=== PATIENT | female | born 1990 | race Caucasian/White ===

== ENCOUNTER → 2017-11-12 09:11 | Outpatient (POV) | payer MEDICAID, SELFPAY | PROVIDERS: Visit Provider Otolaryngology | DX: Z00.00 Encounter for general adult medical examination without abnormal findings (principal) ==

== ENCOUNTER → 2018-04-29 10:28 | Outpatient (CLI) | payer MEDICAID, SELFPAY ==
--- NOTE | 2018-04-29 10:31 | US_ITS ---
US transvaginal HISTORY: Dysfunctional uterine bleeding, irregular periods ITS.REASON: DUB ORDERING PHYSICIAN: Mayuri Diego PATIENT AGE: 27 years Comparison: None FINDINGS: The uterus is 10 x 5 x 6 cm. The endometrium is thickened at 1.5 cm. There are small nabothian cysts noted measuring up to 9 mm. Small cystic areas present within the endometrium nonspecific measuring 3 mm. Right ovary is 3.6 x 2.2 cm. Blood flow is present within the right ovary. There are some small follicles present. The left ovary is not identified. No obvious adnexal mass. Minimal amount of cul-de-sac fluid. IMPRESSION: 1. Thickened endometrium with a tiny cystic area within the endometrium etiology indeterminate. Suggest correlation with test to assure this is not represent a very early gestational sac. 2. Minimal cul-de-sac fluid. The left ovary is not demonstrated.
== END ==
PROVIDERS: Family Provider Family Medicine; PCP Family Medicine; Visit Provider Nurse Practitioner Family
DX: N92.6 Irregular menstruation, unspecified (principal)
CPT/HCPCS: 76830

== ENCOUNTER → 2018-06-10 12:00 | Outpatient (CLI) | payer MEDICAID, SELFPAY ==
--- NOTE | 2018-06-10 12:05 | CT_ITS ---
CT abdomen pelvis wo con CLINICAL INDICATION: ITS.REASON: RIGHT FLANK PAIN, DYSURIA, GROSS HEMATURIA ORDERING PHYSICIAN: Mayuri Diego PATIENT AGE: 27 years COMPARISON: 05/25/2017 TECHNIQUE: Axial images obtained with sagittal and coronal reformats. All CT scans at the facility use one or more dose reduction, viz: automated exposure control, ma/kV adjustment per patient size (including targeted exams where dose is matched to indication, i.e. head), or iterative reconstruction technique. PROCEDURE: Oral Contrast: None IV Contrast: None . FINDINGS: No acute finding in the lung bases. Prior cholecystectomy without ductal dilatation. The liver, spleen, adrenal glands, and pancreas have an unremarkable unenhanced CT appearance. No renal or ureteral calculi. No obvious renal mass. No hydronephrosis. The urinary bladder is nondistended without evidence of stones. No intestinal obstruction or free air. Unremarkable appendix. There is minimal infiltration of the mesenteric fat anterior to the descending colon on image #76 and may be due to an area of prior fat necrosis/inflammation of questionable clinical significance. No evidence of diverticulitis. The uterus is anteverted with mild prominence of the endometrial hypodensity. This may be better evaluated with ultrasound. No acute bony anomalies. IMPRESSION: 1. No evidence of renal or ureteral calculi or hydronephrosis. 2. Anteverted uterus with prominent hypodensity of the endometrium. This may be better evaluated with pelvic ultrasound. Previous ultrasound of 04/29/2018. Demonstrated thickened endometrium.
[2018-06-10 12:33] LABS: Urine Pregnancy, HCG Qual. Negative (Negative)
== END ==
PROVIDERS: PCP Nurse Practitioner Family; Visit Provider Nurse Practitioner Family
DX: R10.9 Unspecified abdominal pain (principal); R30.0 Dysuria; R31.0 Gross hematuria; Z32.00 Encounter for pregnancy test, result unknown
CPT/HCPCS: 74176; 81025

== ENCOUNTER → 2018-10-13 15:10 | Outpatient (CLI) | payer MEDICAID, SELFPAY ==
[2018-10-13 16:14] LABS: Basophils % 0.2 % (0.1-2.0); Eosinophils # 0.1 K/mm3 (0.0-0.4); Eosinophils % 1.4 % (0.1-12.0); Hematocrit 37.9 % (37.0-47.0); Hemoglobin 12.4 g/dL (12.2-16.2); Lymphocytes # 1.2 K/mm3 (0.7-4.5); Lymphocytes % 17.7 % (10-50); Mean Corpuscular HGB Conc 32.6 g/dL (31.8-35.4); Mean Corpuscular Hemoglobin 29.2 pg (27.0-31.2); Mean Corpuscular Volume 89.7 fl (81-99); Mean Platelet Volume 8.1 fl (7.4-10.4); Monocytes # 0.3 K/mm3 (0.1-1.0); Monocytes % 5.1 % (1.7-9.3); Neutrophils % 75.6 % (37.0-80.0); Platelet Count 218 K/mm3 (142-424); Red Blood Count 4.22 M/mm3 (4.20-5.40); Red Cell Distribution Width 13.1 % (11.5-17.5); White Blood Count 6.6 K/mm3 (4.8-10.8)
[2018-10-15 08:27] LABS: HIV Screen 4th Generation wRfx Non Reactive (Non Reactive)
[2018-10-15 08:43] LABS: Hepatitis B Surface Antigen Negative (Negative); Rubella Antibodies, IgG 4.57 index (Immune >0.99)
[2018-10-16 06:12] LABS: Rapid Plasma Reagin Ab Titer Non Reactive (NonRea<1:1)
== END ==
PROVIDERS: Visit Provider Obstetrics & Gynecology
DX: Z34.90 Encounter for supervision of normal pregnancy, unspecified, unspecified trimester (principal)
CPT/HCPCS: 36415; 84443; 85025; 86305; 86592; 86703; 86762; 86850; 87340; G0432

== ENCOUNTER → 2018-12-18 14:45 | Outpatient (CLI) | payer MEDICAID, SELFPAY ==
[2018-12-21 01:06] LABS: AFP Value 20.2 ng/mL (.); DIA MoM 1.28 (.); DIA Value 188.24 pg/mL (.); DSR (Second Trimester) 1 IN 1196 (.); Maternal Age At EDD 29.8 yr (.); OSBR Risk 1 IN 10000 (.); Results Report (.); hCG MoM 1.31 (.); hCG Value 43252 mIU/mL (.); uE3 MoM 1.11 (.); uE3 Value 0.82 ng/mL (.)
[2018-12-22 08:56] LABS: Gestat. Age Based On EDD (.)
== END ==
PROVIDERS: Visit Provider Obstetrics & Gynecology
DX: Z34.90 Encounter for supervision of normal pregnancy, unspecified, unspecified trimester (principal)
CPT/HCPCS: 36415; 82106

== ENCOUNTER → 2019-02-12 14:04 | Outpatient (CLI) | payer MEDICAID, SELFPAY ==
--- NOTE | 2019-02-12 14:24 | XR_ITS ---
XR chest 2V HISTORY: ITS.REASON: BRONCHITIS ORDERING PHYSICIAN: Ernesto Mitchell MD PATIENT AGE: 28 years COMPARISON: 02/26/2018 FINDINGS: Normal heart size. The mediastinum and right hilum are once again noted to be prominent and may be better evaluated with chest CT. Minimal atelectatic changes are present in the right mid lung. The remaining lungs are clear. No acute bony findings. IMPRESSION: 1. Prominent mediastinum and right hilum. Consider chest CT with contrast for further evaluation 2. Minimal right midlung atelectatic change
[2019-02-12 15:59] LABS: Glucose 1 Hour 122 mg/dL (74-106)
== END ==
PROVIDERS: PCP Family Medicine; Visit Provider Obstetrics & Gynecology
DX: Z34.90 Encounter for supervision of normal pregnancy, unspecified, unspecified trimester (principal); J40 Bronchitis, not specified as acute or chronic
CPT/HCPCS: 36415; 71046; 82951

== ENCOUNTER → 2019-02-20 11:39 | Outpatient (CLI) | payer MEDICAID, SELFPAY ==
[2019-02-20 12:11] LABS: Basophils % 0.2 % (0.1-2.0); Eosinophils # 0.1 K/mm3 (0.0-0.4); Eosinophils % 0.5 % (0.1-12.0); Hematocrit 30.1 % (37.0-47.0); Hemoglobin 9.7 g/dL (12.2-16.2); Lymphocytes # 1.8 K/mm3 (0.7-4.5); Lymphocytes % 15.7 % (10-50); Mean Corpuscular HGB Conc 32.2 g/dL (31.8-35.4); Mean Corpuscular Hemoglobin 28.7 pg (27.0-31.2); Mean Platelet Volume 8.5 fl (7.4-10.4); Monocytes # 0.5 K/mm3 (0.1-1.0); Neutrophils # 9.1 K/mm3 (1.8-7.8); Neutrophils % 79.6 % (37.0-80.0); Platelet Count 270 K/mm3 (142-424); Red Blood Count 3.38 M/mm3 (4.20-5.40); Red Cell Distribution Width 13.2 % (11.5-17.5); White Blood Count 11.4 K/mm3 (4.8-10.8)
[2019-02-20 12:51] LABS: Hemoglobin A1C 4.5 % (0.0-7.0)
[2019-02-20 15:01] LABS: Alanine Aminotransferase 22 U/L (12-78); Albumin Level 2.7 gm/dL (3.4-5.0); Albumin/Globulin Ratio 0.7 (1.1-1.8); Alkaline Phosphatase 93 U/L (46-116); Anion Gap 14.5 mEq/L (5-15); Aspartate Amino Transferase 15 U/L (15-37); Bilirubin,Total 0.3 mg/dL (0.2-1.0); Blood Urea Nitrogen 11 mg/dL (7-18); Calcium 8.6 mg/dL (8.5-10.1); Carbon Dioxide 22 mmol/L (21.0-32.0); Chloride 105 mmol/L (98-107); Chol/HDL Ratio 4.1 (1-3.5); Cholesterol 208 mg/dL (140-200); Creatinine,Serum 0.68 mg/dL (0.55-1.02); Estimated Glomerular Filt Rate 102 ml/min (>60); GFR (African American) 124 ML/MIN (>60); Globulin 3.7 gm/dl (1.3-3.2); Glucose 85 mg/dL (74-106); HDL Cholesterol 51 mg/dL (29-89); LDL Cholesterol 123 mg/dL (0-130); Potassium 4.5 mmoL/L (3.5-5.1); Sodium 137 mmol/L (136-145); Thyroid Stimulating Hormone 1.16 uIU/ml (0.358-3.740); Total Protein,Serum 6.4 gm/dL (6.4-8.2); Triglycerides 171 mg/dL (30-200); VLDL Cholesterol 34 mg/dL (0-40)
== END ==
PROVIDERS: Visit Provider Psychiatry & Neurology Psychiatry
DX: F32.9 Major depressive disorder, single episode, unspecified (principal)
CPT/HCPCS: 36415; 80053; 80061; 83036; 84443; 85025

== ENCOUNTER → 2019-03-17 11:16 | Outpatient (CLI) | payer MEDICAID, SELFPAY ==
--- NOTE | 2019-03-17 11:22 | XR_ITS ---
XR chest 2V HISTORY: ITS.REASON: COUGH ORDERING PHYSICIAN: Simi Fall APRN PATIENT AGE: 28 years COMPARISON: 02/12/2019 FINDINGS: The cardiomediastinal silhouette and pulmonary vascularity are within normal limits. There remains increased soft tissue density in the right paratracheal region at the azygos area consistent with a large lymph node similar to the previous exam. The lungs are clear without infiltrates, suspicious nodules, or pleural effusions. No acute bony abnormalities. IMPRESSION: Right paratracheal/azygous adenopathy not significant changed
== END ==
PROVIDERS: PCP Family Medicine; Visit Provider Nurse Practitioner
DX: R05 Cough (principal)
CPT/HCPCS: 71046

== ENCOUNTER → 2019-03-30 14:24 | Outpatient (CLI) | payer MEDICAID, SELFPAY ==
[2019-03-30 14:56] LABS: Basophils % 0.1 % (0.1-2.0); Eosinophils # 0.1 K/mm3 (0.0-0.4); Eosinophils % 0.7 % (0.1-12.0); Hemoglobin 9.6 g/dL (12.2-16.2); Lymphocytes # 1.2 K/mm3 (0.7-4.5); Lymphocytes % 16.6 % (10-50); Mean Corpuscular Hemoglobin 28.6 pg (27.0-31.2); Mean Corpuscular Volume 89.3 fl (81-99); Mean Platelet Volume 8.4 fl (7.4-10.4); Monocytes # 0.4 K/mm3 (0.1-1.0); Monocytes % 5.3 % (1.7-9.3); Neutrophils # 5.6 K/mm3 (1.8-7.8); Neutrophils % 77.3 % (37.0-80.0); Platelet Count 219 K/mm3 (142-424); Red Blood Count 3.36 M/mm3 (4.20-5.40); Red Cell Distribution Width 15.3 % (11.5-17.5); White Blood Count 7.2 K/mm3 (4.8-10.8)
== END ==
PROVIDERS: PCP Family Medicine; Visit Provider Obstetrics & Gynecology
DX: Z34.90 Encounter for supervision of normal pregnancy, unspecified, unspecified trimester (principal)
CPT/HCPCS: 36415; 85025; 93005

== ENCOUNTER → 2019-05-05 14:51 | Outpatient (CLI) | payer MEDICAID, SELFPAY | PROVIDERS: Visit Provider Obstetrics & Gynecology | DX: Z34.90 Encounter for supervision of normal pregnancy, unspecified, unspecified trimester (principal) | CPT/HCPCS: 86403 ==

== ENCOUNTER → 2019-05-05 15:22 | Outpatient (CLI) | payer MEDICAID, SELFPAY ==
[2019-05-05 16:49] LABS: Basophils % 0.2 % (0.1-2.0); Eosinophils % 0.5 % (0.1-12.0); Hematocrit 33.8 % (37.0-47.0); Hemoglobin 10.9 g/dL (12.2-16.2); Lymphocytes # 1.5 K/mm3 (0.7-4.5); Lymphocytes % 18.1 % (10-50); Mean Corpuscular HGB Conc 32.4 g/dL (31.8-35.4); Mean Corpuscular Hemoglobin 30.4 pg (27.0-31.2); Mean Corpuscular Volume 93.8 fl (81-99); Mean Platelet Volume 8.9 fl (7.4-10.4); Monocytes # 0.5 K/mm3 (0.1-1.0); Monocytes % 6.5 % (1.7-9.3); Neutrophils # 6.2 K/mm3 (1.8-7.8); Neutrophils % 74.7 % (37.0-80.0); Platelet Count 232 K/mm3 (142-424); Red Cell Distribution Width 15.3 % (11.5-17.5); White Blood Count 8.3 K/mm3 (4.8-10.8)
[2019-05-05 17:17] LABS: Anion Gap 12.7 mEq/L (5-15); Blood Urea Nitrogen 7 mg/dL (7-18); Calcium 9.4 mg/dL (8.5-10.1); Carbon Dioxide 25 mmol/L (21.0-32.0); Chloride 104 mmol/L (98-107); Creatinine,Serum 0.71 mg/dL (0.55-1.02); Estimated Glomerular Filt Rate 97 ml/min (>60); Free T4 (Free Thyroxine) 0.83 ng/dl (0.76-1.46); GFR (African American) 118 ML/MIN (>60); Glucose 72 mg/dL (74-106); Magnesium 1.7 mg/dL (1.4-2.2); Potassium 4.7 mmoL/L (3.5-5.1); Sodium 137 mmol/L (136-145); Thyroid Stimulating Hormone 1.91 uIU/ml (0.358-3.740)
== END ==
PROVIDERS: PCP Family Medicine; Visit Provider Physician Assistant
DX: R00.0 Tachycardia, unspecified (principal); R00.2 Palpitations; R06.02 Shortness of breath
CPT/HCPCS: 36415; 80048; 83735; 84439; 84443; 85025; 86403; 93306

== ENCOUNTER 2019-05-26 02:59 | Inpatient (IN) ==
[2019-05-26 05:39] LABS: Microscopic, Urine URINE MICROSCOPIC (MICROSCOPIC)
[2019-05-26 05:43] LABS: Basophils % 0.2 % (0.1-2.0); Eosinophils # 0.1 K/mm3 (0.0-0.4); Eosinophils % 0.9 % (0.1-12.0); Hemoglobin 11.3 g/dL (12.2-16.2); Lymphocytes # 2.2 K/mm3 (0.7-4.5); Lymphocytes % 23.1 % (10-50); Mean Corpuscular HGB Conc 33.2 g/dL (31.8-35.4); Mean Corpuscular Volume 93.4 fl (81-99); Mean Platelet Volume 8.4 fl (7.4-10.4); Monocytes # 0.5 K/mm3 (0.1-1.0); Monocytes % 5.3 % (1.7-9.3); Neutrophils # 6.7 K/mm3 (1.8-7.8); Neutrophils % 70.5 % (37.0-80.0); Platelet Count 209 K/mm3 (142-424); Red Blood Count 3.64 M/mm3 (4.20-5.40); Red Cell Distribution Width 15.3 % (11.5-17.5); White Blood Count 9.5 K/mm3 (4.8-10.8)
[2019-05-26 05:47] LABS: Appearance,Urine CLEAR (Clear); Bilirubin,Urine Negative (Negative); Blood, Urine Negative (Negative); Color,Urine YELLOW (Yellow); Glucose,Urine (UA) Negative (Negative); Ketones,Urine Negative (Negative); Leukocyte Esterase,Urine 1+ (Negative); Protein,Urine Negative (Negative); Specific Gravity, Urine 1.025 (1.005-1.030); Urobilinogen,Urine 0.2 EU/dl (0.2)
[2019-05-26 05:55] LABS: Amphetamine/Metha Screen,Urine Negative ng/mL (<1000); Barbiturates Screen,Urine Negative ng/mL (<200); Benzodiazepines Screen,Urine Negative ng/mL (<200); Cannabinoid Screen,Urine Negative ng/mL (<50); Cocaine Screen,Urine Negative ng/mL (<300); Methadone Screen,Urine Negative ng/mL (<300); Opiate Screen,Urine Negative ng/mL (<300); Phencyclidine Screen,Urine Negative ng/mL (<25)
[2019-05-26 05:58] LABS: Bacteria,Urine 2+ /lpf; Mucus,Urine 1+ /lpf
--- NOTE | 2019-05-26 06:37 | Progress Note ---
Internal Medicine - PN: Subj *Date: 05/26/19 *Time: 06:35 (This 28-year-old 8, para 3, AB 4 white female is admitted at 38-5/7 weeks with contractions. Her cervix is 90%, 5 cm, with the presenting vertex at -2 station. Amniotomy revealed clear fluid, and an internal monitor has been placed. She is on a beta-sharlene for a mild arrhythmia (metoprolol), but did not take it this morning. She is requesting an epidural, and will be augmented with intravenous Pitocin. The plan is for vaginal delivery. The kunal ent has signed for and requested a tubal ligation.) Exam Vital signs and Labs for Last 24 Hours: Temp Pulse Resp BP Pulse Ox 98.8 F 82 18 119/76 98 05/26/19 05:38 05/26/19 05:38 05/26/19 05:38 05/26/19 05:38 05/26/19 05:38 Laboratory Results - last 24 hr 05/26/19 05:05: Urine Color Yellow, Urine Appearance Clear, Urine pH 6.0, Ur Specific [place] 1.025, Urine Protein Negative, Urine Glucose (UA) Negative, Urine Ketones Negative, Urine Blood Negative, Urine Nitrate Negative, Urine Bilirubin Negative, Urine Urobilinogen 0.2, Ur Leukocyte Esterase 1+ A, Urine WBC 5-10, Ur Squamous Epith Cells 3-5, Urine Bacteria 2+, Urine Mucus 1+ 05/26/19 05:05: Urine Opiates Screen Negative, Urine Methadone Screen Negative, Ur Barbituates Screen Negative, Ur Phencyclidine Scrn Negative, Ur Amphetamines Screen Negative, U Benzodiazepines Scrn Negative, Urine Cocaine Screen Negative, U Marijuana (THC) Screen Negative 05/26/19 05:30: WBC 9.5, RBC 3.64 L, Hgb 11.3 L, Hct 34.0 L, MCV 93.4, MCH 31.0, MCHC 33.2, RDW 15.3, Plt Count 209, MPV 8.4, Neut % (Auto) 70.5, Lymph % (Auto) 23.1, [place] % (Auto) 5.3, Eos % (Auto) 0.9, Baso % (Auto) 0.2, Neut # (Auto) 6.7, Lymph # (Auto) 2.2, [place] # (Auto) 0.5, Eos # (Auto) 0.1, Baso # (Auto) 0.0 I & O for Last 24 hours: Intake & Output 05/23/19 05/24/19 05/25/19 05/26/19 11:59 11:59 11:59 11:59 Weight 208 lb
--- NOTE | 2019-05-26 07:07 | Progress Note ---
[facility] Anesthesia Checklist - Patient Identification Patient Identification: Arm Band, Verbal (Name & ) - Structural Data Admitted From: Home Planned Operative Procedure/s: Labor Epidural Consent for Planned Operative Procedure(s) Verified: Yes Verified Documents: Surgical Consent, History and Physical - Chart Verification Results Verified: CBC, BMP, UA - Additional verifications Patient : Yes Anesthesia Reactions: No - Airway Assessment C-Spine Mobility Assessed: Yes TMJ Mobility Assessed: Yes Dentition: Good Dentition - Neurological Assessment Level of Consciousness: Awake, Alert, Appropriate, Follows Commands Hx Seizures: No Numbness or tingling in extremities: No - Anesthesia Plan Anesthesia Risk discussed: Yes Anesthesia Plan: Verified ASA Class: II Anesthesia Type: Epidural [facility] History I have reviewed the patient's past medical history: Yes Medical History: Reports:: Anxiety, Depression, Gastroesophageal Reflux Disease( GERD), Migraine, Palpitations, Transient Ischemic Attacks (TIA) (due to migraines) Denies:: Diabetes Mellitus Type 1, Diabetes Mellitus Type 2, Gastrointestinal Bleed, Hypertension *Have you ever received a pneumonia vaccine?: No *Have you received a flu vaccine this season?: No Other Medical History: Reports: Anemia Anesthesia experience/problems:: No complications Laterality Cases: Bilateral: Myringotomy (Ear Tubes), Tonsillectomy Other Surgeries: Yes: Cholecystectomy, Other. No: Amputation: No Fractures: No - *Social History Smoking Status: Former smoker Alcohol Intake: never Alcohol Intake Frequency:: other Substance Use Type: former substance user *Occupational Status:: unemployed *Travel in 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: None Family Hx:: No significant family history Para: 3
--- NOTE | 2019-05-26 07:47 | Progress Note ---
Internal Medicine - PN: Subj *Date: 05/26/19 *Time: 07:46 ( cervix now 6 cm, 90%, with a presenting vertex at -1 station. Epidural is in situ and working well.) Exam Vital signs and Labs for Last 24 Hours: Temp Pulse Resp BP Pulse Ox 98.8 F 82 18 119/76 98 05/26/19 05:38 05/26/19 05:38 05/26/19 05:38 05/26/19 05:38 05/26/19 05:38 Laboratory Results - last 24 hr 05/26/19 05:05: Urine Color Yellow, Urine Appearance Clear, Urine pH 6.0, Ur Specific [place] 1.025, Urine Protein Negative, Urine Glucose (UA) Negative, Urine Ketones Negative, Urine Blood Negative, Urine Nitrate Negative, Urine Bilirubin Negative, Urine Urobilinogen 0.2, Ur Leukocyte Esterase 1+ A, Urine WBC 5-10, Ur Squamous Epith Cells 3-5, Urine Bacteria 2+, Urine Mucus 1+ 05/26/19 05:05: Urine Opiates Screen Negative, Urine Methadone Screen Negative, Ur Barbituates Screen Negative, Ur Phencyclidine Scrn Negative, Ur Amphetamines Screen Negative, U Benzodiazepines Scrn Negative, Urine Cocaine Screen Negative, U Marijuana (THC) Screen Negative 05/26/19 05:30: WBC 9.5, RBC 3.64 L, Hgb 11.3 L, Hct 34.0 L, MCV 93.4, MCH 31.0, MCHC 33.2, RDW 15.3, Plt Count 209, MPV 8.4, Neut % (Auto) 70.5, Lymph % (Auto) 23.1, Kay % (Auto) 5.3, Eos % (Auto) 0.9, Baso % (Auto) 0.2, Neut # (Auto) 6.7, Lymph # (Auto) 2.2, Kay # (Auto) 0.5, Eos # (Auto) 0.1, Baso # (Auto) 0.0 05/26/19 05:30: Blood Type O Negative, Antibody Screen Negative I & O for Last 24 hours: Intake & Output 05/23/19 05/24/19 05/25/19 05/26/19 11:59 11:59 11:59 11:59 Weight 208 lb
--- NOTE | 2019-05-26 08:41 | Progress Note ---
Internal Medicine - PN: Subj *Date: 05/26/19 *Time: 08:41 (Cervix now completely effaced, 7 to 8 cm, presenting vertex at 0 station.) Exam Vital signs and Labs for Last 24 Hours: Temp Pulse Resp BP Pulse Ox 98.8 F 82 18 119/76 98 05/26/19 05:38 05/26/19 05:38 05/26/19 05:38 05/26/19 05:38 05/26/19 05:38 Laboratory Results - last 24 hr 05/26/19 05:05: Urine Color Yellow, Urine Appearance Clear, Urine pH 6.0, Ur Specific [place] 1.025, Urine Protein Negative, Urine Glucose (UA) Negative, Urine Ketones Negative, Urine Blood Negative, Urine Nitrate Negative, Urine Bilirubin Negative, Urine Urobilinogen 0.2, Ur Leukocyte Esterase 1+ A, Urine WBC 5-10, Ur Squamous Epith Cells 3-5, Urine Bacteria 2+, Urine Mucus 1+ 05/26/19 05:05: Urine Opiates Screen Negative, Urine Methadone Screen Negative, Ur Barbituates Screen Negative, Ur Phencyclidine Scrn Negative, Ur Amphetamines Screen Negative, U Benzodiazepines Scrn Negative, Urine Cocaine Screen Negative, U Marijuana (THC) Screen Negative 05/26/19 05:30: WBC 9.5, RBC 3.64 L, Hgb 11.3 L, Hct 34.0 L, MCV 93.4, MCH 31.0, MCHC 33.2, RDW 15.3, Plt Count 209, MPV 8.4, Neut % (Auto) 70.5, Lymph % (Auto) 23.1, [place] % (Auto) 5.3, Eos % (Auto) 0.9, Baso % (Auto) 0.2, Neut # (Auto) 6.7, Lymph # (Auto) 2.2, [place] # (Auto) 0.5, Eos # (Auto) 0.1, Baso # (Auto) 0.0 05/26/19 05:30: Blood Type O Negative, Antibody Screen Negative I & O for Last 24 hours: Intake & Output 05/23/19 05/24/19 05/25/19 05/26/19 11:59 11:59 11:59 11:59 Weight 208 lb
--- NOTE | 2019-05-26 12:32 | Procedure Note ---
- Delivery Note Delivery Date:: 05/26/19 Delivery Time:: 12:12 Anesthesia Type: Epidural Was labor medically induced?: No Gestational age (weeks): 38 Infant delivered prior to 39 weeks?: Yes Justification for early elective delivery:: Active Labor Infant Gender: Male at 1 minute: 8 at 5 minutes: 9 Suction Catheter Type: Elida AF:: Clear Delivery Procedure:: This 28-year-old 8, now para 4, AB 4 white female was admitted at 38 5/7 weeks with irregular contractions at 4 cm of dilatation. She was ultimately augmented with intravenous Pitocin, in labor under labor epidural, which worked well. An amniotomy revealed clear fluid, and an internal monitor was placed. She went steadily to completion and delivered spontaneously, without an episiotomy, at 1212. There was no nuchal cord, nor was there any meconium. The baby's nasal and oropharynx were bulb suction, and the baby cried spontaneously on the perineum, as was delivered. The cord was clamped and cut, 3 vessels were noted to be within the cord, and cord blood was obtained. The cord pH is pending. The baby was an 8/9, 8 pound 7 ounce, 20 inch male infant, born at 1212. The baby was recovered in excellent condition. The placenta delivered spontaneously, intact, at 1214, making the total time in labor 7 hours 14 minutes. The uterus was inspected and was felt to be clean, and was involuting well, with IV Pitocin running. There were no lacerations. The rectovaginal septum was intact at the close of the procedure. The sponge and needle counts correct. The estimated blood loss was 350 cc. The patient tolerated the procedure well, and was recovered in excellent condition. Her blood type is O Rh-, and she will be worked up for Rh immunoglobulin eligibility. Her rubella titer is immune. She plans to bottlefeed. She will be undergoing a bilateral tubal ligation later today. Placental Delivery Description: Spontaneous
--- NOTE | 2019-05-26 13:49 | Operative Note ---
Date of procedure: 05/26/19 () Pre-op Diagnosis:: Desire for sterilization Post-op Diagnosis:: Desire for sterilization Procedure performed:: bilateral tubal ligation Surgeon:: Ernesto Mitchell MD FORGING MACHINE HAND:: Michael Gaxiola Anesthesia: epidural Estimated blood loss (mL): 10 Operative findings:: Normal pelvis Operative note:: After the patient was prepped and draped in usual fashion and epidural anesthesia was activated, a semielliptical subumbilical incision was made and taken down through fat and fascia to the peritoneum, which was entered with Metzenbaum scissors and extended bilaterally. The involuting uterus was encountered. Using a finger sweep, first the right tube, and then the left, was grasped with a Deny clamp and followed out to its fimbriated end, which appeared free. The base of the tented up mid segment of each tube was crushed with a Kia clamp, and ligated with 2-0 Vicryl. The intervening segment of each tube was excised with Metzenbaum scissors, and the stumps coagulated with the Bovie. There was no undue bleeding. The tubes were allowed to drop back into place, and the peritoneum was closed with a running unlocked suture of 2-0 Vicryl. The fascia was closed with a running unlocked suture of #1 Vicryl. The subcutaneous tissue was closed with a running unlocked suture of 2-0 Vicryl. The skin was closed with a subcuticular suture of 3-0 Vicryl, and appropriately dressed. The sponge and needle counts correct. Estimated blood loss was less than 10 cc. The patient tolerated procedure well, and was taken to PACU in excellent condition. Condition: stable Disposition: PACU Specimens:: Bilateral fallopian tube segments Complications:: None
--- NOTE | 2019-05-26 13:55 | Progress Note ---
[facility] Anesthesia Record Part I Intake, IV Amount: 1,000 Estimated blood loss (mL): 0 Urine output (mL): 0 Blood Pressure: 109/50 SaO2: 95 Pulse Rate: 83 Respiratory Rate: 12 Temperature: 97.5 F Patient is:: Awake, Stable Stable to PACU at:: 13:55
--- NOTE | 2019-05-26 13:55 | Progress Note ---
[facility] Anesthesia Record Part II Discharge Time: 14:25 Destination: Obstetric PACU nurse assessment reviewed?: Yes Patient Condition:: Good Anesthesia Complications:: None Swallowing reflex intact?: Yes Cyanosis?: No
--- NOTE | 2019-05-26 16:37 | Progress Note ---
Internal Medicine - PN: Subj *Date: 05/26/19 *Time: 16:37 (Day of delivery and postop tubal ligation. Patient is afebrile. Vital signs stable. Wound clean. Abdomen soft. Lochia normal. Uterine fundus involuting well. Impression: Stable.) Exam Vital signs and Labs for Last 24 Hours: Temp Pulse Resp BP Pulse Ox 97.9 F 88 19 112/78 99 05/26/19 14:35 05/26/19 14:35 05/26/19 14:35 05/26/19 14:35 05/26/19 14:35 Laboratory Results - last 24 hr 05/26/19 05:05: Urine Color Yellow, Urine Appearance Clear, Urine pH 6.0, Ur Specific [place] 1.025, Urine Protein Negative, Urine Glucose (UA) Negative, Urine Ketones Negative, Urine Blood Negative, Urine Nitrate Negative, Urine Bilirubin Negative, Urine Urobilinogen 0.2, Ur Leukocyte Esterase 1+ A, Urine WBC 5-10, Ur Squamous Epith Cells 3-5, Urine Bacteria 2+, Urine Mucus 1+ 05/26/19 05:05: Urine Opiates Screen Negative, Urine Methadone Screen Negative, Ur Barbituates Screen Negative, Ur Phencyclidine Scrn Negative, Ur Amphetamines Screen Negative, U Benzodiazepines Scrn Negative, Urine Cocaine Screen Negative, U Marijuana (THC) Screen Negative 05/26/19 05:30: WBC 9.5, RBC 3.64 L, Hgb 11.3 L, Hct 34.0 L, MCV 93.4, MCH 31.0, MCHC 33.2, RDW 15.3, Plt Count 209, MPV 8.4, Neut % (Auto) 70.5, Lymph % (Auto) 23.1, [place] % (Auto) 5.3, Eos % (Auto) 0.9, Baso % (Auto) 0.2, Neut # (Auto) 6.7, Lymph # (Auto) 2.2, [place] # (Auto) 0.5, Eos # (Auto) 0.1, Baso # (Auto) 0.0 05/26/19 05:30: Blood Type O Negative, Antibody Screen Negative 05/26/19 12:28: Cord ABG pH 7.34 L I & O for Last 24 hours: Intake & Output 05/24/19 05/25/19 05/26/19 09/18/19 11:59 11:59 11:59 11:59 Intake Total 1000 / 1000 Balance 1000 / 1000 Weight 208 lb
[2019-05-27 06:41] LABS: Hematocrit 28.3 % (37.0-47.0); Hemoglobin 9.3 g/dL (12.2-16.2)
--- NOTE | 2019-05-27 08:54 | Progress Note ---
Internal Medicine - PN: Subj *Date: 05/27/19 *Time: 08:53 Interval history: This is and postop day #1. The patient is afebrile. Vital signs stable. Wound clean. Abdomen soft. Lochia normal. Uterine fundus involuting well. Hemoglobin 9.3 g, but clinically stable. Impression: Stable. Exam Vital signs and Labs for Last 24 Hours: Temp Pulse Resp BP Pulse Ox 97.9 F 88 19 112/78 99 05/26/19 14:35 05/26/19 14:35 05/26/19 14:35 05/26/19 14:35 05/26/19 14:35 Laboratory Results - last 24 hr 05/26/19 12:28: Cord ABG pH 7.34 L 05/27/19 06:17: Hgb 9.3 L, Hct 28.3 L I & O for Last 24 hours: Intake & Output 05/24/19 05/25/19 05/26/19 05/27/19 11:59 11:59 11:59 11:59 Intake Total 1000 / 1000 Balance 1000 / 1000 Weight 208 lb Microbiology Reports for the Last 24 Hours: Microbiology 05/26/19 05:05 Urine,Clean Catch Urine Culture - Preliminary
[2019-05-27 16:26] VITALS: BP 111/63
--- NOTE | 2019-05-28 06:36 | Progress Note ---
Internal Medicine - PN: Subj *Date: 05/28/19 *Time: 06:35 (This is and postop day #2. The patient is afebrile. Vital signs stable. Wound clean. Abdomen soft. Lochia normal. She will be discharged today.) Exam Vital signs and Labs for Last 24 Hours: Temp Pulse Resp BP Pulse Ox 98.3 F 78 18 111/63 99 05/27/19 16:00 05/27/19 16:00 05/27/19 16:00 05/27/19 16:00 05/27/19 16:00 Laboratory Results - last 24 hr 05/27/19 06:17: Hgb 9.3 L, Hct 28.3 L I & O for Last 24 hours: Intake & Output 05/25/19 05/26/19 05/27/19 05/28/19 11:59 11:59 11:59 11:59 Intake Total 1000 / 1000 Balance 1000 / 1000 Weight 208 lb Microbiology Reports for the Last 24 Hours: Microbiology 05/26/19 05:05 Urine,Clean Catch Urine Culture - Preliminary
--- NOTE | 2019-05-28 06:39 | Discharge Summary ---
General - General Admission date:: 05/26/19 Discharge date: 05/28/19 (This 28-year-old 8, now para 4, AB 4 white female was admitted at 38-5/7 weeks with irregular contractions at 3 to 4 cm of dilatation. She labored under labor epidural, which worked well, and went steadily to completion, delivering spontaneously, without an episiotomy, at 1212 on 05/26/2019. The baby was an 8/9, 8 pound 7 ounce, 20 inch male infant, who is bottlefeeding, has been circumcised, and is done well. , the patient underwent a bilateral tubal ligation per her request, under epidural anesthesia, without complications. and postoperatively, the patient is done well. She is eating and ambulating, and has had a bowel movement. Her wound is clean. Her abdomen is soft. Her uterine fundus has involuted well. Her lochia is normal. She is not a smoker. Her hemoglobin on admission was 11.3 g; postoperatively it is 9.3 g, but she is clinically stable. She is discharged home on the second /postoperative day on iron and vitamins, and on Tylenol and Motrin as needed for pain. She is also given a prescription for Percocet 5/325 (#20), 1 p.o. q. 6 age as needed pain. She is given appropriate instructions as to diet, exercise, and wound care, and she is to return the office in 2 weeks for follow-up. Her blood type is O Rh-, but the baby is also O-, and therefore she is not a candidate for RhoGam. Her rubella titer is immune.) Objective Vital signs: Temp Pulse Resp BP Pulse Ox 98.3 F 78 18 111/63 99 05/27/19 16:00 05/27/19 16:00 05/27/19 16:00 05/27/19 16:00 05/27/19 16:00 Results Labs on day of discharge: Labs from last 24 hours 05/27/19 06:17 Hgb 9.3 L Hct 28.3 L Preliminary micro results at discharge 05/26/19 05:05 Urine Culture - Preliminary Urine,Clean Catch Discharge Plan - Patient Discharge Instructions DIET: advance to your usual diet Additional Instructions: NO HEAVY LIFTING OR STRENUOUS ACTIVITY NOTHING IN VAGINA FOR 6 WEEKS NO DRIVING WHILE TAKING PRESCRIPTION PAIN MEDICATION FOLLOW-UP WITH DR. PETERS IN 2 WEEKS Patient Instructions: Depression, Hemorrhage, [facility] Post Discharge Instructions - Follow up Plan Disposition: Home, Self-Nursing Home Medications: Home Medications Medication Instructions Recorded Confirmed Type multivitamin tablet 1 tab PO DAILY 05/05/19 05/26/19 History Bisoprolol Fumarate [Bisoprolol 5 mg PO DAILY 05/26/19 05/26/19 History 5mg Tablet] Omeprazole Magnesium [Prilosec OTC] 20 mg PO DAILY 05/26/19 05/26/19 History Buspirone HCl [Buspar 5mg tablet] 5 mg PO TID 05/27/19 05/27/19 History Ferrous Sulfate [Iron] 325 mg PO TID 05/27/19 05/27/19 History Fluoxetine HCl [Prozac] 10 mg PO DAILY 05/27/19 05/27/19 History Oxycodone HCl [OxyIR 5mg tablet] 5 mg PO Q6HP PRN #20 tab 05/28/19 Rx Prescriptions/Medication Reconciliation: New Oxycodone HCl [OxyIR 5mg tablet] 5 mg PO Q6HP PRN #20 tab PRN Reason: Moderate Pain Continued multivitamin tablet 1 tab PO DAILY Omeprazole Magnesium [Prilosec OTC] 20 mg PO DAILY Bisoprolol Fumarate [Bisoprolol 5mg Tablet] 5 mg PO DAILY Buspirone HCl [Buspar 5mg tablet] 5 mg PO TID Ferrous Sulfate [Iron] 325 mg PO TID Fluoxetine HCl [Prozac] 10 mg PO DAILY - Problem Reconciliation Problems Reviewed?: Yes
== END 2019-05-28 09:50 | disposition home or self-care (01) | DRG 798 ==
LOC: OB 04:49
PROVIDERS: ADMIT Obstetrics & Gynecology; ATTEND Obstetrics & Gynecology
CPT/HCPCS: 36415; 59025; 80305; 81001; 82800; 85014; 85018; 85025; 86850; 87086; 88302; C1758; S0077

== ENCOUNTER → 2019-09-22 12:03 | Outpatient (CLI) | payer OTHER, SELFPAY ==
--- NOTE | 2019-09-22 12:07 | XR_ITS ---
PROCEDURE: XR LUMBAR SPINE MIN 4V CLINICAL INDICATION: LOW BACK PAIN,LT SIDE SCIATICA COMPARISON: XR LUMBAR SPINE 2-3V from 07/11/2019 FINDINGS: Minimal lumbar curvature convex left. No fracture or dislocation. The disc spaces are well preserved. No lytic or blastic change. IMPRESSION: No change with no acute finding Dictated by: Vaibhav Rob MD 09/22/2019 13:42 Electronically signed by Vaibhav Rob MD in [place] 09/22/2019 13:42
== END ==
PROVIDERS: PCP Family Medicine; Visit Provider Nurse Practitioner Family
DX: M54.42 Lumbago with sciatica, left side (principal); M54.32 Sciatica, left side
CPT/HCPCS: 72110

== ENCOUNTER 2019-11-18 10:43 | Outpatient (RCR) | payer OTHER, SELFPAY ==
--- NOTE | 2019-11-18 11:52 | HMH.PTOPEV ---
PT Outpatient Evaluation Rehab PT Outpatient Evaluation Start: 11/18/19 11:09 Freq: Status: Active Protocol: Document 11/18/19 11:37 ALYALICIA (Rec: 11/18/19 11:51 HERMINIA [id number]) Electronically Signed By Toño Seay, PT 11/18/19 11:37 Outpatient Therapy Subjective History Subjective History Patient is a 29 year old female prensenting to outpatient PT with reports of acute LBP with BLE radicular symptoms L>R starting approx 1 month ago. Pt reports that she received an epidural injection during delivery and back pain started shortly after. Most recent imaging negative. Special tests indicate L upslip. Pt reports hx of CVA in 2004. Chief Complaint Pain Symptom Type Ache,Tingling,Shooting Symptoms Relieved By Rest/Positioning,Heat Prior Functional Limitations None Current Functional Limitations Lifting,Housework,Standing, Squatting,Recreation Activity, Walking,Bending/Stooping Symptom Description Constant but Variable Level of pain today (0-10) 4 Pain scale - at its best (0-10) 3 Pain scale - at its worst (0-10) 8 Lumbopelvic Eval Posture Thoracic Spine Posture Standing Position Increased Kyphosis Lumbar Spine Posture Standing Position Increased Lordosis Assistive device Assistive Devices None / NA Palapation tenderness left lumbar spinal tenderness Yes: 3/4 paraspinal tenderness Yes: buttock tenderness Yes: Accessory Movement L4 left L5 left S1 left Range of Motion Lumbar Spine Active Flexion Range of 74 Motion (degrees) Lumbar Spine Active Extension Range of 18 Motion (degrees) Left Lumbar Spine Lateral Flexion Active 32 Range of Motion (degrees) Right Lumbar Spine Lateral Flexion 39 Active Range of Motion (degrees) Lumbar Spine ROM Limitations Soft Tissue Tightness,Bony Restriction Manual Muscle Test Right Knee Extension Strength Grade 4 Good Knee Flexion Strength Grade 4 Good Hip Flexion Strength Grade 4 Good Hip Abduction Strength Grade 4 Good Ankle Dorsiflexion Strength Grade 4 Good Gastronemius/Soleus Strength Grade 4 Good Left Knee Extension Strength Grade 4- Good- Knee Flexion Strength Grade 4- Good- Hip Flexion Strength Grade
== END 2019-11-18 10:45 | disposition home or self-care (01) ==
LOC: PT 10:43
PROVIDERS: PCP Family Medicine; Visit Provider Nurse Practitioner Family
DX: M54.42 Lumbago with sciatica, left side (principal); M54.41 Lumbago with sciatica, right side
CPT/HCPCS: 97163

== ENCOUNTER → 2019-12-07 13:02 | Outpatient (POV) | payer OTHER, SELFPAY | PROVIDERS: PCP Family Medicine; Visit Provider Specialist | DX: M79.605 Pain in left leg (principal); M79.604 Pain in right leg; R20.2 Paresthesia of skin; R20.0 Anesthesia of skin | CPT/HCPCS: 95886; 95909 ==

== ENCOUNTER 2020-05-08 12:48 | Emergency (ER) | payer OTHER, SELFPAY ==
[2020-05-08 12:49] VITALS: BP 134/84; PULSE 80; RESP 16; TEMP 36.8; O2SAT 98; BMI 37.3
--- NOTE | 2020-05-08 13:02 | ECG_ITS ---
APPROVED REPORT Exam: Resting ECG HR:75 bpm ECG Measurements Heart Rate 75 AXES MO 148 P 55 QRSd 86 QRS 40 QT 382 T 37 QTc 426 <Conclusion> Normal sinus rhythm Normal ECG Electronically signed by : Adin Newby, 05/08/2020 19:46:27
--- NOTE | 2020-05-08 13:14 | HMH.EDGENADL ---
ED Disposition Clinical Impression: Viral upper respiratory infection Disposition: Home, Self-Care Condition on Discharge: Good Instructions: DI for Viral Upper Respiratory Infection -- Adult Additional Instructions: Tylenol or ibuprofen for pain or fever. Robitussin for cough. Off work for 2 days. Quarantine until COVID-19 test results known. Call the emergency department in 2 days for COVID-19 test result. additional instructions for UPPER RESPIRATORY INFECTION: See your physician if not improving in 3-4 days or if worsening. Rest and drink plenty of fluids. Return immediately if you have an uncontrollable fever greater than 104 degrees, difficulty breathing or shortness of breath, persistent vomiting, or inability to swallow. Referrals: Kulwinder Smiley MD [Primary Care Provider] - Forms: Work/School Release - Critical Care Critical Care Time: No Attestation: On 05/08/20, the high probability of a clinically significant, sudden or life threatening deterioration of the following system(s) required my full and direct attention, intervention and personal management. The time I documented below is in addition to time spent performing reported procedures but includes the following listed in this critical care notation. Medical Decision Making - Neel Inquiry Pt receiving controlled substance: No Vital Signs: 05/08/20 12:49 05/08/20 13:19 05/08/20 14:03 Temperature 98.3 F 98.3 F Temperature Source Oral Oral Pulse Rate 84 Pulse Rate [Right Radial] 80 84 Respiratory Rate 16 20 20 Blood Pressure 170/75 H Blood Pressure [Right Arm] 134/84 170/75 H Blood Pressure Mean [Right Arm] 100 106 Blood Pressure Source Automatic Cuff Blood Pressure Source [Right Arm] Manual Cuff/ Auscultation Blood Pressure Position Sitting Blood Pressure Position [Right Arm] Sitting 02 Sat by Pulse Oximetry 98 98 Oxygen Delivery Method Room Air Room Air Room Air Orders (Tests/Meds): ORDERS Category Date Time Status Covid-19 Nasal PCR Sendout [facility] 05/08/20 13:40 Received - Radiology Data #1 Image(s): Chest Image Reviewed: Yes I reviewed the patient's radiology image Preliminary Findings: Normal/NAD - ECG Data Tracing #1 EKG interpreted by Javy Pate MD: Rhythm: sinus Rate: 75 [place]: normal Ectopy: none Conduction: normal ST Segment Changes: none T Wave Changes: none Q Waves: none No evidence of acute ischemia or injury General Adult HPI - General Stated complaint: sore throat, cough, runny nose Time Seen by Provider: 05/08/20 13:22 - History of Present Illness HPI narrative: The day history of cough with clear sputum, tight chest, nasal burning and congestion, throat pain when she coughs. She has felt warm but has not taken her temperature. No known exposure to COVID-19 or other illnesses. She was tested negative for COVID-19 about a month ago because her child was sick, at that time she was not ill. - Related Data Home Medications Medication Instructions Recorded Confirmed Fluoxetine HCl [Prozac 20mg 20 mg PO DAILY 05/08/20 05/08/20 Capsule] Allergies Allergy/AdvReac Type Severity Reaction Status Date / Time penicillin G [PENICILLIN G] Allergy Mild I-RASH Verified 07/03/19 09:28 Iodinated Contrast Media Allergy Unknown Unknown Verified 07/03/19 09:28 [Iodinated Contrast Media - allergy Oral and] reaction Penicillins Allergy Unknown Unknown Verified 07/03/19 09:28 allergy reaction Pertussis Vaccines Allergy Unknown Unknown Verified 07/03/19 09:28 [PERTUSSIS VACCINES] allergy reaction [facility] History - Hepatitis A Screen Attestation statement:: This patient has been screened for Hepatitis A risk factors. I have reviewed the patient's past medical history: Yes Medical History: Reports:: Anxiety, Cerebrovascular Accident, Depression, Gastroesophageal Reflux Disease(GERD), Migraine, Palpitations,
[2020-05-08 13:19] VITALS: BP 170/75; PULSE 84; RESP 20; O2SAT 98
--- NOTE | 2020-05-08 13:31 | XR_ITS ---
PROCEDURE: XR CHEST 2V CLINICAL HISTORY: cough COMPARISON: CR CXR2V XR chest 2V from 02/26/2018 FINDINGS: Normal heart size. There is fullness in the right azygos region consistent with adenopathy. There is also mild prominence of the left hilum. Consider chest CT for further evaluation. The prominence of the right hilum may be slightly less compared to the previous study however, there was patient rotation on that exam. The lungs are clear without infiltrates, suspicious nodules, or pleural effusions. No acute bony abnormalities. IMPRESSION: Hilar adenopathy. Consider chest CT with contrast for more thorough evaluation. Dictated by: Vaibhav Rob MD 05/08/2020 13:59 Vaibhav Rob MD in [place] 05/08/2020 13:59
[2020-05-08 14:03] VITALS: BP 170/75; PULSE 84; RESP 20; TEMP 36.8; O2SAT 98
[2020-05-10 10:10] LABS: Covid-19 Nasal PCR Sendout UK NOT DETECTED
== END 2020-05-08 14:04 | disposition home or self-care (01) ==
PROVIDERS: Emergency Provider Emergency Medicine; PCP Family Medicine
DX: J06.9 Acute upper respiratory infection, unspecified (principal); Z03.818 Encounter for observation for suspected exposure to other biological agents ruled out; F41.8 Other specified anxiety disorders; K21.9 Gastro-esophageal reflux disease without esophagitis; G43.709 Chronic migraine without aura, not intractable, without status migrainosus; Z79.899 Other long term (current) drug therapy; Z88.0 Allergy status to penicillin; Z88.7 Allergy status to serum and vaccine
CPT/HCPCS: 71046; 93005; 99283; U0003

== ENCOUNTER → 2020-05-30 15:07 | Outpatient (CLI) | payer OTHER, SELFPAY ==
--- NOTE | 2020-05-30 15:20 | XR_ITS ---
PROCEDURE: XR SHOULDER LT MIN 2V CLINICAL INDICATION: LT SHOULDER PAIN,LT SHOULDER DECREASED ROM COMPARISON: No exams were available for comparison FINDINGS: No fracture or dislocation. No lytic or blastic change. There is normal mineralization. The joint spaces are well-preserved. No significant degenerative/arthritic changes. No erosive changes evident. Other findings:None. IMPRESSION: No acute findings. Dictated by: Vaibhav Rob MD 05/30/2020 17:08 Vaibhav Rob MD in [place] 05/30/2020 17:08
== END ==
PROVIDERS: PCP Nurse Practitioner Family; Visit Provider Nurse Practitioner Family
DX: M25.512 Pain in left shoulder (principal); M25.612 Stiffness of left shoulder, not elsewhere classified
CPT/HCPCS: 73030

== ENCOUNTER 2020-06-06 11:31 | Emergency (ER) | payer OTHER, SELFPAY ==
[2020-06-06 11:52] VITALS: BP 116/70; PULSE 82; RESP 19; TEMP 36.6; O2SAT 98; BMI 37.4
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
[2020-06-06 12:15] VITALS: BP 116/70; PULSE 82; RESP 19; TEMP 36.6; O2SAT 98
[2020-06-06 12:38] LABS: UTC Pregnancy Test, Urine Negative (Negative)
== END 2020-06-06 12:18 | disposition home or self-care (01) ==
PROVIDERS: Emergency Provider Nurse Practitioner; PCP Family Medicine
DX: M25.512 Pain in left shoulder (principal); M62.838 Other muscle spasm; K21.9 Gastro-esophageal reflux disease without esophagitis; F41.8 Other specified anxiety disorders; G43.709 Chronic migraine without aura, not intractable, without status migrainosus; F17.210 Nicotine dependence, cigarettes, uncomplicated; Z88.0 Allergy status to penicillin; Z88.7 Allergy status to serum and vaccine; F43.12 Post-traumatic stress disorder, chronic; Z79.899 Other long term (current) drug therapy
CPT/HCPCS: 81025; 99201

== ENCOUNTER → 2020-06-09 15:34 | Outpatient (CLI) | payer OTHER, SELFPAY ==
--- NOTE | 2020-06-09 | MR_ITS ---
PROCEDURE: MR HEAD/BRAIN WO CON Referring Doctor: Mayuri Diego Patient Age:29Y CLINICAL INDICATION: MIGRAINES History of migraine headaches and history of 2strokes COMPARISON: No exams were available for comparison TECHNIQUE: Multiplanar multisequence MRI brain. Sagittal axial and coronal imaging.. T1, T2, FLAIR, ADC/diffusion sequences utilized FINDINGS: Normal anatomy. Normal cranial cervical junction. The sella appears normal. The pituitary and suprasellar region unremarkable The ventricles and basal cisterns appear normal. No hydrocephalus Axial and coronal FLAIR images reveal no deep white-matter lesions evident-which can be seen as a sequela of severe migraine headaches. . No prior territorial infarct evident. No prior lacunar infarct appreciated. No focal atrophy of significant old event ADC diffusion images reveal no recent or acute infarct. Posterior fossa appears satisfactory. CP angles clear IAC's unremarkable. Mastoid air cell region unremarkable. The visualized paranasal sinuses appear clear. Root of tooth appears to accounts for mild indentation of the floor the right maxillary sinus. Otherwise paranasal sinuses unremarkable. Orbits unremarkable. Mild engorgement nasal turbinates bilaterally with minor sigmoid deviation of the nasal septum. The skull and scalp appear satisfactory.. IMPRESSION: Negative unremarkable MRI of brain.. . No prior nor current infarct evident on today's MR. . No deep white matter high-signal foci Dictated by: Dominic Hernandez MD 06/11/2020 12:03 Dominic Hernandez MD in [place] 06/11/2020 12:03
== END ==
PROVIDERS: PCP Family Medicine; Visit Provider Nurse Practitioner Family
DX: R51.9 Headache, unspecified (principal); H54.62 Unqualified visual loss, left eye, normal vision right eye
CPT/HCPCS: 70551

== ENCOUNTER → 2020-06-22 16:19 | Outpatient (CLI) | payer OTHER, SELFPAY ==
--- NOTE | 2020-06-22 | MR_ITS ---
PROCEDURE: MR SHOULDER LT WO CON CLINICAL INDICATION: LEFT SHOULDER PAIN AND INTERMITTENT DISLOCATION PT. C/O CHRONIC LEFT SHOULDER PAIN AND INTERMITTENT DISLOCATION. SHE STATES SHE HAD BEEN DEALING WITH THIS SINCE SHE WAS A CHILD AND DENIES ANY RECENT TRAUMA OR INJURY. PRIOR LEFT SHOULDER XRAY 05/30/20 COMPARISON: CR XR SHOULDER LT MIN 2V from 05/30/2020 TECHNIQUE: Routine multiplanar multi echo sequences are performed without gadolinium enhancement. FINDINGS: There is mild thickening of the supraspinatus and infraspinatus tendons with slight increase in T2 signal suggesting mild tendinopathy/tendinosis. There is no evidence of rotator cuff tear. The subscapularis tendon and teres minor tendon is intact. No significant degenerative change. No effusions. The bicipital tendon is in place. No subacromial stenosis. IMPRESSION: Mild tendinopathy/tendinosis of the supraspinatus and infraspinatus tendons otherwise negative MRI of the left shoulder. No evidence of rotator cuff tear Dictated by: Vaibhav Rob MD 06/26/2020 10:44 Vaibhav Rob MD in [place] 06/26/2020 10:44
== END ==
PROVIDERS: PCP Family Medicine; Visit Provider Nurse Practitioner Family
DX: M25.512 Pain in left shoulder (principal); M25.612 Stiffness of left shoulder, not elsewhere classified
CPT/HCPCS: 73221

== ENCOUNTER → 2020-08-02 15:02 | Outpatient (CLI) | payer OTHER, SELFPAY ==
--- NOTE | 2020-08-02 15:06 | US_ITS ---
PROCEDURE: US TRANSVAGINAL CLINICAL INDICATION: LLQ ABD PAIN COMPARISON: US TRANVAG US transvaginal from 04/29/2018 FINDINGS: UTERUS: 9cm x 7cmx 5cm with a combined endometrial thickness of 9.3mm LEFT OVARY: [id number] with a volume of 9.5ml. RIGHT OVARY: [id number] with a volume of 13.3ml. Nabothian cysts are present at the cervical region. There are small follicles on both sides with bilateral ovarian blood flow. Node dominant mass or cyst evident. No cul-de-sac fluid IMPRESSION: Unremarkable pelvic ultrasound Dictated by: Vaibhav Rob MD 08/02/2020 17:29 Vaibhav Rob MD in [place] 08/02/2020 17:29
== END ==
PROVIDERS: PCP Family Medicine; Visit Provider Nurse Practitioner
DX: R10.32 Left lower quadrant pain (principal)
CPT/HCPCS: 76830

== ENCOUNTER 2020-08-12 10:00 | Outpatient (RCR) | payer OTHER, SELFPAY ==
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
== END 2020-08-12 10:56 | disposition home or self-care (01) ==
LOC: OT 10:00
PROVIDERS: PCP Family Medicine; Visit Provider Nurse Practitioner
DX: M25.512 Pain in left shoulder; M25.612 Stiffness of left shoulder, not elsewhere classified
CPT/HCPCS: 97014; 97033; 97110; 97165; G0283

== ENCOUNTER → 2020-08-18 09:55 | Outpatient (CLI) | payer OTHER, SELFPAY ==
--- NOTE | 2020-08-18 09:55 | US_ITS ---
PROCEDURE: US THYROID CLINICAL INDICATION: thyroid enlargement COMPARISON: No exams were available for comparison FINDINGS: Right lobe: 3.9 x 1.5 x 2.4 cm there is a mixed 2 x 1 x 1.4 cm nodule in the mid polar region on the right posteriorly. The nodule is with central area mostly isoechoic with central cystic region. The nodule is well-circumscribed with no calcifications apparent. TR level 3 less than 2.5 cm. Six-month follow-up suggested Left lobe: 4.8 x 1.6 x 1.8 cm. There are 3 nodules on the left. In the upper pole there is a slightly hypoechoic nodule with posterior cystic appearance measuring 1 x 0.8 cm. No calcifications. There is some heterogeneous echogenicity in the lower pole without discrete nodular margins. Additionally in the lower pole there is a hypoechoic area 1.4 by 1.3 cm wider than tall well-circumscribed with no calcifications. TR level 3. Less than 2.5 cm. Suggest 6 month follow-up. Isthmus: Unremarkable Additional findings: IMPRESSION: Bilateral thyroid nodules as described above TR level 3 less than 2.5 cm. Suggest 6 month follow-up Dictated by: Vaibhav Rob MD 08/18/2020 16:07 Vaibhav Rob MD in [place] 08/18/2020 16:07
== END ==
PROVIDERS: PCP Family Medicine; Visit Provider Nurse Practitioner Family
DX: E04.9 Nontoxic goiter, unspecified (principal); G43.909 Migraine, unspecified, not intractable, without status migrainosus; G47.8 Other sleep disorders; G47.9 Sleep disorder, unspecified; R07.89 Other chest pain; R63.5 Abnormal weight gain; Z68.38 Body mass index [BMI] 38.0-38.9, adult; Z86.79 Personal history of other diseases of the circulatory system
CPT/HCPCS: 76536; 95806

== ENCOUNTER → 2020-08-19 11:34 | Outpatient (CLI) | payer OTHER, SELFPAY ==
--- NOTE | 2020-08-19 11:37 | CT_ITS ---
PROCEDURE: CT ABDOMEN PELVIS WO CON CLINICAL INDICATION: LLQ ABD PAIN, FEVER, NAUSEA COMPARISON: CT ABDPELWO CT abdomen pelvis wo con from 06/10/2018 TECHNIQUE: Axial images obtained with sagittal and coronal reformats. All CT scans at the facility use one or more dose reduction, viz: automated exposure control, ma/kV adjustment per patient size (including targeted exams where dose is matched to indication, i.e. head), or iterative reconstruction technique. FINDINGS: LOWER THORAX: No acute finding ABDOMEN & PELVIS: There has been a prior cholecystectomy. The liver, spleen, adrenal glands, pancreas, and kidneys have an unremarkable appearance. No renal or ureteral calculi. No evidence of appendicitis. No intestinal obstruction or free air. No pelvic mass or abnormal fluid collection. There is some prominence of the left ovary which is nonspecific. There is a minimal amount of fluid in the cul-de-sac. No evidence diverticulitis IMPRESSION: 1. No acute finding. 2. Nonspecific mild prominence of the left ovary which could be better evaluated with ultrasound in this patient with left lower quadrant pain. Minimal amount of cul-de-sac fluid noted. Dictated by: Vaibhav Rob MD 08/19/2020 12:58 Vaibhav Rob MD in [place] 08/19/2020 12:58
== END ==
PROVIDERS: PCP Family Medicine; Visit Provider Nurse Practitioner Family
DX: R10.32 Left lower quadrant pain (principal); R50.9 Fever, unspecified; R11.0 Nausea
CPT/HCPCS: 74176

== ENCOUNTER → 2020-09-13 10:55 | Outpatient (POV) | payer OTHER, SELFPAY | PROVIDERS: Visit Provider Otolaryngology | DX: Z00.00 Encounter for general adult medical examination without abnormal findings (principal) ==

== ENCOUNTER 2020-11-05 17:56 | Emergency (ER) | payer OTHER, SELFPAY ==
[2020-11-05 18:00] VITALS: BP 131/86; PULSE 66; RESP 18; TEMP 36.8; O2SAT 97; BMI 37.9
--- NOTE | 2020-11-05 18:20 | HMH.EDUTC ---
[facility] – [place] Disposition Clinical Impression: Hives of unknown origin Disposition: Home, Self-Care Condition on Discharge: Good Instructions: Hives (Alternative Therapy), DI for Hives, Hives Additional Instructions: benadryl q8 prn steroid dose pack start tomorrow if symptoms worsen return or be seen in ed need appointment with dr irvin for allergy testing Prescriptions: predniSONE [Prednisone 20mg Tab] 20 mg PO BID #10 tab Transmission Status: Pending to [id number] Referrals: Kulwinder Smiley MD [Primary Care Provider] - Venkatesh Irvin [Referring] - Time of Disposition: 18:44 Medical Decision Making - Neel Inquiry Pt receiving controlled substance: No Vital Signs: 11/05/20 18:00 Temperature 98.2 F Temperature Source Oral Pulse Rate [Right Brachial] 66 Respiratory Rate 18 Blood Pressure [Right Arm] 131/86 Blood Pressure Mean [Right Arm] 101 Blood Pressure Source [Right Arm] Automatic Cuff Blood Pressure Position [Right Arm] Sitting 02 Sat by Pulse Oximetry 97 Oxygen Delivery Method Room Air [facility] [place] HPI - General Chief complaint: Urgent Treatment Center Stated complaint: rash all over body Time Seen by Provider: 11/05/20 18:20 Mode of Arrival: Ambulatory Source of Information: Patient Limitations: No Limitations Description of Symptoms (Recalled from Triage Doc. by RN): PATIENT C/O RED, RAISED, ITCHY RASH TO BILATERAL LEGS AND UP BACK THAT STARTED A FEW HOURS AGO. DENIES ANY CHANGE IN SOAP OR LAUNDRY DETERGENT. SHE STATES SHE HELPED MOVE A COUCH AND DRANK A DIET COKE TODAY (NORMALLY DOES NOT DRINK SODA) HEENT Symptoms (Recalled from RN notes): No Resp Symptoms (Recalled from RN notes): No Skin Symptoms (Recalled from RN notes): Yes MS Symptoms (Recalled from RN notes): No Functional Status (Recalled from RN notes): WNL - History of Present Illness Provider Complaint: 30 yr [facility]/o red raised.itchy rash to rhonda arms,rhodna legs,chest,back and buttocks. Pt states it started a few hours ago.denies soa,throat closing. denies changing soaps. pt states she helped her dad move a couch but she has slept on the couch before. Pt states she did drink a diet coke today. (NORMALLY DOES NOT DRINK SODA) - Related Data Home Medications Medication Instructions Recorded Confirmed Aspirin [Aspirin 81mg chewable 81 mg PO DAILY 11/05/20 11/05/20 tab] Labetalol HCl 100 mg PO DAILY 11/05/20 11/05/20 Rimegepant Sulfate [Nurtec Odt] 75 mg PO DAILY 11/05/20 11/05/20 Previous Rx's Medication Instructions Recorded predniSONE [Prednisone 20mg 20 mg PO BID #10 tab 11/05/20 Tab] Allergies Allergy/AdvReac Type Severity Reaction Status Date / Time penicillin G [PENICILLIN G] Allergy Mild I-RASH Verified 11/03/20 09:59 Iodinated Contrast Media Allergy Unknown Unknown Verified 11/03/20 09:59 [Iodinated Contrast Media - allergy Oral and] reaction Penicillins Allergy Unknown Unknown Verified 11/03/20 09:59 allergy reaction Pertussis Vaccines Allergy Unknown Unknown Verified 11/03/20 09:59 [PERTUSSIS VACCINES] allergy reaction - Worker's Comp Is this a Worker's Comp case?: No [facility] History - Hepatitis A Screen Drug use history?: No High risk sexual behaviors?: No History of sexually transmitted infection?: No Currently employed?: No Childcare worker?: No Do you have indoor plumbing?: Yes Do you have electricity?: Yes Attestation statement:: This patient has been screened for Hepatitis A risk factors. I have reviewed the patient's past medical history: Yes Medical History: Reports:: Anxiety, Cerebrovascular Accident, Depression, Gastroesophageal Reflux Disease(GERD), Migraine, Palpitations, Transient Ischemic Attacks (TIA) Denies:: Diabetes Mellitus Type 1, Diabetes Mellitus Type 2, Gastrointestinal Bleed, Hypertension, Seizures Other Medical History: Reports: Anemia Comment: MIGRAINES. PTSD. MANIC DEPRESSION. SEVERE ANXI
[2020-11-05 18:34] VITALS: BP 131/86; PULSE 66; RESP 18; TEMP 36.8; O2SAT 97
== END 2020-11-05 18:50 | disposition home or self-care (01) ==
PROVIDERS: Emergency Provider Nurse Practitioner Family; PCP Family Medicine
DX: L50.9 Urticaria, unspecified (principal); F41.8 Other specified anxiety disorders; Z87.891 Personal history of nicotine dependence
CPT/HCPCS: 96372; 99202; G0463

== ENCOUNTER → 2020-11-07 16:17 | Outpatient (CLI) | payer OTHER, SELFPAY | PROVIDERS: PCP Family Medicine; Visit Provider Physician Assistant | DX: R00.0 Tachycardia, unspecified (principal) | CPT/HCPCS: 93270 ==

== ENCOUNTER → 2020-11-10 15:39 | Outpatient (CLI) | payer OTHER, SELFPAY ==
[2020-11-12 13:10] LABS: FSH 6.5 mIU/mL (.)
== END ==
PROVIDERS: Visit Provider Obstetrics & Gynecology
DX: Z13.29 Encounter for screening for other suspected endocrine disorder (principal)
CPT/HCPCS: 36415; 83001

== ENCOUNTER → 2020-11-17 10:18 | Outpatient (CLI) | payer OTHER, SELFPAY ==
--- NOTE | 2020-11-17 10:19 | CA_ITS ---
APPROVED REPORT EXAM: Comprehensive 2D, Doppler, and color-flow Echocardiogram Dental Assistant Instructor: Della Lynch, RCS, RVS Ht: 5 ft 6 in Wt: 236lbs BSA: 2.15 HR: 60 bpm BP: 124/71 mmHg Rhythm: NSR Indications: SOB, Palpitations, ?stroke Echo Enhancing Agent Indication: Rule Out Septal Defect Agent(s) / Amount(s) Used: Agitated Saline 30 cc Comments: Agitated saline injected at rest, with sniff and during valsalva maneuver. 2D Dimensions LVOT 1.91 cm (M/F) 1.5-2.5 LA Volume 48.30 mL LA Volume Index 22.00 mL/m2 (M/F) 16-34 M-Mode Dimensions RVDd 2.43 cm (0.9-2.6) LA Diam 3.47 cm (1.9-4.0) LVDd 4.51 cm (3.5-5.7) Ao Diam 2.93 cm (2.0-3.7) LVDs 3.26 cm (3.5-5.7) IVSd 1.29 cm (0.6-1.1) PWd 0.75 cm (0.6-1.1) EF (Teich) 59.80% EPSs 0.43 cm FS 31.80% EDV (Teich) 106.50 mL TAPSE 1.69 (<1.7) ESV (Teich) 42.80 mL LV Diastology E Decel Time 243.00 (160-240 msec) E/A Ratio 1.07 MED E' 8.90 (< 7 cm/sec) MED A' 8.90 cm/s E'/MED E' Ratio 9.11 (>14) LAT E' 13.30 (<10 cm/sec) LAT A' 9.90 cm/s E/LAT E' Ratio 6.10 (>14) Aortic Valve LVOT Max 104.00 (70-110 cm/s) LVOT VTI 20.36 cm AoV Peak Jai. 144.00 (50-130 cm/s) AO Peak GR. 8.30 mmHg AO Mean GR. 3.90 (<5 mmHg) AO VTI 27.75 (18-25 cm) MAIKEL (VTI) 2.10 (2.5-4.5 cm2) Mitral Valve MV A Velocity 76.00 (40-130 cm/s) E/A Ratio 1.07 MV Decel. Time 243.00 (160-240 ms) Pulmonary Valve PV Peak Velocity 86.00 (50-150 cm/s) IL End VMAX 173.00 cm/s Tricuspid Valve TR P. Velocity 262.00 cm/s RAP Estimate 10.00 mmHg RVSP 37.60 mmHg Left Ventricle Left atrium is normal size, left ventricle is normal size, there is no concentric left ventricular hypertrophy, visually estimated ejection fraction 55% with no obvious regional wall motion abnormality, diastolic parameters are within normal range. Right Ventricle Right atrium and right ventricle are normal size and contractility. Atria Intra-atrial septum is intact, there is no flow across the interatrial septum, agitated saline contrast study fails 25 intracardiac shunt. Mitral Valve Mitral valve is grossly normal, there is trace mitral regurgitation. Tricuspid Valve Tricuspid grossly normal, there is trace tricuspid regurgitation, calculated right ventricular systolic pressure within normal range. Pulmonic Valve Pulmonic valve is poorly visualized. Great Vessels Aortic root is normal size. Pericardium No significant pericardial effusion noted. Conclusion 1. Normal left ventricular size, preserved left ventricular systolic function, visually estimated ejection fraction 55% with no regional wall motion abnormality, diastolic parameters are within normal range. 2. Trace mitral and tricuspid regurgitation, calculated right ventricular systolic pressure within normal range. 3. Agitated saline contrast study fails to identify intracardiac shunt. Electronically signed by : Alex Marc, 11/17/2020 16:33:32
== END ==
PROVIDERS: PCP Family Medicine; Visit Provider Physician Assistant
DX: R07.89 Other chest pain (principal); R06.02 Shortness of breath; R00.2 Palpitations
CPT/HCPCS: 93306

== ENCOUNTER 2021-02-25 14:37 | Emergency (ER) | payer OTHER, SELFPAY ==
[2021-02-25 14:37] VITALS: BP 124/75; PULSE 96; RESP 18; TEMP 36.8; O2SAT 97; BMI 37.1
--- NOTE | 2021-02-25 14:53 | CT_ITS ---
PROCEDURE INFORMATION: Exam: CT Abdomen And Pelvis Without Contrast Exam date and time: 02/25/2021 2:53 PM Age: 30 years old Clinical indication: Abdominal pain; Flank; Right; Prior surgery; Surgery date: 6+ months; Surgery type: Gb; Additional info: R. Flank pain TECHNIQUE: Imaging protocol: Computed tomography of the abdomen and pelvis without contrast. Radiation optimization: All CT scans at this facility use at least one of these dose optimization techniques: automated exposure control; mA and/or kV adjustment per patient size (includes targeted exams where dose is matched to clinical indication); or iterative reconstruction. COMPARISON: CT ABDOMEN PELVIS WO CON 08/19/2020 12:25 PM FINDINGS: Liver: Normal. No mass. Gallbladder and bile ducts: Cholecystectomy. Pancreas: Normal. No ductal dilation. Spleen: Multiple calcified splenic granulomata. Adrenal glands: Normal. No mass. Kidneys and ureters: Normal. No hydronephrosis. Stomach and bowel: Unremarkable. No obstruction. No mucosal thickening. Appendix: No evidence of appendicitis. Intraperitoneal space: Unremarkable. No free air. No significant fluid collection. Vasculature: Unremarkable. No abdominal aortic aneurysm. Lymph nodes: Multiple large calcified lymph nodes in the subcarinal and bilateral hilar regions. Urinary bladder: Unremarkable as visualized. Reproductive: 4.4 cm left ovarian cyst. Bones/joints: Unremarkable. No acute fracture. Soft tissues: Unremarkable. IMPRESSION: 1. 4.4 cm left ovarian cyst. 2. Chronic granulomatous disease.
[2021-02-25 14:56] LABS: Basophils % 0.4 % (0.1-2.0); Eosinophils # 0.2 K/mm3 (0.0-0.4); Eosinophils % 2.5 % (0.1-12.0); Hematocrit 40.1 % (37.0-47.0); Hemoglobin 13.7 g/dL (12.2-16.2); Lymphocytes # 2.1 K/mm3 (0.7-4.5); Lymphocytes % 21.6 % (10-50); Mean Corpuscular HGB Conc 34.2 g/dL (31.8-35.4); Mean Corpuscular Hemoglobin 30.2 pg (27.0-31.2); Mean Corpuscular Volume 88.3 fl (81-99); Mean Platelet Volume 8.6 fl (7.4-10.4); Monocytes # 0.5 K/mm3 (0.1-1.0); Monocytes % 5.4 % (1.7-9.3); Neutrophils # 6.9 K/mm3 (1.8-7.8); Neutrophils % 70.2 % (37.0-80.0); Platelet Count 292 K/mm3 (142-424); Red Blood Count 4.55 M/mm3 (4.20-5.40); Red Cell Distribution Width 12.8 % (11.5-17.5); White Blood Count 9.9 K/mm3 (4.8-10.8)
[2021-02-25 15:00] VITALS: BP 126/74; PULSE 91; O2SAT 98
[2021-02-25 15:07] LABS: Alanine Aminotransferase 51 U/L (12-78); Albumin Level 4.6 g/dl (3.5-5.0); Albumin/Globulin Ratio 1.4 (1.1-1.8); Alkaline Phosphatase 97 U/L (38-126); Anion Gap 13.2 mEq/L (5-15); Aspartate Amino Transferase 36 U/L (14-36); Bilirubin,Total 0.6 mg/dl (0.2-1.3); Blood Urea Nitrogen 11 mg/dl (7-17); Calcium 9.3 mg/dl (8.4-10.2); Carbon Dioxide 26 mmol/L (22.0-30.0); Chloride 103 mmol/L (98-107); Estimated Glomerular Filt Rate 84 ml/min (>60); GFR (African American) 101 ML/MIN (>60); Globulin 3.4 g/dL (1.3-3.2); Glucose 107 mg/dl (74-100); Lipase 70 U/L (23-300); Potassium 4.2 mmoL/L (3.5-5.1); Sodium 138 mmol/L (136-145)
--- NOTE | 2021-02-25 15:13 | HMH.EDABDPAI ---
ED Disposition Clinical Impression: Ovarian cyst Qualifiers: Laterality: left Qualified Code(s): N83.202 - Unspecified ovarian cyst, left side Disposition: Home, Self-Care Condition on Discharge: Good Instructions: DI for Acute Abdominal Pain Prescriptions: Ketorolac Tromethamine [Toradol 10mg tablet] 10 mg PO Q6H 5 Days #20 tab Transmission Status: Pending to [id number] Referrals: Provider,Referral, [Referring] - - Critical Care Critical Care Time: No Attestation: On 02/25/21, the high probability of a clinically significant, sudden or life threatening deterioration of the following system(s) required my full and direct attention, intervention and personal management. The time I documented below is in addition to time spent performing reported procedures but includes the following listed in this critical care notation. Medical Decision Making - Medical Records Medical records reviewed: Yes: I reviewed the patient's medical records. - Neel Inquiry Pt receiving controlled substance: No Vital Signs: 02/25/21 14:37 02/25/21 15:00 Temperature 98.3 F Temperature Source Oral Pulse Rate 91 H Pulse Rate [Left] 96 H Respiratory Rate 18 Blood Pressure 126/74 Blood Pressure [Right Arm] 124/75 Blood Pressure Mean 86 Blood Pressure Mean [Right Arm] 91 Blood Pressure Position [Right Arm] Sitting 02 Sat by Pulse Oximetry 97 98 Oxygen Delivery Method Room Air - Lab Data Lab results reviewed: Yes: I reviewed the patient's lab results. Lab Results 02/25/21 14:40: WBC 9.9, RBC 4.55, Hgb 13.7, Hct 40.1, MCV 88.3, MCH 30.2, MCHC 34.2, RDW 12.8, Plt Count 292, MPV 8.6, Neut % (Auto) 70.2, Lymph % (Auto) 21.6, [place] % (Auto) 5.4, Eos % (Auto) 2.5, Baso % (Auto) 0.4, Neut # (Auto) 6.9, Lymph # (Auto) 2.1, [place] # (Auto) 0.5, Eos # (Auto) 0.2, Baso # (Auto) 0.0 02/25/21 14:40: Sodium 138, Potassium 4.2, Chloride 103, Carbon Dioxide 26, Anion Gap 13.2, BUN 11, Creatinine 0.80, Estimated GFR 84, Est GFR ( Amer) 101, Glucose 107 H, Calcium 9.3, Total Bilirubin 0.6, AST 36, ALT 51, Alkaline Phosphatase 97, Total Protein 8.0, Albumin 4.6, Globulin 3.4 H, Albumin/Globulin Ratio 1.4 02/25/21 14:40: Lipase 70 Result diagrams: 02/25/21 14:40 02/25/21 14:40 Orders (Tests/Meds): ED MEDICATIONS Discontinued Medications Generic Name Dose Route Start Last Admin Trade Name Rajendraq PRN Reason Stop Dose Admin Ketorolac Tromethamine 30 mg 02/25/21 14:53 02/25/21 15:15 Ketorolac 30mg/Ml Vial IV 02/25/21 14:54 30 mg ONCE ONE Administration Ondansetron HCl 8 mg 02/25/21 14:53 02/25/21 15:15 Ondansetron 4mg/2ml Vial IV 02/25/21 14:54 8 mg ONCE ONE Administration ORDERS Category Date Time Status Drug Screen,Urine Stat Lab 02/25/21 14:48 Ordered Lactic Acid Stat Lab 02/25/21 14:48 Ordered Urinalysis and Microscopic Stat Lab 02/25/21 14:47 Ordered - CT Data CT Scan: Abdomen, Pelvis Time Received: 16:[address] Reviewed: Yes: I have reviewed the patient's CT results, I have viewed the radiologist's interpretation Preliminary Findings: Abnormal Findings Narrative: FINDINGS: Liver: Normal. No mass. Gallbladder and bile ducts: Cholecystectomy. Pancreas: Normal. No ductal dilation. Spleen: Multiple calcified splenic granulomata. Adrenal glands: Normal. No mass. Kidneys and ureters: Normal. No hydronephrosis. Stomach and bowel: Unremarkable. No obstruction. No mucosal thickening. Appendix: No evidence of appendicitis. Intraperitoneal space: Unremarkable. No free air. No significant fluid collection. Vasculature: Unremarkable. No abdominal aortic aneurysm. Lymph nodes: Multiple large calcified lymph nodes in the subcarinal and bilateral hilar regions. Urinary bladder: Unremarkable as visualized. Reproductive: 4.4 cm left ovarian cyst. Bones/joints: Unremarkable. No acute fracture. Soft tissues: Unremarkable. Abdominal Pain HPI - Gen
[2021-02-25 16:23] VITALS: BP 117/69; PULSE 69; RESP 16; TEMP 36.7; O2SAT 98
[2021-02-25 16:46] VITALS: BP 124/72; PULSE 75; RESP 20; O2SAT 97
== END 2021-02-25 16:55 | disposition home or self-care (01) ==
PROVIDERS: Emergency Provider Emergency Medicine; PCP Family Medicine
DX: N83.202 Unspecified ovarian cyst, left side (principal); F41.8 Other specified anxiety disorders; K21.9 Gastro-esophageal reflux disease without esophagitis; Z87.891 Personal history of nicotine dependence; Z79.899 Other long term (current) drug therapy
CPT/HCPCS: 74176; 80053; 83690; 85025; 96374; 96375; 99282; J2405

== ENCOUNTER → 2021-03-01 08:40 | Outpatient (CLI) | payer OTHER, SELFPAY ==
--- NOTE | 2021-03-01 08:44 | US_ITS ---
PROCEDURE: US TRANSVAGINAL CLINICAL INDICATION: ovarian cyst COMPARISON: US US TRANSVAGINAL from 08/02/[address] ABDOMEN PELVIS WO CON from 02/25/2021 FINDINGS: Nabothian cyst is present posteriorly measuring 13 mm. The uterus is 11 x 5 x 7 cm. Combined endometrial thickness is 7 mm. No uterine mass apparent. The right ovary is 3.6 x 1.5 cm containing a small follicle. The left ovary is 6 x 5 cm there is a 4 x 4 by 4 cm left ovarian cyst. There are few thin internal septa. There is blood flow to the left ovary and to the right ovary. No cul-de-sac fluid evident. IMPRESSION: 4 cm complex left ovarian cyst. There are few internal septa. Suggest 3 month follow-up. Dictated by: Vaibhav Rob MD 03/02/2021 15:16 Vaibhav Rob MD in [place] 03/02/2021 15:16
== END ==
PROVIDERS: PCP Family Medicine; Visit Provider Obstetrics & Gynecology
DX: N83.209 Unspecified ovarian cyst, unspecified side (principal)
CPT/HCPCS: 76830

== ENCOUNTER → 2021-03-08 13:03 | Outpatient (CLI) | payer OTHER, SELFPAY ==
--- NOTE | 2021-03-08 13:10 | US_ITS ---
PROCEDURE: US THYROID CLINICAL INDICATION: THYROID NODULE COMPARISON: US US THYROID from 08/18/2020 FINDINGS: Right lobe: 4.5 x 1.9 x 1.7 cm. Complex cystic and solid nodule is present in the mid polar region measuring 2 x 0.9 cm not significantly changed Left lobe: 4.8 x 1.4 x 1.8 cm. A solid-appearing nodule is present in the upper pole at 13 x 7 mm not significantly changed. In the mid polar region there is an area of heterogeneous echogenicity measuring 2.2 x 1 cm not significantly changed. In the lower pole there is a 1.7 x 1 cm solid-appearing heterogeneous nodule not significantly changed. Nodules mentioned above are TR level 3 nodules less than 2.5 cm and are not significantly changed. Continue monitoring suggested in 6 months to confirm 1 year stability Isthmus: Unremarkable Additional findings: IMPRESSION: Overall no change bilateral thyroid nodules. Dictated by: Vaibhav Rob MD 03/08/2021 16:32 Vaibhav Rob MD in [place] 03/08/2021 16:32
== END ==
PROVIDERS: PCP Family Medicine; Visit Provider Otolaryngology
DX: E04.9 Nontoxic goiter, unspecified (principal)
CPT/HCPCS: 76536

== ENCOUNTER → 2021-03-28 15:13 | Outpatient (CLI) | payer OTHER, SELFPAY ==
--- NOTE | 2021-03-28 15:18 | CT_ITS ---
PROCEDURE: CT FACIAL BONES WO CON CLINICAL HISTORY: BILATERAL TEMPOROMANDIBULAR JOINT DISORDER COMPARISON: No exams were available for comparison TECHNIQUE: Axial images obtained with sagittal and coronal reformats. All CT scans at the facility use one or more dose reduction, viz: automated exposure control, ma/kV adjustment per patient size (including targeted exams where dose is matched to indication, i.e. head), or iterative reconstruction technique. FINDINGS: Bones: Unremarkable. No fracture, lytic, or blastic changes evident. Bilateral temporomandibular joints demonstrate satisfactory alignment without evidence of dislocation or fractures. Extracranial soft tissues: Unremarkable. Sinuses: Mucosal thickening of the right maxillary sinus. The bilateral ostiomeatal complexes are patent. Frontoethmoidal and sphenoid ethmoidal recesses are patent. Orbits: Unremarkable. Other: No other pertinent findings. IMPRESSION: Temporomandibular joints demonstrate satisfactory alignment. No acute fractures or degenerative changes. If clinically indicated, MRI of the temporomandibular joints may be useful in further evaluation. Dictated by: Coco Valentine 03/28/2021 16:32 Coco Valentine in [facility] 03/28/2021 16:32
== END ==
PROVIDERS: PCP Family Medicine; Visit Provider Nurse Practitioner Family
DX: M26.603 Bilateral temporomandibular joint disorder, unspecified (principal)
CPT/HCPCS: 70486

== ENCOUNTER → 2021-04-04 10:09 | Outpatient (CLI) | payer OTHER, SELFPAY ==
[2021-04-04 11:58] LABS: Vitamin B12 279 pg/mL (239-931)
== END ==
PROVIDERS: Visit Provider Specialist
DX: G43.711 Chronic migraine without aura, intractable, with status migrainosus
CPT/HCPCS: 36415; 82607

== ENCOUNTER → 2021-04-13 16:26 | Outpatient (CLI) | payer OTHER, SELFPAY ==
--- NOTE | 2021-04-13 16:27 | MR_ITS ---
PROCEDURE: MR VENOGRAPHY HEAD WO CON CLINICAL INDICATION: Severe headache following Covid vaccine Migraine headache. Short term memory loss [id number]. COMPARISON: MR MR HEAD/BRAIN WO CON from 04/13/2021 TECHNIQUE: 2D [id number] images obtained without contrast with MIP reformats. FINDINGS: The left-sided transverse sinus is much smaller than the right and there is an missing some segment at the junction with the sagittal sinus and right transverse sinus. This could be due to congenital variant, occlusion, or very slow flow. A collateral vein is present within the tentorium anterior to the left transverse sinus suggesting that the small caliber of the transverse sinus and possible occlusion versus congenital absence medially is a chronic process. No venous infarcts were evident on the MRI performed on the same day. The sagittal sinus posteriorly also shows decreased signal and caliber which could be due to flow artifact. The right transverse sinus, straight sinus and remaining superior sagittal sinus has an unremarkable appearance. The left sigmoid sinus also has an unremarkable appearance. The vein of Toy is patent. IMPRESSION: Small caliber of the left transverse sinus with nonvisualization of the medial component. These findings could be congenital. Chronic occlusion is an additional consideration. There is a fairly prominent collateral vein in the left aspect of the tentorium anterior to the transverse sinus suggesting a chronic or congenital process. CT angiography/venography may provide further evaluation to determine the patency of the medial aspect of the left transverse sinus if clinically warranted. Dictated by: Vaibhav Rob MD 04/14/2021 08:33 Vaibhav Rob MD in [place] 04/14/2021 08:33
--- NOTE | 2021-04-13 16:27 | MR_ITS ---
PROCEDURE: MR HEAD/BRAIN WO CON CLINICAL INDICATION: Severe headache following Covid vaccine Migraine headache. Short term memory loss [id number]. COMPARISON: MR MR HEAD/BRAIN WO CON from 06/09/2020 TECHNIQUE: Routine multiplanar multi echo sequences are performed without gadolinium enhancement. FINDINGS: No midline shift, mass effect, intracranial hemorrhage, or hydrocephalus is evident. No areas of restricted diffusion that would indicate an acute infarction. The cerebellopontine angles, cerebellum, and brainstem have an unremarkable appearance. White matter has an unremarkable appearance. The pituitary, optic chiasm, corpus callosum, and craniocervical junction have an unremarkable appearance. The hippocampal gyri are unremarkable in the temporal horns are symmetric. No mastoid effusion or sinus air-fluid level. No venous infarcts apparent. IMPRESSION: Negative MRI of the brain without contrast. Dictated by: Vaibhav Rob MD 04/14/2021 08:21 Vaibhav Rob MD in [facility] 04/14/2021 08:21
== END ==
PROVIDERS: PCP Family Medicine; Visit Provider Specialist
DX: G43.711 Chronic migraine without aura, intractable, with status migrainosus (principal)
CPT/HCPCS: 70544; 70551

== ENCOUNTER → 2021-07-06 13:38 | Outpatient (CLI) | payer OTHER, SELFPAY ==
--- NOTE | 2021-07-06 13:41 | US_ITS ---
PROCEDURE: US TRANSVAGINAL CLINICAL INDICATION: repeat Follow-up previous transvaginal ultrasound 03/01/2021 for follow-up of left ovarian cyst COMPARISON: US US TRANSVAGINAL from 03/01/2021 FINDINGS: The uterus is normal in size and shows homogeneous echogenicity. The endometrial echo measures 0.94 cm. There is a prominent a biopsy and cyst in the cervix measuring 1.1 x 0.9 by 1.4 cm. The left ovary is normal in size and there has been apparent decompression of the previously seen ovarian cyst as it is not seen on today's study. The right ovary is normal size and there is a small follicular cyst measuring 2 point 2 x 2.0 by 2.4 cm. There may be a small amount of debris within the cyst. There is a small amount of cul-de-sac fluid likely physiologic. IMPRESSION: Interval resolution of left ovarian cyst, stable to mildly in cyst in the cervix, small right ovarian cyst noted Dictated by: Dr. Tiburcio Moseley MD 07/07/2021 12:16 Dr. Tiburcio Moseley MD in [facility] 07/07/2021 12:16
== END ==
PROVIDERS: PCP Family Medicine; Visit Provider Obstetrics & Gynecology
DX: N83.209 Unspecified ovarian cyst, unspecified side (principal)
CPT/HCPCS: 76830

== ENCOUNTER → 2021-08-29 08:58 | Outpatient (CLI) | payer OTHER, SELFPAY ==
--- NOTE | 2021-08-29 09:02 | XR_ITS ---
PROCEDURE: XR KUB CLINICAL INDICATION: RT FLANK PAIN, GROSS HEMATURIA, DECREASED URINE OUTPUT COMPARISON: No exams were available for comparison FINDINGS: Mild amount of retained colonic feces. No acute bony anomalies. There scattered pelvic calcifications which may represent phleboliths. IMPRESSION: No acute findings. Dictated by: Vaibhav Rob MD 08/29/2021 17:30 Vaibhav Rob MD in [facility] 08/29/2021 17:30
[2021-08-29 09:57] LABS: Basophils % 0.5 % (0.1-2.0); Eosinophils # 0.2 K/mm3 (0.0-0.4); Eosinophils % 2.4 % (0.1-12.0); Hematocrit 42.1 % (37.0-47.0); Hemoglobin 13.9 g/dL (12.2-16.2); Lymphocytes # 1.6 K/mm3 (0.7-4.5); Lymphocytes % 18.7 % (10-50); Mean Corpuscular Hemoglobin 29.7 pg (27.0-31.2); Mean Corpuscular Volume 90.1 fl (81-99); Monocytes # 0.4 K/mm3 (0.1-1.0); Neutrophils # 6.2 K/mm3 (1.8-7.8); Neutrophils % 73.6 % (37.0-80.0); Platelet Count 326 K/mm3 (142-424); Red Blood Count 4.68 M/mm3 (4.20-5.40); Red Cell Distribution Width 12.2 % (11.5-17.5); White Blood Count 8.4 K/mm3 (4.8-10.8)
[2021-08-29 10:50] LABS: Chloride 105 mmol/L (98-107)
[2021-08-29 10:51] LABS: Potassium 5.1 mmoL/L (3.5-5.1); Sodium 140 mmol/L (136-145)
[2021-08-29 10:53] LABS: Alanine Aminotransferase 13 U/L (12-78); Albumin/Globulin Ratio 1.6 (1.1-1.8); Alkaline Phosphatase 83 U/L (38-126); Anion Gap 13.1 mEq/L (5-15); Aspartate Amino Transferase 22 U/L (14-36); Blood Urea Nitrogen 17 mg/dl (7-17); Calcium 9.1 mg/dl (8.4-10.2); Carbon Dioxide 27 mmol/L (22.0-30.0); Estimated Glomerular Filt Rate 64 ml/min (>60); GFR (African American) 78 ML/MIN (>60); Globulin 2.5 g/dL (1.3-3.2); Glucose 94 mg/dl (74-100); Total Protein,Serum 6.5 g/dl (6.3-8.2)
[2021-08-29 10:56] LABS: Bilirubin,Total < 0.1 mg/dl (0.2-1.3)
== END ==
PROVIDERS: PCP Family Medicine; Visit Provider Nurse Practitioner Family
DX: R10.9 Unspecified abdominal pain (principal); R31.0 Gross hematuria; R34 Anuria and oliguria
CPT/HCPCS: 36415; 74018; 80053; 85025

== ENCOUNTER → 2021-09-22 15:04 | Outpatient (CLI) | payer OTHER, SELFPAY | PROVIDERS: PCP Nurse Practitioner Family; Visit Provider Nurse Practitioner Family | DX: Z20.822 Contact with and (suspected) exposure to COVID-19 (principal); R50.9 Fever, unspecified; R05.1 Acute cough | CPT/HCPCS: C9803; U0003; U0005 ==

== ENCOUNTER → 2021-11-02 11:05 | Outpatient (CLI) | payer OTHER, SELFPAY ==
--- NOTE | 2021-11-02 11:08 | XR_ITS ---
FINAL REPORT CLINICAL HISTORY: ACUTE MIDLINE LOW BACK PAIN WITHOUT SCIATICA, pain for 12 days COMPARISON: September 22, 2019 FINDINGS: AP and lateral views were obtained. There is no acute fracture. There is no malalignment. The disc spaces are maintained. IMPRESSION: No acute process. Reviewed, Interpreted and Dictated by Bradley Avila MD Transcribed by Ian Beth Authenticated by Bradley Avila MD on 11/02/2021 12:52:41 PM [facility]
== END ==
PROVIDERS: PCP Nurse Practitioner Family; Visit Provider Nurse Practitioner Family
DX: M54.50 Low back pain, unspecified (principal)
CPT/HCPCS: 72100

== ENCOUNTER → 2021-11-16 09:58 | Outpatient (CLI) | payer OTHER, SELFPAY ==
[2021-11-16 11:36] LABS: Alanine Aminotransferase 31 U/L (12-78); Albumin Level 4.1 g/dl (3.5-5.0); Alkaline Phosphatase 81 U/L (38-126); Aspartate Amino Transferase 32 U/L (14-36); Bilirubin,Direct 0.1 mg/dl (0.0-0.4); Bilirubin,Indirect 0.4 mg/dL (0.0-0.9); Bilirubin,Total 0.5 mg/dl (0.2-1.3); Bilirubin,Unconjugated 0.4 mg/dL (0.0-1.1); Chol/HDL Ratio 4.4 (1-3.5); Cholesterol 208 mg/dl (140-200); HDL Cholesterol 47 mg/dl (40-60); Total Protein,Serum 6.8 g/dl (6.3-8.2); Triglycerides 175 mg/dl (30-150); VLDL Cholesterol 35 mg/dL (0-40)
[2021-11-16 11:47] LABS: Direct LDL Cholesterol 132.23 mg/dL (100-129)
[2021-11-16 12:26] LABS: Vitamin B12 304 pg/mL (239-931)
[2021-11-17 16:44] LABS: Anti-Centromere B Antibodies <0.2 AI (0.0-0.9); Anti-DNA (DS) Ab Qn 2 IU/mL (0-9); Anti-Jo-1 <0.2 AI (0.0-0.9); Antichromatin Antibodies <0.2 AI (0.0-0.9); Antiscleroderma-70 Antibodies <0.2 AI (0.0-0.9); RNP Antibodies <0.2 AI (0.0-0.9); Sjogren's Anti-SS-A 5.8 AI (0.0-0.9); Sjogren's Anti-SS-B <0.2 AI (0.0-0.9)
[2021-12-10 21:31] LABS: Anti-Centromere B Abs Charge YES; Anti-DNA (DS) Ab Charge YES; Anti-Jo-1 Charge YES; Antichromatin Abs Charge YES; Antinuclear Antibodies (ANA) Positive; Antiscleroderma-70 Abs Charge YES; RNP Antibodies Charge YES; Sjogren's Anti-SS-A Ab Charge YES; Sjogren's Anti-SS-B Ab Charge YES; Smith Antibodies Charge YES
== END ==
PROVIDERS: PCP Nurse Practitioner Family; Visit Provider Nurse Practitioner Family
DX: F19.11 Other psychoactive substance abuse, in remission (principal); I10 Essential (primary) hypertension; R53.83 Other fatigue; Z86.73 Personal history of transient ischemic attack (TIA), and cerebral infarction without residual deficits
CPT/HCPCS: 36415; 80061; 80076; 82607; 86038; 86225; 86235

== ENCOUNTER → 2021-11-17 12:53 | Outpatient (CLI) | payer OTHER, SELFPAY ==
[2021-11-17 13:52] LABS: Alanine Aminotransferase 37 U/L (12-78); Albumin Level 3.8 g/dl (3.5-5.0); Alkaline Phosphatase 73 U/L (38-126); Aspartate Amino Transferase 38 U/L (14-36); Bilirubin,Direct 0.1 mg/dl (0.0-0.4); Bilirubin,Indirect 0.2 mg/dL (0.0-0.9); Bilirubin,Total 0.3 mg/dl (0.2-1.3); Bilirubin,Unconjugated 0.2 mg/dL (0.0-1.1); Chol/HDL Ratio 4.7 (1-3.5); Cholesterol 186 mg/dl (140-200); HDL Cholesterol 40 mg/dl (40-60); Total Protein,Serum 6.3 g/dl (6.3-8.2); Triglycerides 199 mg/dl (30-150); VLDL Cholesterol 40 mg/dL (0-40)
[2021-11-17 14:03] LABS: Direct LDL Cholesterol 122.02 mg/dL (100-129)
[2021-11-18 09:14] LABS: Homocyst(e)ine 6.2 umol/L (0.0-14.5)
[2021-11-23 13:12] LABS: Methylmalonic Acid 129 nmol/L (0-378)
== END ==
PROVIDERS: Physician Assistant; Visit Provider Nurse Practitioner Family
DX: E78.5 Hyperlipidemia, unspecified (principal); E53.8 Deficiency of other specified B group vitamins; R29.2 Abnormal reflex; R53.83 Other fatigue; Z68.36 Body mass index [BMI] 36.0-36.9, adult; G43.719 Chronic migraine without aura, intractable, without status migrainosus
CPT/HCPCS: 36415; 80061; 80076; 82131; 83090

== ENCOUNTER → 2022-03-01 16:13 | Outpatient (CLI) | payer OTHER, SELFPAY ==
[2022-03-05 15:08] LABS: Anti-Centromere B Antibodies <0.2 AI (0.0-0.9); Anti-DNA (DS) Ab Qn 2 IU/mL (0-9); Anti-Jo-1 <0.2 AI (0.0-0.9); Antichromatin Antibodies <0.2 AI (0.0-0.9); Antiscleroderma-70 Antibodies <0.2 AI (0.0-0.9); RNP Antibodies <0.2 AI (0.0-0.9); Sjogren's Anti-SS-A 5.5 AI (0.0-0.9); Sjogren's Anti-SS-B <0.2 AI (0.0-0.9)
[2022-03-15 08:48] LABS: Anti-Centromere B Abs Charge YES; Anti-DNA (DS) Ab Charge YES; Anti-Jo-1 Charge YES; Antichromatin Abs Charge YES; Antinuclear Antibodies (ANA) POSITIVE; Antiscleroderma-70 Abs Charge YES; RNP Antibodies Charge YES; Sjogren's Anti-SS-A Ab Charge YES; Sjogren's Anti-SS-B Ab Charge YES; Smith Antibodies Charge YES
== END ==
PROVIDERS: PCP Nurse Practitioner Family; Visit Provider Nurse Practitioner Family
DX: R76.8 Other specified abnormal immunological findings in serum (principal)
CPT/HCPCS: 36415; 86038; 86225; 86235

== ENCOUNTER 2022-03-06 19:14 | Emergency (ER) | payer OTHER, SELFPAY ==
[2022-03-06 19:35] VITALS: BP 119/78; PULSE 109; RESP 19; TEMP 37; O2SAT 98; BMI 36.8
--- NOTE | 2022-03-06 19:44 | HMH.EDUTC ---
[facility] [place] Disposition Clinical Impression: Laryngitis Pharyngitis Qualifiers: Pharyngitis/tonsillitis etiology: unspecified etiology Qualified Code(s): J02.9 - Acute pharyngitis, unspecified Disposition: Home, Self-Care Condition on Discharge: Good Instructions: DI for Strep Throat, DI for Laryngitis Additional Instructions: Drink plenty of fluids. Take tylenol or ibuprofen for pain or fever. Take the medications as directed. Follow up with your regular doctor. GO TO THE ER FOR ANY WORSENING SYMPTOMS Don't start the oral steroids until tomorrow, since you had the shot here today. Prescriptions: Benzonatate [Benzonatate 100mg cap] 100 mg PO TIDP PRN #30 cap PRN Reason: Cough [facility]: [email or web address] methylPREDNISolone [Medrol] 4 mg PO DIRECTED 6 Days #21 packet Transmission Status: [email or web address] Azithromycin [Z-Sotero 250mg Tab*] 250 mg PO UD DOSE PK #6 tab Transmission Status: [email or web address] Referrals: Mayuri Diego APRN [Primary Care Provider] - Time of Disposition: 20:11 Medical Decision Making - Medical Records Medical records reviewed: No: I reviewed the patient's medical records. - Neel Inquiry Pt receiving controlled substance: No Vital Signs: 03/06/22 19:35 03/06/22 20:15 Temperature 98.6 F 98.6 F Temperature Source Oral Pulse Rate 109 H Pulse Rate [Left] 109 H Respiratory Rate 19 19 Blood Pressure 119/78 Blood Pressure [Right Arm] 119/78 Blood Pressure Mean [Right Arm] 91 02 Sat by Pulse Oximetry 98 - Lab Data Lab Results 03/06/22 19:26: Group A Strep Rapid Negative Orders (Tests/Meds): ED MEDICATIONS Discontinued Medications Generic Name Dose Route Start Last Admin Trade Name Freq PRN Reason Stop Dose Admin Dexamethasone Sodium Phosphate 8 mg 03/06/22 19:59 03/06/22 20:03 Dexamethasone 4mg/Ml 1ml Vial IM 03/06/22 20:00 8 mg ONCE ONE Administration ORDERS Category Date Time Status Strep Screen Confirmation Stat Micro 03/06/22 19:26 Received [facility] [place] HPI - General Stated complaint: SORE THROAT Time Seen by Provider: 03/06/22 19:44 - History of Present Illness Provider Complaint: She states that for the past 2 days she has had a very sore throat and voice hoarsness. She denies any fever. She refuses a covid-19 test. She denies any significant cough or congestion. - Related Data Home Medications Medication Instructions Recorded Confirmed fluoxetine 40 mg capsule 40 mg PO DAILY cap 11/13/21 02/15/22 methocarbamol 750 mg tablet 750 mg PO TID tab 02/15/22 02/15/22 Previous Rx's Medication Instructions Recorded labetalol 200 mg tablet 200 mg PO BID #180 tab 06/12/21 atorvastatin 20 mg tablet 20 mg PO DAILY #30 tab 11/17/21 erenumab-aooe 140 mg/mL 140 mg SQ QMONTH #1 ml 01/01/22 subcutaneous auto-injector ubrogepant 100 mg tablet 100 mg PO ONCE PRN #10 tab 02/15/22 Azithromycin [Z-Sotero 250mg Tab*] 250 mg PO UD DOSE PK #6 tab 03/06/22 Benzonatate [Benzonatate 100mg 100 mg PO TIDP PRN #30 cap 03/06/22 cap] methylPREDNISolone [Medrol] 4 mg PO DIRECTED 6 Days #21 03/06/22 packet Allergies Allergy/AdvReac Type Severity Reaction Status Date / Time penicillin G [PENICILLIN G] Allergy Mild I-RASH Verified 03/06/22 19:44 Iodinated Contrast Media Allergy Unknown Unknown Verified 03/06/22 19:44 [Iodinated Contrast Media - allergy Oral and] reaction Penicillins Allergy Unknown Unknown Verified 03/06/22 19:44 allergy reaction Pertussis Vaccines Allergy Unknown Unknown Verified 03/06/22 19:44 [PERTUSSIS VACCINES] allergy reaction [facility] History - Hepatitis A Screen Attestation statement:: This patient has been screened for Hepatitis A risk factors. I have reviewed the patient's past medical history: Yes Medical History: Reports:: Anxiety, Cerebrovascular Accident, Depression, Gastroesop
[2022-03-06 19:49] LABS: Strep Scrn Group A (Rapid) Negative (Negative)
[2022-03-06 20:15] VITALS: BP 119/78; PULSE 109; RESP 19; TEMP 37
== END 2022-03-06 20:16 | disposition home or self-care (01) ==
PROVIDERS: Emergency Provider Nurse Practitioner Family; PCP Nurse Practitioner Family
DX: J02.9 Acute pharyngitis, unspecified (principal); J04.0 Acute laryngitis; R49.0 Dysphonia
CPT/HCPCS: 87430; 96372; 99212; G0463

== ENCOUNTER → 2022-04-30 10:16 | Outpatient (CLI) | payer OTHER, SELFPAY ==
--- NOTE | 2022-04-30 10:25 | US_ITS ---
FINAL REPORT TECHNIQUE: Ultrasound images of the thyroid were obtained. CLINICAL HISTORY: THYROID GOITER COMPARISON: 03/08/2021 FINDINGS: The right lobe of the thyroid measures 5 x 2 x 2 cm. The left lobe of the thyroid measures 6 x 2 x 2 cm. There are multiple bilateral thyroid nodules. Dominant nodule on the right measures 1.5 x 1.6 cm and is similar to previous exam. A more hyperechoic nodule is seen anteriorly measuring 7 mm which is also stable. Multiple nodules are seen in the left lobe. Dominant nodule is seen in the lower pole measuring 2.1 x 1.2 cm, increased in size from prior exam. IMPRESSION: Stable right thyroid lobe nodules. Increasing left thyroid lobe nodule, greater than 1.5 cm. TI-RADS category 4. Recommend tissue sampling. Reviewed, Interpreted and Dictated by Bradley Avila MD Transcribed by Suri Sheffield Authenticated and [facility]
== END ==
PROVIDERS: PCP Nurse Practitioner Family; Visit Provider Otolaryngology
DX: E04.9 Nontoxic goiter, unspecified (principal)
CPT/HCPCS: 76536

== ENCOUNTER → 2022-05-04 11:36 | Outpatient (CLI) | payer OTHER, SELFPAY ==
--- NOTE | 2022-05-04 11:41 | XR_ITS ---
FINAL REPORT CLINICAL HISTORY: SOB FINDINGS: TWO-VIEW CHEST The heart size is normal. The mediastinum is normal. There is a large calcified wenceslao right paratracheal lymph node. The lungs are clear. There is no pneumothorax. IMPRESSION: No acute cardiopulmonary process. Reviewed, Interpreted and Dictated by Bradley Avila MD Transcribed by Estrella Head Authenticated and [facility]
[2022-05-04 12:10] LABS: Basophils # 0.1 K/mm3 (0-0.2); Basophils % 0.6 % (0.1-2.0); Eosinophils # 0.2 K/mm3 (0.0-0.4); Eosinophils % 2.4 % (0.1-12.0); Hematocrit 41.3 % (37.0-47.0); Hemoglobin 12.7 g/dL (12.2-16.2); Lymphocytes # 1.9 K/mm3 (0.7-4.5); Lymphocytes % 24.1 % (10-50); Mean Corpuscular HGB Conc 30.7 g/dL (31.8-35.4); Mean Corpuscular Hemoglobin 28.8 pg (27.0-31.2); Mean Corpuscular Volume 93.9 fl (81-99); Mean Platelet Volume 8.5 fl (7.4-10.4); Monocytes # 0.4 K/mm3 (0.1-1.0); Monocytes % 4.4 % (1.7-9.3); Neutrophils # 5.4 K/mm3 (1.8-7.8); Neutrophils % 68.5 % (37.0-80.0); Platelet Count 306 K/mm3 (142-424); Red Cell Distribution Width 12.9 % (11.5-17.5); White Blood Count 7.9 K/mm3 (4.8-10.8)
[2022-05-04 12:23] LABS: Alanine Aminotransferase 19 U/L (12-78); Albumin Level 4.1 g/dl (3.5-5.0); Albumin/Globulin Ratio 1.3 (1.1-1.8); Alkaline Phosphatase 98 U/L (38-126); Anion Gap 11.9 mEq/L (5-15); Aspartate Amino Transferase 26 U/L (14-36); Blood Urea Nitrogen 8 mg/dl (7-17); Calcium 8.9 mg/dl (8.4-10.2); Carbon Dioxide 25 mmol/L (22.0-30.0); Chloride 108 mmol/L (98-107); Estimated Glomerular Filt Rate 83 ml/min (>60); GFR (African American) 101 ML/MIN (>60); Globulin 3.1 g/dL (1.3-3.2); Glucose 125 mg/dl (74-100); Potassium 3.9 mmoL/L (3.5-5.1); Sodium 141 mmol/L (136-145); Total Protein,Serum 7.2 g/dl (6.3-8.2)
[2022-05-04 12:26] LABS: Bilirubin,Total < 0.1 mg/dl (0.2-1.3)
[2022-05-04 12:28] LABS: D-Dimer 0.44 ug/mL (0.0-0.5)
[2022-05-04 12:36] LABS: NT Pro Brain Natriuretic Pep. 82.1 pg/mL (0-125)
[2022-05-04 12:39] LABS: Troponin I < 0.01 ng/ml (0.00-0.034)
[2022-05-04 12:54] LABS: Thyroid Stimulating Hormone 1.62 uIU/mL (0.465-4.68)
== END ==
PROVIDERS: PCP Nurse Practitioner Family; Visit Provider Nurse Practitioner Family
DX: R06.02 Shortness of breath (principal); R07.9 Chest pain, unspecified; R05.1 Acute cough; R60.0 Localized edema
CPT/HCPCS: 36415; 71046; 80053; 83880; 84443; 84484; 85025; 85378

== ENCOUNTER → 2022-05-17 12:00 | Outpatient (CLI) | payer OTHER, SELFPAY | PROVIDERS: PCP Nurse Practitioner Family; Visit Provider Nurse Practitioner Family | DX: R06.02 Shortness of breath (principal); R07.89 Other chest pain; E78.5 Hyperlipidemia, unspecified; R60.0 Localized edema; Z79.899 Other long term (current) drug therapy | CPT/HCPCS: 36415; 80048; 80061; 80076; 84439; 84443; 85025 ==

== ENCOUNTER → 2022-05-18 14:02 | Outpatient (CLI) | payer OTHER, SELFPAY ==
[2022-05-17 09:03] LABS: Basophils % 0.4 % (0.1-2.0); Eosinophils # 0.2 K/mm3 (0.0-0.4); Eosinophils % 2.8 % (0.1-12.0); Hematocrit 40.5 % (37.0-47.0); Hemoglobin 12.5 g/dL (12.2-16.2); Lymphocytes # 1.8 K/mm3 (0.7-4.5); Lymphocytes % 22.9 % (10-50); Mean Corpuscular HGB Conc 30.8 g/dL (31.8-35.4); Mean Corpuscular Hemoglobin 28.7 pg (27.0-31.2); Mean Corpuscular Volume 93.4 fl (81-99); Mean Platelet Volume 8.2 fl (7.4-10.4); Monocytes # 0.4 K/mm3 (0.1-1.0); Monocytes % 5.2 % (1.7-9.3); Neutrophils # 5.3 K/mm3 (1.8-7.8); Neutrophils % 68.7 % (37.0-80.0); Platelet Count 279 K/mm3 (142-424); Red Blood Count 4.34 M/mm3 (4.20-5.40); Red Cell Distribution Width 12.4 % (11.5-17.5); White Blood Count 7.7 K/mm3 (4.8-10.8)
[2022-05-17 09:34] LABS: Chloride 108 mmol/L (98-107)
[2022-05-17 09:35] LABS: Potassium 4.9 mmoL/L (3.5-5.1); Sodium 142 mmol/L (136-145)
[2022-05-17 09:37] LABS: Alanine Aminotransferase 13 U/L (12-78); Anion Gap 11.9 mEq/L (5-15); Aspartate Amino Transferase 22 U/L (14-36); Bilirubin,Unconjugated 0.2 mg/dL (0.0-1.1); Blood Urea Nitrogen 14 mg/dl (7-17); Carbon Dioxide 27 mmol/L (22.0-30.0); Estimated Glomerular Filt Rate 64 ml/min (>60); GFR (African American) 78 ML/MIN (>60)
[2022-05-17 09:38] LABS: Alkaline Phosphatase 92 U/L (38-126); Bilirubin,Total < 0.1 mg/dl (0.2-1.3); Calcium 8.8 mg/dl (8.4-10.2); Chol/HDL Ratio 3.3 (1-3.5); Cholesterol 140 mg/dl (140-200); Glucose 96 mg/dl (74-100); HDL Cholesterol 43 mg/dl (40-60); Total Protein,Serum 6.6 g/dl (6.3-8.2); Triglycerides 96 mg/dl (30-150); VLDL Cholesterol 19 mg/dL (0-40)
[2022-05-17 09:39] LABS: Bilirubin,Indirect 0.1 mg/dL (0.0-0.9)
[2022-05-17 09:52] LABS: Free T4 (Free Thyroxine) 0.89 ng/dl (0.78-2.19)
[2022-05-17 10:08] LABS: Thyroid Stimulating Hormone 2.48 uIU/mL (0.465-4.68)
[2022-05-18 09:09] LABS: Direct LDL Cholesterol 78 mg/dL (100-129)
--- NOTE | 2022-05-18 14:03 | CA_ITS ---
APPROVED REPORT EXAM: Comprehensive 2D, Doppler, and color-flow Echocardiogram Mark Up Designer: Viola Hackett RT(R) Ht: 5 ft 6 in Wt: 230lbs BSA: 2.12 BP: 103/64 mmHg Indications: cp, htn, edema, ex smoker, obesity, hyperlipidemia 2D Dimensions LVOT 2.01 cm (M/F) 1.5-2.5 LA Volume 18.80 mL LA Volume Index 8.86 mL/m2 (M/F) 16-34 M-Mode Dimensions RVDd 3.08 cm (0.9-2.6) LA Diam 3.34 cm (1.9-4.0) LVDd 4.37 cm (3.5-5.7) Ao Diam 2.69 cm (2.0-3.7) LVDs 3.65 cm (3.5-5.7) IVSd 1.04 cm (0.6-1.1) PWd 0.86 cm (0.6-1.1) EF (Teich) 34.80% FS 16.50% EDV (Teich) 86.30 mL ESV (Teich) 56.30 mL LV Diastology E Decel Time 150.00 (160-240 msec) E/A Ratio 1.1 MED E' 6.00 (< 7 cm/sec) E'/MED E' Ratio 13.82 (>14) LAT E' 12.60 (<10 cm/sec) E/LAT E' Ratio 6.58 (>14) Mitral Valve MV E Max Jai. 83.00 (40-130 cm/s) MV A Velocity 78.00 (40-130 cm/s) E/A Ratio 1.07 MV Decel. Time 150.00 (160-240 ms) MV PHT 44.00 ms Tricuspid Valve TR P. Velocity 217.00 cm/s RAP Estimate 10.00 mmHg RVSP 28.80 mmHg Left Ventricle Left atrium is normal size, left ventricle is normal size, there is no concentric left ventricular hypertrophy, estimated ejection fraction 55% with no regional wall motion abnormality, diastolic parameters are within normal range. Right Ventricle Right atrium and right ventricle are normal size and contractility. Aortic Valve Aortic valve is grossly normal, there is no aortic stenosis or aortic insufficiency. Mitral Valve Mitral valve is grossly normal, there is trace mitral regurgitation. Tricuspid Valve Tricuspid grossly normal, there is trace tricuspid regurgitation, calculated right ventricular systolic pressure is within normal range. Pulmonic Valve Pulmonic valve is poorly visualized. Great Vessels Aortic root is normal size. Inferior vena cava normal size with normal inspiratory collapse. Pericardium No significant pericardial effusion noted. Conclusion 1. Normal left ventricular size, preserved left ventricular systolic function, estimated ejection fraction 55% with no regional wall motion abnormality, diastolic parameters are within normal range. 2. Trace mitral and tricuspid regurgitation, calculated right ventricular systolic pressure within normal range. 3. No significant pericardial effusion noted 4. Inferior vena cava normal size with normal inspiratory collapse. Electronically signed by : Alex Marc MD 05/21/2022 14:13:49
--- NOTE | 2022-05-18 14:03 | CA_ITS ---
FINAL REPORT TECHNIQUE: Color Doppler, duplex Doppler and compression sonography of the left lower extremity deep venous systems was performed. CLINICAL HISTORY: lle edema FINDINGS: There is no evidence of deep venous thrombosis from the level of the groin to the calf. The veins are patent and compressible. IMPRESSION: No evidence of deep venous thrombosis left lower extremity. Reviewed, Interpreted and Dictated by Rafa Gottlieb III, MD Transcribed by Alexandrea Vizcaino Authenticated and [facility]
== END ==
LOC: LAB 13:54 → RT 14:03
PROVIDERS: PCP Nurse Practitioner Family; Visit Provider Nurse Practitioner Family
DX: R06.02 Shortness of breath (principal); R07.89 Other chest pain; E78.5 Hyperlipidemia, unspecified; R60.0 Localized edema
CPT/HCPCS: 36415; 80048; 80061; 80076; 84439; 84443; 85025; 93306; 93971

== ENCOUNTER → 2022-06-20 08:07 | Outpatient (CLI) | payer OTHER, SELFPAY ==
--- NOTE | 2022-06-20 08:12 | US_ITS ---
FINAL REPORT CLINICAL HISTORY: THYROID NODULE Dominic OJEDA FINDINGS: Ultrasound guided thyroid biopsy. HISTORY: . Nodule within the left lobe of thyroid. PROCEDURE: After informed consent was obtained and a time-out was performed, the patient was prepped and draped in usual sterile fashion over the left neck. Utilizing local anesthesia and sterile technique with a 25-gauge needle, access to lesion was obtained. Three passes were made. The patient received no conscious sedation. The patient tolerated procedure well and left the department in good condition. IMPRESSION: Status post ultrasound guided biopsy of thyroid without immediate complication. Films reviewed , interpreted and dictated by Dr. Gottlieb. Transcribed by Dominic Salas PA-C. Reviewed, Interpreted and Dictated by Rafa Gottlieb III, MD Transcribed by LYNETTE Mitchell Authenticated and [facility]
== END ==
PROVIDERS: PCP Nurse Practitioner Family; Visit Provider Otolaryngology
DX: E04.1 Nontoxic single thyroid nodule (principal)
CPT/HCPCS: 10005; 76536

== ENCOUNTER → 2022-06-27 17:25 | Outpatient (CLI) | payer OTHER, SELFPAY ==
[2022-06-27 18:47] LABS: Basophils # 0.1 K/mm3 (0-0.2); Basophils % 0.7 % (0.1-2.0); Eosinophils # 0.2 K/mm3 (0.0-0.4); Eosinophils % 2.8 % (0.1-12.0); Hematocrit 38.3 % (37.0-47.0); Hemoglobin 12.5 g/dL (12.2-16.2); Lymphocytes # 1.7 K/mm3 (0.7-4.5); Lymphocytes % 24.5 % (10-50); Mean Corpuscular HGB Conc 32.8 g/dL (31.8-35.4); Mean Corpuscular Hemoglobin 28.7 pg (27.0-31.2); Mean Corpuscular Volume 87.5 fl (81-99); Mean Platelet Volume 9.4 fl (7.4-10.4); Monocytes # 0.4 K/mm3 (0.1-1.0); Monocytes % 5.3 % (1.7-9.3); Neutrophils # 4.7 K/mm3 (1.8-7.8); Neutrophils % 66.8 % (37.0-80.0); Platelet Count 329 K/mm3 (142-424); Red Blood Count 4.37 M/mm3 (4.20-5.40); Red Cell Distribution Width 12.7 % (11.5-17.5); White Blood Count 7.1 K/mm3 (4.8-10.8)
[2022-06-27 18:55] LABS: Alanine Aminotransferase 17 U/L (12-78); Albumin/Globulin Ratio 1.3 (1.1-1.8); Alkaline Phosphatase 105 U/L (38-126); Anion Gap 16.1 mEq/L (5-15); Aspartate Amino Transferase 30 U/L (14-36); Blood Urea Nitrogen 14 mg/dl (7-17); Calcium 8.9 mg/dl (8.4-10.2); Carbon Dioxide 26 mmol/L (22.0-30.0); Chloride 103 mmol/L (98-107); Estimated Glomerular Filt Rate 83 ml/min (>60); GFR (African American) 101 ML/MIN (>60); Glucose 102 mg/dl (74-100); Potassium 4.1 mmoL/L (3.5-5.1); Sodium 141 mmol/L (136-145)
[2022-06-27 19:01] LABS: C-Reactive Protein 5.7 mg/L (0-4)
[2022-06-27 19:04] LABS: Bilirubin,Total < 0.1 mg/dl (0.2-1.3)
[2022-06-27 20:34] LABS: Erythrocyte Sedimentation Rate 17 mm/hr (0-20)
== END ==
PROVIDERS: PCP Nurse Practitioner Family; Visit Provider Nurse Practitioner Family
DX: G51.8 Other disorders of facial nerve (principal)
CPT/HCPCS: 80053; 85025; 85651; 86140

== ENCOUNTER → 2022-07-04 08:54 | Outpatient (CLI) | payer OTHER, SELFPAY ==
--- NOTE | 2022-07-04 08:59 | CT_ITS ---
FINAL REPORT TECHNIQUE: Thin section axial CT images of the temporal bones were obtained. Coronal reformatted images were also obtained.This study was performed with techniques to keep radiation doses as low as reasonably achievable (ALARA). Individualized dose reduction techniques using automated exposure control or adjustment of mA and/or kV according to the patient''s size were employed. CLINICAL HISTORY: temp bone/tmj right side FINDINGS: Right temporal bone: The internal auditory canal has an unremarkable appearance. The inner ear structures are unremarkable. The external auditory canal has an unremarkable appearance. No abnormality is identified of the middle ear cavity. The ossicles are intact. The mastoid air cells and mastoid antrum have an unremarkable appearance. No bony mass is identified. Left temporal bone: The internal auditory canal has an unremarkable appearance. The inner ear structures are unremarkable. The external auditory canal has an unremarkable appearance. There is thickening of the left tympanic membrane that may be inflammatory. No abnormality is identified of the middle ear cavity. The ossicles are intact. The mastoid air cells and mastoid antrum have an unremarkable appearance. No bony mass is identified. IMPRESSION: Thickening of the left tympanic membrane may be inflammatory. Otherwise unremarkable CT. Reviewed, Interpreted and Dictated by Rafa Gottlieb III, MD Transcribed by Ian Beth Authenticated and . [facility]
== END ==
PROVIDERS: PCP Nurse Practitioner Family; Visit Provider Nurse Practitioner Family
DX: M32.9 Systemic lupus erythematosus, unspecified (principal); G51.8 Other disorders of facial nerve; Z87.39 Personal history of other diseases of the musculoskeletal system and connective tissue; Z98.890 Other specified postprocedural states
CPT/HCPCS: 70480

== ENCOUNTER 2022-07-22 10:34 | Emergency (ER) | payer OTHER, SELFPAY ==
[2022-07-22 12:41] VITALS: BP 106/86; PULSE 86; RESP 18; TEMP 36.9; O2SAT 99; BMI 33.0
--- NOTE | 2022-07-22 12:47 | EXP.UTC ---
Discharge Plan Disposition Patient Disposition: Home, Self-Care Condition: Good Prescriptions Prescriptions: New prednisone [prednisone] 20 mg tablet 20 mg PO BID Qty: 10 0RF No Action fluoxetine 40 mg capsule 40 mg PO DAILY labetalol 200 mg tablet 200 mg PO BID Emgality Pen 120 mg/mL pen injector 120 mg SQ QMONTH Qty: 1 3RF Rx Instructions: Inject monthly as prescribed gabapentin 300 mg capsule 300 mg PO DAILY Label Comments: TAKE 1 CAPSULE BY MOUTH ONCE DAILY FOR 30 DAYS hydroxychloroquine 200 mg tablet 200 mg PO BID carbamazepine 100 mg tablet,chewable 100 mg PO TID 30 Days Qty: 90 1RF albuterol sulfate [ProAir HFA] 90 mcg/actuation HFA aerosol inhaler 2 puff inhalation Q4-6H PRN Label Comments: INHALE 1 PUFF BY MOUTH EVERY 4 HOURS NEEDED Ubrelvy 100 mg tablet 100 mg PO ONCE PRN (Reason: Migraine) Qty: 10 9RF Rx Instructions: 1 tab PO @ onset of symptoms. May repeat after 2hrs if symptoms persist. Max 2 tabs/24 hours. Max 4 tabs/week atorvastatin 20 mg tablet 20 mg PO DAILY Qty: 30 5RF Referrals Follow up/Referrals: Mayuri Diego APRN [Primary Care Provider] - See instructions Activity Restrictions/Add. Instructions Additional Instructions/Restrictions: Start antibiotic today. Be sure to complete entire prescription even if feeling better Tylenol and ibuprofen as needed for pain or fever Humidifier/vaporizer/hot steamy shower Follow-up with primary care tomorrow. Follow-up immediately in the ER of the [facility] for new or worsening symptoms or no noticeable improvement over the next 48-72 hours. Stop smoking Inhaler every 4-6 hours as needed. Should help open airways improved cough, wheezing, shortness of breath Start steroids today. Helps with inflammation therefore coughing and wheezing. Follow directions on package. continue antibiotics Clinical Impressions Clinical Impression: Bronchitis Instructions Patient Instructions: DI for Acute Bronchitis Discharge ED Provider: Varghese ([facility])Karina [facility] [place] HPI General Stated complaint: cough, sob, chest congestion, back pain Mode of Arrival: Ambulatory Source of Information: Patient Limitations: No Limitations Time Seen by Provider: 07/22/22 12:47 Description of Symptoms (Recalled from Triage Doc. by RN): PATIENT C/O COUGH, CHEST CONGESTION X 3 WEEKS HEENT Symptoms (Recalled from RN notes): No Resp Symptoms (Recalled from RN notes): Yes Skin Symptoms (Recalled from RN notes): No MS Symptoms (Recalled from RN notes): No Functional Status (Recalled from RN notes): WNL History of Present Illness Provider Complaint: 32 yr old female presents for cough,pain in chest from coughing and wheezing for 3 weeks. taking baxian Related Data Home Medications Medication Instructions Recorded Confirmed fluoxetine 40 mg capsule 40 mg PO DAILY 11/13/21 06/25/22 labetalol 200 mg tablet 200 mg PO BID 04/10/22 06/25/22 albuterol sulfate 90 mcg/actuation 2 puff inhalation Q4-6H PRN 05/15/22 06/25/22 aerosol inhaler (ProAir HFA) gabapentin 300 mg capsule 300 mg PO DAILY 06/25/22 06/25/22 hydroxychloroquine 200 mg tablet 200 mg PO BID 06/25/22 06/25/22 Previous Rx's Medication Instructions Recorded atorvastatin 20 mg tablet 20 mg PO DAILY #30 tabs 11/17/21 ubrogepant 100 mg tablet (Ubrelvy) 100 mg PO ONCE PRN Migraine #10 02/15/22 tabs galcanezumab-gnlm 120 mg/mL 120 mg SQ QMONTH #1 mL 04/10/22 subcutaneous pen injector (Emgality Pen) 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
[2022-07-22 12:57] VITALS: BP 106/86; PULSE 86; RESP 18; TEMP 36.9; O2SAT 99
== END 2022-07-22 13:01 | disposition home or self-care (01) ==
PROVIDERS: Emergency Provider Nurse Practitioner Family; PCP Nurse Practitioner Family
DX: J40 Bronchitis, not specified as acute or chronic (principal)
CPT/HCPCS: 99212; G0463

== ENCOUNTER → 2022-09-06 09:02 | Outpatient (CLI) | payer OTHER, SELFPAY ==
--- NOTE | 2022-09-06 09:10 | CT_ITS ---
FINAL REPORT TECHNIQUE: Axial images through the abdomen and pelvis were performed without contrast. This study was performed with techniques to keep radiation doses as low as reasonably achievable, (ALARA). Individualized dose reduction techniques using automated exposure control or adjustment of mA and/or kV according to the patient's size were employed. CLINICAL HISTORY: LT FLANK PAIN COMPARISON: 02/25/2021 FINDINGS: ABDOMEN: The lung bases are clear. The heart size is normal. Limited images of the liver are unremarkable. The patient is status post cholecystectomy. The spleen is normal. No adrenal mass is identified. The aorta is normal in caliber. There is no significant free fluid or adenopathy. There is no nephrolithiasis. There is no hydronephrosis. PELVIS: The appendix is normal. The urinary bladder is unremarkable. There is no significant adenopathy. There is a small amount of pelvic free fluid, likely physiologic or reactive. IMPRESSION: No hydronephrosis or nephrolithiasis. Reviewed, Interpreted and Dictated by Rafa Gottlieb III, MD Transcribed by Estrella Head Authenticated and [facility]
== END ==
PROVIDERS: PCP Nurse Practitioner Family; Visit Provider Nurse Practitioner Family
DX: R10.9 Unspecified abdominal pain (principal)
CPT/HCPCS: 74176

== ENCOUNTER 2022-12-03 11:47 | Emergency (ER) | payer OTHER, SELFPAY ==
[2022-12-03 12:15] VITALS: BP 128/69; PULSE 93; RESP 20; TEMP 36.7; O2SAT 99; BMI 37.2
--- NOTE | 2022-12-03 12:25 | XR_ITS ---
FINAL REPORT CLINICAL HISTORY: felt pop, left shoulder pain after lifting heavy object COMPARISON: 05/30/2020 FINDINGS: Three views of the left shoulder were obtained. There is no prior exam for comparison. There is no fracture or dislocation. The joint space is preserved. Soft tissues are normal. IMPRESSION: No acute osseous abnormality of the left shoulder. Reviewed, Interpreted and Dictated by Margie Kraft MD Transcribed by Alexandrea Vizcaino Authenticated and [facility]
--- NOTE | 2022-12-03 13:09 | EXP.UTC ---
Discharge Plan Disposition Patient Disposition: Home, Self-Care Condition: Good Prescriptions Prescriptions: New etodolac 200 mg capsule 200 mg PO Q8H PRN (Reason: pain) Qty: 20 0RF methocarbamol 500 mg tablet 500 mg PO TID PRN (Reason: muscle spasm) Qty: 15 0RF No Action labetalol 200 mg tablet 200 mg PO BID carbamazepine 100 mg tablet,chewable 200 mg PO TID 30 Days Qty: 180 2RF hydroxychloroquine 200 mg tablet 200 mg PO BID albuterol sulfate [ProAir HFA] 90 mcg/actuation HFA aerosol inhaler 2 puff inhalation Q4-6H PRN Label Comments: INHALE 1 PUFF BY MOUTH EVERY 4 HOURS NEEDED Emgality Pen 120 mg/mL pen injector 120 mg SQ QMONTH Rx Instructions: Inject monthly as prescribed Referrals Follow up/Referrals: Mayuri Diego APRN [Primary Care Provider] - See instructions Activity Restrictions/Add. Instructions Additional Instructions/Restrictions: Make sure to call back to the [facility] for your official xray reading *Etdolac reginald 8 hours with meal as needed for pain/inflammation *Not additional anti-inflammatory like Ibuprofen motrin, aleve, advil with the above amount of Etodolac. You can still take Tylenol every 4 hours as needed if you need something else for pain *Ice 20 minutes every 2 hours for the first 48 hours after the initial injury followed by moist heat every 20 minutes 3-4 times a day to affected area *Muscle relaxer every 8 hours as needed for muscle spasms but remember, it WILL cause drowsiness You cannot take it and drive, operate machinery or care for small children. *Keep this area active, no movement leads to more stiffness, However take it easy and avoid heavy lifting pushing or pulling *Follow up with you family doctor if no improvement for further treatment Clinical Impressions Clinical Impression: Left shoulder strain Qualifiers: Encounter type: initial encounter Qualified Code(s): S46.912A - Strain of unspecified muscle, fascia and tendon at shoulder and upper arm level, left arm, initial encounter Stand Alone Forms Stand Alone Forms: Work/School Release Instructions Patient Instructions: Muscle Strain, Methocarbamol, Etodolac Discharge ED Provider: Evette Rubin [facility] [place] HPI General Stated complaint: pain in Lt shoulder, no accident Mode of Arrival: Ambulatory Source of Information: Patient Limitations: No Limitations Time Seen by Provider: 12/03/22 13:09 Description of Symptoms (Recalled from Triage Doc. by RN): left should pain, hx of should injury. Pt hurt a pop last night when in bed HEENT Symptoms (Recalled from RN notes): No Resp Symptoms (Recalled from RN notes): No Skin Symptoms (Recalled from RN notes): No MS Symptoms (Recalled from RN notes): Yes Functional Status (Recalled from RN notes): n/a History of Present Illness Provider Complaint: Patient states that she has had issues with her left shoulder before States that she lifted a heavy laundry basket over the weekend and felt like she may have pulled something States that last night she rolled over she felt a pop in the shoulder and she has been having pain/spasms ever since so she came in to get it checked out Related Data Home Medications Medication Instructions Recorded Confirmed labetalol 200 mg tablet 200 mg PO BID 04/10/22 08/13/22 albuterol sulfate 90 mcg/actuation 2 puff inhalation Q4-6H PRN 05/15/22 08/13/22 aerosol inhaler (ProAir HFA) hydroxychloroquine 200 mg tablet 200 mg PO BID lupus 06/25/22 12/03/22 galcanezumab-gnlm 120 mg/mL 120 mg SQ QMONTH . 12/03/22 12/03/22 subcutaneous pen injector (Emgality Pen) Previous Rx's Medication Instructions Recorded carbamazepine 100 mg chewable 200 mg PO TID facial neuralgia 30 08/13/22 tablet days #180 tabs etodolac 200 mg capsule 200 mg PO Q8H PRN pain #20 caps 12/03/22 methocarbamol 500 mg tablet 500 mg PO TID PRN muscle spasm #15 12/03/22 tabs Allergies Allergy/AdvReac Type Severity Reacti
[2022-12-03 14:48] VITALS: BP 128/69; PULSE 93; RESP 20; TEMP 36.7; O2SAT 99
== END 2022-12-03 14:47 | disposition home or self-care (01) ==
PROVIDERS: Emergency Provider Nurse Practitioner; PCP Nurse Practitioner Family
DX: S46.912A Strain of unspecified muscle, fascia and tendon at shoulder and upper arm level, left arm, initial encounter (principal); X50.0XXA Overexertion from strenuous movement or load, initial encounter
CPT/HCPCS: 73030; 99212; 99214; G0463

== ENCOUNTER → 2022-12-24 15:02 | Outpatient (CLI) | payer OTHER, SELFPAY ==
--- NOTE | 2022-12-24 15:04 | MR_ITS ---
FINAL REPORT CLINICAL HISTORY: INJURY OF LEFT SHOULDER. SHOULDER PAIN. WEAKNESS IN SHOULDER. SYMPTOMS [id number]. POPPING IN SHOULDER COMPARISON: 06/22/2020 FINDINGS: Multiplanar MR imaging of the left shoulder was performed without contrast. The tendons of the rotator cuff are intact without evidence of rotator cuff tear. The a.c. joint is intact. No abnormal fluid is seen in the subacromial/subdeltoid bursa. The glenoid labrum is intact. The long head of the biceps tendon is intact. No significant glenohumeral joint effusion is seen. There is no evidence of fracture or dislocation. The musculature is intact. There is no evidence of soft tissue mass. IMPRESSION: Unremarkable shoulder without evidence of rotator cuff tear or labral tear. Reviewed, Interpreted and Dictated by Rafa Gottlieb III, MD Transcribed by Suri Sheffield Authenticated and . [facility]
== END ==
PROVIDERS: PCP Nurse Practitioner Family; Visit Provider Nurse Practitioner Family
DX: M25.512 Pain in left shoulder (principal); M25.612 Stiffness of left shoulder, not elsewhere classified; S49.92XD Unspecified injury of left shoulder and upper arm, subsequent encounter
CPT/HCPCS: 73221

== ENCOUNTER 2023-01-29 11:00 | Outpatient (RCR) | payer OTHER, SELFPAY | END 2023-01-29 11:05 | disposition home or self-care (01) | LOC: OT 11:00 | PROVIDERS: PCP Nurse Practitioner Family; Visit Provider Nurse Practitioner Family | DX: M25.512 Pain in left shoulder (principal); M25.612 Stiffness of left shoulder, not elsewhere classified; S49.92XD Unspecified injury of left shoulder and upper arm, subsequent encounter | CPT/HCPCS: 97010; 97014; 97110; 97140; 97164; 97166; 97530; G0283 ==

== ENCOUNTER → 2023-01-30 08:19 | Outpatient (CLI) | payer OTHER, SELFPAY ==
--- NOTE | 2023-01-30 08:45 | MR_ITS ---
FINAL REPORT CLINICAL HISTORY: left shoulder pain 21ml prohance FINDINGS: Multiplanar MR imaging of the left shoulder was performed without and with contrast. The tendons of the rotator cuff are intact without evidence of rotator cuff tear. A small amount of fluid is present in the subacromial/subdeltoid bursa. The a.c. joint is intact. The glenoid labrum is intact. The long head of the biceps tendon is intact. There is no evidence of fracture. The musculature is intact. No soft tissue mass or cyst is identified. Contrast enhancement is noted of the subacromial/subdeltoid bursa. IMPRESSION: No evidence of rotator cuff tear or labral tear. Findings consistent with subacromial/subdeltoid bursitis. Authenticated and [facility]
== END ==
PROVIDERS: PCP Nurse Practitioner Family; Visit Provider Orthopaedic Surgery
DX: S46.912A Strain of unspecified muscle, fascia and tendon at shoulder and upper arm level, left arm, initial encounter (principal)
CPT/HCPCS: 73223; A9576

== ENCOUNTER 2023-04-30 15:21 | Emergency (ER) | payer OTHER, SELFPAY ==
--- NOTE | 2023-04-30 15:30 | EXP.UTC ---
Discharge Plan Disposition Patient Disposition: Home, Self-Care Condition: Good Prescriptions Prescriptions: New promethazine-DM 6.25-15 mg/5 mL Syrup 5 ml PO Q6H PRN (Reason: Cough) Qty: 240 0RF prednisone 10 mg tablet 10 mg PO DIRECTED 9 Days Qty: 21 0RF Rx Instructions: Take 4 tablets daily for 3 days, then take 2 tablets daily for 3 days, then take 1 tablet daily for 3 days, then stop. levofloxacin [levofloxacin] 500 mg tablet 500 mg PO DAILY Qty: 7 0RF guaifenesin [Mucinex] 600 mg tablet extended release 12hr 600 - 1,200 mg PO BIDP PRN (Reason: Congestion) Qty: 30 0RF albuterol sulfate [Ventolin HFA] 90 mcg/actuation HFA aerosol inhaler 2 puff inhalation Q6H PRN (Reason: shortness of breath or wheezing) Qty: 6.7 0RF No Action hydroxychloroquine 200 mg tablet 200 mg PO BID albuterol sulfate [ProAir HFA] 90 mcg/actuation HFA aerosol inhaler 2 puff inhalation Q4-6H PRN Patient Comments: INHALE 1 PUFF BY MOUTH EVERY 4 HOURS NEEDED carbamazepine 100 mg tablet,chewable 200 mg PO TID 30 Days Qty: 180 5RF Emgality Pen 120 mg/mL pen injector 120 mg SQ QMONTH Qty: 1 5RF Rx Instructions: Inject monthly as prescribed Ubrelvy 100 mg tablet 100 mg PO ONCE PRN (Reason: migraine headache) Qty: 10 5RF Rx Instructions: Take 100 mg at onset of headache, may repeat 100 mg after 2 hours if symptoms persist. Max dose 2 tablets in 24 hours. labetalol 200 mg tablet 200 mg PO BID Qty: 60 11RF etodolac 200 mg capsule 200 mg PO Q8H PRN (Reason: pain) Qty: 20 0RF methocarbamol 500 mg tablet 500 mg PO TID PRN (Reason: muscle spasm) Qty: 15 0RF Referrals Follow up/Referrals: Mayuri Diego APRN [Primary Care Provider] - See instructions Activity Restrictions/Add. Instructions Additional Instructions/Restrictions: Drink plenty of fluids. Take tylenol or ibuprofen for pain or fever. Take the medications as directed. Follow up with your regular doctor. GO TO THE ER FOR ANY WORSENING SYMPTOMS Don't start the oral steroids until tomorrow, since you had the shot here today. The cough medication (promethazine dm) will make you drowsy, so don't drive or operate heavy machinery after taking it. Clinical Impressions Clinical Impression: Acute bronchitis Instructions Patient Instructions: Acute Bronchitis, DI for Acute Bronchitis, Dexamethasone Discharge ED Provider[place] [facility] [place] General Stated complaint: loss of voice fever 104 Time Seen by Provider: 04/30/23 15:30 History of Present Illness Provider Complaint: She states that she has had chest congestion, sinus congestion, productive cough, and malaise for the past 2 days. 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 #1 mL 01/22/23 subcutaneous pen injector (Emgality Pen) ubrogepant 100 mg tablet (Ubrelvy) 100 mg PO ONCE PRN migraine 01/22/23 headache #10 tabs labetalol 200 mg tablet 200 mg PO BID #60 tabs 03/18/23 albuterol sulfate 90 mcg/actuation 2 puff inhalation Q6H PRN 04/30/23 aerosol inhaler (Ventolin HFA) shortness of breath or wheezing #6.7 grams guaifenesin 600 mg tablet, 600 - 1,200 mg PO BIDP PRN 04/30/23 extended release 12 hr (Mucinex) Congestion #30 tabs levofloxacin 500 mg tablet 500 mg PO DAILY #7 tabs 04/30/23 prednisone 10 mg tablet 10 mg PO DIRECTED 9 days #21 04/30/23 t
[2023-04-30 15:35] VITALS: BP 132/96; PULSE 77; RESP 20; TEMP 37.2; O2SAT 99; BMI 38.5
[2023-04-30 15:38] VITALS: BMI 38.5
--- NOTE | 2023-04-30 15:39 | XR_ITS ---
FINAL REPORT TECHNIQUE: Chest PA & Lateral CLINICAL HISTORY: COUGH AND FEVER COMPARISON: 05/04/2022 FINDINGS: 2 views of the chest were performed. The heart size is normal. Calcifications in the right paratracheal region are probably due to calcified lymph nodes. The mediastinum is within normal limits. There is no acute cardiopulmonary process. There are no pleural effusions. There is no pneumothorax. The bony thorax appears intact. IMPRESSION: No acute cardiopulmonary process. Reviewed, Interpreted and Dictated by Bradley Avila MD Transcribed by Idalmis Wade Authenticated and [facility]
[2023-04-30 16:05] VITALS: BP 132/96; PULSE 77; RESP 20; TEMP 37.2; O2SAT 99
== END 2023-04-30 16:27 | disposition home or self-care (01) ==
PROVIDERS: Emergency Provider Nurse Practitioner Family; PCP Nurse Practitioner Family
DX: J20.9 Acute bronchitis, unspecified (principal); R50.9 Fever, unspecified; R53.81 Other malaise; E78.5 Hyperlipidemia, unspecified; F41.9 Anxiety disorder, unspecified; F32.A Depression, unspecified; Z87.891 Personal history of nicotine dependence
CPT/HCPCS: 71046; 96372; 99212; 99214; G0463

== ENCOUNTER → 2023-06-04 12:23 | Outpatient (CLI) | payer OTHER, SELFPAY ==
[2023-06-04 13:41] LABS: Basophils % 0.2 % (0.1-2.0); Eosinophils # 0.1 K/mm3 (0.0-0.4); Eosinophils % 1.8 % (0.1-12.0); Hematocrit 43.2 % (37.0-47.0); Hemoglobin 13.7 g/dL (12.2-16.2); Lymphocytes # 1.9 K/mm3 (0.7-4.5); Lymphocytes % 25.8 % (10-50); Mean Corpuscular HGB Conc 31.6 g/dL (31.8-35.4); Mean Corpuscular Hemoglobin 28.8 pg (27.0-31.2); Mean Corpuscular Volume 91.1 fl (81-99); Mean Platelet Volume 8.7 fl (7.4-10.4); Monocytes # 0.3 K/mm3 (0.1-1.0); Neutrophils % 68.2 % (37.0-80.0); Platelet Count 271 K/mm3 (142-424); Red Blood Count 4.74 M/mm3 (4.20-5.40); Red Cell Distribution Width 12.3 % (11.5-17.5); White Blood Count 7.3 K/mm3 (4.8-10.8)
[2023-06-04 13:55] LABS: Alanine Aminotransferase 15 U/L (12-78); Albumin Level 4.3 g/dl (3.5-5.0); Albumin/Globulin Ratio 1.4 (1.1-1.8); Alkaline Phosphatase 88 U/L (38-126); Amylase 60 U/L (30-110); Anion Gap 14.6 mEq/L (5-15); Aspartate Amino Transferase 21 U/L (14-36); Bilirubin,Total 0.3 mg/dl (0.2-1.3); Blood Urea Nitrogen 12 mg/dl (7-17); Calcium 9.6 mg/dl (8.4-10.2); Carbon Dioxide 26 mmol/L (22.0-30.0); Chloride 104 mmol/L (98-107); Estimated Glomerular Filt Rate 64 ml/min (>60); GFR (African American) 77 ML/MIN (>60); Globulin 3.1 g/dL (1.3-3.2); Glucose 93 mg/dl (74-100); Lipase 86 U/L (23-300); Potassium 4.6 mmoL/L (3.5-5.1); Sodium 140 mmol/L (136-145); Total Protein,Serum 7.4 g/dl (6.3-8.2)
[2023-06-04 14:45] LABS: Vitamin B12 786 pg/mL (239-931)
[2023-06-05 20:32] LABS: H. pylori Breath Test Positive (Negative)
== END ==
PROVIDERS: PCP Nurse Practitioner Family; Visit Provider Nurse Practitioner Family
DX: R10.13 Epigastric pain (principal); R11.0 Nausea; R14.0 Abdominal distension (gaseous); E53.8 Deficiency of other specified B group vitamins
CPT/HCPCS: 36415; 80053; 82150; 82607; 83013; 83690; 85025; 86340

== ENCOUNTER 2023-06-12 15:38 | Emergency (ER) | payer OTHER, SELFPAY ==
[2023-06-12] VITALS (9 sets, daily range): BP systolic 103–122; BP diastolic 54–70; PULSE 61–96; RESP 18; TEMP 36.8; O2SAT 96–100; BMI 39.9
[2023-06-12 17:44] LABS: Chloride 107 mmol/L (98-107); Potassium 4.5 mmoL/L (3.5-5.1); Sodium 141 mmol/L (136-145)
[2023-06-12 17:46] LABS: Basophils % 0.3 % (0.1-2.0); Blood Urea Nitrogen 14 mg/dl (7-17); Creatinine Clearance Estimated 125 mL/min (50-200); Eosinophils # 0.1 K/mm3 (0.0-0.4); Eosinophils % 1.2 % (0.1-12.0); Estimated Glomerular Filt Rate 57 ml/min (>60); GFR (African American) 69 ML/MIN (>60); Hemoglobin 13.2 g/dL (12.2-16.2); Lymphocytes # 1.6 K/mm3 (0.7-4.5); Lymphocytes % 21.2 % (10-50); Mean Corpuscular HGB Conc 32.2 g/dL (31.8-35.4); Mean Corpuscular Hemoglobin 29.5 pg (27.0-31.2); Mean Corpuscular Volume 91.4 fl (81-99); Mean Platelet Volume 8.8 fl (7.4-10.4); Monocytes # 0.4 K/mm3 (0.1-1.0); Monocytes % 5.3 % (1.7-9.3); Neutrophils # 5.4 K/mm3 (1.8-7.8); Platelet Count 279 K/mm3 (142-424); Red Blood Count 4.48 M/mm3 (4.20-5.40); Red Cell Distribution Width 12.5 % (11.5-17.5); White Blood Count 7.5 K/mm3 (4.8-10.8)
[2023-06-12 17:47] LABS: Alanine Aminotransferase 20 U/L (12-78); Albumin Level 3.9 g/dl (3.5-5.0); Albumin/Globulin Ratio 1.3 (1.1-1.8); Alkaline Phosphatase 80 U/L (38-126); Anion Gap 12.5 mEq/L (5-15); Aspartate Amino Transferase 26 U/L (14-36); Bilirubin,Total 0.4 mg/dl (0.2-1.3); Calcium 8.8 mg/dl (8.4-10.2); Carbon Dioxide 26 mmol/L (22.0-30.0); Globulin 3.1 g/dL (1.3-3.2); Glucose 100 mg/dl (74-100); Lipase 69 U/L (23-300); Magnesium 1.9 mg/dl (1.6-2.3)
[2023-06-12 18:02] LABS: HCG Qualitative, Serum Negative (Negative)
--- NOTE | 2023-06-12 18:37 | PC.NURSE ---
notified nurses that pt is requesting to see her nurse
--- NOTE | 2023-06-12 18:48 | PC.NURSE ---
ER MD Saha at
--- NOTE | 2023-06-13 14:31 | HMH.EDGENADL ---
Discharge Plan Disposition Patient Disposition: Home, Self-Care Condition: Good Prescriptions Prescriptions: New prochlorperazine maleate [Compazine] 5 mg tablet 5 mg PO BID PRN (Reason: nausea and vomiting) 1 Days Qty: 14 0RF No Action hydroxychloroquine 200 mg tablet 200 mg PO BID celecoxib 200 mg capsule 200 mg PO BID Patient Comments: TAKE 1 CAPSULE BY MOUTH TWICE DAILY cyanocobalamin (vitamin B-12) 5,000 mcg capsule 5,000 mcg PO DAILY sucralfate [Carafate] 1 gram tablet 1 g PO QAC Qty: 90 0RF carbamazepine 100 mg tablet,chewable 200 mg PO TID 30 Days Qty: 180 5RF Emgality Pen 120 mg/mL pen injector 120 mg SQ QMONTH Qty: 1 5RF Rx Instructions: Inject monthly as prescribed Ubrelvy 100 mg tablet 100 mg PO ONCE PRN (Reason: migraine headache) Qty: 10 5RF Rx Instructions: Take 100 mg at onset of headache, may repeat 100 mg after 2 hours if symptoms persist. Max dose 2 tablets in 24 hours. labetalol 200 mg tablet 200 mg PO BID Qty: 60 11RF clarithromycin 500 mg tablet 500 mg PO BID 10 Days Qty: 20 0RF omeprazole 40 mg capsule,delayed release(DR/EC) 40 mg PO DAILY 30 Days Qty: 30 2RF metronidazole 500 mg tablet 500 mg PO Q8H 10 Days Qty: 30 0RF levofloxacin [levofloxacin] 500 mg tablet 500 mg PO DAILY Qty: 7 0RF albuterol sulfate [Ventolin HFA] 90 mcg/actuation HFA aerosol inhaler 2 puff inhalation Q6H PRN (Reason: shortness of breath or wheezing) Qty: 6.7 0RF Referrals Follow up/Referrals: Mayuri Diego APRN [Primary Care Provider] - See instructions Clinical Impressions Clinical Impression: Nausea & vomiting Instructions Patient Instructions: Nausea and Vomiting-Adult Discharge ED Provider: Jermain Saha Adult HPI General Chief complaint: Weakness Stated complaint: sent by phys, hands numb, nausea vomiting Time Seen by Provider: 06/12/23 16:00 Mode of Arrival: Wheelchair Source of Information: Patient Limitations: No Limitations Description of Symptoms (Recalled from ER Triage Doc. by RN): Patient with medical history of Lupus and recent diagnosis of H. Pylori. Presented today after going to her PCP office for increased weakness, nausea and not being able to walk. History of Present Illness HPI narrative: The patient presents with a chief complaint of wavy vision when standing up or lying down, accompanied by difficulty breathing and tightness in the chest and stomach area. The patient tested positive for H. pylori infection on the and has been on antibiotics since then. The patient reports feeling off today, with worsening symptoms throughout the day. The patient has been experiencing persistent nausea and dry heaving, leading to throat discomfort. The patient denies any productive vomiting and reports that sitting up straight is the only comfortable position. The patient has a history of a fast and irregular heart rate and is currently on a beta sharlene. The patient reports a fever of 103?F last night, which broke around 2 AM. The patient experiences shortness of breath and pain in the upper stomach and lower chest area when lying down or standing up. The patient has a history of gallbladder surgery and a tubal ligation. The patient has been able to have bowel movements and reports no specific pain upon abdominal palpation, only nausea. The patient has been experiencing nausea for approximately three to four weeks and is scheduled for an upper GI scope consultation on July 12. 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
== END 2023-06-12 19:02 | disposition home or self-care (01) ==
PROVIDERS: Emergency Provider Emergency Medicine; PCP Nurse Practitioner Family
DX: R11.2 Nausea with vomiting, unspecified (principal); R53.1 Weakness; R42 Dizziness and giddiness; E78.5 Hyperlipidemia, unspecified; K21.9 Gastro-esophageal reflux disease without esophagitis; F41.9 Anxiety disorder, unspecified; F32.A Depression, unspecified; Z86.73 Personal history of transient ischemic attack (TIA), and cerebral infarction without residual deficits
CPT/HCPCS: 80053; 83690; 83735; 84703; 85025; 96360; 96372; 99284

== ENCOUNTER → 2023-06-18 13:21 | Outpatient (CLI) | payer OTHER, SELFPAY ==
[2023-06-18 12:40] LABS: Basophils % 0.3 % (0.1-2.0); Eosinophils # 0.2 K/mm3 (0.0-0.4); Eosinophils % 2.4 % (0.1-12.0); Hematocrit 40.7 % (37.0-47.0); Hemoglobin 13.8 g/dL (12.2-16.2); Lymphocytes # 1.4 K/mm3 (0.7-4.5); Lymphocytes % 22.4 % (10-50); Mean Corpuscular HGB Conc 33.9 g/dL (31.8-35.4); Mean Corpuscular Hemoglobin 31.5 pg (27.0-31.2); Monocytes # 0.3 K/mm3 (0.1-1.0); Monocytes % 4.7 % (1.7-9.3); Neutrophils # 4.4 K/mm3 (1.8-7.8); Neutrophils % 70.1 % (37.0-80.0); Platelet Count 259 K/mm3 (142-424); Red Blood Count 4.37 M/mm3 (4.20-5.40); Red Cell Distribution Width 12.8 % (11.5-17.5); White Blood Count 6.2 K/mm3 (4.8-10.8)
[2023-06-18 13:39] LABS: Alanine Aminotransferase 19 U/L (12-78); Albumin Level 4.2 g/dl (3.5-5.0); Albumin/Globulin Ratio 1.4 (1.1-1.8); Alkaline Phosphatase 74 U/L (38-126); Aspartate Amino Transferase 24 U/L (14-36); Bilirubin,Total 0.2 mg/dl (0.2-1.3); Blood Urea Nitrogen 18 mg/dl (7-17); Calcium 9.2 mg/dl (8.4-10.2); Carbon Dioxide 28 mmol/L (22.0-30.0); Chloride 104 mmol/L (98-107); Estimated Glomerular Filt Rate 72 ml/min (>60); GFR (African American) 87 ML/MIN (>60); Globulin 3.1 g/dL (1.3-3.2); Glucose 93 mg/dl (74-100); Sodium 139 mmol/L (136-145); Total Protein,Serum 7.3 g/dl (6.3-8.2)
[2023-06-18 13:54] LABS: T4 (Thyroxine) 5.8 ug/dl (5.53-11.0)
[2023-06-18 14:08] LABS: Thyroid Stimulating Hormone 2.05 uIU/mL (0.465-4.68)
[2023-06-18 16:12] LABS: Ferritin 19.9 ng/ml (6.24-137)
[2023-06-20 09:04] LABS: Triiodothyronine (T3) Free 2.6 pg/mL (2.0-4.4)
== END ==
PROVIDERS: PCP Nurse Practitioner Family; Visit Provider Nurse Practitioner Family
DX: E04.1 Nontoxic single thyroid nodule (principal); R42 Dizziness and giddiness; R11.2 Nausea with vomiting, unspecified
CPT/HCPCS: 80053; 82728; 84436; 84443; 84481; 85025

== ENCOUNTER → 2023-06-21 15:24 | Outpatient (CLI) | payer OTHER, SELFPAY ==
--- NOTE | 2023-06-21 15:30 | CA_ITS ---
FINAL REPORT TECHNIQUE: Ultrasound images of the deep venous system were obtained from the left groin to the calf veins. CLINICAL HISTORY: LEFT LEG PAIN,NKI FINDINGS: The deep venous system is normally compressible. Normal flow is identified. IMPRESSION: No evidence of left lower extremity DVT. Reviewed, Interpreted and Dictated by Rafa Gottlieb III, MD Transcribed by Suri Sheffield Authenticated and [facility]
== END ==
PROVIDERS: PCP Nurse Practitioner Family; Visit Provider Nurse Practitioner Family
DX: M79.605 Pain in left leg (principal); M79.89 Other specified soft tissue disorders
CPT/HCPCS: 93971

== ENCOUNTER → 2023-07-01 09:14 | Outpatient (POV) | payer OTHER, SELFPAY ==
[2023-07-01 10:05] VITALS: BP 103/74; PULSE 82; RESP 18; O2SAT 95; BMI 39.9
--- NOTE | 2023-07-01 13:03 | EXP.PAIN.OV ---
HPI Data of Consult Patient: new to practice Consult date: 07/01/23 Requesting Physician: David Sam CRNA Primary Care Provider: Mayuri Diego APRN Consult Narrative Reason for consult: Left shoulder pain. History of present illness: Ms. Campos is a 32 year old female who comes our clinic today for initial evaluation regarding chronic left shoulder pain. Patient has a 2-year history of left shoulder pain. Patient has consulted with orthopedic surgery however no surgical intervention has been done. She rates the pain 7/10. Patient has decreased range of motion of the left arm secondary to left shoulder pain. Patient has tried and failed physical therapy. Patient had intra-articular injection from orthopedic surgery in the office March 2023 with minimal to no help. Patient had left shoulder MRI March 2023 which revealed no evidence of rotator cuff tear or labral tears. Findings consistent with subacromial/subdeltoid bursitis. Upon examination patient has 5/5 strength in the left arm. Patient has limited range of motion of the left arm secondary to left shoulder pain. We discussed treatment options. I recommend repeating left intra-articular shoulder injection under fluoroscopy. Patient's Neel #[id number] has been reviewed and appropriate. Patient is currently taking NSAIDs and Tylenol to help manage pain. CC: David Sam CRNA [facility] Disclaimer: The information contained in this section may have been updated after the patient was seen, as this information can be updated by other users. Medical History Acid reflux Anxiety Depression History of stroke Hyperlipidemia Migraine Surgical History H/O left knee surgery H/O tubal ligation History of cholecystectomy History of placement of ear tubes x3 History of tonsillectomy and adenoidectomy Family History Other Alcoholism Asthma Cancer Hypertension Stroke Social History (Updated 07/01/23 @ 10:06 by Devora Fleming RN) Smoking Status: Never smoker alcohol intake: never substance use type: former substance user current occupational status: unemployed Travel in 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: None household members: family, children and other housing: house Meds Home Medications and Allergies Home Medications Medication Instructions Recorded Confirmed Type hydroxychloroquine 200 mg tablet 200 mg PO BID lupus 06/25/22 07/01/23 History 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 #1 mL 01/22/23 07/01/23 Rx subcutaneous pen injector (Emgality Pen) ubrogepant 100 mg tablet (Ubrelvy) 100 mg PO ONCE PRN migraine 01/22/23 07/01/23 Rx headache #10 tabs labetalol 200 mg tablet 200 mg PO BID #60 tabs 03/18/23 07/01/23 Rx albuterol sulfate 90 mcg/actuation 2 puff inhalation Q6H PRN 04/30/23 07/01/23 Rx aerosol inhaler (Ventolin HFA) shortness of breath or wheezing #6.7 grams celecoxib 200 mg capsule 200 mg PO BID 06/04/23 07/01/23 History cyanocobalamin (vitamin B-12) 5,000 mcg PO DAILY 06/04/23 07/01/23 History 5,000 mcg capsule omeprazole 40 mg capsule,delayed 40 mg PO DAILY 30 days #30 caps 06/07/23 07/01/23 Rx release prochlorperazine maleate 5 mg 5 mg PO BID PRN nausea and 06/12/23 07/01/23 Rx tablet (Compazine) vomiting 24 hours #14 tabs hydrochlorothiazide 12.5 mg tablet 12.5 mg PO DAILY #30 tabs 06/24/23 07/01/23 Rx New Prescriptions to Start Prescriptions: Allergies Allergy/AdvReac Type Severity Reaction Status Date / Time penicillin G [PENICILLIN G] Allergy Mild I-RASH Verified 06/21/23 14:52 Iodinated Contrast Media Allergy Unknown Unknown Verified 06/21/23 14:52 [Iodinated Contrast Media - allergy Oral and] reaction Peni
== END ==
PROVIDERS: PCP Nurse Practitioner Family; Visit Provider Nurse Anesthetist, Certified Registered
DX: M75.52 Bursitis of left shoulder (principal)
CPT/HCPCS: 99202; G0463

== ENCOUNTER → 2023-07-02 13:31 | Outpatient (CLI) | payer OTHER, SELFPAY ==
--- NOTE | 2023-07-02 13:35 | US_ITS ---
FINAL REPORT CLINICAL HISTORY: Follow-up thyroid nodule COMPARISON: 04/30/2022 FINDINGS: THYROID ULTRASOUND: The right lobe of the thyroid gland is enlarged, measuring 4.6 x 2 x 1.7 cm in size. There are several nodules in the right lobe of the thyroid gland, the largest of which measures 21 x 17 x 19 mm in size. This nodule measured 16 x 11 x 15 mm on the prior ultrasound of 2021. The nodule is cystic and solid, isoechoic, and a TI-RADS category 2 nodule. A smaller nodule in the right lobe is solid, hyperechoic, 7 x 5 x 6 mm in size, a TI-RADS category 3 nodule. The left lobe of the thyroid gland is also enlarged, measuring 4.9 x 1.8 x 1.8 cm in size. Once again there are multiple nodules present in the left lobe of the thyroid, the largest of which measures 21 x 10 mm in size, is cystic and solid, isoechoic, a TI-RADS 2 category nodule. A second nodule is 20 x 13 x 12 mm in size, solid, hypoechoic, stable in size when compared to the prior ultrasound. This is a TI-RADS category 4 nodule. The isthmus is unremarkable in appearance measuring 2.7 mm in thickness. IMPRESSION: Multiple thyroid nodules are present bilaterally, consistent with a multinodular goiter in appearance. A TI-RADS category 4 nodule in the left lobe of the thyroid is stable, however by size criteria would consider ultrasound-guided biopsy if not already been performed. Reviewed, Interpreted and Dictated by Rafa Gottlieb III, MD Transcribed by Izabella Monge Authenticated and [facility]
== END ==
PROVIDERS: PCP Nurse Practitioner Family; Visit Provider Nurse Practitioner Family
DX: E04.1 Nontoxic single thyroid nodule (principal)
CPT/HCPCS: 76536

== ENCOUNTER → 2023-07-05 07:35 | Outpatient (CLI) | payer OTHER, SELFPAY ==
--- NOTE | 2023-07-05 07:36 | MR_ITS ---
FINAL REPORT CLINICAL HISTORY: episodes of dizziness and blurred vision. history migraine headache. FINDINGS: Multiplanar MR imaging of the brain was performed without contrast. There is no evidence of intracranial hemorrhage or mass. The ventricular size is normal. There is no evidence of shift of the midline structures. No area of restricted diffusion is identified. The posterior fossa and brainstem have an unremarkable appearance. Normal major vessel vascular flow voids are seen. IMPRESSION: Unremarkable brain with no focal abnormality identified. Authenticated and [facility]
== END ==
PROVIDERS: PCP Nurse Practitioner Family; Visit Provider Nurse Practitioner Family
DX: M32.9 Systemic lupus erythematosus, unspecified (principal); R42 Dizziness and giddiness
CPT/HCPCS: 70551

== ENCOUNTER 2023-07-09 09:44 | Day surgery (SDC) | payer OTHER, SELFPAY ==
[2023-07-09 10:06] VITALS: BP 142/83; PULSE 98; RESP 18; TEMP 36.5; O2SAT 99; BMI 38.7
--- NOTE | 2023-07-09 10:11 | P.PCN_ITS ---
Procedure Date: 07/09/23 Time: 10:05 Anesthesiologist:: David Sam CRNA Complications:: None Pre-procedure Diagnosis:: Arthritis left shoulder. Chronic left shoulder pain. Post-procedure Diagnosis:: Same. Indications for Procedure:: Patient is very pleasant 32-year-old female comes our clinic today for left intra-articular shoulder injection. Patient reports left shoulder pain is constant, dull, aching. Patient has limited range of motion in the left arm secondary to left shoulder pain. She rates her pain 7/10. Patient has 5/5 strength in the left arm. Procedure Details:: Left shoulder intra-articular injection Informed consent was obtained risk and benefits of the procedure were explained to the patient. Patient was taken to the procedure room. The left shoulder was prepped using ChloraPrep. A 25-gauge needle was used first anteriorly, laterally, and then posteriorly to inject 10 mL bupivacaine 0.25% and Depo- Medrol 40 mg. Patient tolerated procedure well with no complications. Plan and Disposition:: Patient was discharged without incident. Discussed in detail with the patient regarding second opinion for chronic left shoulder pain. We will refer the patient to .
[2023-07-09 10:16] VITALS: BP 133/82; PULSE 86; RESP 18; O2SAT 98
[2023-07-09 10:17] VITALS: BP 133/82; PULSE 79; RESP 18; O2SAT 98
[2023-07-09 10:24] VITALS: BP 132/86; PULSE 84; RESP 18; O2SAT 99
== END 2023-07-09 10:24 | disposition home or self-care (01) ==
PROVIDERS: PCP Nurse Practitioner Family; Visit Provider Nurse Anesthetist, Certified Registered
DX: M19.012 Primary osteoarthritis, left shoulder (principal); M25.512 Pain in left shoulder; G89.29 Other chronic pain
CPT/HCPCS: 20610; J1040

== ENCOUNTER → 2023-07-17 14:09 | Outpatient (CLI) | payer OTHER, SELFPAY ==
[2023-07-17 14:28] LABS: Basophils % 0.2 % (0.1-2.0); Eosinophils # 0.2 K/mm3 (0.0-0.4); Hematocrit 39.7 % (37.0-47.0); Hemoglobin 13.9 g/dL (12.2-16.2); Lymphocytes # 1.7 K/mm3 (0.7-4.5); Lymphocytes % 20.2 % (10-50); Mean Corpuscular Hemoglobin 32.1 pg (27.0-31.2); Mean Corpuscular Volume 91.7 fl (81-99); Mean Platelet Volume 9.4 fl (7.4-10.4); Monocytes # 0.4 K/mm3 (0.1-1.0); Monocytes % 4.9 % (1.7-9.3); Neutrophils % 72.7 % (37.0-80.0); Platelet Count 250 K/mm3 (142-424); Red Blood Count 4.33 M/mm3 (4.20-5.40); Red Cell Distribution Width 12.5 % (11.5-17.5); White Blood Count 8.3 K/mm3 (4.8-10.8)
[2023-07-17 14:40] LABS: Alanine Aminotransferase 20 U/L (12-78); Albumin Level 4.4 g/dl (3.5-5.0); Albumin/Globulin Ratio 1.5 (1.1-1.8); Alkaline Phosphatase 92 U/L (38-126); Anion Gap 16.3 mEq/L (5-15); Aspartate Amino Transferase 27 U/L (14-36); Bilirubin,Total 0.5 mg/dl (0.2-1.3); Blood Urea Nitrogen 15 mg/dl (7-17); Calcium 9.3 mg/dl (8.4-10.2); Carbon Dioxide 24 mmol/L (22.0-30.0); Chloride 102 mmol/L (98-107); Estimated Glomerular Filt Rate 82 ml/min (>60); GFR (African American) 99 ML/MIN (>60); Globulin 2.9 g/dL (1.3-3.2); Glucose 85 mg/dl (74-100); Potassium 4.3 mmoL/L (3.5-5.1); Sodium 138 mmol/L (136-145); Total Protein,Serum 7.3 g/dl (6.3-8.2)
[2023-07-17 14:54] LABS: C-Reactive Protein 13.1 mg/L (0-4)
[2023-07-17 14:57] LABS: T4 (Thyroxine) 7.5 ug/dl (5.53-11.0)
[2023-07-17 15:10] LABS: Thyroid Stimulating Hormone 1.88 uIU/mL (0.465-4.68)
[2023-07-19 10:09] LABS: Triiodothyronine (T3) Free 3.2 pg/mL (2.0-4.4)
== END ==
PROVIDERS: PCP Nurse Practitioner Family; Visit Provider Nurse Practitioner Family
DX: R10.9 Unspecified abdominal pain (principal); E04.1 Nontoxic single thyroid nodule; M32.9 Systemic lupus erythematosus, unspecified; M54.50 Low back pain, unspecified; B96.89 Other specified bacterial agents as the cause of diseases classified elsewhere
CPT/HCPCS: 80053; 84436; 84443; 84481; 85025; 86140; 87086

== ENCOUNTER → 2023-07-25 11:23 | Outpatient (POV) | payer OTHER, SELFPAY ==
--- NOTE | 2023-07-25 11:41 | A.OFFVIS_ITS ---
[facility] Pain Management SOAP Note Subjective:: Patient is a pleasant 33-year-old female who presents today for follow-up of left intra-articular shoulder injection on 07/09/2023. We are currently treating the patient for left shoulder pain, left shoulder bursitis. Today she rates her pain a 2 out of 10. Patient denies any new trauma or injury since her last visit. Patient does state that she had approximately 80% improvement in the range of motion following this injection and approximately 40 to 50% improvement in pain. Patient does state that it is still continuing to provide additional relief. Patient does state that certain days she will have a flareup with worsening pain. She states she is scheduled to see an orthopedic doctor on Saturday for evaluation. Her Neel has been reviewed and is appropriate. Review of Systems: General: No recent weight changes, no fever, no sleep disturbances Respiratory: No cough, no shortness of air, no recurring pulmonary infections Cardiovascular/peripheral vascular: No chest pain, no palpitations, no edema, no shortness of breath Gastrointestinal: No new onset incontinence, normal bowel movements reported Genitourinary: No new onset incontinence Musculoskeletal: Left shoulder pain Psychiatric: [Normal mood/affect] Neurological: [Denies weakness in extremities], [denies balance issues] Objective:: Physical Exam: General: Alert and oriented x3, no acute distress, pleasant and cooperative Lungs: Respirations even and unlabored, symmetrical chest expansion Eyes: PERRL Musculoskeletal: Flexion and extension of left shoulder somewhat guarded secondary to pain Neurological: Speech clear, no gross sensory deficit Assessment:: Left shoulder pain, subacromial bursitis left-sided Plan:: Patient has had significant improvement following her intra-articular injection. I will order the patient a compounding cream. Patient will return to clinic in 1 month for reevaluation of symptoms and plan of care. Patient has been instructed to contact the clinic with any concerns before the next appointment. Dr. Worthington has reviewed this note and agrees with this plan of care. This note was dictated using voice recognition software and make contain errors or omissions. [facility] Disclaimer: The information contained in this section may have been updated after the patient was seen, as this information can be updated by other users. Medical History Acid reflux Anxiety Depression History of stroke Hyperlipidemia Migraine Surgical History H/O left knee surgery H/O tubal ligation History of cholecystectomy History of placement of ear tubes x3 History of tonsillectomy and adenoidectomy Family History Other Alcoholism Asthma Cancer Hypertension Stroke Social History Smoking Status: Never smoker alcohol intake: never substance use type: former substance user current occupational status: unemployed Travel in 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: None household members: family, children and other housing: house
[2023-07-25 11:58] VITALS: BP 134/87; PULSE 75; RESP 19; O2SAT 98; BMI 39.0
== END ==
PROVIDERS: PCP Nurse Practitioner Family; Visit Provider Nurse Practitioner Family
DX: M75.52 Bursitis of left shoulder (principal); M25.512 Pain in left shoulder
CPT/HCPCS: 99212; G0463

== ENCOUNTER → 2023-08-02 08:48 | Outpatient (CLI) | payer OTHER, SELFPAY ==
--- NOTE | 2023-08-02 08:56 | CT_ITS ---
FINAL REPORT TECHNIQUE: Axial CT images of the abdomen and pelvis were obtained before and after the administration of IV contrast. This study was performed with techniques to keep radiation doses as low as reasonably achievable (ALARA). Individualized dose reduction techniques using automated exposure control or adjustment of mA and/or kV according to the patient's size were employed. CLINICAL HISTORY: left flank pain COMPARISON: 09/06/2022 FINDINGS: Abdomen: Mild bibasilar atelectasis is present. The heart is normal in size. The liver has an unremarkable appearance, without evidence of mass or biliary duct dilatation. The gallbladder has been surgically resected.. The spleen is unremarkable. No adrenal masses present. The pancreas has an unremarkable appearance. There are several less than 3 mm in size right nonobstructing renal stones. These are new since the prior CT of August 2022. No evidence of hydronephrosis or renal masses identified. The aorta is normal in caliber. There is no free fluid or adenopathy. No mass or abnormal fluid collection is seen. Precontrast images demonstrate no evidence of nephrolithiasis. Pelvis: The appendix is normal in appearance. The urinary bladder is unremarkable. No inflammatory process is seen. There is no evidence of mass or adenopathy. There is no evidence of bowel obstruction. IMPRESSION: No evidence of acute intra-abdominal process. There are several less than 3 mm in size right renal nonobstructing stones present, new since the prior CT of August 2022. Bibasilar atelectasis, mild. Reviewed, Interpreted and Dictated by Rafa Gottlieb III, MD Transcribed by Izabella Monge Authenticated and [facility]
== END ==
PROVIDERS: PCP Nurse Practitioner Family; Visit Provider Nurse Practitioner Family
DX: R10.9 Unspecified abdominal pain (principal)
CPT/HCPCS: 74178; Q9967

== ENCOUNTER → 2023-08-19 07:45 | Outpatient (CLI) | payer OTHER, SELFPAY | PROVIDERS: PCP Nurse Practitioner Family; Visit Provider Nurse Practitioner Family | DX: R06.02 Shortness of breath (principal); Z86.19 Personal history of other infectious and parasitic diseases | CPT/HCPCS: 94060 ==

== ENCOUNTER → 2023-08-22 10:16 | Outpatient (POV) | payer OTHER, SELFPAY ==
--- NOTE | 2023-08-22 10:28 | EXP.PAIN.SOA ---
[facility] Pain Management SOAP Note Subjective:: Patient is a pleasant 33-year-old female who presents today for follow-up. We are currently treating the patient for left shoulder pain, left shoulder bursitis. Today she rates her pain a 4 out of 10. Patient denies any new trauma or injury since her last visit. At her last visit she was sent for referral for a In [place] for orthopedic evaluation of her shoulder. Patient states that he has not recommended surgery and only stated that physical therapy would be beneficial. Patient has been doing this and states it has helped however has had some increased pain due to the increased activity and range of motion. She describes it as an aching, throbbing sensation that is worse with increased activity. She does state that this week is her first full week of doing physical therapy and that it is causing more problems with doing activities of daily living such as cooking and cleaning. Patient did previously have a intra-articular injection that did provide upwards of 50% relief and it did last over the last month or so. She does have a history of fluid buildup in her shoulder area. Patient was prescribed compounding cream and she states that she did try it however she had a rash that came up but she changed her body wash at the exact same time so she is unsure which causes a slight rash. She does state there was no itch or other symptoms associated with the rash. She states she is planning on trying it again. She states with her lupus that she does have skin reactions frequently to any new changes. She did state that the compounding cream seem to take the edge off when she did try it. Her Neel has been reviewed and is appropriate. Review of Systems: General: No recent weight changes, no fever, no sleep disturbances Respiratory: No cough, no shortness of air, no recurring pulmonary infections Cardiovascular/peripheral vascular: No chest pain, no palpitations, no edema, no shortness of breath Gastrointestinal: No new onset incontinence, normal bowel movements reported Genitourinary: No new onset incontinence Musculoskeletal: Left shoulder pain Psychiatric: [Normal mood/affect] Neurological: [Denies weakness in extremities], [denies balance issues] Objective:: Physical Exam: General: Alert and oriented x3, no acute distress, pleasant and cooperative Lungs: Respirations even and unlabored, symmetrical chest expansion Eyes: PERRL Musculoskeletal: Flexion and extension of left shoulder somewhat guarded secondary to pain Neurological: Speech clear, no gross sensory deficit Assessment:: Left shoulder pain, left shoulder bursitis Plan:: Patient is experiencing worsening pain in her left shoulder with limited range of motion. I have discussed with the patient that she may benefit from a left suprascapular nerve block. Risk and benefits were discussed with the patient and she would like to proceed forward with this plan of care. We will schedule the patient for a left suprascapular nerve block. Patient has been instructed to contact the clinic with any concerns before the next appointment. Dr. Worthington has reviewed this note and agrees with this plan of care. This note was dictated using voice recognition software and make contain errors or omissions. [facility] Disclaimer: The information contained in this section may have been updated after the patient was seen, as this information can be updated by other users. Medical History Acid reflux Anxiety Depression History of stroke Hyperlipidemia Migraine Surgical History H/O left knee surgery H/O tubal ligation History of cholecystectomy History of placement of ear tubes x3 History of tonsillectomy and adenoidectomy Family History Other Alcoholism Asthma Cancer Hypertension Stroke
[2023-08-22 10:55] VITALS: BP 124/82; PULSE 97; RESP 18; O2SAT 97; BMI 39.0
== END ==
PROVIDERS: PCP Nurse Practitioner Family; Visit Provider Nurse Practitioner Family
DX: M25.512 Pain in left shoulder (principal); M75.52 Bursitis of left shoulder
CPT/HCPCS: 99212; G0463

== ENCOUNTER → 2023-08-23 12:53 | Outpatient (CLI) | payer OTHER, SELFPAY ==
[2023-08-23 14:36] LABS: Basophils % 0.4 % (0.1-2.0); Eosinophils # 0.1 K/mm3 (0.0-0.4); Eosinophils % 1.8 % (0.1-12.0); Hematocrit 42.1 % (37.0-47.0); Lymphocytes # 1.5 K/mm3 (0.7-4.5); Lymphocytes % 25.8 % (10-50); Mean Corpuscular HGB Conc 33.4 g/dL (31.8-35.4); Mean Corpuscular Hemoglobin 30.6 pg (27.0-31.2); Mean Corpuscular Volume 91.6 fl (81-99); Mean Platelet Volume 9.6 fl (7.4-10.4); Monocytes # 0.3 K/mm3 (0.1-1.0); Monocytes % 5.2 % (1.7-9.3); Neutrophils # 3.9 K/mm3 (1.8-7.8); Neutrophils % 66.9 % (37.0-80.0); Platelet Count 322 K/mm3 (142-424); Red Blood Count 4.59 M/mm3 (4.20-5.40); Red Cell Distribution Width 12.8 % (11.5-17.5); White Blood Count 5.9 K/mm3 (4.8-10.8)
[2023-08-23 15:14] LABS: Alanine Aminotransferase 19 U/L (12-78); Albumin Level 4.4 g/dl (3.5-5.0); Albumin/Globulin Ratio 1.5 (1.1-1.8); Alkaline Phosphatase 87 U/L (38-126); Anion Gap 12.4 mEq/L (5-15); Aspartate Amino Transferase 24 U/L (14-36); Bilirubin,Total 0.4 mg/dl (0.2-1.3); Blood Urea Nitrogen 14 mg/dl (7-17); Calcium 8.9 mg/dl (8.4-10.2); Carbon Dioxide 25 mmol/L (22.0-30.0); Chloride 104 mmol/L (98-107); Estimated Glomerular Filt Rate 63 ml/min (>60); GFR (African American) 77 ML/MIN (>60); Globulin 2.9 g/dL (1.3-3.2); Glucose 91 mg/dl (74-100); Potassium 4.4 mmoL/L (3.5-5.1); Sodium 137 mmol/L (136-145); Total Protein,Serum 7.3 g/dl (6.3-8.2)
== END ==
PROVIDERS: PCP Nurse Practitioner Family; Visit Provider Nurse Practitioner Family
DX: N20.0 Calculus of kidney (principal); R31.9 Hematuria, unspecified; B96.89 Other specified bacterial agents as the cause of diseases classified elsewhere
CPT/HCPCS: 80053; 85025; 87086

== ENCOUNTER 2023-09-06 11:59 | Day surgery (SDC) | payer OTHER, SELFPAY ==
[2023-09-06 12:20] VITALS: BP 111/69; PULSE 109; RESP 16; TEMP 36.6; O2SAT 98; BMI 39.0
--- NOTE | 2023-09-06 12:49 | EXP.PAIN.PRO ---
Procedure Date: 09/06/23 Time: 13:00 Anesthesiologist:: David Sam CRNA Complications:: None Pre-procedure Diagnosis:: Chronic left shoulder pain. DJD left shoulder. Post-procedure Diagnosis:: Same. Indications for Procedure:: Patient is a pleasant 33-year-old female comes our clinic today for a left suprascapular nerve block. She has been dealing with left shoulder pain for quite some time. Patient has 5/5 strength in the left arm. However, limited range of motion secondary to chronic left shoulder pain. Patient is staying active with physical therapy for the left shoulder pain. Procedure Details:: Details of the procedure explained to the patient. The patient taken procedure and placed in sitting position. The area over the left scapula was cleaned using chlorhexidine as a cleansing solution. Using a 25-gauge inch and half needle the left lateral superior border of the scapula was accessed with ease. After negative aspiration 10 cc of a solution containing 0.25% Marcaine +1% lidocaine and 40 mg of Depo-Medrol was injected intermittently. Patient tolerated procedure without difficulty. There are no complications. Plan and Disposition:: Patient was discharged without incident.
[2023-09-06] MEDS: BUPIVACAINE 0.25% 10ML INJ 25 MG IJ (12:50)
[2023-09-06] MEDS: LIDOCAINE 1% 5ML PF VIAL 5 ML (12:50)
[2023-09-06 12:51] VITALS: BP 159/92; PULSE 97; RESP 18; O2SAT 96
[2023-09-06] MEDS: methylPREDNISolone ACETATE 80MG/ML VIAL 80 MG (12:51)
[2023-09-06 12:52] VITALS: BP 159/92; PULSE 89; RESP 18; O2SAT 96
[2023-09-06 12:57] VITALS: BP 139/89; PULSE 94; RESP 16; O2SAT 98
[2023-09-13 22:01] LABS: TPMT Activity 24.6 (.)
== END 2023-09-06 12:57 | disposition home or self-care (01) ==
PROVIDERS: Nurse Practitioner; PCP Nurse Practitioner Family; Visit Provider Nurse Anesthetist, Certified Registered
DX: M19.012 Primary osteoarthritis, left shoulder (principal); M25.512 Pain in left shoulder; G89.29 Other chronic pain
CPT/HCPCS: 36415; 64418; 82657; J1040

== ENCOUNTER 2023-09-17 11:37 | Outpatient (CLI) | payer OTHER, SELFPAY ==
--- NOTE | 2023-09-17 11:41 | XR_ITS ---
FINAL REPORT CLINICAL HISTORY: left shoulder pain, decreased ROM FINDINGS: Left shoulder Three views were obtained. There is no acute fracture or dislocation. The joint spaces appear normal. No soft tissue abnormality is identified. IMPRESSION: No acute process. Reviewed, Interpreted and Dictated by Rafa Gottlieb III, MD Transcribed by Estrella Head Authenticated and [facility] [place]
== END 2023-09-17 23:59 ==
LOC: RAD 11:38
PROVIDERS: PCP Nurse Practitioner Family; Visit Provider Nurse Practitioner Family
DX: M25.512 Pain in left shoulder (principal); M25.612 Stiffness of left shoulder, not elsewhere classified
CPT/HCPCS: 73030

== ENCOUNTER → 2023-09-18 10:20 | Outpatient (POV) | payer OTHER, SELFPAY ==
--- NOTE | 2023-09-18 10:54 | EXP.PAIN.SOA ---
[facility] Pain Management SOAP Note Subjective:: Patient is a pleasant 33-year-old female who presents today for follow-up of left suprascapular nerve block on 09/06/2023. We are currently treating the patient for left shoulder pain, left shoulder bursitis. Today she rates her pain a 7 out of 10. Patient states she did have at least 70% improvement following this injection and it was working well up until Saturday. Patient does state that she was helping her son get out of the vehicle and had to lift him up quickly with her left arm and this did cause significant pain. Patient states that she did end up going to her PCP who did imaging and that she is scheduled to follow-up with her orthopedic Dr. Barboza in [place] coming up. Patient denies any other injury or trauma. Patient is currently using her compounded cream with improvement. Patients Neel has been reviewed and is appropriate. Review of Systems: General: No recent weight changes, no fever, no sleep disturbances Respiratory: No cough, no shortness of air, no recurring pulmonary infections Cardiovascular/peripheral vascular: No chest pain, no palpitations, no edema, no shortness of breath Gastrointestinal: No new onset incontinence, normal bowel movements reported Genitourinary: No new onset incontinence Musculoskeletal: Left shoulder pain Psychiatric: [Normal mood/affect] Neurological: [Denies weakness in extremities], [denies balance issues] Objective:: Physical Exam: General: Alert and oriented x3, no acute distress, pleasant and cooperative Lungs: Respirations even and unlabored, symmetrical chest expansion Eyes: PERRL Musculoskeletal: Flexion and extension of left shoulder guarded secondary to pain Neurological: Speech clear, no gross sensory deficit Assessment:: Left shoulder pain, left shoulder bursitis Plan:: Patient is experiencing worsening pain following an injury on Saturday to her left shoulder. I have counseled the patient that we may be able to do additional injection therapy however I would like to see what her orthopedic doctor recommends first. I have counseled the patient that if he does want to proceed forward with surgery typically they do like to have a window of no steroid use. Patient will return to clinic in 1 month for reevaluation of symptoms and plan of care. Patient has been instructed to contact the clinic with any concerns before the next appointment. Dr. Worthington has reviewed this note and agrees with this plan of care. This note was dictated using voice recognition software and make contain errors or omissions. PFSH PFSH Disclaimer: The information contained in this section may have been updated after the patient was seen, as this information can be updated by other users. Medical History Acid reflux Anxiety Depression History of stroke Hyperlipidemia Migraine Surgical History H/O left knee surgery H/O tubal ligation History of cholecystectomy History of placement of ear tubes x3 History of tonsillectomy and adenoidectomy Family History Other Alcoholism Asthma Cancer Hypertension Stroke Social History Smoking Status: Never smoker alcohol intake: never substance use type: former substance user current occupational status: unemployed Travel in 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: None household members: family, children and other housing: house
[2023-09-18 11:07] VITALS: BP 135/83; PULSE 103; RESP 18; O2SAT 99; BMI 38.6
== END ==
LOC: SC.PAIN 10:20
PROVIDERS: PCP Nurse Practitioner Family; Visit Provider Nurse Practitioner Family
DX: M75.52 Bursitis of left shoulder (principal); M25.512 Pain in left shoulder
CPT/HCPCS: 99212; G0463

== ENCOUNTER 2023-09-19 13:00 | Outpatient (RCR) | payer OTHER, SELFPAY | END 2023-09-19 14:00 | disposition home or self-care (01) | LOC: OT 13:00 | PROVIDERS: Visit Provider Orthopaedic Surgery | DX: M25.512 Pain in left shoulder (principal); M89.8X1 Other specified disorders of bone, shoulder | CPT/HCPCS: 97010; 97014; 97110; 97140; 97164; 97166; G0283 ==

== ENCOUNTER 2023-09-30 15:06 | Outpatient (CLI) | payer OTHER, SELFPAY ==
[2023-10-01 08:20] LABS: Sex Hormone Binding Globulin 28.9 nmol/L (24.6-122.0)
[2023-10-04 00:09] LABS: Atopobium vaginae Low - 0 Score (.); BVAB2 Low - 0 Score (.); Candida albicans NAA Negative (Negative); Candida glabrata Negative (Negative); Chlamydia Trachomatis NAA Negative (Negative); HSV 1 NAA Negative (Negative); HSV 2 NAA Negative (Negative); Megasphaera 1 Low - 0 Score (.); Neisseria gonorrhoeae NAA Negative (Negative); Trich vag NAA Negative (Negative)
[2023-10-08 22:08] LABS: Free Testosterone (Direct) 1.1 pg/mL (0.0-4.2); Testosterone, Total, LC/MS 47.2 ng/dL (10.0-55.0)
[2023-10-15 09:47] LABS: Mycoplasma genitalium NAA NEGATIVE
[2023-10-15 09:52] LABS: Atopobium vaginae 0; Candida albicans, NAA 0; Candida glabrata, NAA 0
[2023-10-15 09:53] LABS: Bacterial Vaginosis Associated 0; Megasphaera 1 0
== END 2023-09-30 23:59 ==
LOC: LAB 15:08
PROVIDERS: PCP Nurse Practitioner Family; Visit Provider Urology
DX: N20.0 Calculus of kidney (principal); Z87.440 Personal history of urinary (tract) infections
CPT/HCPCS: 36415; 84270; 87491; 87529; 87563; 87591; 87661; 87798; 87801

== ENCOUNTER 2023-10-05 11:09 | Outpatient (CLI) | payer OTHER, SELFPAY ==
[2023-10-08 23:15] LABS: 5-HIAA, Urine 3.7 mg/L (Undefined); 5-HIAA, Urine, 24Hr. 2.8 mg/24 hr (0.0-14.9)
== END 2023-10-05 23:59 ==
LOC: LAB.DROPOF 11:09
PROVIDERS: PCP Nurse Practitioner Family; Visit Provider Urology
DX: N20.0 Calculus of kidney (principal); N39.0 Urinary tract infection, site not specified
CPT/HCPCS: 83497

== ENCOUNTER 2023-10-10 08:12 | Day surgery (SDC) | payer OTHER, SELFPAY ==
[2023-10-04 10:32] VITALS: BMI 39.0
[2023-10-10 08:26] VITALS: BP 156/88; PULSE 87; RESP 18; TEMP 36.5; O2SAT 99
[2023-10-10 08:26] LABS: Urine Pregnancy, HCG Qual. Negative (Negative)
[2023-10-10] MEDS: LACTATED RINGERS 1000ML 1,000 ML 25 ML IV (08:30)
--- NOTE | 2023-10-10 09:20 | EXP.ANES.CKL ---
[facility] Disclaimer: The information contained in this section may have been updated after the patient was seen, as this information can be updated by other users. Medical History Acid reflux Anxiety Depression History of stroke Hyperlipidemia Migraine Surgical History H/O left knee surgery H/O tubal ligation History of cholecystectomy History of placement of ear tubes x3 History of tonsillectomy and adenoidectomy Family History Other Alcoholism Asthma Cancer Hypertension Stroke Social History (Updated 10/10/23 @ 08:24 by Khalida Causey RN) Smoking Status: Never smoker alcohol intake: never substance use type: former substance user current occupational status: unemployed Travel in 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: None household members: family, children and other housing: house caffeine: Yes [facility] Anesthesia Checklist Patient Identification Patient Identification: Verbal (Name & ) Structural Data Admitted From: Home Planned Operative Procedure/s: egd Consent for Planned Operative Procedure(s) Verified: Yes NPO Status Verified Time NPO: 00:00 Additional verifications Anesthesia Reactions: No Hx Blood Transfusions: No Blood Transfusion Reaction: No Airway Assessment Mallampati Score:: Class II C-Spine Mobility Assessed: Yes TMJ Mobility Assessed: Yes Dentition: Good Dentition Neurological Assessment Level of Consciousness: Awake, Alert and Appropriate Anesthesia Plan Anesthesia Risk discussed: Yes Anesthesia Plan: Verified ASA Class: II Anesthesia Type: MAC
[2023-10-10 09:23] VITALS: O2SAT 99
--- NOTE | 2023-10-10 09:35 | HMH.SCOPE ---
Procedure: Date: 10/10/23 Patient Date of :: 1990 Procedure Performed:: EGD & dilation Indications:: Dysphagia Performing Provider:: Anneliese Hirsch MD Referring Provider:: Mayuri Diego APRN Sedation:: Propofol Procedure:: The gastroscope was gently passed through the incisoral orifice into the oral cavity and under direct visualization the esophagus was intubated. The endoscope was passed down the esophagus, through the stomach, and into the duodenum. Color, texture, mucosa, and anatomy of the esophagus, stomach, and duodenum were carefully examined with the scope. Findings:: Oropharynx: normal Esophagus: normal, no stricture, dilated with 58F bougie dilator EG Junction: intact at 40 cm Cardia: normal Fundus: normal Body: normal Antrum: normal Duodenal bulb: normal Duodenum (second and third portion): normal Impression: Normal EGD, no evidence of ulcer disease or hiatus hernia Symptomatic dysphagia treated with bougie dilation Recommendations:: Repeat EGD and dilation in about 3 years or so, sooner if clinically indicated. Empiric PPI therapy may be of benefit. Complications:: None Estimated blood obtained (mL): 0 Colonoscopy Component Colonoscopy Component Was a colonoscopy performed during today's procedure?: No
[2023-10-10 09:36] VITALS: BP 116/74; PULSE 95; RESP 18; TEMP 36.2; O2SAT 98
[2023-10-10 09:46] VITALS: BP 139/84; PULSE 91; RESP 18; TEMP 36.2; O2SAT 99
[2023-10-10 09:56] VITALS: BP 139/84; PULSE 76; RESP 18; TEMP 36.2; O2SAT 99
[2023-10-10 10:06] VITALS: BP 121/78; PULSE 86; RESP 18; TEMP 36.2; O2SAT 100
== END 2023-10-10 10:08 | disposition home or self-care (01) ==
PROVIDERS: PCP Nurse Practitioner Family; Visit Provider Internal Medicine Gastroenterology
PROC: 0DJ08ZZ Inspection of Upper Intestinal Tract, Via Natural or Artificial Opening Endoscopic (ICD-10-PCS; CPT 43235; principal; 2023-10-10 09:30)
DX: R13.10 Dysphagia, unspecified (principal)
CPT/HCPCS: 43248; 81025

== ENCOUNTER 2023-10-21 09:27 | Emergency (ER) | payer OTHER, SELFPAY ==
[2023-10-21 11:30] VITALS: BP 124/79; PULSE 112; RESP 21; TEMP 36.9; O2SAT 99; BMI 42.7
--- NOTE | 2023-10-21 11:42 | EXP.UTC ---
Discharge Plan Disposition Patient Disposition: Home, Self-Care Condition: Good Prescriptions Prescriptions: New benzonatate 100 mg capsule 100 mg PO TID PRN (Reason: cough) Qty: 20 0RF cefdinir 300 mg capsule 300 mg PO BID Qty: 20 0RF No Action hydroxychloroquine 200 mg tablet 200 mg PO BID celecoxib 200 mg capsule 200 mg PO BID Patient Comments: TAKE 1 CAPSULE BY MOUTH TWICE DAILY cyanocobalamin (vitamin B-12) 5,000 mcg capsule 5,000 mcg PO DAILY azathioprine 50 mg tablet 50 mg PO DAILY Patient Comments: TAKE 1 TABLET BY MOUTH ONCE DAILY budesonide-formoterol [Symbicort] 160-4.5 mcg/actuation HFA aerosol inhaler 2 puff inhalation BID 30 Days Qty: 10.2 1RF methylprednisolone [Medrol (Sotero)] 4 mg tablets,dose pack See Rx Instructions PO PER PKG DIR 6 Days Qty: 21 0RF Rx Instructions: PO PER PKG DIR albuterol sulfate 2.5 mg /3 mL (0.083 %) solution for nebulization 2.5 mg inhalation Q6H PRN (Reason: shortness of breath or wheezing) Qty: 90 2RF carbamazepine 100 mg tablet,chewable 200 mg PO TID 30 Days Qty: 180 5RF Emgality Pen 120 mg/mL pen injector 120 mg SQ QMONTH Qty: 1 5RF Rx Instructions: Inject monthly as prescribed Ubrelvy 100 mg tablet 100 mg PO ONCE PRN (Reason: migraine headache) Qty: 10 5RF Rx Instructions: Take 100 mg at onset of headache, may repeat 100 mg after 2 hours if symptoms persist. Max dose 2 tablets in 24 hours. famotidine 20 mg tablet 20 mg PO HS Intrarosa 6.5 mg insert 1 insert vaginal HS Qty: 28 3RF mirabegron 50 mg tablet extended release 24 hr 50 mg PO DAILY Qty: 30 3RF labetalol 200 mg tablet 200 mg PO BID Qty: 60 11RF omeprazole 40 mg capsule,delayed release(DR/EC) 40 mg PO DAILY 30 Days Qty: 30 2RF albuterol sulfate [Ventolin HFA] 90 mcg/actuation HFA aerosol inhaler 2 puff inhalation Q6H PRN (Reason: shortness of breath or wheezing) Qty: 6.7 0RF Referrals Follow up/Referrals: Mayuri Diego APRN [Primary Care Provider] - See instructions Activity Restrictions/Add. Instructions Additional Instructions/Restrictions: *Monitor Temp, Over the counter Motrin or Tylenol as directed/as needed Tylenol every 4 hours and Motrin every 6 hours (as long as your family doctor has told you that you can take it) for fever or pain. and straight to ER if unable to lower temp less than 101.0 after medication given *Warm salt water gargles may help to soothe the throat *Throat Lozenges? *Warm fluids like tea with honey may help to soothe the throat? *Sleep elevated *Humidifier/Vaporizer * *If you did not take Penicillin shot or was unable to, start taking antibiotic immediately and make sure that you take it for the FULL length of time although you should start to feel better in 24-48 hours *change toothbrush and toothpaste 24-48 hours after starting to take antibiotics so you do not reinfect yourself Monitor Temp. Tylenol and/or Ibuprofen as needed. ER if fever is no less than 101 despite alternating Tylenol and Ibuprofen * Encourage fluids, water, Gatorade, powerade, pedialyte if infant/toddler/or child *Cold fluids, popsicles and ice cream may feel good on his throat Follow up IMMEDIATELY for new or worsening symptoms or no Noticeable improvement over the next 48-72 hours. 911 for difficulty breathing or swallowing Clinical Impressions Clinical Impression: Strep throat Instructions Patient Instructions: Strep Throat, DI for Strep Throat Discharge ED Provider: Evette Rubin [facility] General Stated complaint: possible strep Mode of Arrival: Ambulatory Source of Information: Patient Limitations: No Limitations Time Seen by Provider: 10/21/23 11:43 Description of Symptoms (Recalled from Triage Doc. by RN): PATIENT C/O SORE THROAT AND COUGH SINCE THIS MORNING HEENT Symptoms (Recalled from RN notes): Yes Resp Symptoms (Recalled from RN notes): Yes Skin Symptoms (Recalled from RN notes): No MS Symptoms (Recalled from RN notes): No Functional Status (Recalled from RN notes): WNL History of Present Illness Provider Complaint: Patient states that everyone in her house has had strep throat and she woke up this morning with sore throat and cough feels like she has strep throat so she came in to get checked Related Data Home Medications Medication Instructions Recorded Confirmed hydroxychloroquine 200 mg tablet 200 mg PO BID lupus 06/25/22 10/10/23 celecoxib 200 mg capsule 200 mg PO BID 06/04/23 10/10/23 cyanocobalamin (vitamin B-12) 5,000 mcg PO DAILY 06/04/23 10/10/23 5,000 mcg capsule famotidine 20 mg tablet 20 mg PO HS 08/07/23 10/10/23 azathioprine 50 mg tablet 50 mg PO DAILY 09/11/23 10/10/23 Previous Rx's Medication Instructions Recorded 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 #1 mL 01/22/23 subcutaneous pen injector (Emgality Pen) ubrogepant 100 mg tablet (Ubrelvy) 100 mg PO ONCE PRN migraine 01/22/23 headache #10 tabs labetalol 200 mg tablet 200 mg PO BID #60 tabs 03/18/23 albuterol sulfate 90 mcg/actuation 2 puff inhalation Q6H PRN 04/30/23 aerosol inhaler (Ventolin HFA) shortness of breath or wheezing #6.7 grams omeprazole 40 mg capsule,delayed 40 mg PO DAILY 30 days #30 caps 06/07/23 release budesonide-formoterol HFA 160 2 puff inhalation BID 30 days 09/11/23 mcg-4.5 mcg/actuation aerosol #10.2 grams inhaler (Symbicort) albuterol sulfate 2.5 mg/3 mL 2.5 mg (3 mL) inhalation Q6H PRN 09/27/23 (0.083 %) solution for nebulization shortness of breath or wheezing #90 mL methylprednisolone 4 mg tablets in See Rx Instructions PO PER PKG DIR 09/27/23 a dose pack (Medrol (Sotero)) 6 days #21 tabs mirabegron 50 mg tablet,extended 50 mg PO DAILY #30 tabs 09/30/23 release 24 hr prasterone (dhea) 6.5 mg vaginal 1 insert vaginal HS #28 ea 09/30/23 insert (Intrarosa) benzonatate 100 mg capsule 100 mg PO TID PRN cough #20 caps 10/21/23 cefdinir 300 mg capsule 300 mg PO BID #20 caps 10/21/23 Allergies Allergy/AdvReac Type Severity Reaction Status Date / Time penicillin G [PENICILLIN G] Allergy Mild I-RASH Verified 10/10/23 08:25 Iodinated Contrast Media Allergy Unknown Unknown Verified 10/10/23 08:25 [Iodinated Contrast Media - allergy Oral and] reaction Penicillins Allergy Unknown Unknown Verified 10/10/23 08:25 allergy reaction Pertussis Vaccines Allergy Unknown Unknown Verified 10/10/23 08:25 [PERTUSSIS VACCINES] allergy reaction Worker's Comp Is this a Worker's Comp case?: No [facility] Disclaimer: The information contained in this section may have been updated after the patient was seen, as this information can be updated by other users. Medical History Acid reflux Anxiety Depression History of stroke Hyperlipidemia Migraine Surgical History H/O left knee surgery H/O tubal ligation History of cholecystectomy History of placement of ear tubes x3 History of tonsillectomy and adenoidectomy Family History Other Alcoholism Asthma Cancer Hypertension Stroke Social History (Updated 10/10/23 @ 08:24 by Khalida Causey RN) Smoking Status: Never smoker alcohol intake: never substance use type: former substance user current occupational status: unemployed Travel in 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: None household members: family, children and other housing: house caffeine: Yes ROS Obtained: Yes All systems reviewed & no additional complaints except as documented and Yes Systems reviewed as appropriate & no additional complaints except as documented Constitutional Constitutional: Reports system reviewed and no additional complaints, except as documented and Reports as per HPI ENT Ears, Nose, Mouth, and Throat: Reports system reviewed and no additional complaints, except as documented, Reports as per HPI and Reports sore throat Cardiovascular Cardiovascular: Reports system reviewed and no additional complaints, except as documented and Reports as per HPI Respiratory Respiratory: Reports system reviewed and no additional complaints, except as documented, Reports as per HPI and Reports cough Gastrointestinal Gastrointestingal: Reports system reviewed and no additional complaints, except as documented and as per HPI Physical Exam General General appearance: alert and in no apparent distress ENT ENT exam: Present mucous membranes moist Expanded ENT Exam Throat exam: Present other (Pharyngeal erythema noted with PND) Respiratory Respiratory exam: Present normal lung sounds bilaterally; Absent respiratory distress or wheezes Cardiovascular Cardiovascular exam: Present regular rate, normal rhythm and tachycardia Neurological Exam Neurological exam: Present alert, oriented X3 and normal gait Medical Decision Making Neel Inquiry Pt receiving controlled substance: No Neel was queried for this patient: No Vital Signs: 10/21/23 11:30 Temperature 98.4 F Temperature Source Oral Pulse Rate [Left Brachial] 112 H Respiratory Rate 21 Blood Pressure [Left Arm] 124/79 Blood Pressure Mean [Left Arm] 94 Blood Pressure Source [Left Arm] Automatic Cuff Blood Pressure Position [Left Arm] Sitting 02 Sat by Pulse Oximetry 99 Oxygen Delivery Method Room Air Lab Data Lab results reviewed: Yes I reviewed the patient's lab results. Medical Decision Narrative: Patient states that she is allergic to PCN but has taken Cefdnir in the past without reactions or complications
[2023-10-21 11:53] LABS: UTC Strep Screen (Rapid) Positive (Negative)
[2023-10-21 11:54] VITALS: BP 124/79; PULSE 112; RESP 21; TEMP 36.9; O2SAT 99
== END 2023-10-21 11:56 | disposition home or self-care (01) ==
PROVIDERS: Emergency Provider Nurse Practitioner; PCP Nurse Practitioner Family
DX: J02.0 Streptococcal pharyngitis (principal); R07.0 Pain in throat; R05.9 Cough, unspecified; K21.9 Gastro-esophageal reflux disease without esophagitis
CPT/HCPCS: 87880; 99212; 99214; G0463

== ENCOUNTER → 2023-10-28 11:14 | Outpatient (POV) | payer OTHER, SELFPAY ==
[2023-10-28 11:21] VITALS: BP 128/75; PULSE 88; RESP 20; BMI 39.6
--- NOTE | 2023-10-28 11:37 | A.OFFVIS_ITS ---
[facility] Pain Management SOAP Note Subjective:: Is a pleasant 33-year-old female who presents today for follow-up. We are currently treating the patient for left shoulder pain, left shoulder bursitis. Today she rates her pain a 3 out of 10. Patient denies any new trauma or injury. She does state that she is scheduled for an EMG test on Saturday and that she is following up with the orthopedic doctor for possible surgery after this. Patient states that he did talk about doing an open shoulder procedure. Patient is currently managed with compounded cream. Her Neel has been reviewed and is appropriate. Review of Systems: General: No recent weight changes, no fever, no sleep disturbances Respiratory: No cough, no shortness of air, no recurring pulmonary infections Cardiovascular/peripheral vascular: No chest pain, no palpitations, no edema, no shortness of breath Gastrointestinal: No new onset incontinence, normal bowel movements reported Genitourinary: No new onset incontinence Musculoskeletal: Left shoulder pain Psychiatric: [Normal mood/affect] Neurological: [Denies weakness in extremities], [denies balance issues] Objective:: Physical Exam: General: Alert and oriented x3, no acute distress, pleasant and cooperative Lungs: Respirations even and unlabored, symmetrical chest expansion Eyes: PERRL Musculoskeletal: Flexion and extension of left shoulder somewhat guarded secondary to pain, [antalgic gait noted] Neurological: Speech clear, no gross sensory deficit Assessment:: Left shoulder pain, left shoulder bursitis Plan:: Patient has had previous improvement with shoulder injections however due to her upcoming possible surgery we have discussed that we will hold off on any of these steroid injections until we know more specifics regarding the procedure update. Patient will return to clinic in 2 months for reevaluation of symptoms and plan of care. Patient has been instructed to contact the clinic with any concerns before the next appointment. Dr. Worthington has reviewed this note and agrees with this plan of care. This note was dictated using voice recognition software and make contain errors or omissions. [facility] Disclaimer: The information contained in this section may have been updated after the patient was seen, as this information can be updated by other users. Medical History Acid reflux Anxiety Depression History of stroke Hyperlipidemia Migraine Surgical History H/O left knee surgery H/O tubal ligation History of cholecystectomy History of placement of ear tubes x3 History of tonsillectomy and adenoidectomy Family History Other Alcoholism Asthma Cancer Hypertension Stroke Social History Smoking Status: Never smoker alcohol intake: never substance use type: former substance user current occupational status: other Travel in 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: None household members: family, children and other housing: house caffeine: Yes
== END ==
LOC: SC.PAIN 11:15
PROVIDERS: PCP Nurse Practitioner Family; Visit Provider Nurse Practitioner Family
DX: M75.52 Bursitis of left shoulder (principal); M25.512 Pain in left shoulder
CPT/HCPCS: 99212; G0463

== ENCOUNTER 2024-01-09 14:32 | Outpatient (CLI) | payer OTHER, SELFPAY ==
[2024-01-09 13:17] LABS: Adenovirus,PCR Not Detected (NotDetected); Bordetella Pertussis Not Detected (NotDetected); Chlamydophila Pneumoniae, PCR Not Detected (NotDetected); Coronavirus 19, PCR Not Detected (NotDetected); Coronavirus 229E Not Detected (NotDetected); Coronavirus NL63 Not Detected (NotDetected); Coronavirus OC43 Not Detected (NotDetected); Coronovirus HKU1,PCR Not Detected (NotDetected); Human Metapneumovirus Not Detected (NotDetected); Influenza A, PCR Not Detected (NotDetected); Influenza AH1, 2009 Not Detected (NotDetected); Influenza AH1, PCR Not Detected (NotDetected); Influenza AH3,PCR Not Detected (NotDetected); Influenza B, PCR Not Detected (NotDetected); Mycoplasma Pneumoniae, PCR Not Detected (NotDetected); Parainfluenza 1, PCR Not Detected (NotDetected); Parainfluenza 2, PCR Not Detected (NotDetected); Parainfluenza 3, PCR Not Detected (NotDetected); Parainfluenza 4, PCR Not Detected (NotDetected); Respiratory Syncytial Virus Not Detected (NotDetected); Rhinovirus/Enterovirus Not Detected (NotDetected)
== END 2024-01-09 23:59 | disposition home or self-care (01) ==
LOC: LAB.DROPOF 14:32
PROVIDERS: PCP Nurse Practitioner Family; Visit Provider Nurse Practitioner Family
DX: J02.9 Acute pharyngitis, unspecified (principal); M54.2 Cervicalgia; R50.9 Fever, unspecified; R11.0 Nausea
CPT/HCPCS: 87070; 87581; 87632; 87635; 87798

== ENCOUNTER 2024-01-27 16:15 | Outpatient (CLI) | payer OTHER, SELFPAY ==
--- NOTE | 2024-01-27 16:24 | XR_ITS ---
PROCEDURE INFORMATION: Exam: XR Chest Exam date and time: 01/27/2024 4:25 PM Age: 33 years old Clinical indication: Cough; Additional info: Left lung clipped during shoulder surgery on 01/20 TECHNIQUE: Imaging protocol: Radiologic exam of the chest. Views: 2 views. COMPARISON: CR XR CHEST 2V 04/30/2023 3:38 PM COMPARISON MORE: CR XR CHEST 2V 05/04/2022 11:45 AM FINDINGS: Lungs: Lungs are clear. No consolidation. Pleural spaces: No pleural effusion. No pneumothorax. Heart/Mediastinum: Cardiomediastinal silhouette is normal. Calcified mediastinal/hilar lymph nodes. Bones/joints: No acute abnormality. IMPRESSION: No acute findings.
== END 2024-01-27 23:59 | disposition home or self-care (01) ==
LOC: RAD 16:15
PROVIDERS: PCP Nurse Practitioner Family; Visit Provider Nurse Practitioner Family
DX: J98.11 Atelectasis (principal)
CPT/HCPCS: 71046

== ENCOUNTER 2024-01-29 13:50 | Outpatient (CLI) | payer OTHER, SELFPAY ==
[2024-01-29 13:53] LABS: Adenovirus,PCR Not Detected (NotDetected); Bordetella Pertussis Not Detected (NotDetected); Chlamydophila Pneumoniae, PCR Not Detected (NotDetected); Coronavirus 19, PCR Not Detected (NotDetected); Coronavirus 229E Not Detected (NotDetected); Coronavirus NL63 Not Detected (NotDetected); Coronavirus OC43 Not Detected (NotDetected); Coronovirus HKU1,PCR Not Detected (NotDetected); Human Metapneumovirus Not Detected (NotDetected); Influenza A, PCR Not Detected (NotDetected); Influenza AH1, 2009 Not Detected (NotDetected); Influenza AH1, PCR Not Detected (NotDetected); Influenza AH3,PCR Not Detected (NotDetected); Influenza B, PCR Not Detected (NotDetected); Mycoplasma Pneumoniae, PCR Not Detected (NotDetected); Parainfluenza 1, PCR Not Detected (NotDetected); Parainfluenza 2, PCR Not Detected (NotDetected); Parainfluenza 3, PCR Not Detected (NotDetected); Parainfluenza 4, PCR Not Detected (NotDetected); Respiratory Syncytial Virus Not Detected (NotDetected); Rhinovirus/Enterovirus Not Detected (NotDetected)
== END 2024-01-29 23:59 | disposition home or self-care (01) ==
LOC: LAB.DROPOF 13:50
PROVIDERS: PCP Nurse Practitioner Family; Visit Provider Nurse Practitioner Family
DX: R05.8 Other specified cough (principal)
CPT/HCPCS: 87581; 87632; 87635; 87798

== ENCOUNTER 2024-07-14 16:48 | Outpatient (CLI) | payer OTHER, SELFPAY | END 2024-07-14 23:59 | disposition home or self-care (01) | LOC: LAB.DROPOF 16:48 | PROVIDERS: PCP Nurse Practitioner Family; Visit Provider Nurse Practitioner Family | DX: R30.0 Dysuria (principal) | CPT/HCPCS: 87086 ==

== ENCOUNTER 2024-07-17 12:33 | Outpatient (CLI) | payer OTHER, SELFPAY ==
--- NOTE | 2024-07-17 12:37 | US_ITS ---
FINAL REPORT TECHNIQUE: Ultrasound images of the kidneys and bladder were obtained. CLINICAL HISTORY: .passed stones FINDINGS: The right kidney measures 9.8 cm in length. It is normal in echogenicity. There is no hydronephrosis. Small stone is present. The left kidney measures 9.4 cm in length. It is normal in echogenicity. There is no hydronephrosis. The spleen is unremarkable. IMPRESSION: Small right renal stone. Reviewed, Interpreted and Dictated by Rafa Gottlieb III, MD Transcribed by Estrella Head Authenticated and [facility]
--- NOTE | 2024-07-17 12:37 | US_ITS ---
FINAL REPORT CLINICAL HISTORY: history of thyroid nodule COMPARISON: 07/02/2023 FINDINGS: Sonographic images of the thyroid gland were obtained. The right thyroid lobe measures 52 mm. in length. The left thyroid lobe measures 55 mm. in length. The thyroid isthmus measures 4 mm. There is a heterogeneous echotexture. Multiple nodules are seen. Largest right cystic and solid isoechoic, 22 x 15 x 14 mm, TR 2. Left lower 16 x 16 x 14 mm, was 20 x 13 x 12 mm, TR 4 solid and hypoechoic. A direct comparison is difficult, but as best can be determined there is no significant change. No new mass or nodule identified. IMPRESSION: Multinodular goiter. Probable stable nodules. 1 year follow-up recommended per TI-RADS criteria. Reviewed, Interpreted and Dictated by Rafa Gottlieb III, MD Transcribed by Idalmis Wade Authenticated and [facility]
== END 2024-07-17 23:59 | disposition home or self-care (01) ==
LOC: RAD 12:34
PROVIDERS: PCP Nurse Practitioner Family; Visit Provider Student in an Organized Health Care Education/Training Program
DX: E04.9 Nontoxic goiter, unspecified (principal); R10.9 Unspecified abdominal pain; N20.0 Calculus of kidney
CPT/HCPCS: 76536; 76770

== ENCOUNTER 2024-07-29 11:26 | Outpatient (CLI) | payer OTHER, SELFPAY ==
[2024-07-29 13:25] LABS: Thyroid Stimulating Hormone 2.58 uIU/mL (0.465-4.68)
[2024-07-30 03:52] LABS: Thyroid Peroxidase Antibodies 61 IU/mL (0-34)
== END 2024-07-29 23:59 | disposition home or self-care (01) ==
LOC: LAB 11:28
PROVIDERS: PCP Nurse Practitioner Family; Visit Provider Nurse Practitioner
DX: E01.0 Iodine-deficiency related diffuse (endemic) goiter (principal)
CPT/HCPCS: 36415; 84439; 84443; 86376

== ENCOUNTER 2024-09-12 12:05 | Emergency (ER) | payer OTHER, SELFPAY ==
[2024-09-12 13:05] VITALS: BP 131/86; PULSE 81; RESP 18; TEMP 36.9; O2SAT 99; BMI 42.2
--- NOTE | 2024-09-12 13:47 | EXP.UTC ---
Discharge Plan Disposition Patient Disposition: Home, Self-Care Condition: Good Prescriptions Prescriptions: New methylprednisolone [Medrol (Sotero)] 4 mg tablets,dose pack See Rx Instructions .Route .COMPLEX 6 Days Qty: 21 0RF Rx Instructions: taper pack; cefdinir 300 mg capsule 300 mg PO BID Qty: 20 0RF No Action celecoxib 200 mg capsule 200 mg PO DAILY azathioprine 50 mg tablet 50 mg PO DAILY hydroxychloroquine 200 mg tablet 200 mg PO DAILY Aimovig Autoinjector 70 mg/mL auto-injector 70 mg SQ MONTHLY Ubrelvy 100 mg tablet 100 mg PO DAILY Referrals Follow up/Referrals: Mayuri Diego APRN [Primary Care Provider] - See instructions Activity Restrictions/Add. Instructions Additional Instructions/Restrictions: *Monitor Temp, Over the counter Motrin or Tylenol as directed/as needed Tylenol every 4 hours and Motrin every 6 hours (as long as your family doctor has told you that you can take it) for fever or pain. and straight to ER if unable to lower temp less than 101.0 after medication given *Warm salt water gargles may help to soothe the throat *Throat Lozenges? *Warm fluids like tea with honey may help to soothe the throat? *Sleep elevated *Humidifier/Vaporizer Follow up IMMEDIATELY for new or worsening symptoms or no Noticeable improvement over the next 48-72 hours. 911 for difficulty breathing or swallowing Clinical Impressions Clinical Impression: Sinusitis Instructions Patient Instructions: DI for Sinusitis, Sinusitis Print Language Print Language: Portuguese Discharge ED Provider: Evette Rubin [facility] General Stated complaint: congestion, ear pain Mode of Arrival: Ambulatory Source of Information: Patient Limitations: No Limitations Time Seen by Provider: 09/12/24 13:48 Description of Symptoms (Recalled from Triage Doc. by RN): PATIENT C/O EAR PAIN AND DRAINAGE X 5 DAYS HEENT Symptoms (Recalled from RN notes): Yes Resp Symptoms (Recalled from RN notes): No Skin Symptoms (Recalled from RN notes): No MS Symptoms (Recalled from RN notes): No Functional Status (Recalled from RN notes): WNL History of Present Illness Provider Complaint: Patient states that she has been having sinus pain and pressure, pain and pressure in her ears and drainage in the back of her throat for over a week now and today it was still bothering her so she came in Related Data Home Medications ?Medication ?Instructions ?Recorded ?Confirmed azathioprine 50 mg tablet 50 mg PO DAILY 09/12/24 09/12/24 celecoxib 200 mg capsule 200 mg PO DAILY 09/12/24 09/12/24 erenumab-aooe 70 mg/mL 70 mg SQ MONTHLY 09/12/24 09/12/24 subcutaneous auto-injector (Aimovig Autoinjector) hydroxychloroquine 200 mg tablet 200 mg PO DAILY 09/12/24 09/12/24 ubrogepant 100 mg tablet (Ubrelvy) 100 mg PO DAILY 09/12/24 09/12/24 Previous Rx's ?Medication ?Instructions ?Recorded cefdinir 300 mg capsule 300 mg PO BID #20 caps 09/12/24 methylprednisolone 4 mg tablets in See Rx Instructions .Route 09/12/24 a dose pack (Medrol (Sotero)) .COMPLEX 6 days #21 tabs Allergies Allergy/AdvReac Type Severity Reaction Status Date / Time penicillin G (PENICILLIN G) Allergy Mild I-RASH Verified 08/12/24 09:19 Iodinated Contrast Media Allergy Unknown Unknown Verified 08/12/24 09:19 (Iodinated Contrast Media - allergy Oral and) reaction Penicillins Allergy Unknown Unknown Verified 08/12/24 09:19 allergy reaction Pertussis Vaccines Allergy Unknown Unknown Verified 08/12/24 09:19 (PERTUSSIS VACCINES) allergy reaction Worker's Comp Is this a Worker's Comp case?: No [facility] Disclaimer: The information contained in this section may have been updated after the patient was seen, as this information can be updated by other users. Medical History (Updated 09/12/24 @ 13:57 by Evette Rubin APRN) Wil thyroiditis Thyromegaly UTI (urinary tract infection) Hoarseness of voice History of lupus Family history of asthma Asthma Acid reflux Depression Anxiety Migraine History of stroke Hyperlipidemia Surgical History History of arthroscopic procedure on shoulder History of placement of ear tubes H/O left knee surgery History of tonsillectomy and adenoidectomy H/O tubal ligation History of cholecystectomy Family History Other Alcoholism Asthma Cancer Hypertension Stroke Social History Smoking Status: Never smoker alcohol intake: never substance use type: former substance user current occupational status: other Travel in 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: None household members: family, children and other housing: house caffeine: Yes Have you lived/traveled outside [place] in past 30 days?: No Contact w/someone who lives/traveled outside US past 30 days?: No Exposure to someone with infectious disease in past 14 days?: No Do you have a fever (greater than 100.4 F or 38 C)?: No Have you tested positive for COVID-19: No Exposed to someone with COVID-19 in past 14 days?: No Do you have a sore throat?: No Do you have a cough?: No Do you have any weakness?: No Do you have any diarrhea?: No Are you experiencing any unusual bleeding?: No Do you have any muscle aches/pain?: No Do you have any abdominal pain?: No Are you experiencing loss of taste or smell?: No ROS Obtained: Yes All systems reviewed & no additional complaints except as documented and Yes Systems reviewed as appropriate & no additional complaints except as documented Constitutional Constitutional: Reports system reviewed and no additional complaints, except as documented and Reports as per HPI ENT Ears, Nose, Mouth, and Throat: Reports system reviewed and no additional complaints, except as documented, Reports as per HPI, Reports otalgia, Reports nasal congestion, Reports nasal discharge, Reports sinus pain and Reports sinus pressure Cardiovascular Cardiovascular: Reports system reviewed and no additional complaints, except as documented and Reports as per HPI Respiratory Respiratory: Reports system reviewed and no additional complaints, except as documented and Reports as per HPI Gastrointestinal Gastrointestingal: Reports system reviewed and no additional complaints, except as documented and as per HPI Physical Exam General General appearance: alert and in no apparent distress ENT ENT exam: Present mucous membranes moist Expanded ENT Exam TM/Canal exam: Bilateral TM: bulging Nose exam: Present sinus tenderness Throat exam: Present other (PND noted) Respiratory Respiratory exam: Present normal lung sounds bilaterally; Absent respiratory distress or wheezes Cardiovascular Cardiovascular exam: Present regular rate, normal rhythm and normal heart sounds Abdominal Exam Abdominal exam: Present soft and normal bowel sounds; Absent distention or tenderness Neurological Exam Neurological exam: Present alert, oriented X3 and normal gait Medical Decision Making Medical Records Screening: Per USPSTF and CDC recommendations, given the prevalence of disease in our region, it is our hospital?s policy to screen for HIV and viral Hepatitis for all patients aged 18 and over and those with ongoing risk factors. Neel Inquiry Pt receiving controlled substance: No Neel was queried for this patient: No Vital Signs: 09/12/24 13:05 Temperature 98.4 F Temperature Source Oral Pulse Rate [Left Brachial] 81 Respiratory Rate 18 Blood Pressure [Left Arm] 131/86 Blood Pressure Mean [Left Arm] 101 Blood Pressure Source [Left Arm] Automatic Cuff Blood Pressure Position [Left Arm] Sitting 02 Sat by Pulse Oximetry 99 Oxygen Delivery Method Room Air Medical Decision Narrative: Patient states that she is allergic to PCN but has taken Cephlosprines (cephalexin) without complications or reactions
[2024-09-12 13:58] VITALS: BP 131/86; PULSE 81; RESP 18; TEMP 36.9; O2SAT 99
== END 2024-09-12 14:03 | disposition home or self-care (01) ==
PROVIDERS: Emergency Provider Nurse Practitioner; PCP Nurse Practitioner Family
DX: J32.9 Chronic sinusitis, unspecified (principal)
CPT/HCPCS: 99212; G0381

== ENCOUNTER 2024-09-21 14:28 | Outpatient (CLI) | payer OTHER, SELFPAY ==
--- NOTE | 2024-09-21 14:33 | XR_ITS ---
FINAL REPORT CLINICAL HISTORY: right rib pain COMPARISON: Two-view chest 01/27/2024 FINDINGS: Four views of the right ribs were obtained. There is no displaced, acute fracture identified. The visualized lungs are clear. No pneumothorax is identified. IMPRESSION: No displaced rib fracture or pneumothorax identified. Reviewed, Interpreted and Dictated by Tarun Iyer MD Transcribed by Idalmis Wade Authenticated and [facility]
--- NOTE | 2024-09-21 14:33 | XR_ITS ---
FINAL REPORT CLINICAL HISTORY: right upper abd pain COMPARISON: None FINDINGS: Two views of the abdomen demonstrate a normal bowel gas pattern. Status post cholecystectomy. No radiopaque renal stone identified. Pelvic calcifications are likely phleboliths. IMPRESSION: No acute abnormality. Reviewed, Interpreted and Dictated by Tarun Iyer MD Transcribed by Idalmis Wade Authenticated and [facility]
[2024-09-21 14:57] LABS: Basophils % 0.4 % (0.1-2.0); Eosinophils # 0.1 K/mm3 (0.0-0.4); Eosinophils % 1.1 % (0.1-12.0); Hematocrit 40.9 % (37.0-47.0); Hemoglobin 13.8 g/dL (12.2-16.2); Lymphocytes # 2.4 K/mm3 (0.7-4.5); Lymphocytes % 24.7 % (10-50); Mean Corpuscular HGB Conc 33.7 g/dL (31.8-35.4); Mean Corpuscular Hemoglobin 29.8 pg (27.0-31.2); Mean Corpuscular Volume 88.3 fl (81-99); Monocytes # 0.7 K/mm3 (0.1-1.0); Monocytes % 7.3 % (1.7-9.3); Neutrophils # 6.4 K/mm3 (1.8-7.8); Neutrophils % 66.1 % (37.0-80.0); Platelet Count 302 K/mm3 (142-424); Red Blood Count 4.63 M/mm3 (4.20-5.40); Red Cell Distribution Width 12.1 % (11.5-17.5); White Blood Count 9.6 K/mm3 (4.8-10.8)
[2024-09-21 15:30] LABS: Albumin Level 4.6 g/dl (3.5-5.0)
[2024-09-21 15:31] LABS: Chloride 103 mmol/L (98-107); Potassium 4.3 mmoL/L (3.5-5.1); Sodium 138 mmol/L (136-145)
[2024-09-21 15:33] LABS: Alanine Aminotransferase 21 U/L (12-78); Albumin/Globulin Ratio 1.7 (1.1-1.8); Alkaline Phosphatase 90 U/L (38-126); Amylase 53 U/L (30-110); Anion Gap 12.3 mEq/L (5-15); Aspartate Amino Transferase 23 U/L (14-36); Bilirubin,Total 0.7 mg/dl (0.2-1.3); Blood Urea Nitrogen 17 mg/dl (7-17); Carbon Dioxide 27 mmol/L (22.0-30.0); Estimated Glomerular Filt Rate 71 ml/min (>60); GFR (African American) 86 ML/MIN (>60); Globulin 2.7 g/dL (1.3-3.2); Total Protein,Serum 7.3 g/dl (6.3-8.2)
[2024-09-21 15:34] LABS: Calcium 9.8 mg/dl (8.4-10.2); Glucose 89 mg/dl (74-100); Lipase 84 U/L (23-300)
[2024-09-22 15:09] LABS: H. pylori Breath Test Positive (Negative)
== END 2024-09-21 23:59 | disposition home or self-care (01) ==
LOC: LAB 14:30
PROVIDERS: PCP Nurse Practitioner Family; Visit Provider Nurse Practitioner Family
DX: R10.11 Right upper quadrant pain (principal); R11.2 Nausea with vomiting, unspecified; R19.7 Diarrhea, unspecified; R07.81 Pleurodynia
CPT/HCPCS: 36415; 71101; 74019; 80053; 82150; 83013; 83690; 85025

== ENCOUNTER 2024-09-22 12:26 | Outpatient (CLI) | payer OTHER, SELFPAY ==
[2024-09-22 12:32] LABS: Adenovirus F 40/41, stool Not Detected (NotDetected); Astrovirus Not Detected (NotDetected); Campylobacter Not Detected (NotDetected); Cryptosporidium Not Detected (NotDetected); Cyclospora Cayetanesis Not Detected (NotDetected); Entamoeba histolytica Not Detected (NotDetected); Enteroaggregative E coli Not Detected (NotDetected); Enteropathogenic E coli Not Detected (NotDetected); Enterotoxigenic E coli Not Detected (NotDetected); Giardia lamblia Not Detected (NotDetected); Norovirus Not Detected (NotDetected); Plesimonas Shigalloides, PCR Not Detected (NotDetected); Rotavirus A Not Detected (NotDetected); Salmonella, PCR Not Detected (NotDetected); Sapovirus Not Detected (NotDetected); Shiga-like toxin E coli Not Detected (NotDetected); Shigella Enterovasive E coli Not Detected (NotDetected); Vibrio Cholerae Not Detected (NotDetected); Vibrio, PCR Not Detected (NotDetected); Yersinia Entercolitica, PCR Not Detected (NotDetected)
[2024-09-22 17:47] LABS: Clostridium Difficile A/B, PCR Detected (NotDetected)
== END 2024-09-22 23:59 | disposition home or self-care (01) ==
LOC: LAB 12:26
PROVIDERS: PCP Nurse Practitioner Family; Visit Provider Nurse Practitioner Family
DX: R11.2 Nausea with vomiting, unspecified (principal); R19.7 Diarrhea, unspecified; R10.11 Right upper quadrant pain
CPT/HCPCS: 87506

== ENCOUNTER 2024-09-29 10:57 | Outpatient (CLI) | payer OTHER, SELFPAY ==
--- NOTE | 2024-09-29 10:58 | US_ITS ---
PROCEDURE: US TRANSVAGINAL CLINICAL INDICATION: Heavy periods COMPARISON: US US TRANSVAGINAL from 03/01/[address] ABDOMEN PELVIS WO CON from 09/06/[address] ABDOMEN PELVIS WO/W CON from 08/02/2023 FINDINGS: Transvaginal sonographic images of the pelvis were obtained. UTERUS: 9.2cm x 7.4cmx 5.5 cm with a combined endometrial thickness of 22.8mm. There are several nabothian cysts in the cervix. The endometrium is markedly thickened and there appears to be a polyp that measures 3.2 cm x 1.7 cm x 3.5 cm. There is flow within this polyp and small cystic areas. LEFT OVARY: [id number] with a volume of 4.7ml. There are multiple small peripheral follicles giving the ovary a polycystic appearance. RIGHT OVARY: 4cmx [id number] with a volume of 10.9ml. There are multiple small peripheral follicles giving the ovary a polycystic appearance. Both ovaries are seen and appear normal. Doppler flow to both ovaries are seen. There is trace fluid in the cul-de-sac. IMPRESSION: 1. Anteverted, bulky uterus. The endometrium is markedly thickened and it appears that there is a polyp within the endometrium that measures 3.5 cm in size. 2. Suggest a gynecology consult. 3. Both ovaries are seen and appear polycystic. 4. There is trace fluid in the cul-de-sac Dictated by: Thee Owens MD 09/29/2024 11:39 Thee Owens MD in OV 09/29/2024 11:39
== END 2024-09-29 23:59 | disposition home or self-care (01) ==
LOC: RAD 10:58
PROVIDERS: PCP Nurse Practitioner Family; Visit Provider Nurse Practitioner Family
DX: N92.0 Excessive and frequent menstruation with regular cycle (principal)
CPT/HCPCS: 76830

== ENCOUNTER 2024-10-14 10:54 | Outpatient (CLI) | payer OTHER, SELFPAY ==
[2024-10-14 14:20] LABS: Basophils % 0.5 % (0.1-2.0); Eosinophils # 0.1 K/mm3 (0.0-0.4); Eosinophils % 1.2 % (0.1-12.0); Hematocrit 43.2 % (37.0-47.0); Lymphocytes # 1.4 K/mm3 (0.7-4.5); Lymphocytes % 23.4 % (10-50); Mean Corpuscular HGB Conc 32.4 g/dL (31.8-35.4); Mean Corpuscular Hemoglobin 29.6 pg (27.0-31.2); Mean Corpuscular Volume 91.3 fl (81-99); Mean Platelet Volume 11.5 fl (7.4-10.4); Monocytes # 0.4 K/mm3 (0.1-1.0); Monocytes % 6.6 % (1.7-9.3); Neutrophils # 4.1 K/mm3 (1.8-7.8); Neutrophils % 67.5 % (37.0-80.0); Platelet Count 279 K/mm3 (142-424); Red Blood Count 4.73 M/mm3 (4.20-5.40); Red Cell Distribution Width 12.6 % (11.5-17.5); White Blood Count 6.1 K/mm3 (4.8-10.8)
[2024-10-14 14:47] LABS: Chloride 104 mmol/L (98-107)
[2024-10-14 14:48] LABS: Albumin Level 5.1 g/dl (3.5-5.0); Potassium 5.1 mmoL/L (3.5-5.1); Sodium 141 mmol/L (136-145)
[2024-10-14 14:51] LABS: Alanine Aminotransferase 26 U/L (12-78); Albumin/Globulin Ratio 2.3 (1.1-1.8); Alkaline Phosphatase 80 U/L (38-126); Anion Gap 14.1 mEq/L (5-15); Aspartate Amino Transferase 32 U/L (14-36); Bilirubin,Total 0.4 mg/dl (0.2-1.3); Blood Urea Nitrogen 16 mg/dl (7-17); Calcium 9.5 mg/dl (8.4-10.2); Carbon Dioxide 28 mmol/L (22.0-30.0); Estimated Glomerular Filt Rate 71 ml/min (>60); GFR (African American) 86 ML/MIN (>60); Globulin 2.2 g/dL (1.3-3.2); Glucose 88 mg/dl (74-100); Total Protein,Serum 7.3 g/dl (6.3-8.2)
[2024-10-14 15:20] LABS: Thyroid Stimulating Hormone 1.45 uIU/mL (0.465-4.68)
[2024-10-14 15:25] LABS: Ferritin 22.4 ng/ml (6.24-137)
[2024-10-14 16:27] LABS: Vitamin B12 807 pg/mL (239-931)
[2024-10-15 11:22] LABS: Triiodothyronine (T3) Free 3.2 pg/mL (2.0-4.4)
== END 2024-10-14 23:59 | disposition home or self-care (01) ==
LOC: RT 10:55
PROVIDERS: PCP Nurse Practitioner Family; Visit Provider Nurse Practitioner Family
DX: E01.0 Iodine-deficiency related diffuse (endemic) goiter (principal); E06.3 Autoimmune thyroiditis; R00.0 Tachycardia, unspecified; R05.1 Acute cough
CPT/HCPCS: 80053; 82607; 82728; 83735; 84443; 84481; 85025; 87635; 93225; 93227

== ENCOUNTER 2024-10-23 15:54 | Outpatient (CLI) | payer OTHER, SELFPAY ==
[2024-10-25 12:18] LABS: H. pylori Stool Ag, EIA Positive (Negative)
== END 2024-10-23 23:59 | disposition home or self-care (01) ==
LOC: LAB 15:55
PROVIDERS: PCP Nurse Practitioner Family; Visit Provider Nurse Practitioner Family
DX: A04.8 Other specified bacterial intestinal infections (principal); A04.72 Enterocolitis due to Clostridium difficile, not specified as recurrent
CPT/HCPCS: 87338; 87493

== ENCOUNTER 2024-11-10 10:45 | Outpatient (CLI) | payer OTHER, SELFPAY ==
--- NOTE | 2024-11-10 10:45 | US_ITS ---
FINAL REPORT TECHNIQUE: Ultrasound images through the abdomen were obtained. CLINICAL HISTORY: Right sided abd pain FINDINGS: The visualized solid abdominal organs are unremarkable. The pancreas is obscured by overlying bowel gas. The gallbladder is unremarkable. There is no fluid collection identified. The visualized portions of the aorta and the IVC are normal. IMPRESSION: Unremarkable ultrasound of the abdomen. Reviewed, Interpreted and Dictated by Tarun Iyer MD Transcribed by Suri Sheffield Authenticated and [facility]
== END 2024-11-10 23:59 | disposition home or self-care (01) ==
LOC: RAD 10:45
PROVIDERS: PCP Nurse Practitioner Family; Visit Provider Nurse Practitioner Family
DX: R10.9 Unspecified abdominal pain (principal)
CPT/HCPCS: 76700

== ENCOUNTER 2024-11-19 15:06 | Outpatient (CLI) | payer OTHER, SELFPAY ==
[2024-11-19 15:47] LABS: Basophils % 0.3 % (0.1-2.0); Eosinophils # 0.1 K/mm3 (0.0-0.4); Eosinophils % 2.1 % (0.1-12.0); Hematocrit 40.5 % (37.0-47.0); Hemoglobin 13.6 g/dL (12.2-16.2); Lymphocytes # 1.7 K/mm3 (0.7-4.5); Lymphocytes % 25.7 % (10-50); Mean Corpuscular HGB Conc 33.6 g/dL (31.8-35.4); Mean Corpuscular Volume 89.4 fl (81-99); Mean Platelet Volume 11.1 fl (7.4-10.4); Monocytes # 0.4 K/mm3 (0.1-1.0); Monocytes % 6.7 % (1.7-9.3); Neutrophils # 4.3 K/mm3 (1.8-7.8); Platelet Count 224 K/mm3 (142-424); Red Blood Count 4.53 M/mm3 (4.20-5.40); Red Cell Distribution Width 11.9 % (11.5-17.5); White Blood Count 6.5 K/mm3 (4.8-10.8)
[2024-11-19 16:15] LABS: Alanine Aminotransferase 20 U/L (12-78); Albumin Level 4.6 g/dl (3.5-5.0); Alkaline Phosphatase 86 U/L (38-126); Anion Gap 11.3 mEq/L (5-15); Aspartate Amino Transferase 22 U/L (14-36); Bilirubin,Direct 0.2 mg/dl (0.0-0.4); Bilirubin,Indirect 0.4 mg/dL (0.0-0.9); Bilirubin,Total 0.6 mg/dl (0.2-1.3); Bilirubin,Unconjugated 0.5 mg/dL (0.0-1.1); Blood Urea Nitrogen 15 mg/dl (7-17); Calcium 9.7 mg/dl (8.4-10.2); Carbon Dioxide 25 mmol/L (22.0-30.0); Chloride 107 mmol/L (98-107); Chol/HDL Ratio 3.6 (1-3.5); Cholesterol 177 mg/dl (140-200); Estimated Glomerular Filt Rate 71 ml/min (>60); GFR (African American) 86 ML/MIN (>60); Glucose 93 mg/dl (74-100); HDL Cholesterol 49 mg/dl (40-60); Potassium 4.3 mmoL/L (3.5-5.1); Sodium 139 mmol/L (136-145); Total Protein,Serum 7.2 g/dl (6.3-8.2); Triglycerides 124 mg/dl (30-150); VLDL Cholesterol 25 mg/dL (0-40)
[2024-11-19 16:34] LABS: Free T4 (Free Thyroxine) 1.13 ng/dl (0.78-2.19)
[2024-11-19 16:36] LABS: Free Thyroxine Index 2.9 ug/dL (5.93-13.13); T4 (Thyroxine) 9.3 ug/dl (5.53-11.0); Triiodothryronine (T3) Uptake 31 % (23.5-40.5)
[2024-11-19 16:49] LABS: Thyroid Stimulating Hormone 1.04 uIU/mL (0.465-4.68)
[2024-11-19 16:50] LABS: Thyroid Stimulating Hormone 1.05 uIU/mL (0.465-4.68)
== END 2024-11-19 23:59 | disposition home or self-care (01) ==
LOC: RT 15:07
PROVIDERS: Nurse Practitioner Family; PCP Nurse Practitioner Family; Visit Provider Internal Medicine
DX: R00.2 Palpitations (principal); I49.3 Ventricular premature depolarization; I49.8 Other specified cardiac arrhythmias; R00.0 Tachycardia, unspecified; R07.89 Other chest pain; R06.02 Shortness of breath; I10 Essential (primary) hypertension; E78.2 Mixed hyperlipidemia
CPT/HCPCS: 36415; 80048; 80061; 80076; 84436; 84439; 84443; 84479; 85025; 93270; 93272

== ENCOUNTER 2024-12-03 09:42 | Outpatient (CLI) | payer OTHER, SELFPAY ==
--- NOTE | 2024-12-03 09:42 | CT_ITS ---
FINAL REPORT TECHNIQUE: Thin section axial images are obtained through the abdomen and pelvis after intravenous contrast. Reconstruction images were obtained from the axial data. Exam was performed using dose reduction techniques. CLINICAL HISTORY: right sided abd pain COMPARISON: 07/23/2023 FINDINGS: LUNG BASES: Lung bases are clear. Heart size is normal. LIVER: Homogeneous. No focal lesion. GALLBLADDER/BILIARY SYSTEM: Surgically absent. SPLEEN: Unremarkable. PANCREAS: Unremarkable. ADRENALS: Unremarkable. KIDNEYS/URETERS/BLADDER: No hydronephrosis, renal mass, or renal stone. Unremarkable urinary bladder. GI TRACT: No small bowel obstruction or dilatation. Normal appendix. No acute colon abnormality. PELVIC ORGANS: The uterus is mildly prominent. The endometrium is mildly thickened. There is a right ovarian cyst measuring 25 mm. This is not an uncommon finding in a patient of this age. LYMPH NODES/RETROPERITONEUM/MESENTERY: No lymphadenopathy. No abdominal aortic aneurysm. ABDOMINAL WALL: The abdominal wall is intact. FREE FLUID: No ascites. BONES: No acute osseous abnormality. IMPRESSION: 25 mm right ovarian cyst is likely functional. Given the size, of less than 3 mm, no follow-up is needed. Mildly prominent uterus and endometrium. Correlate clinically. Normal appendix. Reviewed, Interpreted and Dictated by Margie Kraft MD Transcribed by Em Rivera Authenticated and [facility]
[2024-12-03] MEDS: SODIUM CHLORIDE 0.9% 10ML SYR (RAD ONLY) 10 ML IV (10:04)
[2024-12-03] MEDS: IOPAMIDOL-370 (76%);100ML BOTTLE 75 ML IV (10:05)
== END 2024-12-03 23:59 | disposition home or self-care (01) ==
LOC: RAD 09:42
PROVIDERS: PCP Nurse Practitioner Family; Visit Provider Nurse Practitioner Family
DX: R10.9 Unspecified abdominal pain (principal)
CPT/HCPCS: 74177; Q9967

== ENCOUNTER 2024-12-08 08:51 | Outpatient (CLI) | payer OTHER, SELFPAY ==
--- NOTE | 2024-12-08 09:15 | CA_ITS ---
APPROVED REPORT Exam: Exercise Treadmill Technologist: Arin Stratton Ht: 5 ft 6 in Wt: 226 lbs BSA: 2.11 m2 HR: 76 bpm BP: 140/74 mmHg Rhythm: NSR Stress Test Details Test: Exercise stress testing was performed using a Juanjo protocol. HR Resting HR: 76 bpm Max Heart Rate (APMHR): 185 bpm Max HR Achieved: 160 bpm Target HR (85% APMHR): 157 bpm % of APMHR: 86 Recovery HR: 118 bpm HR response to stress: Normal HR response to stress BP Resting BP: 140.0/74.0 mmHg Max BP: 150.0/84.0 mmHg Recovery BP: 132.0/83.0 mmHg BP response to stress: Normal blood pressure response to stress. ECG Resting ECG: Sinus rhythm Clinical Exercise duration: 7:27 min Exercise capacity: 9.5 METs Stress ECG Conclusion Symptoms: Dyspnea Arrhythmias/Ectopy: None ST-T Changes: < 0.[address] depression Conclusion: Average exercise capacity. No evidence of ischemia on ECG at peak stress. Electronically signed by : Sonal Jaramillo MD 12/08/2024 13:12:43
--- NOTE | 2024-12-08 09:15 | CA_ITS ---
APPROVED REPORT EXAM: Comprehensive 2D, Doppler, and color-flow Echocardiogram Assembly Detailer: Ana Poe RVT Ht: 5 ft 6 in Wt: 226lbs BSA: 2.11 BP: 107/68 mmHg Indications: CP,LUPUS,HTN,HLD,MENG,PALPS,TACHYCARDIA,FATIGUE 2D Dimensions Left Atrium 3.23 cm F: 2.7 - 3.8 LA Volume 40.20 mL RVID Base (AP4) 2.86 cm (M/F) 2.5-4.1 LA Volume Index 19.05 mL/m2 (M/F) 16-34 LVOT 1.98 cm (M/F) 1.5-2.5 EF AP4 52.40 % GL Strain -22.2 % M-Mode Dimensions RVDd 2.62 cm (0.9-2.6) LVDd 4.46 cm (3.5-5.7) Ao Diam 2.91 cm (2.0-3.7) LVDs 2.82 cm (3.5-5.7) IVSd 1.07 cm (0.6-1.1) PWd 0.57 cm (0.6-1.1) EF (Teich) 66.70% FS 36.80% EDV (Teich) 90.50 mL TAPSE 1.79 (<1.7) ESV (Teich) 30.10 mL LV Diastology E Decel Time 164 (160-240 msec) E/A Ratio 0.9 MED E' 6.3 (>= 7 cm/sec) E'/MED E' Ratio 11.98 (<= 14) LAT E' 13.1 (>= 10 cm/sec) E/LAT E' Ratio 5.76 (<= 14) Aortic Valve LVOT Max 89.0 (70-110 cm/s) MAIKEL Index 1.45 cm2/m2 LVOT VTI 19.81 cm AoV Peak Jai. 98.0 (50-130 cm/s) AO Peak GR. 3.80 mmHg AO Mean GR. 2.10 (<5 mmHg) AO VTI 20.0 (18-25 cm) MAIKEL (VTI) 3.05 (2.5-4.5 cm2) Mitral Valve MV E Max Jai. 75.0 (40-130 cm/s) MV A Velocity 80.0 (40-130 cm/s) E/A Ratio 0.94 MV Decel. Time 164 (160-240 ms) Tricuspid Valve TR P. Velocity 210.00 cm/s RAP Estimate 10.00 mmHg RVSP 27.60 mmHg Left Ventricle The left ventricle is normal size. The left ventricular systolic function is normal. The left ventricular ejection fraction is within the normal range. There is increased LV wall thickness. There is normal LV segmental wall motion. The left ventricular diastolic function is normal. LVEF is 55%. Right Ventricle Right ventricle is mildly dilated. The right ventricular systolic function is mildly reduced. Atria Left atrium is mildly dilated. Right atrium is mildly dilated. There is no Doppler evidence of interatrial shunt. Aortic Valve The aortic valve opens well. There is no aortic valvular stenosis. No aortic regurgitation is present. Mitral Valve The mitral valve is normal in structure. No evidence of mitral valve stenosis. Trace mitral regurgitation. Tricuspid Valve Tricuspid valve is grossly normal in structure and function. Trace tricuspid regurgitation. There is insufficient TR jet to estimate RVSP. Pulmonic Valve The pulmonary valve is normal in structure. Trace pulmonic regurgitation. Great Vessels The aortic root is normal in size. IVC is normal in size and collapses >50% with inspiration. Pericardium There is no pericardial effusion. Other Information Study Quality: Fair Conclusion Normal LV systolic function. Mildly dilated RV with mild reduction in RV function. Mild biatrial dilation. No significant valvular stenosis or regurgitation. Electronically signed by : Sonal Jaramillo MD 12/19/2024 15:44:06
== END 2024-12-08 23:59 | disposition home or self-care (01) ==
LOC: RT 08:52
PROVIDERS: PCP Nurse Practitioner Family; Visit Provider Nurse Practitioner Family
DX: I51.7 Cardiomegaly (principal); I49.3 Ventricular premature depolarization; I49.8 Other specified cardiac arrhythmias; R07.89 Other chest pain; R00.2 Palpitations; R06.02 Shortness of breath; R00.0 Tachycardia, unspecified; E78.2 Mixed hyperlipidemia
CPT/HCPCS: 93017; 93018; 93306

== ENCOUNTER 2024-12-23 12:41 | Outpatient (CLI) | payer OTHER, SELFPAY ==
--- OUTSIDE RECORDS SUMMARY | 2024-12-23 12:44 | XMS_ITS | Data Portability ---
Author Organization [facility] & [place] [facility] ADMIN Address [address] [place] [id number] Care Team Providers Care Rn Pediatric Icu Name Role Phone MARTINEZ PAVON Primary Care Provider Assessment No assessment recorded. Plan of Treatment Reminders Order Date Submit Date Provider Last Modified By Organization Details Last Modified Time Details Appointments None record ed. Lab None record ed. Referral None record ed. Procedures None record ed. Surgeries None record ed. Imaging None record ed. Medication Orders None record ed. Patient TargetsNo targets recorded. Patient Instructions Encounter Date Encounter Id Patient Instructions Last Modified By Organization Details Last Modified Time 07/25/2022 [id number] Discussed with patient that patient does not have any clinical findings of mastoiditis and that no further workup of the radiology finding is required. [email or web address] Not available 08/07/2022 11:49:16 Reason for Referral None Reported. Results Created Date Observation Date Name Description Value Unit Range Abnormal Flag Note LastModifiedBy Organization Detail LastModifiedTime 07/05/20 22 07/04/2022 CT, tempo ral bone, w/o contr ast No observ ation record ed. [email or web address] Not Available 11:26:00 10/03/19 23 09/06/2022 CT, abdom en + pelvi s, w/o contr ast No observ ation record ed. [facility] [address], [place], [address], 10/03/2022 10:28:03 07/10/20 23 07/02/2023 US, thyro id No observ ation record ed. [facility] (Med Record) [address], [place], [address], 07/23/2023 12:45:43 07/28/2007/17/2024 US, thyro id No observ ation record ed. [facility] Not Available 2023 13:03:53 Result Notes None recorded. Problems No Known Problems Procedures Surgical History Date Name Laterality Status Provider Name and Address Organization Details Recorded Time myringotomy and insertion of tympanic ventilation tube completed Heath HERRMANN [facility] & [place] 07/26/2022 09:47:41 Imaging Results Imaging Date Name Status LastModified by Organiz ation Details LastModified Time 07/04/2022 CT, temporal bone, w/o contrast completed Information not available 07/05/2022 11:26:00 09/06/2022 CT, abdomen + pelvis, w/o contrast completed [email or web address] [place] [address], [place], [address], 10/03/2022 10:28:03 07/02/2023 US, thyroid completed [facility] (Med Record) [address], [place], [address], 07/23/2023 12:45:43 07/17/2024 US, thyroid completed [facility] Information n ot available 07/28/2024 13:03:53 Procedure Notes None recorded. Medical Equipment None Reported. Allergies Allergen ID Allergen Name Allergen Category Reaction Reaction Severity Criticality Documentation Date Start Date Code Code System Note Provider Name and Address Organization Details Recorded Time 89859 Product containin g penicilli n (product) medicatio n rash Not available Not available 07/25/2022 27700 8001 SNOMED ALIZE Saavedra [facility] & [place] 2 16:19:49 18676 PERTUSSIS VACCINE,A DSORBED Not available rash Not available Not available 07/25/2022 96665 3 RxNorm ALIZE Saavedra [facility] & [place] 2 16:20:06 48900 Iodinated contrast media (substanc e) medicatio n rash Not available Not available 07/25/2022 10176 2004 SNOMED Heath Man [facility], [place] - [facility] - [place] & [place] 16:20:34 Medications Name Sig Start Date Stop Date Status Note LastModified by Organization Details LastModified Time fluoxetine 40 mg capsule TAKE 1 CAPSULE BY MOUTH TWICE DAILY 07/25 completed Not Available Not Available Not Available atorvastati n 20 mg tablet TAKE 1 TABLET BY MOUTH ONCE DAILY 07/25 completed Not Available Not Available Not Available labetalol 200 mg tablet TAKE 1 TABLET BY MOUTH TWICE DAILY active Not Available Not Available No t Available polyethylen e glycol 3350 17 gram oral powder packet DISSOLVE 1 PACKET IN 8 OUNCES OF FLUID & DRINK BY MOUTH ONCE DAILY active Not Available Not Available No t Available azithromyci n 250 mg tablet TAKE 2 TABLETS BY MOUTH ON DAY 1, AND THEN TAKE 1 TABLET BY MOUTH ONCE A DAY ON DAY 2 THROUGH DAY 5 07/25 completed Not Available Not Available Not Available clarithromy shelly 500 mg tablet TAKE 1 TABLET BY MOUTH EVERY 12 HOURS FOR 14 DAYS active Not Available Not Available No t Available hydrocodone 5 mg-acetamin ophen 325 mg tablet 07/25 completed Not Available Not Available Not Available prednisone 20 mg tablet TAKE 1 TABLET BY MOUTH TWICE DAILY active Not Available Not Available No t Available sulfamethox azole 800 mg-trimetho prim 160 mg tablet TAKE 1 TABLET BY MOUTH TWICE DAILY FOR 10 DAYS 07/25 completed Not Available Not Available Not Available prednisone 10 mg tablets in a dose pack TAKE DIRECTED FOR 6 DAYS 07/25 completed Not Available Not Available Not Available ofloxacin 0.3 % ear drops INSTILL 10 DROPS INTO AFFECTED EAR ONCE DAILY FOR 7 DAYS active Not Available Not Available No t Available methocarbam ol 750 mg tablet TAKE 1 TABLET BY MOUTH THREE TIMES DAILY FOR 14 DAYS 07/25 completed Not Available Not Available Not Available benzonatate 100 mg capsule TAKE 1 CAPSULE BY MOUTH THREE TIMES DAILY NEEDED FOR COUGH 07/25 completed Not Available Not Available Not Available erythromyci n 5 mg/gram (0.5 %) eye ointment APPLY TO EYELIDS THREE TIMES DAILY FOR 7 DAYS OR DIRECTED, THEN BEGIN DAILY MASSAGE 07/25 completed Not Available Not Available Not Available tobramycin 0.3 % eye drops INSTILL 1 DROP INTO AFFECTED EYE EVERY 4 HOURS FOR 5 DAYS active Not Available Not Available No t Available carbamazepi ne 100 mg chewable tablet CHEW AND SWALLOW 2 TABLETS BY MOUTH THREE TIMES DAILY FACIAL NEURALGIA active Not Available Not Available No t Available gabapentin 300 mg capsule TAKE 1 CAPSULE BY MOUTH ONCE DAILY FOR 30 DAYS active Not Available Not Available No t Available diclofenac sodium 75 mg tablet,tim yed release TAKE 1 TABLET BY MOUTH TWICE DAILY NEEDED FOR 30 DAYS 07/25 completed Not Available Not Available Not Available hydroxychlo roquine 200 mg tablet TAKE 1 TABLET BY MOUTH TWICE DAILY active Not Available Not Available No t Available ibuprofen 600 mg tablet active Not Available Not Available Not Available methylpredn isolone 4 mg tablets in a dose pack TAKE BY MOUTH DIRECTED ON INSIDE OF PACKAGE active Not Available Not Available No t Available bromphenira mine-pseudo ephedrine-D M 2 mg-30 mg-10 mg/5 mL oral syrup TAKE 5 ML BY MOUTH EVERY 6 HOURS NEEDED FOR 7 DAYS 07/25 completed Not Available Not Available Not Available cefdinir 300 mg capsule TAKE 1 CAPSULE BY MOUTH TWICE DAILY FOR 10 DAYS 07/25 completed Not Available Not Available Not Available doxycycline hyclate 100 mg tablet TAKE 1 TABLET BY MOUTH EVERY 12 HOURS FOR 5 DAYS 07/25 completed Not Available Not Available Not Available cyclobenzap rine 5 mg tablet TAKE 1 TABLET BY MOUTH ONCE DAILY NEEDED AT BEDTIME 07/25 completed Not Available Not Available Not Available Allergy Relief and Nasal Decongestan t 10 mg-240 mg tablet,exte nded rel TAKE 1 TABLET BY MOUTH NEEDED ONCE DAILY 07/25 completed Not Available Not Available Not Available ProAir HFA 90 mcg/actuati on aerosol inhaler INHALE 1 PUFF BY MOUTH EVERY 4 HOURS NEEDED active Not Available Not Available No t Available Emgality Pen 120 mg/mL subcutaneou s pen injector INJECT 1 SYRINGE SUBCUTANE OUSLY ONCE EVERY MONTH active Not Available Not Available No t Available Aimovig Autoinjecto r 140 mg/mL subcutaneou s auto-inject or INJECT 1 SYRINGE SUBCUTANE OUSLY ONCE EVERY MONTH FOR MIGRAINE HEADACHE 07/25 completed Not Available Not Available Not Available Slynd 4 mg (28) tablet TAKE 1 TABLET BY MOUTH ONCE DAILY 07/25 completed Not Available Not Available Not Available Ubrelvy 100 mg tablet TAKE ONE TABLET BY MOUTH AT ONSET OF MIGRAINE. IF SYMPTOMS PERSIST, A SECOND DOSE MAY BE TAKEN IN 2 HOURS. DO NOT EXCEED 2 DOSES IN A 24 HOUR PERIOD, MAX 4 TABS PER WEEK , UNLESS OTHERWISE INSTRUCTE D BY YOUR PHYSICIAN active Not Available Not Available No t Available Vitals Date Recorded Body weight Body temperature Body mass index (BMI) Body height Provider Name and Address Organization Details Last Updated DateTime 07/25/2022 296831.96 g 98.7 [degF] 37.2 kg/m2 167.64 cm [facility] & [place] 07/25/2022 16:19:25 Social History None recorded. Functional Status None recorded. Mental Status None recorded. Family History Relationship Description Onset Age of this Age Resolved Age Notes LastModified by Organization Details LastModified Time Father No current problems or disability [email or web address] Not available 07/26 09:45:37 Mother No current problems or disability [email or web address] Not available 07/26 09:45:37 Medical History Condition Response Allergies/Hayfever N Heart Problems N None N Heart Conditions N Emphysema N Migraines Y Thyroid Problems Y Developmental Delay N Depression Y Glaucoma N Anemia N Immune System Disorder N Anesthesia Complications N Heart Attack ([place]) N Anxiety Disorder Y Diabetes N Bleeding Disorder N Arthritis N Hearing Loss N Tuberculosis N Acid Reflux (GERD) Y Hyperlipidemia N Cancer N Stroke N Asthma N Sleep Disorder N GERD/Reflux N Heart Disease N Fibromyalgia N Headaches N Hypertension N Speech Delay N Kidney Disease N Gynecological HistoryNo gynecological history recorded. Obstetrics History GPAL:G 0 P 0 0 0 0 Past Encounters Encounter ID Performer Location Encounter Start Date Encounter Closed Date Diagnosis/Indication Diagnosis SNOMED-CT Code Diagnosis ICD10 Code Diagnosis Note [id number] Madelaine Gustafson MD [facility] P[id number] [facility], [facility] [place] [address] 07/25/2022 15:51:07 07/25/2022 16:44:55 History of migraine 532673099 Z86.69 Otalgia of right ear 376 3135266 H92.01 Radiology result abnormal 650942072 R93.89 Thyroid nodule 319957736 E04.1 Patient is due for follow up U/S and this will be scheduled at her [facility]. Health Concerns Section Related Observation LastModified by Organization Detai ls LastModified Time None Recorded Concern Status LastModified by Organization Details LastModified Time None Recorded Advance Directives Directive None Recorded Payers Encounter Date Sequence Insurance Name Policy Number Policy Acuna Covered Member ID Acuna Member ID Guarantor Name 07/25/2022 1 [employer] [facility] (MEDICAID HMO) Melissa Campos [id number] Melissa Campos Notes Date Note Type Note Provider Name and Address Organization Details Recorded Time 07/25/2022 text/html 32yo female returns to the office today to discuss recent incidental findings on a ct scan. States she was sent by her neurologist for a ct scan of her face to work up trigeminal neuralgia. The ct showed abnormal findings in the right ear. Patient states she has been having some preauricular pain that radiates to her cheek and up her yazidism down to jaw. This was partly the reason for her ct scan. Denies hearing loss or drainage from either ear. Madelaine Gustafson MD [address] [facility], [place], [address], [facility] - [place] & [place] 08/07/2022 11:49:29 OBGyn Episode No OBEpisode recorded.
--- NOTE | 2024-12-23 12:45 | XR_ITS ---
FINAL REPORT CLINICAL HISTORY: SYSTEMIC LUPUS ERYTHEMATOSUS FINDINGS: AP, lateral and oblique views of the right knee were obtained. There is no prior exam for comparison. There is no acute osseous abnormality of the right knee. The joint space is preserved. The soft tissues are normal. There is no joint effusion. IMPRESSION: No acute osseous abnormality of the right knee. Reviewed, Interpreted and Dictated by Margie Kraft MD Transcribed by Shy Causey Authenticated and [facility]
--- NOTE | 2024-12-23 13:03 | XR_ITS ---
FINAL REPORT CLINICAL HISTORY: SYSTEMIC LUPUS ERYTHEMATOSUS FINDINGS: AP, lateral and oblique views of the left knee were obtained. There is no prior exam for comparison. There is no acute osseous abnormality of the left knee. The joint space is preserved. The soft tissues are normal. There is no joint effusion. IMPRESSION: No acute osseous abnormality of the left knee. Reviewed, Interpreted and Dictated by Margie Kraft MD Transcribed by Shy Causey Authenticated and . [facility]
--- NOTE | 2024-12-23 13:49 | XR_ITS ---
FINAL REPORT CLINICAL HISTORY: Bilateral hand pain FINDINGS: AP, oblique, and lateral views of the left hand were obtained. There is no prior exam for comparison. There is no acute fracture of the left hand. The joint spaces are preserved. The soft tissues are normal. IMPRESSION: No acute osseous abnormality of the left hand. Reviewed, Interpreted and Dictated by Margie Kraft MD Transcribed by Shy Causey Authenticated and . [facility]
--- NOTE | 2024-12-23 13:49 | XR_ITS ---
FINAL REPORT CLINICAL HISTORY: Bilateral hand pain FINDINGS: AP, lateral and oblique views of the right hand were obtained. There is no prior exam for comparison. There is no acute fracture or dislocation. The joint spaces are preserved. The soft tissues are normal. IMPRESSION: No acute osseous abnormality of the right hand. Reviewed, Interpreted and Dictated by Margie Kraft MD Transcribed by Shy Causey Authenticated and [facility]
== END 2024-12-23 23:59 | disposition home or self-care (01) ==
LOC: RAD 12:43
PROVIDERS: PCP Nurse Practitioner Family; Visit Provider Nurse Practitioner
DX: M25.561 Pain in right knee (principal); M25.562 Pain in left knee; M32.9 Systemic lupus erythematosus, unspecified; Z79.899 Other long term (current) drug therapy
CPT/HCPCS: 73120; 73562

== ENCOUNTER 2025-03-25 12:48 | Day surgery (SDC) | payer OTHER, SELFPAY ==
--- NOTE | 2025-03-25 13:16 | EXP.HP ---
History of Present Illness *Admission Date: 03/25/25 *History of present illness: Mrs. Campos is a 34-year-old female who is here for diagnostic EGD and colonoscopy. The patient has had dyspepsia with epigastric abdominal pain and history of H. pylori test positive. She also has generalized abdominal pain and mixed bowel irregularity with both constipation and diarrhea with bowel urgency. The examination is deemed medically necessary for diagnostic EGD and colonoscopy. The patient has been seen, interviewed and examined prior to the procedure by both myself and the anesthesia provider. [facility] Disclaimer: The information contained in this section may have been updated after the patient was seen, as this information can be updated by other users. Medical History Trigeminal neuralgia PVC (premature ventricular contraction) Fatigue Family history of ovarian cancer Family history of breast cancer Family history of uterine cancer Dysmenorrhea Heavy periods Wil thyroiditis Thyromegaly UTI (urinary tract infection) Hoarseness of voice History of lupus Family history of asthma Asthma Acid reflux Depression Anxiety Migraine History of stroke Hyperlipidemia Surgical History S/P wisdom tooth extraction History of arthroscopic procedure on shoulder 01/21/2024-Arhtroscopic pectoralis minor tenotomy and open scapulopexy History of placement of ear tubes x3 H/O left knee surgery History of tonsillectomy and adenoidectomy H/O tubal ligation History of cholecystectomy Family History Other Alcoholism Asthma Cancer Hypertension Stroke Social History Smoking Status: Never smoker alcohol intake: never substance use type: former substance user 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 in 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?: None household members: family, children and other housing: house caffeine: Yes Have you lived/traveled outside US in past 30 days?: No Contact w/someone who lives/traveled outside US past 30 days?: No Exposure to someone with infectious disease in past 14 days?: No Do you have a fever (greater than 100.4 F or 38 C)?: No Have you tested positive for COVID-19?: No Exposed to someone with COVID-19 in past 14 days?: No Do you have a sore throat?: No Do you have a cough?: No Do you have any weakness?: No Do you have any diarrhea?: No Are you experiencing any unusual bleeding?: No Do you have any muscle aches/pain?: No Do you have any abdominal pain?: No Are you experiencing loss of taste or smell?: No Other Medical History Have you received the Flu Vaccine for this season: No Have you received the Pneumonia Vaccine: No Review of Systems Review of Systems Review of systems (narrative): Negative *Cardiovascular Comments: Negative *Gastrointestinal Comments: Negative *Genitourinary Comments: Negative *Musculoskeletal Comments: Negative *Neurologic Comments: Negative Meds Home Medications and Allergies Home Medications ?Medication ?Instructions ?Recorded ?Confirmed ?Type celecoxib 200 mg capsule 200 mg PO DAILY 09/12/24 03/25/25 History hydroxychloroquine 200 mg tablet 200 mg PO DAILY 09/12/24 03/25/25 History azelastine 137 mcg (0.1 %) nasal 2 spray intranasal BID #30 mL 09/21/24 03/25/25 Rx spray omeprazole 40 mg capsule,delayed 40 mg PO DAILY #30 caps 10/06/24 03/25/25 Rx release fluoxetine 20 mg capsule (Prozac) 20 mg PO DAILY #30 caps 10/21/24 03/25/25 Rx triamcinolone acetonide 0.025 % 1 applic topical NEEDED PRN 12/07/24 03/25/25 History topical cream PSORIASIS ubrogepant 100 mg tablet (Ubrelvy) 100 mg PO DAILY 12/07/24 03/25/25 History azathioprine 50 mg tablet 100 mg PO DAILY 12/28/24 03/25/25 History budesonide-formoterol HFA 160 2 puff inhalation BID 02/10/25 03/25/25 History mcg-4.5 mcg/actuation aerosol inhaler (Symbicort) famotidine 20 mg tablet 20 mg PO DAILY 02/10/25 03/25/25 History rimegepant 75 mg disintegrating 75 mg PO Q OTHER DAY Migraine #15 02/10/25 03/25/25 Rx tablet (Nurtec ODT) tabs sodium,potassium,mag sulfates 17.5 See Rx Instructions PO .COMPLEX 03/15/25 03/25/25 Rx gram-3.13 gram-1.6 gram oral soln #354 mL (Suprep Bowel Prep Kit) metoprolol succinate 25 mg 25 mg PO DAILY 03/25/25 03/25/25 History tablet,extended release 24 hr New Prescriptions to Start Prescriptions: Allergies Allergy/AdvReac Type Severity Reaction Status Date / Time penicillin G (PENICILLIN G) Allergy Mild I-RASH Verified 03/25/25 09:28 Iodinated Contrast Media Allergy Unknown Unknown Verified 03/25/25 09:28 (Iodinated Contrast Media - allergy Oral and) reaction Penicillins Allergy Unknown Unknown Verified 03/25/25 09:28 allergy reaction Pertussis Vaccines Allergy Unknown Unknown Verified 03/25/25 09:28 (PERTUSSIS VACCINES) allergy reaction iodine Allergy Redness of Verified 03/25/25 13:54 Skin Exam *Routine HEENT Exam Head: Present normocephalic Eye: Present EOMI and PERRL ENT: Present mucous membranes moist *Routine Neck Exam Neck: Present supple *Routine Respiratory Exam Respiratory: Present CTA bilaterally *Routine Cardiovascular Exam Cardiovascular: Present RRR *Routine Abdominal Exam Abdominal: Present soft and normoactive bowel sounds; Absent tenderness *Routine Rectal Exam Rectal:: deferred *Routine Genitalia Exam Genitalia:: deferred *Routine Extremities Exam Extremities: Absent cyanosis, clubbing or edema *Routine Skin Exam Skin: Present warm; Absent rash *Routine Neurological Exam Neurological: Present alert and oriented X3 Assessment and Plan *Assessment and plan (1) Epigastric pain: Status: Acute Category: Medical Code(s): R10.13 - Epigastric pain (2) Positive H. pylori test: Status: Acute Category: Medical Code(s): A04.8 - Other specified bacterial intestinal infections (3) Generalized abdominal pain: Status: Acute Category: Medical Code(s): R10.84 - Generalized abdominal pain (4) Fecal urgency: Status: Acute Category: Medical Code(s): R15.2 - Fecal urgency (5) Diarrhea: Status: Acute Category: Medical Code(s): R19.7 - Diarrhea, unspecified Plan A/P: 1. Epigastric abdominal pain with reduced oral intake and previously positive H. pylori testing for upper endoscopy and generalized abdominal pain, diarrhea, urgency with mixed alternating constipation for colonoscopy is the preprocedural diagnosis. The patient will be anesthetized/sedated using MAC sedation. The patient has been seen and examined. Cardiac and lung assessment prior to the examination is stable. Proceed with planned diagnostic EGD and colonoscopy.
[2025-03-25 13:47] VITALS: BMI 38.7
[2025-03-25 14:05] VITALS: BP 138/89; PULSE 88; RESP 20; TEMP 36.2; O2SAT 96
[2025-03-25 14:16] LABS: HCG Qualitative, Serum Negative (Negative)
[2025-03-25] MEDS: LACTATED RINGERS 1000ML 1,000 ML 50 ML IV (14:18)
--- NOTE | 2025-03-25 14:48 | EXP.ANES.CKL ---
[facility] Disclaimer: The information contained in this section may have been updated after the patient was seen, as this information can be updated by other users. Medical History Trigeminal neuralgia PVC (premature ventricular contraction) Fatigue Family history of ovarian cancer Family history of breast cancer Family history of uterine cancer Dysmenorrhea Heavy periods Wil thyroiditis Thyromegaly UTI (urinary tract infection) Hoarseness of voice History of lupus Family history of asthma Asthma Acid reflux Depression Anxiety Migraine History of stroke Hyperlipidemia Surgical History S/P wisdom tooth extraction History of arthroscopic procedure on shoulder 01/21/2024-Arhtroscopic pectoralis minor tenotomy and open scapulopexy History of placement of ear tubes x3 H/O left knee surgery History of tonsillectomy and adenoidectomy H/O tubal ligation History of cholecystectomy Family History Other Alcoholism Asthma Cancer Hypertension Stroke Social History Smoking Status: Never smoker alcohol intake: never substance use type: former substance user 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 in 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?: None household members: family, children and other housing: house caffeine: Yes Have you lived/traveled outside US in past 30 days?: No Contact w/someone who lives/traveled outside US past 30 days?: No Exposure to someone with infectious disease in past 14 days?: No Do you have a fever (greater than 100.4 F or 38 C)?: No Have you tested positive for COVID-19?: No Exposed to someone with COVID-19 in past 14 days?: No Do you have a sore throat?: No Do you have a cough?: No Do you have any weakness?: No Do you have any diarrhea?: No Are you experiencing any unusual bleeding?: No Do you have any muscle aches/pain?: No Do you have any abdominal pain?: No Are you experiencing loss of taste or smell?: No [facility] Anesthesia Checklist Patient Identification Patient Identification: Arm Band and Verbal (Name & ) Structural Data Admitted From: Home Planned Operative Procedure/s: EGD/colonoscopy Consent for Planned Operative Procedure(s) Verified: Yes Verified Documents: Surgical Consent NPO Status Verified Time NPO: 00:00 Chart Verification Results Verified: ECG Additional verifications Anesthesia Reactions: No Hx Blood Transfusions: No Blood Transfusion Reaction: No Airway Assessment Mallampati Score:: Class II C-Spine Mobility Assessed: Yes TMJ Mobility Assessed: Yes Dentition: Good Dentition Neurological Assessment Level of Consciousness: Awake, Alert and Appropriate Hx Seizures: No Numbness or tingling in extremities: No Anesthesia Plan Anesthesia Risk discussed: Yes Anesthesia Plan: Verified ASA Class: II Anesthesia Type: MAC
--- NOTE | 2025-03-25 15:05 | HMH.PROCNOTE ---
[facility] Procedure Note Date: 03/25/25 Time: 15:14 Procedure Note:: Upper Endoscopy Procedure Report: Esophagogastroduodenoscopy with cold biopsies and TTS balloon dilation Endoscopost: Heriberto Mendez II, MD Referring Physician: LUCIEN Valencia Date of Procedure: March 25, 2025 Equipment: Olympus GIF 190 standard upper endoscope Sedation: MAC sedation Indications: Mrs. Campos is a 34-year-old female with dyspepsia, epigastric abdominal pain, bloating, fullness and some dysphagia. She was tested positive previously for H. pylori but had not been treated. She did have an EGD (Anneliese Hirsch MD) in October 2019 for and had dilation at that time. She is here for diagnostic/therapeutic EGD. Procedure: Prior to the procedure, a history and physical exam was performed, and patient's medications and allergies were reviewed. The risks, benefits and alternatives of the sedation and procedure were discussed with the patient. All questions were answered and informed consent was obtained. The patient was brought to the procedure room. Patient identification and proposed procedure were verified by the physician and the nurse. The patient was placed in a left lateral decubitus position and the scope was passed under direct vision. Throughout the procedure, the patient's blood pressure, pulse, and oxygen saturations were monitored continuously. The upper GI endoscopy was accomplished without difficulty. The patient tolerated the procedure well. Findings: The scope was passed directly into the upper esophagus and advanced to the fourth portion of duodenum and proximal jejunum. A cold biopsy was taken from the proximal jejunum for the disaccharidase assay. The proximal jejunum, post bulbar duodenum, ampulla and duodenal bulb were normal with normal mucosa and conniventes. There was a small polypoid nodule (4 to 5 mm) in the first portion of duodenum removed via cold biopsy. The scope was withdrawn through a normal duodenal bulb and pylorus into the stomach. There was bile reflux with mild linear antral gastropathy. There was moderate chronic gastritis of the body and fundus suspicious of H. pylori and biopsies were taken along the incisura and lesser curvature to rule out H. pylori. Upon retroflexion there was a small 1 to 2 cm hiatal hernia. The scope was then withdrawn into the esophagus. There was no evidence of reflux esophagitis or Amezcua's. There is no corrugation or furrowing, strictures or rings. There were strong tertiary contractions and evidence of moderate esophageal dysmotility. The entire esophagus was dilated to 60 Tamazight/20 mm with a TTS hydrostatic balloon. There was some resistance at the cricopharyngeus. The remainder of the esophageal mucosa was normal. Impression: 1. Cricopharyngeal spasm status post dilation to 20 mm 2. Nonerosive GERD with moderate esophageal dysmotility and small 1-2 cm hiatal hernia 3. Mild bile reflux with mild linear antral gastropathy of antrum and moderate chronic gastritis of proximal stomach 4. Small 4 to 5 mm duodenal nodule?first portion of duodenum Plan: I will follow-up the biopsies and disaccharidase assay. If the patient is positive for H. pylori, I would recommend eradication. We will also discuss treatment options for her dyspepsia. I will proceed with diagnostic colonoscopy.
--- NOTE | 2025-03-25 15:17 | HMH.PROCNOTE ---
[facility] Procedure Note Date: 03/25/25 Time: 15:30 Procedure Note:: Colonoscopy Procedure Report: Colonoscopy with cold biopsies Endoscopist: Heriberto Mendez II, MD Referring physician: LUCIEN Valencia Date of Procedure: March 25, 2025 Equipment: Olympus 190 variable stiffness pediatric colonoscope Sedation: MAC sedation Indication: Mrs. Campos is a 34-year-old female with IBS constipation. She will either have hard stools or mushy stools with urgency. She may skip up to a week without a bowel movement. She has had prior C. difficile colitis treated with antibiotics. Her maternal grandmother was diagnosed with colon cancer in her 60s. She reports no family history of inflammatory bowel disease. She does have a lot of bloating and generalized abdominal discomfort. She reports no rectal bleeding or weight loss. This is her first colonoscopy for diagnostic purposes. Procedure: Prior to the procedure, a history and physical exam was performed, and patient's medications and allergies were reviewed. The risks, benefits and alternatives of the sedation and procedure were discussed with the patient. All questions were answered and informed consent was obtained. The patient was brought to the procedure room. Patient identification and proposed procedure were verified by the physician and the nurse. The patient was placed in a left lateral decubitus position and the scope was passed under direct vision. Throughout the procedure, the patient's blood pressure, pulse, and oxygen saturations were monitored continuously. The colonoscopy was accomplished without difficulty. The patient tolerated the procedure well. Findings: On digital rectal examination there was normal rectal tone. There were no external hemorrhoids. The colonoscope was introduced through the anal canal to the rectum and advanced to the cecum. The ileocecal valve and appendiceal orifice were identified. The scope was advanced a short distance into the ileum which appeared grossly normal. The scope was then withdrawn into the colon. The cecum, ascending, transverse, descending, sigmoid and rectum were grossly normal. There was a pedunculated lipoma in the sigmoid colon (10 to 11 mm) and cold biopsies were taken/well biopsies. There were no other colonic abnormalities. Random biopsies were taken from the right colon to rule out microscopic colitis. Upon retroflexion within the rectum there were grade 1 internal hemorrhoids. The preparation was excellent throughout with Milfay Preparation Score of 9. The cecal time was 12 minutes. Impression: 1. Sigmoid pedunculated lipoma (10 to 11 mm) otherwise normal colonoscopy with intubation of the terminal ileum Plan: I will follow-up the biopsies. I do feel that the patient has IBS constipation. We will discuss additional treatment options.
[2025-03-25 15:33] VITALS: BP 104/61; PULSE 77; RESP 17; TEMP 36.3; O2SAT 97
[2025-03-25 15:43] VITALS: BP 124/64; PULSE 72; RESP 16; O2SAT 99
[2025-03-25 15:53] VITALS: BP 127/84; PULSE 71; RESP 16; O2SAT 99
[2025-03-25 16:03] VITALS: BP 134/83; PULSE 69; RESP 16; O2SAT 100
--- NOTE | 2025-03-25 16:24 | SUR.PHASEII ---
MESSAGE LEFT FOR GANGA IN [facility] OFFICE TO MAKE A 3 MONTH FOLLOW UP WITH MACARIO AND TO CALL PATIENT IN THE MORNING WITH DATE AND TIME
[2025-03-30 14:12] LABS: Interpretation Notes (.); Lactase 11.27 (>/= 14.0); Maltase 227.86 (>/= 110.0); Palatinase 13.19 (>/= 8.5); Reference Notes (.); Sucrase 47.01 (>/= 25.0)
== END 2025-03-25 16:33 | disposition home or self-care (01) ==
PROVIDERS: PCP Nurse Practitioner Family; Visit Provider Internal Medicine Gastroenterology
PROC: 0DJ08ZZ Inspection of Upper Intestinal Tract, Via Natural or Artificial Opening Endoscopic (ICD-10-PCS; CPT 45378; principal; 2025-03-25 15:00)
DX: D17.79 Benign lipomatous neoplasm of other sites (principal); K21.9 Gastro-esophageal reflux disease without esophagitis; K44.9 Diaphragmatic hernia without obstruction or gangrene; K29.50 Unspecified chronic gastritis without bleeding; K35.80 Unspecified acute appendicitis; J45.909 Unspecified asthma, uncomplicated; E06.3 Autoimmune thyroiditis; E78.5 Hyperlipidemia, unspecified; Z88.0 Allergy status to penicillin; Z91.09 Other allergy status, other than to drugs and biological substances; Z86.19 Personal history of other infectious and parasitic diseases; Z79.899 Other long term (current) drug therapy
CPT/HCPCS: 43239; 43249; 45380; 82657; 84703; C1726; J2003; J2704; J7120

== ENCOUNTER 2025-03-31 12:36 | Outpatient (CLI) | payer OTHER, SELFPAY ==
[2025-03-31 08:54] VITALS: BMI 38.0
--- OUTSIDE RECORDS SUMMARY | 2025-03-31 12:39 | XMS_ITS | Clinical Summary ---
Author Organization [facility] Address [address] [place] [address] Care Team Providers Care Tool Supervisor Name Role Phone Mayuri Diego APRN Primary Care Provider [phone] Allergies Active Allergy Reactions Criticality Noted Date Comments Ct Contrast Hives 12/19/2023 Penicillins Rash Low 12/19/2023 Pertussis Vaccines Rash Low 12/19/2023 Wound Dressing Adhesive Rash Low 12/19/2023 Medications albuterol (PROVENTIL) (2.5 MG/3ML) 0.083% nebulizer solution Take 2.5 mg by nebulization Every 4 (Four) Hours As Needed for Wheezing. Active albuterol sulfate HFA 108 (90 Base) MCG/ACT inhaler Inhale 2 puffs Every 4 (Four) Hours As Needed for Wheezing. Active azaTHIOprine (IMURAN) 50 MG tablet Take 1 tablet by mouth Daily. Active budesonide-form oterol (SYMBICORT) 160-4.5 MCG/ACT inhaler Inhale 2 puffs 2 (Two) Times a Day. Active CARBAMAZEPINE PO Take 100 mg by mouth 3 times a day. Active celecoxib (CeleBREX) 200 MG capsule Take 1 capsule by mouth 2 (Two) Times a Day. Active Methylcobalamin (U20-SFJGNG PO) Take 1 tablet by mouth Daily. Active ESTRADIOL PO Take 0.1 mg by mouth Daily. Active famotidine (PEPCID) 20 MG tablet Take 1 tablet by mouth Daily. Active hydroxychloroqu ine (PLAQUENIL) 200 MG tablet Take 1 tablet by mouth 2 (Two) Times a Day. Active labetalol (NORMODYNE) 200 MG tablet Take 1 tablet by mouth 2 (Two) Times a Day. Active omeprazole (priLOSEC) 40 MG capsule Take 1 capsule by mouth Daily. Active oxybutynin XL (DITROPAN-XL) 10 MG 24 hr tablet Take 1 tablet by mouth Daily. Active ubrogepant (Ubrelvy) 100 MG tablet Take 1 tablet by mouth 1 (One) Time. Active amantadine (SYMMETREL) 100 MG capsule Take 1 capsule by mouth Daily. Active Erenumab-aooe (Aimovig) 70 MG/ML auto-injector Inject 1 mL under the skin into the appropriate area as directed Every 30 (Thirty) Days. Active docusate sodium (Colace) 100 MG capsule Take 1 capsule by mouth 2 (Two) Times a Day. 60 capsule 01/22/2024 10:23 AM EDT Active Active Problems Problem Noted Date Diagnosed Date Leukocytosis, likely reactive 01/22/2024 Acute postoperative pain 01/22/2024 Scapular dyskinesis 01/21/2024 S/P arthroscopic pectoralis minor tenotomy and open scapulopexy 01/21/2024 Social History Tobacco Use Types Packs/Day Years Used Date Smoking Tobacco: Former Cigarettes 1 11 S tarted: 2000 Tobacco Cessation:Counseling Given: Not Answered Alcohol Use Standard Drinks/Week Comments Yes 0 (1 standard drink = 0.6 oz pur e alcohol) OCCASIONAL [employer] Utilities Answer Date Recorded In the past 12 months has e PositiveID, gas, oil, or water [facility] threatened to shut off services in your home? No 01/22/2024 AUDIT-C Answer Date Recorded Q1: How often do you have a drink containing alc ohol? Monthly or less 01/21/2024 Q2: How many drinks containi ng alcohol do you have on a typical day when you are drinking? 1 or 2 01/21/2024 Q3: How often do you have si x or more drinks on one occasion? Never 01/21/2024 Exercise Vital Sign Answer Date Recorde d On average, how many days pe r week do you engage in moderate to strenuous exercise (like a brisk walk)? 5 days 01/22/2024 On average, how many minutes do you engage in exercise at this level? 30 min 01/22/2024 Hunger Vital Sign Answer Date Recorded Within the past 12 months, y ou worried that your food would run out before you got the money to buy more. Never true 01/22/20 24 Within the past 12 months, t he food you bought just didn't last and you didn't have money to get more. Never true 01/22/2024 PRAPARE - Transportation Answer Date Re corded In the past 12 months, has l ack of transportation kept you from medical appointments or from getting medications? No 01/07 In the past 12 months, has l ack of transportation kept you from meetings, work, or from getting things needed for daily living? No 01/22/2024 Abuse Screen Answer Date Recorded Feels Unsafe at Home or Work/School no 01/21/2024 Feels Threatened by Someone no 01/07 Does Anyone Try to Keep You From Having Contact with Others or Doing Things Outside Your Home? no 01/21/2024 Physical Signs of Abuse Present no 01/21/2024 Housing Stability Answer Date Recorded Current Living Arrangements home 01/07 Potentially Unsafe Housing Conditions none 01/22/2024 Family and Community Support Answer Ramon e Recorded Help with Day-to-Day Activities Not on file 12/16/2023 Lonely or Isolated Not on file 12/16/2023 Employment Answer Date Recorded Do you want help finding or keeping work or a otilia b? Not on file 12/16/2023 Disabilities Answer Date Recorded Difficulty Concentrating, Remembering or Making Decisions no 01/21/2024 Difficulty Managing Errands Independently no 01/21/2024 Education Answer Date Recorded Help with school or training? Not on file Preferred Language Amharic 01/22/2024 Comments Unknown Sex and Gender Information Value Date Recorded Sex Assigned at Not on file Legal Sex Female 1:22 PM EDT Gender Identity Not on file Sexual Orientation Not on file Last Filed Vital Signs Vital Sign Reading Time Taken Comments Blood Pressure 103/63 01/22/2024 10:47 AM EDT Pulse 70 01/22/2024 10:47 AM EDT Temperature 37.1 C (98.7 F) 01/22/2024 10:47 AM EDT Respiratory Rate 18 01/22/2024 10:47 AM EDT Oxygen Saturation 97% 01/22/2024 10:47 AM EDT Inhaled Oxygen Concentration - - Weight 113 kg (250 lb) 01/21/2024 9:29 AM EDT Height 167.6 cm (5' 6 ) 01/21/2024 9:29 AM EDT Body Mass Index 40.35 01/21/2024 9:29 AM EDT Plan of Treatment Health Maintenance Due Date Last Done Comments Annual Gynecologic Pelvic and Breast Exam 1989 Pneumococcal Vaccine 0-49 (1 of 2 - PCV) 2008 TDAP/TD VACCINES (1 - Tdap) 2008 ANNUAL PHYSICAL 12/19/2023 HEPATITIS C SCREENING 12/19/2023 COVID-19 Vaccine (2023- season) 2024, 02/22/2021 INFLUENZA VACCINE 06/09/2025 Medical Devices Implanted Type Area Level Vial Grinder Device Identifier Shelf Expiration Date Model / Serial / Lot Sut Nonabs Bone Dynacord Uhmwpe W/Os/6 Ndl 2pk Strip/Balbir - [id number] Implanted:Qty: 2 on 01/21/2024 by Sandor Barboza Jr., MD at [facility] Implant Left: Scapula DEPUY MITEK 05/09/2026 [id number] / / [id number] Tndn Semitendinous Flexigraft 1strnd Fz [id number] - [id number] Implanted:Qty: 1 on 01/21/2024 by Sandor Barboza Jr., MD at [facility] Implant Left: Scapula LIFEFORMERLY [facility] 10/29/2028 [facility] / / [id number] Insurance [facility] Care Teams Tool Supervisor Relationship Specialty Start Date End Date Mayuri Diego APRN [facility] [place] [address] [place] [address] PCP - General Internal Medicine 12/19/23
--- OUTSIDE RECORDS SUMMARY | 2025-03-31 12:39 | XMS_ITS | Encounter Summary ---
Author Organization [facility] Address [address] [address] Care Team Providers Care Php Wordpress Developer Name Role Phone Kulwinder Smiley MD Primary Care Provider [phone] Ivonne Gonzalez MD Unavailable [phone] Mayuri Diego APRN Primary Care Provider [phone] Reason for Referral * Consultation (Routine) - Closed Specialty Diagnoses / Procedures Referred By Contharshil t Referred To Contact Rheumatology Diagnoses Positive AUDREY (antinuclear antibody) Vitiligo Feeling tired Law Naylor APRN [address] [place] [address] Phone: tel: fax: Referral ID Status Reason Start Date Expiration Date V isits Requested Visits Authorized [id number] Closed Specialty Services Required 03/27/2022 09/26/2023 1 1 Encounter Details Date Type Department Care Team (Late st Contact Info) Description 03/27/2022 Community [facility] Community Practice [address] [place] [address] Law Naylor APRN [address] [place] [address] Positive AUDREY (antinuclear antibody) (Primary Dx); Vitiligo; Feeling tired Social History Tobacco Use Types Packs/Day Years Used Date Smoking Tobacco: Never Assessed Comments Unknown Sex and Gender Information Value Date Recorded Sex Assigned at Not on file Legal Sex Female 8:39 PM EDT Gender Identity Not on file Sexual Orientation Not on file documented as of this encounter Plan of Treatment Upcoming Encounters Date Type Department Care Team (Late st Contact Info) Description 06/23/2025 3:20 PM EDT Office Visit [place] [facility] [address] [place] [address] Ryann Hill, CASH GRAIN GROWER [address] [place] [address] Scheduled Referrals Name Type Priority Associated Diagnoses Order Schedule Ambulatory referral to Rheumatology Outpatient Referral Routine Positive AUDREY (antinuclear antibody) Vitiligo Feeling tired Expected: 03/27/2022 (Approximate), Expires: 09/27/2023 documented as of this encounter Visit Diagnoses Diagnosis Positive AUDREY (antinuclear antibody)- Primary Other and unspecified nonspecific immunological findings Vitiligo Feeling tired documented in this encounter Care Teams Php Wordpress Developer Relationship Specialty Start Date End Date Kulwinder Smiley MD [address] [place] [address] PCP - General 01/20/21 07/21/23 Mayuir Diego, CASH GRAIN GROWER [address] [place] [address] PCP - General 07/22/23 Ivonne Gonzalez MD [address] [facility] [address] [place] [address] Service Attending Neuro-Ophthalmology 02/27/23 documented as of this encounter
--- OUTSIDE RECORDS SUMMARY | 2025-03-31 12:39 | XMS_ITS | Encounter Summary ---
Author Organization Healthcare Address [address] [place] [address] Care Team Providers Care Sonoscope Operator Name Role Phone Ivonne Gonzalez MD Unavailable [phone] Mayuri Diego APRN Primary Care Provider [phone] Reason for Visit * Reason Comments Med Refill Encounter Details Date Type Department Care Team (Late st Contact Info) Description 12/17/2024 Refill [place] [facility] [address] [place] [address] vIonne Gonzalez MD [address] [place] [address] Social History Tobacco Use Types Packs/Day Years Used Date Smoking Tobacco: Never Passive Smoke Exposure: Current Smokeless Tobacco: Never Alcohol Use Standard Drinks/Week Comments Not Currently 0 (1 standard drink = 0.6 oz pur e alcohol) PHQ-2 Answer Date Recorded Patient Health Questionnaire-2 Score 0 12/21/2024 PHQ-9 Answer Date Recorded Patient Health Questionnaire-9 Score 0 12/21/2024 PHQ-2A Answer Date Recorded Depression Risk 0 09/05/2022 Comments Unknown Sex and Gender Information Value Date Recorded Sex Assigned at Not on file Legal Sex Female 8:39 PM EDT Gender Identity Not on file Sexual Orientation Not on file documented as of this encounter Miscellaneous Notes * Telephone Encounter - Ivonne Gonzalez MD - 01/07/2025 8:35 PM EDT Needs appt for refill * Telephone Encounter - Ivonne Gonzalez MD - 12/19/2024 11:03 AM EDT Was a no show to the [facility] appt. Kindly check if she is interested in seeing us and then we can make an appt and provide the refill documented in this encounter Plan of Treatment Upcoming Encounters Date Type Department Care Team (Late st Contact Info) Description 06/23/2025 3:20 PM EDT Office Visit [facility] [address] [place] [address] Ryann Hill APRN [address] [facility] [address] [place] [address] documented as of this encounter Visit Diagnoses Not on filedocumented in this encounter Additional Health Concerns Assessment Noted Time A fall risk assessment has been complete d for the patient 06/22/2024 11:27 AM EDT A Body Mass Index follow-up plan has been documented for the patient 06/22/2024 12:22 PM EDT documented as of this encounter Care Teams Sonoscope Operator Relationship Specialty Start Date End Date Mayuri Diego APRN [address] [place] [address] PCP - General 07/22/23 Ivonne Gonzalez MD [address] [facility] [address] [place] [address] Service Attending Neuro-Ophthalmology 02/27/23 documented as of this encounter
--- OUTSIDE RECORDS SUMMARY | 2025-03-31 12:39 | XMS_ITS | Encounter Summary ---
Author Organization [facility] Address [address] [place] [address] Care Team Providers Care District Fire Management Officer Name Role Phone Kulwinder Smiley MD Primary Care Provider [phone] Ivonne Gonzalez MD Unavailable [phone] Mayuri Diego APRN Primary Care Provider [phone] Reason for Referral * Consultation (Routine) - Closed Specialty Diagnoses / Procedures Referred By Contharshil greenwood Referred To Contact Neurology Diagnoses Facial neuralgia Chronic migraine without aura, intractable, without status migrainosus Lupus Law Naylor APRN [address] [place] [address] Phone: tel: fax: Referral ID Status Reason Start Date Expiration Date V isits Requested Visits Authorized [id number] Closed Specialty Services Required 08/14/2022 02/13/2024 1 1 Encounter Details Date Type Department Care Team (Late st Contact Info) Description 08/14/2022 Community [facility] Community Practice [address] [place] [address] Law Naylor APRN [address] [place] [address] Facial neuralgia (Primary Dx); Chronic migraine without aura, intractable, without status migrainosus; Lupus (CMS/HCC) Social History Tobacco Use Types Packs/Day Years Used Date Smoking Tobacco: Never Smokeless Tobacco: Never PHQ-2 Answer Date Recorded Patient Health Questionnaire-2 Score 0 05/23/2022 Comments Unknown Sex and Gender Information Value Date Recorded Sex Assigned at Not on file Legal Sex Female 8:39 PM EDT Gender Identity Not on file Sexual Orientation Not on file documented as of this encounter Plan of Treatment Upcoming Encounters Date Type Department Care Team (Late st Contact Info) Description 06/23/2025 3:20 PM EDT Office Visit [place] [facility] [address] [place] [address] Ryann Hill APRN [address] [place] [address] Scheduled Referrals Name Type Priority Associated Diagnoses Order Schedule Ambulatory referral to Neurology Outpatient Referral Routine Facial neuralgia Chronic migraine without aura, intractable, without status migrainosus Lupus (CMS/HCC) Expected: 08/14/2022 (Approximate), Expires: 08/14/2023 documented as of this encounter Visit Diagnoses Diagnosis Facial neuralgia- Primary Other facial nerve disorders Chronic migraine without aura, intractable, without status migrainosus Lupus Systemic lupus erythematosus documented in this encounter Additional Health Concerns Assessment Noted Time A fall risk assessment has been complete d for the patient 05/23/2022 9:39 AM EDT documented as of this encounter Care Teams District Fire Management Officer Relationship Specialty Start Date End Date Kulwinder Smiley MD [address] [place] [address] PCP - General 01/20/21 07/21/23 Mayuri Diego APRN [address] [place] [address] PCP - General 07/22/23 Ivonne Gonzalez MD [address] [place] [address] Service Attending Neuro-Ophthalmology 02/27/23 documented as of this encounter
--- OUTSIDE RECORDS SUMMARY | 2025-03-31 12:39 | XMS_ITS | Encounter Summary ---
Author Organization [facility] Address [address] [place] [address] Care Team Providers Care Feed Preparation Operator Name Role Phone Ivonne Gonzalez MD Unavailable [phone] Mayuri Diego FLAT LOCK OPERATOR Primary Care Provider [phone] Encounter Details Date Type Department Care Team (Late st Contact Info) Description 12/28/2024 Results Follow-Up [facility] Medicine Specialties [address] [place] [address] Ryann Hill, FLAT LOCK OPERATOR [address] [place] [address] Social History Tobacco Use Types [...] Description 06/23/2025 3:20 PM EDT Office Visit [place] [facility] [address] [place] [address] Ryann Hill, NEYDA [address] [place] [address] documented as of this encounter Visit Diagnoses Not on filedocumented in this encounter Additional Health Concerns Assessment Noted Time PHQ-9 Depression Total Score: 0 12/22/19 25 3:33 PM EDT A fall risk assessment has been complete d for the patient 12/21/2024 3:33 PM EDT A Body Mass Index follow-up plan has been documented for the patient 12/21/2024 4:07 PM EDT documented as of this encounter Care Teams Feed Preparation Operator Relationship Specialty Start Date End Date Mayuri Diego APRN [address] [place] [address] PCP - General 07/22/23 Ivonne Gonzalez MD [address] [place] [address] Service Attending Neuro-Ophthalmology 02/27/23 documented as of this encounter
--- OUTSIDE RECORDS SUMMARY | 2025-03-31 12:39 | XMS_ITS | Data Portability ---
Author Organization [facility] [place] & [place], [facility] ADMIN Address [address] [place] [address] Care Team Providers Care Hemodialysis Lab Technician Name Role Phone MARTINEZ PAVON Primary Care [...] By Organization Details Last Modified Time 07/25/2022 [id number] Discussed with patient that patient does not [...] contr ast No observ ation record ed. [email or web address] Not Available 11:26:00 10/03/19 23 09/06/2022 CT, abdom en + pelvi s, w/o contr ast No observ ation record ed. [email or web address] [facility] [address], [place], [address], 10/03/2022 10:28:03 07/10/20 23 07/02/2023 US, thyro id No observ ation record ed. [facility] (Med Record) [address], [place], [address], 07/23/2023 12:45:43 07/28/20 24 07/17/2024 US, thyro id No observ ation record ed. BAR[facility] Not Available 2023 13:03:53 Result Notes None recorded. Problems No Known Problems Procedures Surgical History Date Name Laterality Status Provider Name and Address Organization Details Recorded Time myringotomy and insertion of tympanic ventilation tube completed Heath Kim [facility] & [place] 07/26/2022 09:47:41 Imaging Results None recorded. Procedure Notes None recorded. Medical Equipment None Reported. Allergies Allergen ID Allergen Name Allergen Category Reaction Reaction Severity Criticality Documentation Date Start Date Code Code System Note Provider Name and Address Organization Details Recorded Time 92866 Product containin g penicilli n (product) medicatio n rash Not available Not available 07/25/2022 81654 8001 SNOMED [place] Berman [facility] & [place] 2 16:19:49 38562 PERTUSSIS VACCINE,A DSORBED Not available rash Not available Not available 07/25/2022 53835 3 RxNorm ALIZE Berman [facility] & [place] 2 16:20:06 26838 Iodinated contrast media (substanc e) medicatio n rash Not available Not available 07/25/2022 93768 2004 [facility]ED [place] [facility] [place] 2 16:20:34 Medications Name Sig Start Date Stop [...] Address Organization Details Last Updated DateTime 07/25/2022 082060.96 g 98.7 [degF] 37.2 kg/m2 167.64 cm Heath [facility] - [place] & [place] 07/25/2022 16:19:25 Social History None recorded. Functional Status None recorded. Mental Status None recorded. Family History Relationship Description Onset Age of this Age Resolved Age Notes LastModified by Organization Details LastModified Time Father No current problems or disability [email or web address] Not available 07/26 09:45:37 Mother No current problems or disability Not available 07/26 09:45:37 Medical History Condition Response Allergies/Hayfever N Heart Problems N None N Heart Conditions N Emphysema N Migraines Y Thyroid Problems Y Developmental Delay N Glaucoma N Depression Y Anemia N Immune System Disorder N Anesthesia Complications N Heart Attack (MT) N Anxiety Disorder Y Diabetes N Bleeding Disorder N Arthritis N Hearing Loss N Tuberculosis N Acid Reflux (GERD) Y Hyperlipidemia N Cancer N Stroke N Asthma N Sleep Disorder N GERD/Reflux N Heart Disease N Headaches N Fibromyalgia N Hypertension N Speech Delay N Kidney Disease N Gynecological HistoryNo gynecological history recorded. Obstetrics History GPAL:G 0 P 0 0 0 0 Past Encounters Encounter ID Performer Location Encounter Start Date Encounter Closed Date Diagnosis/Indication Diagnosis SNOMED-CT Code Diagnosis ICD10 Code Diagnosis Note [id number] [place] Gustafson MD ENT Associate s [facility] [facility], [facility] [address] [place] [id number] 07/25/2022 15:51:07 07/25/2022 16:44:55 History of migraine 676259720 Z86.69 Otalgia of right ear 905 0269920 H92.01 Radiology result abnormal 578830027 R93.89 Thyroid nodule 542136207 E04.1 Patient is due for follow up U/S and this will be scheduled at her [facility] e. Health Concerns Section Related Observation LastModified by Organization Detai ls LastModified Time None Recorded Concern Status LastModified by Organization Details LastModified Time None Recorded Advance Directives Directive None Recorded Payers Insurance Date Sequence Insurance Name Policy Number Policy Acuna Covered Member ID Acuna Member ID Guarantor Name 11/24/2022 1 [employer] [facility] (MEDICAID HMO) Melissa Campos [id number] Melissa Campos Notes Date Note Type Note [...] radiates to her cheek and up her jew down to jaw. This was partly the reason for her ct scan. Denies hearing loss or drainage from either ear. Madelaine Gustafson MD [address], [place], [address], [facility] - [facility] - [place] & [place] 08/07/2022 11:49:29 OBGyn Episode No OBEpisode recorded.
--- OUTSIDE RECORDS SUMMARY | 2025-03-31 12:39 | XMS_ITS | Clinical Summary ---
Author Organization [facility] Address [address] [place] [address] Care Team Providers Care Timber Rider Name Role Phone Ivonne Gonzalez MD Unavailable [phone] Mayuri Diego APRN Primary Care Provider [phone] Allergies Active Allergy Reactions Criticality Noted Date Comments Iodinated Contrast Media Rash,Other - pl ease document in the comment field Low 11/21/2023 Iv Contrast Hives Medium 12/19/2023 Other Hives Medium 05/23/2022 Cat Scan Dye Penicillins Hives,Rash,Other - please document in the comment field Medium 05/23/2022 Pertussis Vaccine Rash Low 02/12/2024 Pertussis Vaccines Hives,Rash,Other - please document in the comment field Medium 05/23/2022 Wound Dressing Adhesive Rash Low 12/19/2023 Medications Cyanocobalamin 5000 MCG capsule Daily 3 Active omeprazole (PriLOSEC) [address] capsule Take 1 capsule (40 mg) by mouth 1 (one) time each day. Do not crush or chew. Active Erenumab-aooe (Aimovig) 70 MG/ML solution auto-injector Inject 70 mg under the skin every 30 (thirty) days. 1 mL 11 4 Active albuterol (2.5 MG/3ML) 0.083% nebulizer solution USE 3 ML IN NEBULIZER EVERY 6 HOURS NEEDED FOR SHORTNESS OF BREATH FOR WHEEZING 4 Active amantadine (Symmetrel) 100 MG tablet 3 Active famotidine (Pepcid) 20 MG tablet Take 1 tablet (20 mg) by mouth 1 (one) time each day. 3 Active carBAMazepine (TEGretol) 100 MG chewable tablet Chew 1 tablet (100 mg) 3 (three) times a day. 90 tablet 11 4 Active cephalexin (Keflex) 500 MG capsule 4 Active methylPREDNISol one (Medrol Dospak) 4 MG tablets 4 Active celecoxib (CeleBREX) 200 MG capsule Take 1 capsule (200 mg) by mouth 2 (two) times a day. 180 capsule 5 4 Active metoprolol succinate XL (Toprol-XL) 25 MG 24 hr tablet Take 1 tablet by mouth daily. 5 Active Plecanatide (TRULANCE PO) Take by mouth. A ctive hydroxychloroqu ine (Plaquenil) 200 MG tablet Take 1 tablet by mouth 2 times a day. 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 Encounters Date Type Department Care Team Description 01/19/2025 [facility]ill [facility] [address] [place] [address] Ivonne Gonzalez MD 01/19/2025 Refill [facility] Medicine Specialties [address] [place] [address] Ryann Hill, NEYDA from Last 3 Months Immunizations Immunization Administration Dates Next Due Moderna COVID-19 Vaccine (Environmental Management Specialist) 12+ years ,02/22/2021 Family History Medical History Relation Name Comments Cancer Brother 1 Anxiety disorder Brother 2 Nicolette COPD Father Cirrhosis Father Parkinson Disease Father Tremor Father Lung cancer Maternal Grandfather Arthritis Maternal Grandmother Colon cancer Maternal Grandmother Dementia Maternal Grandmother Depression Maternal Grandmother Hypothyroidism Maternal Grandmother Aneurysm Mother Hypothyroidism Mother Alzheimer's disease Paternal Grandmother Anxiety disorder Sister 3 Depression Sister 3 Relation Name Status Comments Brother 1 Alive Brother 2 Nicolette Alive Brother 3 Vincent Alive Father Alive Maternal Grandfather Maternal Grandmother Mother Alive Paternal Grandfather Paternal Grandmother Sister 1 Alive Sister 2 neema Alive Sister 3 Alive Social History Tobacco Use Types Packs/Day Years Used Date Smoking Tobacco: Never Passive Smoke Exposure: Current Smokeless Tobacco: Never Tobacco Cessation:Counseling Given: Not Answered Alcohol Use Standard Drinks/Week Comments Not Currently [...] Sign Reading Time Taken Comments Blood Pressure 102/71 12/21/2024 3:28 PM EDT Pulse 79 12/21/2024 3:28 PM EDT Temperature 36.9 C (98.4 F) 12/21/2024 3:28 PM EDT Respiratory Rate 16 12/21/2024 3:28 PM EDT Oxygen Saturation 100% 12/21/2024 3:28 PM EDT Inhaled Oxygen Concentration - - Weight 104 kg (229 lb 4.5 oz) 12/21/2024 3:28 PM EDT Height 167.6 cm (5' 6 ) 12/21/2024 3:28 PM EDT Body Mass Index 37.01 12/21/2024 3:28 PM EDT Plan of Treatment Upcoming Encounters Date Type Department Care Team (Late st Contact Info) Description 06/23/2025 3:20 PM EDT [facility] Visit [facility] [address] [place] [phone] Ryann Hill, NEYDA [address] [place] [address] Health Maintenance Due Date Last Done Comments Dental Oral Exam 1989 Dental Prophylaxis 1989 Dental X-Ray: Bitewings 1989 Dental X-Ray: Full Mouth 1989 [facility]-HIV Screening 1989 [facility]-Hepatitis C Screening 1989 [facility]-/Child/Adol SDOH Screenings 1989 [facility]-Varicella Vaccines (1 of 2 - 13+ 2-dose series) 2002 HPV Vaccines (1 - 3-dose series) 2004 [facility]- SDOH Screenings 2007 [facility]-Adult SDOH Screenings 2007 [facility]-DTaP,Tdap,and Td Vaccines (1 - Tdap) 2008 [facility]-Hepatitis B Vaccines (1 of 3 - 19+ 3-dose series) 2008 [facility]-Pap Smear 2010 [facility]-Cervical Cancer Screening 2019 [facility]-HPV/Cotest 2019 [id number] Vaccine (3 - season) 2024 03/28/2021, 02/22/2021 [facility]-Influenza Vaccine (#1) 2025 [facility]-Depression Screening 12/21/2025 025, 12/21/2024, 09/05/2022 [facility]-Zoster Vaccines (1 of 2) 2039 [facility]-Obesity Intervention Completed 025, 06/22/2024, 02/12/2024, Additional history exists [facility]-HIB Vaccines Aged Out No longer e ligible based on patient's age to complete this topic [facility]-Hepatitis A Vaccines Aged Out No longer eligible based on patient's age to complete this topic [facility]-IPV Vaccines Aged Out No longer e ligible based on patient's age to complete this topic [facility]-Pneumococcal Vaccine: Pediatrics (0 to 5 Years) and At-Risk Patients (6 to 49 Years) Aged Out No longer eligible based on patient's age to complete this topic [facility]-Rotavirus Vaccines Aged Out No lo nger eligible based on patient's age to complete this topic Insurance [facility] MEDICAID Care Teams Timber Rider Relationship Specialty Start Date End Date Mayuri Diego APRN [address] [place] [address] PCP - General 07/22/23 Ivonne Gonzalez MD [address] [facility] [address] [place] [id number] Service Attending Neuro-Ophthalmology 02/27/23
[2025-03-31 13:07] LABS: Hematocrit 39.6 % (37.0-47.0); Hemoglobin 12.8 g/dL (12.2-16.2); Immature Granulocytes % 0.2 %; Mean Corpuscular HGB Conc 32.3 g/dL (31.8-35.4); Mean Corpuscular Hemoglobin 29.0 pg (27.0-31.2); Mean Corpuscular Volume 89.6 fl (81-99); Nucleated Red Blood Cells % 0 %; Platelet Count 251 K/mm3 (142-424); Red Blood Count 4.42 M/mm3 (4.20-5.40); Red Cell Distribution Width-SD 40.2 fL; White Blood Count 6.0 K/mm3 (4.8-10.8)
[2025-03-31 13:25] LABS: Chloride 106 mmol/L (98-107); Potassium 4.1 mmoL/L (3.5-5.1); Sodium 138 mmol/L (136-145)
[2025-03-31 13:28] LABS: Anion Gap 10.1 mEq/L (5-15); Blood Urea Nitrogen 10 mg/dl (7-17); Calcium 9.7 mg/dl (8.4-10.2); Carbon Dioxide 26 mmol/L (22.0-30.0); Creatinine Clearance Estimated 166 mL/min (50-200); Creatinine,Serum 0.80 mg/dl (0.52-1.04); Estimated Glomerular Filt Rate 82 ml/min (>60); GFR (African American) 99 ML/MIN (>60); Glucose 101 mg/dl (74-100)
[2025-03-31 13:31] LABS: HCG Qualitative, Serum Negative (Negative)
== END 2025-03-31 23:59 | disposition home or self-care (01) ==
LOC: PREOP 12:37
PROVIDERS: PCP Nurse Practitioner Family; Visit Provider Obstetrics & Gynecology
DX: Z01.812 Encounter for preprocedural laboratory examination (principal)
CPT/HCPCS: 80048; 84703; 85025

== ENCOUNTER 2025-04-07 10:15 | Observation (INO) | payer OTHER, SELFPAY ==
[2025-03-31 13:38] VITALS: BMI 38.0
[2025-04-07] VITALS (21 sets, daily range): BP systolic 104–131; BP diastolic 65–77; PULSE 68–96; RESP 12–20; TEMP 36.4–38; O2SAT 96–100; BMI 39.2
[2025-04-07] MEDS: CELECOXIB 100MG CAPSULE 400 MG PO (07:04)
[2025-04-07] MEDS: LACTATED RINGERS 1000ML 1,000 ML 25 ML IV (07:04)
[2025-04-07] MEDS: GABAPENTIN 300MG CAPSULE 600 MG (07:05)
[2025-04-07] MEDS: ACETAMINOPHEN 500MG TAB 1000 MG PO ×3 (07:05→18:06)
--- NOTE | 2025-04-07 07:11 | EXP.HP ---
History of Present Illness *Admission Date: 04/07/25 *Reason for visit:: Dysmenorrhea, menorrhagia, dyspareunia *History of present illness: Ms Melissa Campos is a 34 yo P5005 who presents to [facility] for scheduled surgery. She reports heavy, painful periods for the past 7 months with a past medical history of Wil's, Lupus, and tachycardia. She states her periods last anywhere from 7-10 days occurring monthly. She states while on her period she is using pads and tampons while still soaking through her clothing. She states on her period week she has to stay home due to the severity of the pain and heaviness of bleeding. Menarche age 8. She reports two periods a year from menarche up to 5 months ago. Those periods were light. She denies vaginal itching, discharge and dyspareunia. History of x 5. Her first baby was born when she was 10 years old. Surgical history includes tubal ligation in 2019 and umbilical hernia repair at 1 year old. Family history includes breast, ovarian, endometrial, and cervical cancer. Maternal aunt and two sisters with history of endometrial cancer. Pelvic ultrasound performed 09/29/24 demonstrated anteverted, bulky uterus, endometrium markedly thickened and appears that there is a polyp within the endometrium that measures 3.5 cm in size. TSH 10/14/24 - 1.45 Last pap smear 12/30/24 - negative EMB 12/30/24 - negative She desires definitive surgical intervention with hysterectomy. [facility] Disclaimer: The information contained in this section may have been updated after the patient was seen, as this information can be updated by other users. Medical History (Updated 04/07/25 @ 07:17 by Kathie Smith DO) Dyspareunia in female Trigeminal neuralgia PVC (premature ventricular contraction) Fatigue Family history of ovarian cancer Family history of breast cancer Family history of uterine cancer Dysmenorrhea Heavy periods Wil thyroiditis Thyromegaly UTI (urinary tract infection) Hoarseness of voice History of lupus Family history of asthma Asthma Acid reflux Depression Anxiety Migraine History of stroke Hyperlipidemia Surgical History History of mandibular surgery S/P wisdom tooth extraction History of arthroscopic procedure on shoulder History of placement of ear tubes H/O left knee surgery History of tonsillectomy and adenoidectomy H/O tubal ligation History of cholecystectomy Family History Other Alcoholism Asthma Cancer Hypertension Stroke Social History (Updated 04/07/25 @ 06:25 by Cecy Kwong RN) Smoking Status: Never smoker alcohol intake: former substance use type: former substance user 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 in 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?: Inside the [place] household members: family, children and other housing: house caffeine: Yes Have you lived/traveled outside US in past 30 days?: No Contact w/someone who lives/traveled outside US past 30 days?: No Exposure to someone with infectious disease in past 14 days?: No Do you have a fever (greater than 100.4 F or 38 C)?: No Have you tested positive for COVID-19?: No Exposed to someone with COVID-19 in past 14 days?: No Do you have a sore throat?: No Do you have a cough?: No Do you have any weakness?: No Are you experiencing any nausea/vomitting?: No Do you have any diarrhea?: No Are you experiencing any unusual bleeding?: No Do you have any muscle aches/pain?: No Do you have any abdominal pain?: No Are you experiencing loss of taste or smell?: No Other Medical History Have you received the Flu Vaccine for this season: No Have you received the Pneumonia Vaccine: No Review of Systems Review of Systems Review of systems:: pertinent systems reviewed and negative unless documented below *Genitourinary Comments: + heavy, painful periods lasting 7-10 days, dyspareunia Meds Home Medications and Allergies Home Medications ?Medication ?Instructions ?Recorded ?Confirmed ?Type celecoxib 200 mg capsule 200 mg PO BID 09/12/24 04/07/25 History hydroxychloroquine 200 mg tablet 200 mg PO DAILY 09/12/24 04/07/25 History azelastine 137 mcg (0.1 %) nasal 2 spray intranasal BID #30 mL 09/21/24 04/07/25 Rx spray omeprazole 40 mg capsule,delayed 40 mg PO DAILY #30 caps 10/06/24 04/07/25 Rx release fluoxetine 20 mg capsule (Prozac) 20 mg PO DAILY #30 caps 10/21/24 04/07/25 Rx triamcinolone acetonide 0.025 % 1 applic topical NEEDED PRN 12/07/24 04/07/25 History topical cream PSORIASIS ubrogepant 100 mg tablet (Ubrelvy) 100 mg PO DAILY 12/07/24 04/07/25 History azathioprine 50 mg tablet 100 mg PO DAILY 12/28/24 04/07/25 History famotidine 20 mg tablet 20 mg PO DAILY 02/10/25 04/07/25 History rimegepant 75 mg disintegrating 75 mg PO Q OTHER DAY Migraine #15 02/10/25 04/07/25 Rx tablet (Nurtec ODT) tabs buspirone 10 mg tablet 10 mg PO BID #60 tabs 03/25/25 04/07/25 Rx metoprolol succinate 25 mg 25 mg PO DAILY 03/25/25 04/07/25 History tablet,extended release 24 hr Pylera 140 mg-125 mg-125 mg See Rx Instructions PO PER PKG DIR 04/02/25 04/07/25 Rx capsule (bismuth subcit #120 caps [id number]) budesonide-formoterol HFA 160 2 puff inhalation BID #10.2 grams 04/02/25 04/07/25 Rx mcg-4.5 mcg/actuation aerosol inhaler (Symbicort) New Prescriptions to Start Prescriptions: Allergies Allergy/AdvReac Type Severity Reaction Status Date / Time penicillin G (PENICILLIN G) Allergy Mild I-RASH Verified 04/07/25 06:46 Iodinated Contrast Media Allergy Unknown Unknown Verified 04/07/25 06:46 (Iodinated Contrast Media - allergy Oral and) reaction Penicillins Allergy Unknown Unknown Verified 04/07/25 06:46 allergy reaction Pertussis Vaccines Allergy Unknown Unknown Verified 04/07/25 06:46 (PERTUSSIS VACCINES) allergy reaction iodine Allergy Redness of Verified 04/07/25 06:46 Skin Exam Data for Last 24 hours Vital signs and Labs for Last 24 Hours: Temp Pulse Resp BP Pulse Ox O2 Del Method 97.6 F 82 16 111/67 97 Room Air 04/07/25 06:21 04/07/25 06:21 04/07/25 06:21 04/07/25 06:21 04/07/25 06:21 04/07/25 06:21 I & O for Last 24 hours: Intake & Output 04/04/25 04/05/25 04/06/25 04/07/25 23:59 23:59 23:59 23:59 Weight 236 lb Constitutional Constitutional: no acute distress and cooperative *Routine HEENT Exam Head: Present normocephalic and atraumatic Eye: Absent conjunctivae pink ENT: Present mucous membranes moist *Routine Neck Exam Neck: Present full ROM *Routine Respiratory Exam Respiratory: Present CTA bilaterally and normal respiratory effort *Routine Cardiovascular Exam Cardiovascular: Present RRR *Routine Abdominal Exam Abdominal: Present soft and normoactive bowel sounds; Absent tenderness or distended *Routine Rectal Exam Rectal:: deferred *Routine Genitalia Exam Genitalia:: normal female *Routine Extremities Exam Extremities: Present full ROM; Absent edema or calf tenderness *Routine Neurological Exam Neurological: Present alert, moving all extremities and normal speech Routine Psychiatric Exam Psychiatric: Present normal affect and cooperative Assessment and Plan *Assessment and plan (1) Pelvic pain in female: Status: Acute Category: Medical Code(s): R10.2 - Pelvic and perineal pain (2) Heavy periods: Status: Acute Qualifiers: Menorrhagia type: with regular cycle Qualified Code(s): N92.0 - Excessive and frequent menstruation with regular cycle Category: Medical Code(s): N92.0 - Excessive and frequent menstruation with regular cycle (3) Dysmenorrhea: Status: Acute Category: Medical Code(s): N94.6 - Dysmenorrhea, unspecified (4) Dyspareunia in female: Status: Acute Category: Medical Code(s): N94.10 - Unspecified dyspareunia (5) SLE (systemic lupus erythematosus related syndrome): Status: Acute Category: Medical Code(s): M32.9 - Systemic lupus erythematosus, unspecified (6) Family history of uterine cancer: Status: Acute Category: Medical Code(s): Z80.49 - Family history of malignant neoplasm of other genital organs (7) Family history of ovarian cancer: Status: Acute Category: Medical Code(s): Z80.41 - Family history of malignant neoplasm of ovary (8) Family history of breast cancer: Status: Acute Category: Medical Code(s): Z80.3 - Family history of malignant neoplasm of breast Plan Reviewed TLH, bilateral oophorectomy, possible SHANA in detail. Discussed risks, benefits, alternatives, expectations and possible complications of surgery. Risks include but are not limited to bleeding; infection; damage to adjacent structures (bowel, bladder, nerves, blood vessels, etc) (possibly requiring further intervention and/or longer hospital stay); VTE; risks with anesthesia; and risk of . All questions addressed and answered. Patient voiced understanding of risks and possible complications. Patient desires to proceed with surgery. Consent form signed. Proceed with surgery as scheduled
[2025-04-07] MEDS: METRONIDAZ/SOD CHL 500 MG/100 ML PIGGYBACK 100 MG IV (07:12)
[2025-04-07] MEDS: CLINDAMYCIN PHOSPHATE/D5W 900 MG/50 ML PIGGYBACK 100 MG IV ×3 (07:30→22:53)
--- NOTE | 2025-04-07 08:04 | EXP.ANES.CKL ---
[facility] Disclaimer: The information contained in this section may have been updated after the patient was seen, as this information can be updated by other users. Medical History (Updated 04/07/25 @ 07:17 by Kathie Smith DO) Dyspareunia in female Trigeminal neuralgia PVC (premature ventricular contraction) Fatigue Family history of ovarian cancer Family history of breast cancer Family history of uterine cancer Dysmenorrhea Heavy periods Wil thyroiditis Thyromegaly UTI (urinary tract infection) Hoarseness of voice History of lupus Family history of asthma Asthma Acid reflux Depression Anxiety Migraine History of stroke Hyperlipidemia Surgical History History of mandibular surgery S/P wisdom tooth extraction History of arthroscopic procedure on shoulder History of placement of ear tubes H/O left knee surgery History of tonsillectomy and adenoidectomy H/O tubal ligation History of cholecystectomy Family History Other Alcoholism Asthma Cancer Hypertension Stroke Social History (Updated 04/07/25 @ 06:25 by Cecy Kwong RN) Smoking Status: Never smoker alcohol intake: former substance use type: former substance user 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 in 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?: Inside the [place] household members: family, children and other housing: house caffeine: Yes Have you lived/traveled outside US in past 30 days?: No Contact w/someone who lives/traveled outside US past 30 days?: No Exposure to someone with infectious disease in past 14 days?: No Do you have a fever (greater than 100.4 F or 38 C)?: No Have you tested positive for COVID-19?: No Exposed to someone with COVID-19 in past 14 days?: No Do you have a sore throat?: No Do you have a cough?: No Do you have any weakness?: No Are you experiencing any nausea/vomitting?: No Do you have any diarrhea?: No Are you experiencing any unusual bleeding?: No Do you have any muscle aches/pain?: No Do you have any abdominal pain?: No Are you experiencing loss of taste or smell?: No [facility] Anesthesia Checklist Patient Identification Patient Identification: Verbal (Name & ) Structural Data Admitted From: Home Planned Operative Procedure/s: TL bso Consent for Planned Operative Procedure(s) Verified: Yes NPO Status Verified Time NPO: 00:00 Additional verifications Anesthesia Reactions: No Hx Blood Transfusions: No Blood Transfusion Reaction: No Airway Assessment Mallampati Score:: Class II C-Spine Mobility Assessed: Yes TMJ Mobility Assessed: Yes Dentition: Good Dentition Neurological Assessment Level of Consciousness: Awake, Alert and Appropriate Anesthesia Plan Anesthesia Risk discussed: Yes Anesthesia Plan: Verified ASA Class: II Anesthesia Type: General
[2025-04-07] MEDS: BUPIVACAINE 0.5% W/EPI 1:200,000 30ML VIAL 30 ML IJ (08:15)
[2025-04-07] MEDS: GENTAMICIN SULFATE 400 MG in 0.9 % SODIUM CHLORIDE 100 ML 107.5 MG IV (08:19)
--- NOTE | 2025-04-07 09:30 | EXP.ANES.I ---
[facility] Anesthesia Record Part I Anesthesia Record I Intake, IV Amount: 2,200 Hydration: Adequate Estimated blood loss (mL): 200 Urine output (mL): 50 Blood Pressure: 109/72 SaO2: 99 Pulse Rate: 75 Airway Patency: Patent Respiratory Rate: 12 Temperature: 98 F Patient is:: Drowsy and Stable Stable to PACU at:: 09:30
--- NOTE | 2025-04-07 09:40 | PC.NURSE ---
RN reported bilateral lung sounds to KAREN Rodriguez. Will continue to monitor.
[2025-04-07] MEDS: MORPHINE 2MG/ML SYRINGE 2 MG IV (09:50)
--- NOTE | 2025-04-07 09:50 | P.OP_ITS ---
Date of procedure: 04/07/25 Pre-op Diagnosis:: 1. Menorrhagia 2. Dysmenorrhea 3. Dyspareunia 4. Lupus 5. Family history of ovarian cancer 6. Family history of breast cancer 7. Family history of uterine cancer 8. History of tubal ligation Post-op Diagnosis:: 1. Menorrhagia 2. Dysmenorrhea 3. Dyspareunia 4. Lupus 5. Family history of ovarian cancer 6. Family history of breast cancer 7. Family history of uterine cancer 8. History of tubal ligation Procedure performed:: Total Laparoscopic hysterectomy, bilateral salpingo-oophorectomy Surgeon:: Kathie Smith DO Investigations Director(s):: Thee Owens MD RESTAURANT HOST/HOSTESS:: Michael Gaxiola Anesthesia: GETA Estimated blood loss (mL): 200 Clinical Note:: Ms Melissa Campos is a 34 yo P5005 who presents to [facility] for scheduled surgery. She reports heavy, painful periods for the past 7 months with a past medical history of Wil's, Lupus, and tachycardia. She states her periods last anywhere from 7-10 days occurring monthly. She states while on her period she is using pads and tampons while still soaking through her clothing. She states on her period week she has to stay home due to the severity of the pain and heaviness of bleeding. Menarche age 8. She reports two periods a year from menarche up to 5 months ago. Those periods were light. She denies vaginal itching, discharge and dyspareunia. History of x 5. Her first baby was born when she was 10 years old. Surgical history includes tubal ligation in 2019 and umbilical hernia repair at 1 year old. Family history includes breast, ovarian, endometrial, and cervical cancer. Maternal aunt and two sisters with history of endometrial cancer. Pelvic ultrasound performed 09/29/24 demonstrated anteverted, bulky uterus, endometrium markedly thickened and appears that there is a polyp within the endometrium that measures 3.5 cm in size. TSH 10/14/24 - 1.45 Last pap smear 12/30/24 - negative EMB 12/30/24 - negative She desires definitive surgical intervention with hysterectomy. Operative findings:: 1. On bimanual exam, uterus enlarged, normal shape and midposition. No adnexal masses palpated 2. On laparoscopic exam, uterus appeared boggy and enlarged. Grossly normal appearing portions of bilateral fallopian tubes and normal appearing ovaries. No evidence of endometriosis or adhesions Operative note:: Discussed risks, benefits, alternatives, expectations and possible complications of surgery. All questions addressed and answered. Patient wished to proceed with surgery. Patient was wheeled back to the operating room and placed under general anesthesia without difficulty. She received Clindamycin 900 mg, Gentamicin 5mg/kg and Metronidazole 500 mg IV preoperatively. She was placed in the dorsal lithotomy position. She was prepped and draped in normal sterile fashion. Beginning at the vagina, a reyes catheter was inserted into the bladder and draining clear urine prior to the start of the procedure. Weighted Auvuard was placed in the vaginal vault. Anterior lip of the cervix was grasped with single tooth tenaculum. Uterus sounded to 10. Varun dilators were used to dilate the cervix. Advincula uterine manipulator was inserted into the cervix with the colpotomy cup covering the cervix. Single tooth tenaculum was removed prior to complete placement of colpotomy cup over cervix. Uterine balloon was filled with 10cc of air. Vaginal balloon was filled with 60 cc of air. Weighted Auvard was removed. Attention was then turned to the abdomen. Skin just below the umbilicus was injected with 1% lidocaine with epinephrine. A 1.5 cm infraumbilical incision was made. Veress needle was tested and inserted intrabdominally. Opening pressure was 2 mmHg. The peritoneal cavity was insulflated to 15 mm Hg. Laparoscope within 11 mm blunt trocar was inserted intrabdominally under direct visualization. Obturator and scope were removed. Laparoscope was inserted into the trocar sleeve. Abdomen and pelvis was viewed in its entirety. Examination of the peritoneal cavity revealed no signs of injury from entry and normal anatomic structures. See findings above. Pictures were taken. Bowel was swept cephalad with blunt probe. LLQ port site was transilluminated and injected with 1% lidocaine with epinephrine. A 1.5 cm incision was made and 11 mm trocar was inserted intraabdominally under direct laparoscopic visualization. Obturator was removed and sleeve was left in place. Same procedure was performed in RLQ. Left fallopian tube was grasped at fimbriated end. Ligasure Hook was used to clamp, ligate and transect the left IP ligament. The broad ligament was then sequentially clamped, ligated and cut working in the direction of the round ligament and being mindful of the ureter. The left round ligament was ligated and cut. Transection was carried through the Broad ligament. Removing the left ovary and fallopian tube. Same procedure was carried out on the contralateral side. Care was taken to slowly separate the bladder off of the lower uterine segment with sharp and blunt dissection. Once the bladder was appropriately dissected off of the lower uterine segment. Bilateral uterine arteries were clamped, cauterized and cut using the Ligasure. Transection was carried through the cardinal ligament bilaterally. Hemostasis was noted. At the level of the colpotomy cup, the vaginal vault was incised circumferentially with the Ligasure monopolar hook. The uterus, cervix and bilateral fallopian tubes and ovaries was pulled into the vagina and left in the vagina to hold pneumoperitoneum. The vaginal vault was closed with the Endostitch V-Lock barbed stitch. Pelvis was irrigated. Intraabdominal pressure was decreased to 6 mm Hg. Hemostasis was noted. Surgicel powder was applied over bilateral pedicles and closed vaginal vault. RLQ and LLQ trocars were removed under direct laparoscopic visualization. Pneumoperitoneum was released into the atmosphere. Infraumbilical trocar was removed under direct laparoscopic visualization to ensure no herniation of bowel or omentum. Skin incisions were reapproximated with 3-0 Vicryl. Dermabond was applied over closed skin incisions. Attention was turned to the vagina. Specimen was removed from the vagina and handed off of the sterile field. Catheter was removed from the bladder. Patient was awakened from anesthesia and taken to recovery in stable condition. Condition: stable Disposition: floor Specimens:: 1. Uterus, cervix, bilateral fallopian tubes and ovaries Complications:: None
[2025-04-07] MEDS: ESTRADIOL VALERATE 20 MG/ML VIAL 30 MG IM (11:09)
[2025-04-07] MEDS: LACTATED RINGERS 1000ML 1,000 ML 125 ML IV (11:10)
[2025-04-07] MEDS: ONDANSETRON 4MG/2ML VIAL 4 MG IV (11:14)
--- NOTE | 2025-04-07 13:07 | PC.NURSE ---
PT ASSISTED TO BR, LINENS CHANGED. PT ABLE TO VOID AND RETURNED TO BED WITHOUT DIFFICULTY
--- NOTE | 2025-04-07 13:37 | PC.NURSE ---
REPORT GIVEN TO NATALIE ORTEGA
[2025-04-07] MEDS: KETOROLAC 30MG/ML VIAL 30 MG IV ×2 (14:50→20:57)
--- NOTE | 2025-04-07 15:30 | PC.NURSE ---
pt sitting up in bed. alert and oriented. lung sounds cta. abdomen soft, mild tenderness. 3 sites noted with dermabond. incision c/d/i. pt up ambulating to bathroom. pt's dad at bedside. call light w/i reach.
[2025-04-07] MEDS: POLYETHYLENE GLYCOL 3350 17 GM PACKET PO (20:57)
[2025-04-08] MEDS: ACETAMINOPHEN 500MG TAB 1000 MG PO ×2 (01:00→05:58)
[2025-04-08] MEDS: KETOROLAC 30MG/ML VIAL 30 MG IV (03:50)
[2025-04-08 06:22] LABS: Hematocrit 34.5 % (37.0-47.0); Hemoglobin 11.8 g/dL (12.2-16.2); Immature Granulocytes % 0.3 %; Mean Corpuscular HGB Conc 34.2 g/dL (31.8-35.4); Mean Corpuscular Hemoglobin 30.0 pg (27.0-31.2); Mean Corpuscular Volume 87.8 fl (81-99); Nucleated Red Blood Cells % 0 %; Platelet Count 230 K/mm3 (142-424); Red Blood Count 3.93 M/mm3 (4.20-5.40); Red Cell Distribution Width-SD 39.9 fL; White Blood Count 14.3 K/mm3 (4.8-10.8)
[2025-04-08 07:02] LABS: Alanine Aminotransferase 15 U/L (12-78); Albumin Level 3.8 g/dl (3.5-5.0); Albumin/Globulin Ratio 1.6 (1.1-1.8); Alkaline Phosphatase 84 U/L (38-126); Anion Gap 9.2 mEq/L (5-15); Aspartate Amino Transferase 25 U/L (14-36); Bilirubin,Total 0.3 mg/dl (0.2-1.3); Blood Urea Nitrogen 10 mg/dl (7-17); Calcium 9.2 mg/dl (8.4-10.2); Carbon Dioxide 24 mmol/L (22.0-30.0); Chloride 108 mmol/L (98-107); Creatinine Clearance Estimated 166 mL/min (50-200); Creatinine,Serum 0.80 mg/dl (0.52-1.04); Estimated Glomerular Filt Rate 82 ml/min (>60); GFR (African American) 99 ML/MIN (>60); Globulin 2.4 g/dL (1.3-3.2); Glucose 118 mg/dl (74-100); Potassium 4.2 mmoL/L (3.5-5.1); Sodium 137 mmol/L (136-145); Total Protein,Serum 6.2 g/dl (6.3-8.2)
--- NOTE | 2025-04-08 07:02 | EXP.ANES.II ---
[facility] Anesthesia Record Part II Anesthesia Record Part II Discharge Time: 10:00 Destination: Obstetric PACU nurse assessment reviewed?: Yes Patient Condition:: Good Anesthesia Complications:: None Swallowing reflex intact?: Yes Airway Patency: Patent Cyanosis?: No Blood Pressure: 105/71 SaO2: 100 Respiratory Rate: 17 Pulse Rate: 75 Temperature: 98.0 F Mental Status: Alert & Oriented Pain level:: 4 Nausea and/or vomitting:: None Intake, IV Amount: 0 Hydration: Adequate
[2025-04-08 07:07] VITALS: BP 105/71; PULSE 75; RESP 17; TEMP 36.7; O2SAT 100
--- NOTE | 2025-04-08 08:23 | EXP.DC.SUM ---
General Admission date:: 04/07/25 Discharge date: 04/08/25 HPI HPI HPI: POD # 1 s/p TLH, BSO Resting comfortably in bed. Pain controlled. Voiding without difficulty and passing flatus. Tolerating regular diet. Ambulating well ad caitlyn. Denies fever/chills, chest pain and shortness of breath. She does admit to some RUQ/rib pain with deep breath and cough. She thinks this is because she has been without her inhaler for 2 days. She uses Simbicort BID. No swelling of calf pain. Hospital Course Hospital Course Hospital Course: Ms Melissa Campos is a 34 yo P5005 who presents to [facility] for scheduled surgery. She reports heavy, painful periods for the past 7 months with a past medical history of Wil's, Lupus, and tachycardia. She states her periods last anywhere from 7-10 days occurring monthly. She states while on her period she is using pads and tampons while still soaking through her clothing. She states on her period week she has to stay home due to the severity of the pain and heaviness of bleeding. Menarche age 8. She reports two periods a year from menarche up to 5 months ago. Those periods were light. She denies vaginal itching, discharge and dyspareunia. History of x 5. Her first baby was born when she was 10 years old. Surgical history includes tubal ligation in 2019 and umbilical hernia repair at 1 year old. Family history includes breast, ovarian, endometrial, and cervical cancer. Maternal aunt and two sisters with history of endometrial cancer. Pelvic ultrasound performed 09/29/24 demonstrated anteverted, bulky uterus, endometrium markedly thickened and appears that there is a polyp within the endometrium that measures 3.5 cm in size. TSH 10/14/24 - 1.45 Last pap smear 12/30/24 - negative EMB 12/30/24 - negative She underwent total laparoscopic hysterectomy with bilateral salpingo-oophorectomy on 04/07/25. She did well postoperatively. Pain controlled. Voiding without difficulty and passing flatus. Toelrating regular diet. Ambulating well ad caitlyn. Vital signs/stable, afebrile. Heart regular rate and rhythm. Lungs clear to auscultation. Abdomen soft, nontender with normal bowel sounds. Laparoscopic incisions clean/dry/intact with Dermabond covering incisions. No lower extremity swelling or calf pain. She was discharged home on POD # 1 with instructions to follow-up in the office in 2 weeks or sooner if needed. Exam Data for Last 24 hours Vital signs and Labs for Last 24 Hours: Temp Pulse Resp BP Pulse Ox O2 Del Method 98.2 F 96 H 17 131/68 98 Room Air 04/07/25 20:30 04/07/25 20:30 04/08/25 07:07 04/07/25 20:30 04/07/25 20:30 04/08/25 06:00 Laboratory Results - last 24 hr 04/07/25 06:56: Blood Type O Negative, Antibody Screen Negative 04/08/25 05:35: WBC 14.3 H, RBC 3.93 L, Hgb 11.8 L, Hct 34.5 L, MCV 87.8, MCH 30.0, MCHC 34.2, RDW 12.4, Plt Count 230, MPV 11.0 H, Neut % (Auto) 87.9 H, Lymph % (Auto) 6.8 L, Esmeralda % (Auto) 4.9, Eos % (Auto) 0.0 L, Baso % (Auto) 0.1, Neut # (Auto) 12.6 H, Lymph # (Auto) 1.0, Esmeralda # (Auto) 0.7, Eos # (Auto) 0.0, Baso # (Auto) 0.0, Sodium 137, Potassium 4.2, Chloride 108 H, Carbon Dioxide 24, Anion Gap 9.2, BUN 10, Creatinine 0.80, Estimated Creat Clear 166, Estimated GFR 82, Est GFR ( Amer) 99, Glucose 118 H, Calcium 9.2, Total Bilirubin 0.3, AST 25, ALT 15, Alkaline Phosphatase 84, Total Protein 6.2 L, Albumin 3.8, Globulin 2.4, Albumin/Globulin Ratio 1.6 I & O for Last 24 hours: Intake & Output 04/05/25 04/06/25 04/07/25 04/08/25 23:59 23:59 23:59 23:59 Intake Total 2200 / 2200 0 / 0 Output Total 100 / 250 150 / 150 Balance 2099 / 1949 -150 / -150 Weight 236 lb Constitutional Constitutional: no acute distress and cooperative *Routine HEENT Exam Head: Present normocephalic and atraumatic Eye: Absent conjunctivae pink ENT: Present mucous membranes moist *Routine Neck Exam Neck: Present full ROM *Routine Respiratory Exam Respiratory: Present CTA bilaterally and normal respiratory effort *Routine Cardiovascular Exam Cardiovascular: Present RRR *Routine Abdominal Exam Abdominal: Present soft and normoactive bowel sounds; Absent tenderness or distended Comments: Laparoscopic incisions clean/dry/intact with Dermabond covering them *Routine Rectal Exam Patient deferred: visual exam *Routine Exam Patient deferred: external exam *Routine Extremities Exam Extremities: Present full ROM; Absent edema or calf tenderness *Routine Neurological Exam Neurological: Present alert, moving all extremities and normal speech Routine Psychiatric Exam Psychiatric: Present normal affect and cooperative Results Data Completed and Pending Labs on day of discharge: Labs from last 24 hours 04/08/25 04/07/25 05:35 06:56 WBC 14.3 H RBC 3.93 L Hgb 11.8 L Hct 34.5 L MCV 87.8 MCH 30.0 MCHC 34.2 RDW 12.4 Plt Count 230 MPV 11.0 H Neut % (Auto) 87.9 H Lymph % (Auto) 6.8 L Esmeralda % (Auto) 4.9 Eos % (Auto) 0.0 L Baso % (Auto) 0.1 Neut # (Auto) 12.6 H Lymph # (Auto) 1.0 Esmeralda # (Auto) 0.7 Eos # (Auto) 0.0 Baso # (Auto) 0.0 Sodium 137 Potassium 4.2 Chloride 108 H Carbon Dioxide 24 Anion Gap 9.2 BUN 10 Creatinine 0.80 Estimated Creat Clear 166 Estimated GFR 82 Est GFR ( Amer) 99 Glucose 118 H Calcium 9.2 Total Bilirubin 0.3 AST 25 ALT 15 Alkaline Phosphatase 84 Total Protein 6.2 L Albumin 3.8 Globulin 2.4 Albumin/Globulin Ratio 1.6 Blood Type O Negative Antibody Screen Negative DS: Diagnosis Discharge Diagnosis (1) Status post laparoscopic hysterectomy: Status: Acute Code(s): Z90.710 - Acquired absence of both cervix and uterus Problem details: with BSO on 04/07/25 (2) Pelvic pain in female: Status: Acute Code(s): R10.2 - Pelvic and perineal pain (3) Heavy periods: Status: Acute Code(s): N92.0 - Excessive and frequent menstruation with regular cycle Qualifiers: Menorrhagia type: with regular cycle Qualified Code(s): N92.0 - Excessive and frequent menstruation with regular cycle (4) Dysmenorrhea: Status: Acute Code(s): N94.6 - Dysmenorrhea, unspecified (5) Dyspareunia in female: Status: Acute Code(s): N94.10 - Unspecified dyspareunia (6) SLE (systemic lupus erythematosus related syndrome): Status: Acute Code(s): M32.9 - Systemic lupus erythematosus, unspecified (7) Family history of uterine cancer: Status: Acute Code(s): Z80.49 - Family history of malignant neoplasm of other genital organs (8) Family history of ovarian cancer: Status: Acute Code(s): Z80.41 - Family history of malignant neoplasm of ovary (9) Family history of breast cancer: Status: Acute Code(s): Z80.3 - Family history of malignant neoplasm of breast Meds Home Medications and Allergies Home Medications ?Medication ?Instructions ?Recorded ?Confirmed ?Type celecoxib 200 mg capsule 200 mg PO BID 09/12/24 04/07/25 History Held on 04/08/25. Instructions: Resume on 04/15/25. Hold while taking Ibuprofen hydroxychloroquine 200 mg tablet 200 mg PO DAILY 09/12/24 04/07/25 History omeprazole 40 mg capsule,delayed 40 mg PO DAILY #30 caps 10/06/24 04/07/25 Rx release fluoxetine 20 mg capsule (Prozac) 20 mg PO DAILY #30 caps 10/21/24 04/07/25 Rx triamcinolone acetonide 0.025 % 1 applic topical NEEDED PRN 12/07/24 04/07/25 History topical cream PSORIASIS ubrogepant 100 mg tablet (Ubrelvy) 100 mg PO DAILY 12/07/24 04/07/25 History rimegepant 75 mg disintegrating 75 mg PO Q OTHER DAY Migraine #15 02/10/25 04/07/25 Rx tablet (Nurtec ODT) tabs buspirone 10 mg tablet 10 mg PO BID #60 tabs 03/25/25 04/07/25 Rx metoprolol succinate 25 mg 25 mg PO DAILY 03/25/25 04/07/25 History tablet,extended release 24 hr Pylera 140 mg-125 mg-125 mg See Rx Instructions PO PER PKG DIR 04/02/25 04/07/25 Rx capsule (bismuth subcit #120 caps [id number]) budesonide-formoterol HFA 160 2 puff inhalation BID #10.2 grams 04/02/25 04/07/25 Rx mcg-4.5 mcg/actuation aerosol inhaler (Symbicort) azathioprine 100 mg tablet 100 mg PO DAILY 04/07/25 04/07/25 History ibuprofen 800 mg tablet 800 mg PO Q8H PRN pain #20 tabs 04/08/25 Rx oxycodone 5 mg tablet 5 mg PO Q4HP PRN Moderate Pain 04/08/25 Rx (4-6) #20 tabs New Prescriptions to Start Prescriptions: ibuprofen Kathie Smith oxycodone Kathie Smith Allergies Allergy/AdvReac Type Severity Reaction Status Date / Time penicillin G (PENICILLIN G) Allergy Mild I-RASH Verified 04/07/25 06:46 Iodinated Contrast Media Allergy Unknown Unknown Verified 04/07/25 06:46 (Iodinated Contrast Media - allergy Oral and) reaction Penicillins Allergy Unknown Unknown Verified 04/07/25 06:46 allergy reaction Pertussis Vaccines Allergy Unknown Unknown Verified 04/07/25 06:46 (PERTUSSIS VACCINES) allergy reaction iodine Allergy Redness of Verified 04/07/25 06:46 Skin Discharge Plan Disposition Patient Disposition: Home, Self-Care Condition: Good Follow up Plan Follow up with: Kathie Smith DO [Staff Physician, EYEGL[employer] CUTTER] - 2 weeks Prescriptions/Medication Reconciliation: New oxycodone 5 mg Tablet 5 mg PO Q4HP PRN (Reason: Moderate Pain (4-6)) Qty: 20 0RF ibuprofen 800 mg tablet 800 mg PO Q8H PRN (Reason: pain) Qty: 20 0RF Continued fluoxetine [Prozac] 20 mg capsule 20 mg PO DAILY Qty: 30 2RF Nurtec ODT 75 mg tablet,disintegrating 75 mg PO Q OTHER DAY Qty: 15 6RF triamcinolone acetonide 0.025 % cream 1 applic topical NEEDED PRN (Reason: PSORIASIS) omeprazole 40 mg capsule,delayed release(DR/EC) 40 mg PO DAILY Qty: 30 2RF budesonide-formoterol [Symbicort] 160-4.5 mcg/actuation HFA aerosol inhaler 2 puff inhalation BID Qty: 10.2 2RF bismuth subcit A-fnjjagkzt-ibr [Pylera] 140-125-125 mg capsule See Rx Instructions PO PER PKG DIR Qty: 120 0RF Rx Instructions: PO PER PKG DIR?please take 3 capsules by mouth 4 times daily x 10 days hydroxychloroquine 200 mg tablet 200 mg PO DAILY Ubrelvy 100 mg tablet 100 mg PO DAILY azathioprine 100 mg tablet 100 mg PO DAILY metoprolol succinate 25 mg tablet extended release 24 hr 25 mg PO DAILY buspirone 10 mg tablet 10 mg PO BID Qty: 60 12RF Rx Instructions: Please take 1 tablet p.o. nightly x 7 days and then 1 tablet p.o. twice daily thereafter Held celecoxib 200 mg capsule 200 mg PO BID Hold Instructions: Resume on 04/15/25. Hold while taking Ibuprofen Problem Reconciliation Problems Reviewed?: Yes Patient Discharge Instructions ACTIVITY: Limited activity DIET: continue same diet and regular diet Additional Instructions: Additional Instructions: You had a total laparoscopic hysterectomy and bilateral saplingeo-oophorectomy. This means that your uterus, cervix, fallopian tubes and both ovaries were removed. The top of your vagina is closed with dissolvable sutures. You will follow-up in office for a postop visit at 2 weeks and at 6 weeks. At your 6-week postop appointment you will have a pelvic exam to ensure your vaginal cuff is healing well. Discharge: 1. Take 800 mg Ibuprofen every 8 hours as needed for pain. You can also take 1000 mg of Tylenol in between doses, every 6-8 hours and Oxycodone 5 mg, 1 tablet every 4-6 hours or longer as needed. 2. Take Miralax twice daily for at least the first 3 days postop then as needed Activity: - No lifting more than 10 lbs for 6 weeks. - No driving for 7 days and/or while you are taking narcotic pain medication. - You have three incisions on your abdomen that are closed with stitches and surgical glue. Wound care - You have surgical glue covering your incision. This can come off in 7-10 days. Vaseline will break down the compound and remove the glue - You have stitches under your skin which will dissolve over the next 6 weeks as your body heals - Keep your wound clean and dry, ok to wash with soap and water but pat thoroughly dry Please call the office or return to the ER if you have any of the followin. heavy vaginal bleeding 2. pain that does not respond to your narcotic pain medication 3. dizziness or lightheadedness such that you lose consciousness 4. abnormal discharge from your incisions Questions or concerns: It is my privilege to be your doctor. Please let me know if you have other questions or concerns. Kathie Smith DO [facility] Specialist [place], [place] [address] Print Language: Stateless Providers Primary Care Provider: Mayuri Diego Admit Provider: Kathie Smith Attending Provider: Kathie Smith
[2025-04-08] MEDS: POLYETHYLENE GLYCOL 3350 17 GM PACKET PO (08:47)
[2025-04-08] MEDS: IBUPROFEN 400 MG TABLET 800 MG PO (08:47)
[2025-04-08 09:27] VITALS: BP 109/64; PULSE 82; RESP 18; TEMP 36.9; O2SAT 98
[2025-04-08 09:29] VITALS: O2SAT 98
--- NOTE | 2025-04-08 09:29 | PC.NURSE ---
IV Saline Lock taken out of rt hand.
--- NOTE | 2025-04-08 10:16 | PC.NURSE ---
IV saline lock d/c'd with catheter intact. 2x2 guaze and coban applied to site. Tolerated well. Abdominal binder also provided and applied.
--- NOTE | 2025-04-08 11:39 | PC.NURSE ---
Pt discharged per wc with ob staff x1. Verbalized understanding of discharge instructions.
== END 2025-04-08 11:45 | disposition home or self-care (01) ==
LOC: OB 10:40
PROVIDERS: Admitting Provider Obstetrics & Gynecology; PCP Nurse Practitioner Family; Visit Provider Obstetrics & Gynecology
PROC: 0UT94ZZ Resection of Uterus, Percutaneous Endoscopic Approach (ICD-10-PCS; CPT 58571; principal; 2025-04-07 07:30)
DX: D26.1 Other benign neoplasm of corpus uteri (principal); N72 Inflammatory disease of cervix uteri; M32.9 Systemic lupus erythematosus, unspecified; F41.9 Anxiety disorder, unspecified; J45.909 Unspecified asthma, uncomplicated; G43.909 Migraine, unspecified, not intractable, without status migrainosus; F32.A Depression, unspecified; K21.9 Gastro-esophageal reflux disease without esophagitis; Z86.73 Personal history of transient ischemic attack (TIA), and cerebral infarction without residual deficits; Z90.710 Acquired absence of both cervix and uterus; Z80.49 Family history of malignant neoplasm of other genital organs; Z80.41 Family history of malignant neoplasm of ovary; Z80.3 Family history of malignant neoplasm of breast; Z88.0 Allergy status to penicillin; Z91.041 Radiographic dye allergy status; Z88.7 Allergy status to serum and vaccine; Z79.52 Long term (current) use of systemic steroids; Z79.899 Other long term (current) drug therapy
CPT/HCPCS: 58571; 96361; 96365; 96367; 96372; 96375; 96376; 36415; 51702; 80053; 85025; 86850; 96374; G0378; J0736; J1100; J1380; J1580; J1596; J1836; J1885; J2003; J2250; J2270; J2405; J2704; J2710; J3010; J7120

== ENCOUNTER 2025-04-18 20:02 | Emergency (ER) | payer OTHER, SELFPAY ==
--- OUTSIDE RECORDS SUMMARY | 2025-04-18 20:08 | XMS_ITS | Encounter Summary ---
Author Organization Healthcare Address [address] [place] [address] Care Team Providers Care Cylinder Block Mechanic Name Role Phone Ivonne Gonzalez MD Unavailable Mayuri Diego APRN Primary Care Provider [phone] Reason for Visit * Reason Comments Med Refill Encounter Details Date Type Department Care Team (Late st Contact Info) Description 12/17/2024 Refill [place] [facility] [address] [place] [address] Ivonne Gonzalez MD [address] [place] [address] Social History Tobacco Use Types [...] Description 06/23/2025 3:20 PM EDT Office Visit [facility] [address] [place] [address] Ryann Hill APRN [address] [facility] [address] [place] [address] documented as of this encounter Visit Diagnoses Not on filedocumented in this encounter Additional Health Concerns Assessment Noted Time A fall risk assessment has been complete d for the patient 06/22/2024 11:27 AM EDT A Body Mass Index follow-up plan has been documented for the patient 06/22/2024 12:22 PM EDT documented as of this encounter Care Teams Cylinder Block Mechanic Relationship Specialty Start Date End Date Mayuri Diego APRN [address] [place] [address] PCP - General 07/22/23 Ivonne Gonzalez MD [address] [facility] [address] [place] [address] Service Attending Neuro-Ophthalmology 02/27/23 documented as of this encounter
--- OUTSIDE RECORDS SUMMARY | 2025-04-18 20:08 | XMS_ITS | Clinical Summary ---
Author Organization [facility] Address [address] [place] [address] Care Team Providers Care Storage Wharfage Clerk Name Role Phone Mayuri Diego APRN Primary Care Provider [phone] Allergies Active Allergy Reactions Criticality Noted Date [...] 2 (Two) Times a Day. Active Methylcobalamin (I93-QIFAZA PO) Take 1 tablet by mouth Daily. [...] = 0.6 oz pur e alcohol) OCCASIONAL [employer] Answer Date Recorded In the past 12 months has e [employer], gas, oil, or water [employer] threatened to shut off services in your [...] or training? Not on file Preferred Language Vincentian 01/22/2024 Comments Unknown Sex and Gender Information [...] VACCINE 06/09/2025 Medical Devices Implanted Type Area Proposal Consultant Device Identifier Shelf Expiration Date Model / Serial / Lot Sut Nonabs Bone Dynacord Uhmwpe W/Os/6 Ndl 2pk Strip/Balbir - [id number] Implanted:Qty: 2 on 01/21/2024 by Sandor Barboza Jr., MD at [facility] Implant Left: Scapula DEPUY MITEK 05/09/2026 [id number] / / [id number] Tndn Semitendinous Flexigraft 1strnd Fz [id number] - [id number] Implanted:Qty: 1 on 01/21/2024 by Sandor Barboza Jr., MD at [facility] Implant Left: [facility]2028 [facility] / / [id number] 05 Insurance [facility] Care Teams Storage Wharfage Clerk Relationship Specialty Start Date End Date Mayuri Diego APRN [facility] [place] [address] [place] [address] PCP - General Internal Medicine 12/19/23
--- OUTSIDE RECORDS SUMMARY | 2025-04-18 20:08 | XMS_ITS | Encounter Summary ---
Author Organization [facility] Address [address] [place] [address] Care Team Providers Care Automotive Porter Name Role Phone Kulwinder Smiley MD Primary Care Provider [phone] Ivonne Gonzalez MD Unavailable [phone] Mayuri Diego APRN Primary Care Provider [phone] Reason for Referral * Consultation (Routine) - Closed Specialty Diagnoses / Procedures Referred By Contharshil t Referred To Contact Rheumatology Diagnoses Positive AUDREY (antinuclear antibody) Vitiligo Feeling tired Law Naylor APRN [address] [place] [address] Phone: tel: fax: Referral ID Status Reason Start Date Expiration Date V isits Requested Visits Authorized [id number] Closed Specialty Services Required 03/27/2022 09/26/2023 1 1 Encounter Details Date Type Department Care Team (Late st Contact Info) Description 03/27/2022 Community [facility] [address] [place] [address] Law Naylor APRN [address] [place] [address] Positive AUDREY (antinuclear antibody) (Primary [...] Description 06/23/2025 3:20 PM EDT Office Visit [place] [facility] [address], [address] [place] [address] Ryann Hill, FILTER TIP INSPECTOR [address] [place] [address] Scheduled Referrals Name Type Priority Associated Diagnoses Order Schedule Ambulatory referral to Rheumatology Outpatient Referral Routine Positive AUDREY (antinuclear antibody) Vitiligo Feeling tired Expected: 03/27/2022 (Approximate), Expires: 09/27/2023 documented as of this encounter Visit Diagnoses Diagnosis Positive AUDREY (antinuclear antibody)- Primary Other and unspecified nonspecific immunological findings Vitiligo Feeling tired documented in this encounter Care Teams Automotive Porter Relationship Specialty Start Date End Date Kulwinder Smiley MD [address] [place] [address] PCP - General 01/20/21 07/21/23 Mayuri Diego, FILTER TIP INSPECTOR [address] [place] [address] PCP - General 07/22/23 Ivonne Gonzalez MD [address] [facility] [address] [place] [address] Service Attending Neuro-Ophthalmology 02/27/23 documented as of this encounter
--- OUTSIDE RECORDS SUMMARY | 2025-04-18 20:08 | XMS_ITS | Clinical Summary ---
Author Organization [facility] Address [address] [place] [address] Care Team Providers Care Crew Mess Attendant Name Role Phone Ivonne Gonzalez MD Unavailable [phone] Mayuri Diego APRN Primary Care Provider [phone] Allergies Active Allergy Reactions Criticality Noted Date [...] Type Department Care Team Description 01/19/2025 Refill [facility] [address], [address] [place] [address] Ivonne Gonzalez MD 01/19/2025 Refill [facility] [address], [address] [place] [address] Ryann Hill, NEYDA from Last 3 Months Immunizations Immunization Administration Dates Next Due Moderna COVID-19 Vaccine (Floor Care Specialist) 12+ years ,02/22/2021 Family History Medical [...] Description 06/23/2025 3:20 PM EDT Office Visit [place] [facility] [address], [address] [place] [address] Ryann Hill, NEYDA [address] [place] [address] Health Maintenance Due Date Last Done Comments Dental Oral Exam 1989 Dental Prophylaxis 1989 Dental X-Ray: Bitewings 1989 Dental X-Ray: Full Mouth 1989 [facility]-HIV Screening 1989 [facility]-Hepatitis C Screening 1989 [facility]-Infant/Child/Adol SDOH Screenings 1989 [facility]-Varicella Vaccines (1 of 2 - 13+ 2-dose series) 2002 HPV Vaccines (1 - 3-dose series) 2004 [facility]- SDOH Screenings 2007 [facility]-Adult SDOH Screenings 2007 [facility]-DTaP,Tdap,and Td Vaccines (1 - Tdap) 2008 [facility]-Hepatitis B Vaccines (1 of 3 - 19+ 3-dose series) 2008 [facility]-Pap Smear 2010 [facility]-Cervical Cancer Screening 2019 [facility]-HPV/Cotest 2019 [id number] Vaccine (3 - Moderna risk series) 04/25/2021 03/28/2021, 02/22/2021 [facility]-Influenza Vaccine (#1) 2025 [facility]-Depression [...] patient's age to complete this topic Insurance [facility] [facility] MEDICAID Care Teams Crew Mess Attendant Relationship Specialty Start Date End Date Mayuri Diego APRN [address] [place] [address] PCP - General 07/22/23 Ivonne Gonzalez MD [address] [facility] [address] [place] [address] Service Attending Neuro-Ophthalmology 02/27/23
--- OUTSIDE RECORDS SUMMARY | 2025-04-18 20:08 | XMS_ITS | Encounter Summary ---
Author Organization [facility] Address [address] [place] [address] Care Team Providers Care Tax Form Preparer Name Role Phone Kulwinder Smiley MD Primary Care Provider [phone] Ivonne Gonzalez MD Unavailable [phone] Mayuri Diego APRN Primary Care Provider [phone] Reason for Referral * Consultation (Routine) - Closed Specialty Diagnoses / Procedures Referred By Contharshil greenwood Referred To Contact Neurology Diagnoses Facial neuralgia Chronic migraine without aura, intractable, without status migrainosus Lupus Law Naylor APRN [address] [place] [address] Phone: tel: fax: Referral ID Status Reason Start Date Expiration Date V isits Requested Visits Authorized [id number] Closed Specialty Services Required 08/14/2022 02/13/2024 1 1 Encounter Details Date Type Department Care Team (Late st Contact Info) Description 08/14/2022 Community [facility] Community Practice [address] [place] [address] Law Naylor APRN [address] [place] [address] Facial neuralgia (Primary Dx); Chronic [...] Description 06/23/2025 3:20 PM EDT Office Visit [place] [facility] [address], [address] [place] [address] Ryann Hill APRN [address] [place] [address] Scheduled Referrals Name Type Priority [...] documented as of this encounter Care Teams Tax Form Preparer Relationship Specialty Start Date End Date Kulwinder Smiley MD [address] [place] [address] PCP - General 01/20/21 07/21/23 Mayuri Diego APRN [address] [place] [address] PCP - General 07/22/23 Ivonne Gonzalez MD [address] [facility] [address] [place] [address] Service Attending Neuro-Ophthalmology 02/27/23 documented as of this encounter
--- OUTSIDE RECORDS SUMMARY | 2025-04-18 20:08 | XMS_ITS | Encounter Summary ---
Author Organization [facility] Address [address] [place] [address] Care Team Providers Care Funeral Service Manager Name Role Phone Ivonne Gonzalez MD Unavailable [phone] Mayuri Diego NEWS CORRESPONDENT Primary Care Provider [phone] Encounter Details Date Type Department Care Team (Late st Contact Info) Description 12/28/2024 Results Follow-Up [facility] Medicine Specialties [address], [address] [place] [address] Ryann Hill, NEWS CORRESPONDENT [address] [place] [address] Social History Tobacco Use Types [...] Visit [place] [facility] [address], [address] [place] [address] Ryann Hill, NEYDA [address] [place] [address] documented as of this encounter [...] documented as of this encounter Care Teams Funeral Service Manager Relationship Specialty Start Date End Date Mayuri Diego APRN [address] [place] [address] PCP - General 07/22/23 Ivonne Gonzalez MD [address] [place] [address] Service Attending Neuro-Ophthalmology 02/27/23 documented as of this encounter
[2025-04-18 20:25] VITALS: BP 122/78; PULSE 93; RESP 20; TEMP 36.9; O2SAT 97; BMI 38.7
--- NOTE | 2025-04-18 20:33 | ED_ITS ---
<Statement entered by Nayeli Vasquez DO - 04/21/25 22:25> I was consulted by the SANDOVAL, and we discussed the complexity of problems being addressed. I approve the treatment and management plan for this patient's care in the emergency department, thus performing a substantial portion of the medical decision making. Nayeli Vasquez DO Discharge Plan Disposition Patient Disposition: Home, Self-Care Condition: Good Prescriptions Prescriptions: No Action fluoxetine [Prozac] 20 mg capsule 20 mg PO DAILY Qty: 30 2RF Nurtec ODT 75 mg tablet,disintegrating 75 mg PO Q OTHER DAY Qty: 15 6RF triamcinolone acetonide 0.025 % cream 1 applic topical NEEDED PRN (Reason: PSORIASIS) omeprazole 40 mg capsule,delayed release(DR/EC) 40 mg PO DAILY Qty: 30 2RF budesonide-formoterol [Symbicort] 160-4.5 mcg/actuation HFA aerosol inhaler 2 puff inhalation BID Qty: 10.2 2RF bismuth subcit O-lsjncttji-gcz [Pylera] 140-125-125 mg capsule See Rx Instructions PO PER PKG DIR Qty: 120 0RF Rx Instructions: PO PER PKG DIR?please take 3 capsules by mouth 4 times daily x 10 days celecoxib 200 mg capsule 200 mg PO BID hydroxychloroquine 200 mg tablet 200 mg PO DAILY Ubrelvy 100 mg tablet 100 mg PO DAILY azathioprine 100 mg tablet 100 mg PO DAILY oxycodone 5 mg Tablet 5 mg PO Q4HP PRN (Reason: Moderate Pain (4-6)) Qty: 20 0RF ibuprofen 800 mg tablet 800 mg PO Q8H PRN (Reason: pain) Qty: 20 0RF metoprolol succinate 25 mg tablet extended release 24 hr 25 mg PO DAILY buspirone 10 mg tablet 10 mg PO BID Qty: 60 12RF Rx Instructions: Please take 1 tablet p.o. nightly x 7 days and then 1 tablet p.o. twice daily thereafter Referrals Follow up/Referrals: Mayuri Diego APRN [Primary Care Provider, Medical] - See instructions Activity Restrictions/Add. Instructions Additional Instructions/Restrictions: You were seen for redness to the thigh which is felt to be superficial thrombophlebitis. Resume your ibuprofen. Follow up with your PCP this week. Return to the ER for any new or worsening symptoms. Clinical Impressions Clinical Impression: Thrombophlebitis Instructions Patient Instructions: DI for Superficial Thrombophlebitis Print Language Print Language: Yakut Discharge ED Provider: Nayeli Vasquez Adult HPI General Chief complaint: Skin/Abscess/Foreign Body Stated complaint: Hot spot on R Leg on upper thigh Time Seen by Provider: 04/18/25 20:06 Mode of Arrival: Ambulatory Source of Information: Patient and Relative Description of Symptoms (Recalled from ER Triage Doc. by RN): patient presents to the emergency department for red rash on right thigh. patient stated she noticed it yesterday morning when she woke up. the patient does endorse that the pain feels like a muscle ache. the rash/redness is warm to the touch. patient states she has a history of lupus, duiagnosed 6 years ago. patient also stated she had a total hysterectomy 04/08/25. History of Present Illness HPI narrative: Patient presents with redness to her right thigh. She reports that this started yesterday. She reports that it does not cause significant pain. Denies any injury. Denies any new lotions or soaps. Denies any fevers or vomiting. She did have a hysterectomy on 04/08. MD complaint: Thigh redness Onset (ago): day(s) Location: right and lower extremity Radiation: non-radiation Severity: mild Consistency: constant Relieving factors: none Exacerbating factors: none Associated symptoms: denies other symptoms Treatments prior to arrival: none Related Data Home Medications ?Medication ?Instructions ?Recorded ?Confirmed celecoxib 200 mg capsule 200 mg PO BID 09/12/2404/07 Held on 04/08/25. Instructions: Resume on 04/15/25. Hold while taking Ibuprofen hydroxychloroquine 200 mg tablet 200 mg PO DAILY 09/1204/07/25 triamcinolone acetonide 0.025 % 1 applic topical NE EDED PRN 12/07/24 04/07/25 topical cream PSORIASIS ubrogepant 100 mg tablet (Ubrelvy) 100 mg PO DAILY 04/07/25 metoprolol succinate 25 mg 25 mg PO DAILY 03/25/25 tablet,extended release 24 hr azathioprine 100 mg tablet 100 mg PO DAILY 04/07/25 Previous Rx's ?Medication ?Instructions ?Recorded omeprazole 40 mg capsule,delayed 40 mg PO DAILY #30 ca ps 10/06/24 release fluoxetine 20 mg capsule (Prozac) 20 mg PO DAILY #30 c aps 10/21/24 rimegepant 75 mg disintegrating 75 mg PO Q OTHER DAY M igraine #15 02/10/25 tablet (Nurtec ODT) tabs buspirone 10 mg tablet 10 mg PO BID #60 tabs budesonide-formoterol HFA 160 2 puff inhalation BID #1 0.2 grams 04/02/25 mcg-4.5 mcg/actuation aerosol inhaler (Symbicort) Pylera 140 mg-125 mg-125 mg See Rx Instructions PO PER PKG DIR 04/08/25 capsule (bismuth subcit #120 caps Y-qohvpusnb-cqg) ibuprofen 800 mg tablet 800 mg PO Q8H PRN pain #20 t abs 04/08/25 oxycodone 5 mg tablet 5 mg PO Q4HP PRN Moderate Pa in 04/08/25 (4-6) #20 tabs Allergies Allergy/AdvReac Type Severity Reaction Status Date / Time penicillin G (PENICILLIN G) Allergy Mild I-RASH Verified 04/07/25 06:46 Iodinated Contrast Media Allergy Unknown Unknown Verified 04/07/25 06:46 (Iodinated Contrast Media - allergy Oral and) reaction Penicillins Allergy Unknown Unknown Verified 04/07/25 06:46 allergy reaction Pertussis Vaccines Allergy Unknown Unknown Verified 04/07/25 06:46 (PERTUSSIS VACCINES) allergy reaction iodine Allergy Redness of Verified 04/07/25 06:46 Skin PFSH PFSH Disclaimer: The information contained in this section may have been updated after the patient was seen, as this information can be updated by other users. Medical History (Updated 04/18/25 @ 21:51 by LYNETTE Peres) C. difficile diarrhea Common wart Collapse of lung tissue Renal calculi History of histoplasmosis Kidney stone on right side Subacromial bursitis of left shoulder joint History of TMJ disorder History of CVA (cerebrovascular accident) Hives of unknown origin Abnormal EKG Dyspareunia in female Trigeminal neuralgia PVC (premature ventricular contraction) Fatigue Family history of ovarian cancer Family history of breast cancer Family history of uterine cancer Dysmenorrhea Heavy periods Wil thyroiditis Thyromegaly UTI (urinary tract infection) Hoarseness of voice History of lupus Family history of asthma Asthma Acid reflux Depression Anxiety Migraine History of stroke Hyperlipidemia Surgical History (Updated 04/12/25 @ 00:00 by Twin Perez) S/P arthrocentesis Status post laparoscopic hysterectomy History of mandibular surgery S/P wisdom tooth extraction History of arthroscopic procedure on shoulder History of placement of ear tubes H/O left knee surgery History of tonsillectomy and adenoidectomy H/O tubal ligation History of cholecystectomy Family History Other Alcoholism Asthma Cancer Hypertension Stroke Social History (Updated 04/07/25 @ 10:37 by Amy Sterling RN) Smoking Status: Never smoker alcohol intake: former substance use type: former substance user 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 in 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?: Inside the [place] household members: family, children and other housing: house caffeine: Yes do you feel safe at home: Yes Have you lived/traveled outside US in past 30 days?: No Contact w/someone who lives/traveled outside US past 30 days?: No Exposure to someone with infectious disease in past 14 days?: No Do you have a fever (greater than 100.4 F or 38 C)?: No Have you tested positive for COVID-19?: No Exposed to someone with COVID-19 in past 14 days?: No Do you have a sore throat?: No Do you have a cough?: No Do you have any weakness?: No Do you have any diarrhea?: No Are you experiencing any unusual bleeding?: No Do you have any muscle aches/pain?: No Do you have any abdominal pain?: No Are you experiencing loss of taste or smell?: No Other Medical History Have you received the Flu Vaccine for this season: No Have you received the Pneumonia Vaccine: No ROS Obtained: Yes Systems reviewed as appropriate & no additional complaints except as documented Physical Exam General General appearance: alert and in no apparent distress Head Head exam: atraumatic and normocephalic Eye Eye exam: Present normal appearance and EOMI Chest Chest inspection: Present symmetric chest wall rise Respiratory Respiratory exam: Present normal lung sounds bilaterally; Absent wheezes or stridor Cardiovascular Cardiovascular exam: Present regular rate and normal rhythm; Absent systolic murmur Extremities Exam Extremities exam: Present full ROM Neurological Exam Neurological exam: Present alert and oriented X3 Psychiatric Psychiatric exam: Present normal affect and normal mood Skin Skin exam: Present other (Right anterior thigh has a 4 cm strip of erythema which extends from the knee up to the proximal thigh. No induration or tenderness, no rash, no palpable cord) Medical Decision Making Medical Records Screening: Per USPSTF and CDC recommendations, given the prevalence of disease in our region, it is our hospital?s policy to screen for HIV and viral Hepatitis for all patients aged 18 and over and those with ongoing risk factors. Neel Inquiry Pt receiving controlled substance: No Vital Signs: 04/18/25 20:25 Temperature 98.5 F Temperature Source Oral Pulse Rate [Right Radial] 93 H Respiratory Rate 20 Blood Pressure [Right Arm] 122/78 Blood Pressure Mean [Right Arm] 92 Blood Pressure Source [Right Arm] Automatic Cuff Blood Pressure Position [Right Arm] Sitting 02 Sat by Pulse Oximetry 97 Oxygen Delivery Method Room Air Orders (Tests/Meds): ORDERS Category Date Time Status POCUS Point of Care (ER Only) Stat Exams 04/18/25 21:06 Ordered Medical Decision Narrative: In summary patient is a 34-year-old female who presents the emergency department for evaluation of right thigh erythema. Patient is hemodynamically stable upon arrival, afebrile. Erythema noted to the right anterior thigh. Differential diagnosis includes superficial thrombophlebitis, cellulitis, allergic reaction, lupus rash. Initial workup will be conducted with bedside ultrasound. Bedside ultrasound does not reveal any abnormalities. Given this patient instructed to resume her ibuprofen prescribed after her hysterectomy for likely superficial thrombophlebitis. Return to the ER for any new or worsening symptoms.. Critical Care Critical Care Time Critical Care Time: No
[2025-04-18 21:55] VITALS: BP 128/74; PULSE 68; RESP 14; TEMP 36.7; O2SAT 100
== END 2025-04-18 21:56 | disposition home or self-care (01) ==
PROVIDERS: Emergency Provider Student in an Organized Health Care Education/Training Program; PCP Nurse Practitioner Family
DX: I80.01 Phlebitis and thrombophlebitis of superficial vessels of right lower extremity (principal); M79.604 Pain in right leg
CPT/HCPCS: 99283

== ENCOUNTER 2025-04-19 14:32 | Outpatient (CLI) | payer OTHER, SELFPAY ==
--- NOTE | 2025-04-19 14:30 | CA_ITS ---
FINAL REPORT TECHNIQUE: Compression fernando scale and Doppler evaluation CLINICAL HISTORY: RLE PAIN,REDNESS ANT THIGH X 1 DAY,NKI,LUPUS,PT HAS HYSTERECTOMY ON 04/08/25 FINDINGS: Femoral and popliteal veins show normal compressibility and flow. Visualized portion of the calf veins are patent by Doppler exam. IMPRESSION: No evidence of right lower extremity deep venous thrombosis Reviewed, Interpreted and Dictated by Tarun Iyer MD Transcribed by Shy Causey Authenticated and [facility]
--- OUTSIDE RECORDS SUMMARY | 2025-04-19 14:34 | XMS_ITS | Encounter Summary ---
Author Organization [facility] Address [address] [place] [address] Care Team Providers Care Diesel Locomotive Firer Name Role Phone Kulwinder Smiley MD Primary Care Provider [phone] Ivonne Gonzalez MD Unavailable [phone] Mayuri Diego APRN Primary Care Provider [phone] Reason for Referral * Consultation (Routine) - Closed Specialty Diagnoses / Procedures Referred By Contharshil t Referred To Contact Rheumatology Diagnoses Positive AUDREY (antinuclear antibody) Vitiligo Feeling tired Law Naylor APRN [address] [place] [address] Phone: tel: fax: Referral ID Status Reason Start Date Expiration Date V isits Requested Visits Authorized [id number] Closed Specialty Services Required 03/27/2022 09/26/2023 1 1 Encounter Details Date Type Department Care Team (Late st Contact Info) Description 03/27/2022 Community [facility] Community Practice [address] [place] [address] [place] [address] Positive AUDREY (antinuclear antibody) (Primary [...] Description 06/23/2025 3:20 PM EDT Office Visit [place] [facility] Medicine Specialties [address], [address] [place] [address] Ryann Hill, SPLITTING MACHINE FEEDER [address] [place] [address] Scheduled Referrals Name Type Priority Associated Diagnoses Order Schedule Ambulatory referral to Rheumatology Outpatient Referral Routine Positive AUDREY (antinuclear antibody) Vitiligo Feeling tired Expected: 03/27/2022 (Approximate), Expires: 09/27/2023 documented as of this encounter Visit Diagnoses Diagnosis Positive AUDREY (antinuclear antibody)- Primary Other and unspecified nonspecific immunological findings Vitiligo Feeling tired documented in this encounter Care Teams Diesel Locomotive Firer Relationship Specialty Start Date End Date Kulwinder Smiley MD [address] [place] [address] PCP - General 01/20/21 07/21/23 Mayuri Diego, SPLITTING MACHINE FEEDER [address] [place] [address] PCP - General 07/22/23 Ivonne Gonzalez MD [address] [facility] [address] [place] [address] Service Attending Neuro-Ophthalmology 02/27/23 documented as of this encounter
--- OUTSIDE RECORDS SUMMARY | 2025-04-19 14:34 | XMS_ITS | Clinical Summary ---
Author Organization [facility] Address [address] [place] [address] Care Team Providers Care Tool Chaser Name Role Phone Mayrui Diego APRN Primary Care Provider [phone] Allergies Active Allergy Reactions Criticality Noted Date [...] 2 (Two) Times a Day. Active Methylcobalamin (E56-RVUDUH PO) Take 1 tablet by mouth Daily. [...] = 0.6 oz pur e alcohol) OCCASIONAL Managed by [employer] Answer Date Recorded In the past 12 months has e [employer], gas, oil, or water [place] threatened to shut off services in your [...] or training? Not on file Preferred Language Azerbaijani 01/22/2024 Comments Unknown Sex and Gender Information [...] VACCINE 06/09/2025 Medical Devices Implanted Type Area Business Risk Analyst Device Identifier Shelf Expiration Date Model / Serial / Lot Sut Nonabs Bone Dynacord Uhmwpe W/Os/6 Ndl 2pk Strip/Balbir - [id number] Implanted:Qty: 2 on 01/21/2024 by Sandor Barboza Jr., MD at [facility] Implant Left: Scapula DEPUY MITEK 05/09/2026 [id number] / / [id number] Tndn Semitendinous Flexigraft 1strnd Fz [id number] - [id number] Implanted:Qty: 1 on 01/21/2024 by Sandor Barboza Jr., MD at [facility] Implant Left: Scapula [facility]20[facility] / [id number] Insurance [facility] Care Teams Tool Chaser Relationship Specialty Start Date End Date Mayuri Diego APRN [facility] [place] [address] [place] [address] PCP - General Internal Medicine 12/19/23
--- OUTSIDE RECORDS SUMMARY | 2025-04-19 14:34 | XMS_ITS | Encounter Summary ---
Author Organization [facility] Address [address] [place] [address] Care Team Providers Care Linux System Admin Name Role Phone Ivonne Gonzalez MD Unavailable [phone] Mayuri Diego GENERAL INTERN Primary Care Provider [phone] Encounter Details Date Type Department Care Team (Late st Contact Info) Description 12/28/2024 Results Follow-Up [facility] Medicine Specialties [address], [address] [place] [address] Ryann Hill, GENERAL INTERN [address] [place] [address] Social History Tobacco Use Types [...] Visit [place] [facility] [address] [place] [address] Ryann Hill, NEYDA [address] [place] [address] documented as of this encounter [...] documented as of this encounter Care Teams Linux System Admin Relationship Specialty Start Date End Date Mayuri Diego APRN [address] [place] [address] PCP - General 07/22/23 Ivonne Gonzalez MD [address] [place] [address] Service Attending Neuro-Ophthalmology 02/27/23 documented as of this encounter
--- OUTSIDE RECORDS SUMMARY | 2025-04-19 14:34 | XMS_ITS | Encounter Summary ---
Author Organization Healthcare Address [address] [place] [address] Care Team Providers Care Digital Associate Media Director Name Role Phone Ivonne Gonzalez MD Unavailable [phone] Mayuri Diego APRN Primary Care Provider [phone] Reason for Visit * Reason Comments Med Refill Encounter Details Date Type Department Care Team (Late st Contact Info) Description 12/17/2024 Refill [place] [facility] [address], [address] [place] [address] Ivonne Gonzalez MD [address] [place] [address] Social History Tobacco Use Types [...] Description 06/23/2025 3:20 PM EDT Office Visit [facility] [address], [address] [place] [address] Ryann Hill APRN [address] [facility] [address] [place] [address] documented as of this encounter Visit Diagnoses Not on filedocumented in this encounter Additional Health Concerns Assessment Noted Time A fall risk assessment has been complete d for the patient 06/22/2024 11:27 AM EDT A Body Mass Index follow-up plan has been documented for the patient 06/22/2024 12:22 PM EDT documented as of this encounter Care Teams Digital Associate Media Director Relationship Specialty Start Date End Date Mayuri Diego APRN [address] [place] [address] PCP - General 07/22/23 Ivonne Gonzalez MD [address] [facility] [address] [place] [address] Service Attending Neuro-Ophthalmology 02/27/23 documented as of this encounter
--- OUTSIDE RECORDS SUMMARY | 2025-04-19 14:34 | XMS_ITS | Clinical Summary ---
Author Organization [facility] Address [address] [place] [address] Care Team Providers Care Security Site Supervisor Name Role Phone Ivonne Gonzalez MD Unavailable [phone] Mayuri Diego APRN Primary Care Provider [phone] Allergies Active Allergy Reactions Criticality Noted Date [...] Refill [place] [facility] [address], 1st [place] [address] Ivonne Gonzalez MD 01/19/2025 Refill [facility] Medicine Specialties [address], [address]nd [place] [address] Ryann Hill, NEYDA from Last 3 Months Immunizations Immunization Administration Dates Next Due Moderna COVID-19 Vaccine (Wood Mill Supervisor) 12+ years ,02/22/2021 Family History Medical History [...] Visit [place] [facility] [address], [address] [place] [address] Ryann Hill, NEYDA [address] [place] [address] Health Maintenance Due Date Last Done Comments Dental Oral Exam 1989 Dental Prophylaxis 1989 Dental X-Ray: Bitewings 1989 Dental X-Ray: Full Mouth 1989 [facility]-HIV Screening 1989 [facility]-Hepatitis C Screening 1989 [facility]-Infant/Child/Adol SDOH Screenings 1989 [facility]-Varicella Vaccines (1 of 2 - 13+ 2-dose series) 2002 [facility]- SDOH Screenings 2007 [facility]-Adult SDOH Screenings 2007 [facility]-DTaP,Tdap,and Td Vaccines (1 - Tdap) 2008 [facility]-Hepatitis B Vaccines (1 of 3 - 19+ 3-dose series) 2008 [facility]-Pap Smear 2010 HPV Vaccines (1 - 3-dose SCDM series) 2016 [facility]-Cervical Cancer Screening 2019 [facility]-HPV/Cotest 2019 [id number] Vaccine (3 - Moderna risk series) 04/25/2021 [...] age to complete this topic Insurance AETNA [facility] MEDICAID Care Teams Security Site Supervisor Relationship Specialty Start Date End Date Mayuri Diego APRN [address] [place] [address] PCP - General 07/22/23 Ivonne Gonzalez MD [address] [place] [address] Service Attending Neuro-Ophthalmology 02/27/23
--- OUTSIDE RECORDS SUMMARY | 2025-04-19 14:34 | XMS_ITS | Encounter Summary ---
Author Organization [facility] Address [address] [place] [address] Care Team Providers Care Business Center Representative Name Role Phone Kulwinder Smiley MD Primary Care Provider Ivonne Gonzalez MD Unavailable [phone] Mayuri Diego APRN Primary Care Provider [phone] Reason for Referral * Consultation (Routine) - Closed Specialty Diagnoses / Procedures Referred By Contharshil greenwood Referred To Contact Neurology Diagnoses Facial neuralgia Chronic migraine without aura, intractable, without status migrainosus Lupus Law Naylor APRN [address] [place] [address] Phone: tel: fax: Referral ID Status Reason Start Date Expiration Date V isits Requested Visits Authorized [id number] Closed Specialty Services Required 08/14/2022 02/13/2024 1 1 Encounter Details Date Type Department Care Team (Late st Contact Info) Description 08/14/2022 Community [facility] Community Practice [address] [place] [address] Law Naylor APRN [address] [place] [address] Facial neuralgia (Primary Dx); Chronic [...] Description 06/23/2025 3:20 PM EDT Office Visit [facility] [facility] [address], [address] [place] [address] Ryann Hill APRN [address] [place] [address] Scheduled Referrals Name Type Priority [...] documented as of this encounter Care Teams Business Center Representative Relationship Specialty Start Date End Date Kulwinder Smiley MD [address] [place] [address] PCP - General 01/20/21 07/21/23 Mayuri Diego APRN [address] [place] [address] PCP - General 07/22/23 Ivonne Gonzalez MD [address] [facility] [address] [place] [address] Service Attending Neuro-Ophthalmology 02/27/23 documented as of this encounter
[2025-04-19 15:38] LABS: Hematocrit 37.2 % (37.0-47.0); Hemoglobin 12.1 g/dL (12.2-16.2); Immature Granulocytes % 0.3 %; Mean Corpuscular HGB Conc 32.5 g/dL (31.8-35.4); Mean Corpuscular Hemoglobin 29.2 pg (27.0-31.2); Mean Corpuscular Volume 89.6 fl (81-99); Nucleated Red Blood Cells % 0 %; Platelet Count 261 K/mm3 (142-424); Red Blood Count 4.15 M/mm3 (4.20-5.40); Red Cell Distribution Width-SD 42.3 fL; White Blood Count 9.0 K/mm3 (4.8-10.8)
[2025-04-19 15:52] LABS: D-Dimer 1.13 ug/mL (0.0-0.5)
[2025-04-19 15:56] LABS: Activated Partial Thrombo Time 24.7 seconds (22.8-30.6); INR 0.93 (0.9-1.1); Prothrombin Time 10.4 seconds (10.1-12.5)
== END 2025-04-19 23:59 | disposition home or self-care (01) ==
LOC: RT 14:32
PROVIDERS: PCP Nurse Practitioner Family; Visit Provider Nurse Practitioner Family
DX: M79.604 Pain in right leg (principal); M79.89 Other specified soft tissue disorders; M32.9 Systemic lupus erythematosus, unspecified; Z90.710 Acquired absence of both cervix and uterus
CPT/HCPCS: 36415; 85025; 85378; 85610; 85730; 93971

== ENCOUNTER 2025-05-13 11:43 | Outpatient (CLI) | payer OTHER, SELFPAY ==
--- OUTSIDE RECORDS SUMMARY | 2013-04-08 11:50 | XMS_ITS | Continuity of Care Document ---
Author Organization [facility] Address [address] [place] [address] Phone Care Team Providers Care Women'S Ministry Director Name Role Phone Unavailable Unavailable Unavailable Allergies, Adverse Reactions, Alerts Substance Reaction Status Criticality Iodinated Contrast Media Active No Information PERTUSSIS IMMUNE GLOBULIN Active No Information Penicillins Active No Information Procedures Procedure Date OFFICE/OUTPATIENT VISIT, NEW REFRACTION Advance Directives Directive Yes / No Effective Date File Name Resuscitation Not Answered N/A N/A Life Support Not Answered N/A N/A Intubation Not Answered N/A N/A Antibiotics Not Answered N/A N/A IV Fluid Support Not Answered N/A N/A Tube Feed Not Answered N/A N/A Other Directive N/A N/A WARNING:The information contained in this section is historical and is provided for information only and does not constitute a legal document or any assurance that the information is still accurate. Please verify the information with the vela of the legal document before using it for clinical purposes. Encounters Encounter Description Practice Location Reason(s) For Visit Diagnoses Date Provider Providers Copied on Encounter OFFICE/OUTPA TIENT VISIT, NEW Eye [facility], [address] , [place], [place], [id number] , tel:[phone] [facility] [place] Bad headacheAstigmatis m, unspecifiedHyperme tropia 3 No Information Family History Family Member Type Diagnosis Age At Onset Multiple Problem (finding) Cancer Multiple Problem (finding) Maternal history of rahul betes mellitus Mother Problem (finding) HBP Multiple Problem (finding) cataract Payers Payer name Insurance type Covered libertarian ID Authoriza tion(s) No Information Social History Type Description Quantity Date Captured Comments Alcohol Use Details Caffeine Use Details Unknown Tobacco Use Status No Information Smoking Status Former smoker Smoking Tobacco Use Details Cigarette: No Details Available Cigarette: No Details Available Sex Female Chief Complaint And Reason For Visit No Information Reason For Referral Reason For Referral No Information History Of Present Illness Encounter Date Complaint History Of Prese nt Illness No Information Functional Status Date Functional Assessmen t No Information Instructions Date Instruction Additional Infor rod - Return 1 years Nico Delaney for Complete Exam. Related to See impression: general plan General plan -Bad he adache -Astigmatism, unspecified -Hypermetropia - Recommend care with MD and neurologist to evaluate headaches. New spec rx for near and computer work. Related to See impression: general plan Assessments Type Assessment Date No Information Patient Care Teams Name Effective Dates (start - stop) Status Members No Information
--- OUTSIDE RECORDS SUMMARY | 2013-07-03 07:24 | XMS_ITS | Continuity of Care Document ---
Author Organization [facility] Address [address] [facility] [address] [id number] [place] [address] Care Team Providers Care Pediatric Speech Therapist Name Role Phone Unavailable Unavailable Unavailable Allergies, [...] & >, IM TOBACCO NON-USER OFFICE/OUTPATIENT VISIT, [facility] URINALYSIS NONAUTO W/O SCOPE TOBACCO NON-USER Advance Directives Directive Yes / No Effective Date File Name No Information Encounters Encounter Description Practice Location Reason(s) For Visit Diagnoses Date Provider Providers Copied on Encounter [place] [address] [id number] [place], [address] [place] [address] No Information 3 No Information OFFICE/OUTPA TIENT VISIT, [place] [address] [id number] [place], [address] [place] [address] injury (chief complaint) Unspecified site of ankle sprain 3 No Information OFFICE/OUTPA TIENT VISIT, [place] [address] [id number] [place], [address] [place] [address] discuss test results (chief complaint) Headache 3 No Information OFFICE/OUTPA TIENT VISIT, [place] [address] [id number] [place], [address] [place] [address] migraine (chief complaint) Headache 3 No Information OFFICE/OUTPA TIENT VISIT, [place] [address] [id number] [place], [address] [place] [address] fever (chief complaint) Upper Respiratory Infection, Acute 3 No Information OFFICE/OUTPA TIENT VISIT, [place] [address] [id number] [place], [address] [place] [address] cold symptoms (chief complaint) Upper Respiratory Infection, Acute 3 No Information OFFICE/OUTPA TIENT VISIT, [facility], [address] [place] [address] [id number] [place], [facility], [facility] abdominal pain (chief complaint) GERD 2 No Information OFFICE/OUTPA TIENT VISIT, [facility], [address] [place] [address] [id number] [place], [facility], [facility] migraine (chief complaint) Headache 2 No Information OFFICE/OUTPA TIENT VISIT, [place] [address] [id number] [place], [facility], [facility] UTI (chief complaint) FLU SHOT (chief complaint) palpitatio n (chief complaint) DysuriaPalpitatio nsInfluenza Vaccine 2 No Information OFFICE/OUTPA TIENT VISIT, [place] [address] [id number] [place], [address] [place] [address] abdominal pain (chief complaint) LABORATORY EXAM NOSPregnancy examination or test, unconfirmedAbdomi nal pain, left lower quadrantIrregular menstrual cycle 2 No Information [place] [address] [id number] [place], [address], [facility] No Information 2 No Information OFFICE/OUTPA TIENT VISIT, [place] [address] [id number] [place], [address] [place] [address] No Information 2 Nurse Nurse. [address] [place] [address], [id number], [place]. tel:[phone] OFFICE/OUTPA TIENT VISIT, [place] [address] [id number] [place], [place], [id number] [place] [address] No Information 1 No Information OFFICE/OUTPA TIENT VISIT, [place] [address] [id number] [place], [address], [facility] No Information May- 1 No Information [...]
--- OUTSIDE RECORDS SUMMARY | 2025-05-13 11:46 | XMS_ITS | Encounter Summary ---
Author Organization Healthcare Address [address] [place] [address] Care Team Providers Care Rental Manager Name Role Phone Ivonne Gonzalez MD Unavailable [phone] Mayuri Diego APRN Primary Care Provider [phone] Encounter Details Date Type Department Care Team (Late st Contact Info) Description 04/20/2025 Telephone [place] [facility] Medicine Specialties [address], [address]nd [place] [address] Ventura Shelton PharmD [place] [id number] Social History Tobacco Use Types Packs/Day Years [...] encounter Miscellaneous Notes * Telephone Encounter - Ventura Shelton PharmD - 04/20/2025 10:17 AM EDT Resent prescription(s) to requested pharmacy due to: Prescription(s) sent to wrong pharmacy. Confirmed script(s) is cancelled at original pharmacy. documented in this encounter Plan of Treatment Upcoming Encounters Date Type Department Care Team (Late st Contact Info) Description 06/23/2025 3:20 PM EDT Office Visit [facility] [address], [address] [place] [address] Ryann Hill, NEYDA [address] [place] [address] documented as of this encounter [...] documented as of this encounter Care Teams Rental Manager Relationship Specialty Start Date End Date Mayuri Diego APRN [address] [place] [address] PCP - General 07/22/23 Ivonne Gonzalez MD [address] [place] [address] Service Attending Neuro-Ophthalmology 02/27/23 documented as of this encounter
--- OUTSIDE RECORDS SUMMARY | 2025-05-13 11:46 | XMS_ITS | Clinical Summary ---
Author Organization [facility] Address [address] [place] [address] Care Team Providers Care Sourcing Intern Name Role Phone Mayuri Diego APRN Primary Care Provider [phone] Allergies Active Allergy Reactions Criticality Noted Date [...] 2 (Two) Times a Day. Active Methylcobalamin (N65-ZTOPVE PO) Take 1 tablet by mouth Daily. [...] = 0.6 oz pur e alcohol) OCCASIONAL [employer] Util[employer] Answer Date Recorded In the past 12 months has e [employer], gas, oil, or water [employer] threatened to shut off services in your [...] or training? Not on file Preferred Language Arabic 01/22/2024 Comments Unknown Sex and Gender Information [...] VACCINE 06/09/2025 Medical Devices Implanted Type Area Machine Room Operator Device Identifier Shelf Expiration Date Model / Serial / Lot Sut Nonabs Bone Dynacord Uhmwpe W/Os/6 Ndl 2pk Strip/Balbir - [id number] Implanted:Qty: 2 on 01/21/2024 by Sandor Barboza Jr., MD at [facility] Implant Left: Scapula DEPUY MITEK 05/09/2026 [id number] / / [id number] Tndn Semitendinous Flexigraft 1strnd Fz [id number] - [id number] Implanted:Qty: 1 on 01/21/2024 by Sandor Barboza Jr., MD at [facility] Implant Left: Scapula [facility] 10/29/2028 [facility] / / [id number] Insurance [facility] Care Teams Sourcing Intern Relationship Specialty Start Date End Date Mayuri Diego APRN [facility] [place] [address] [place] [address] PCP - General Internal Medicine 12/19/23
--- OUTSIDE RECORDS SUMMARY | 2025-05-13 11:46 | XMS_ITS | Encounter Summary ---
Author Organization [facility] Address [address] [place] [address] Care Team Providers Care Warehouse Lead Name Role Phone Kulwinder Smiley MD Primary Care Provider [phone] Ivonne Gonzalez MD Unavailable [phone] Mayuri Diego APRN Primary Care Provider [phone] Reason for Referral * Consultation (Routine) - Closed Specialty Diagnoses / Procedures Referred By Contharshil greenwood Referred To Contact Neurology Diagnoses Facial neuralgia Chronic migraine without aura, intractable, without status migrainosus Lupus Law Naylor APRN [address] [place] [address] Phone: tel: fax: Referral ID Status Reason Start Date Expiration Date V isits Requested Visits Authorized [id number] Closed Specialty Services Required 08/14/2022 02/13/2024 1 1 Encounter Details Date Type Department Care Team (Late st Contact Info) Description 08/14/2022 Community [facility] [address] [place] [address] Law Naylor APRN [address] [place] [address] Facial neuralgia (Primary Dx); Chronic [...] Description 06/23/2025 3:20 PM EDT Office Visit [facility] [address], 2nd [place] [address] Ryann Hill APRN [address] [place] [address] Scheduled Referrals Name Type Priority [...] documented as of this encounter Care Teams Warehouse Lead Relationship Specialty Start Date End Date Kulwinder Smiley MD [address] [place] [address] PCP - General 01/20/21 07/21/23 Mayuri Diego APRN [address] [place] [address] PCP - General 07/22/23 Ivonne Gonzalez MD [address] [facility] [address] [place] [address] Service Attending Neuro-Ophthalmology 02/27/23 documented as of this encounter
--- OUTSIDE RECORDS SUMMARY | 2025-05-13 11:46 | XMS_ITS | Encounter Summary ---
Author Organization Healthcare Address [address] [place] [address] Care Team Providers Care Electroencephalographic Technician Name Role Phone Ivonne Gonzalez MD Unavailable [phone] Mayuri Diego APRN Primary Care Provider [phone] Reason for Visit * Reason Comments Med Refill Encounter Details Date Type Department Care Team (Late st Contact Info) Description 12/17/2024 Refill [place] [facility] [address], [address]st [place] [address] Ivonne Gonzalez MD [address] [place] [address] Social History Tobacco Use Types [...] Description 06/23/2025 3:20 PM EDT Office Visit [place] [facility] [address], [address] [place] [address] Ryann Hill APRN [address] [facility] [address] [place] [address] documented as of this encounter Visit Diagnoses Not on filedocumented in this encounter Additional Health Concerns Assessment Noted Time A fall risk assessment has been complete d for the patient 06/22/2024 11:27 AM EDT A Body Mass Index follow-up plan has been documented for the patient 06/22/2024 12:22 PM EDT documented as of this encounter Care Teams Electroencephalographic Technician Relationship Specialty Start Date End Date Mayuri Diego APRN [address] [place] [address] PCP - General 07/22/23 Ivonne Gonzalez MD [address] [facility] [address] [place] [address] Service Attending Neuro-Ophthalmology 02/27/23 documented as of this encounter
--- OUTSIDE RECORDS SUMMARY | 2025-05-13 11:46 | XMS_ITS | Encounter Summary ---
Author Organization [facility] Address [address] [place] [address] Care Team Providers Care Pan Dumper Name Role Phone Kulwinedr Smiley MD Primary Care Provider [phone] Ivonne Gonzalez MD Unavailable [phone] Mayuri Diego APRN Primary Care Provider [phone] Reason for Referral * Consultation (Routine) - Closed Specialty Diagnoses / Procedures Referred By Contharshil t Referred To Contact Rheumatology Diagnoses Positive AUDREY (antinuclear antibody) Vitiligo Feeling tired Law Naylor APRN [address] [place] [address] Phone: tel: fax: Referral ID Status Reason Start Date Expiration Date V isits Requested Visits Authorized [id number] Closed Specialty Services Required 03/27/2022 09/26/2023 1 1 Encounter Details Date Type Department Care Team (Late st Contact Info) Description 03/27/2022 Community [facility] Community Practice [address] [place] [address] Law Naylor APRN [address] [place] [address] Positive AUDREY (antinuclear antibody) (Primary [...] Visit [place] [facility] [address], [address]nd [place] [address] Ryann Hill, COIN ROLLING MACHINE OPERATOR [address] [place] [address] Scheduled Referrals Name Type Priority Associated Diagnoses Order Schedule Ambulatory referral to Rheumatology Outpatient Referral Routine Positive AUDREY (antinuclear antibody) Vitiligo Feeling tired Expected: 03/27/2022 (Approximate), Expires: 09/27/2023 documented as of this encounter Visit Diagnoses Diagnosis Positive AUDREY (antinuclear antibody)- Primary Other and unspecified nonspecific immunological findings Vitiligo Feeling tired documented in this encounter Care Teams Pan Dumper Relationship Specialty Start Date End Date Kulwinder Smiley MD [address] [place] [address] PCP - General 01/20/21 07/21/23 Mayuri Diego, COIN ROLLING MACHINE OPERATOR [address] [place] [address] PCP - General 07/22/23 Ivonne Gonzalez MD [address] [facility] [address] [place] [address] Service Attending Neuro-Ophthalmology 02/27/23 documented as of this encounter
--- OUTSIDE RECORDS SUMMARY | 2025-05-13 11:46 | XMS_ITS | Clinical Summary ---
Author Organization [facility] Address [address] [place] [address] Care Team Providers Care Nanosystems Engineer Name Role Phone Ivonne Gonzalez MD Unavailable [phone] Mayuri Diego APRN Primary Care Provider [phone] Allergies Active Allergy Reactions Criticality Noted Date [...] cephalexin (Keflex) 500 MG capsule 4 Active celecoxib (CeleBREX) 200 MG capsule Take 1 capsule (200 mg) by mouth 2 (two) times a day. 180 capsule 5 4 Active metoprolol succinate XL (Toprol-XL) 25 MG 24 hr tablet Take 1 tablet by mouth daily. 5 Active Plecanatide (TRULANCE PO) Take by mouth. A ctive hydroxychloroq uine (Plaquenil) 200 MG tablet Take 1 tablet by mouth 2 times a day. 60 tablet 5 5 Active methylPREDNISo lone (Medrol Dospak) 4 MG tablets Follow schedule on package instructions 21 tablet 5 Active methylPREDNISo lone (Medrol Dospak) 4 MG tablets 4 025 Discontin ued(Reord er) methylPREDNISo lone (Medrol Dospak) 4 MG tablets Follow schedule on package instructions 21 tablet 5 025 Discontin ued(Reord er) Active Problems Problem Noted Date Diagnosed Date Chronic migraine without aur a, intractable, without status migrainosus 02/12/2024 Facial neuralgia 02/12/2024 Encounters Date Type Department Care Team Description 04/20/2025 Telephone [place] [facility] Medicine Specialties [address], [address]nd [place] [address] Ventura Shelton, PharmD 04/20/[address] [facility] Medicine Specialties [address], [address]nd [place] [address] Ryann Hill APRN from Last 3 Months Immunizations Immunization Administration Dates Next Due Moderna COVID-19 Vaccine (Cloud Developer) 12+ years ,02/22/2021 Family History Medical History [...] Description 06/23/2025 3:20 PM EDT Office Visit [facility] Medicine Specialties [address], [address] [place] [address] Ryann Hill L, HARBOR BOAT PILOT [address] [place] [address] Health Maintenance Due Date Last Done Comments [...] 2016 [facility]-Cervical Cancer Screening 2019 [facility]-HPV/Cotest 2019 [id number] Vaccine (3 - Moderna risk series) 04/25/2021 [...] age to complete this topic Insurance AETNA [facility] MEDICAID Care Teams Nanosystems Engineer Relationship Specialty Start Date End Date Mayuri Diego APRN [address] [place] [address] PCP - General 07/22/23 Ivonne Gonzalez MD [address] [facility] [address] [place] [address] Service Attending Neuro-Ophthalmology 02/27/23
--- OUTSIDE RECORDS SUMMARY | 2025-05-13 11:46 | XMS_ITS | Encounter Summary ---
Author Organization [facility] Address [address] [place] [address] Care Team Providers Care Lidar Scientist Name Role Phone Ivonne Gonzalez MD Unavailable [phone] Mayuri Diego WEIGHT ANALYST Primary Care Provider [phone] Encounter Details Date Type Department Care Team (Late st Contact Info) Description 04/20/2025 Orders Only [facility] Medicine Specialties [address], [address] [place] [address] Ryann Hill, WEIGHT ANALYST [address] [place] [address] Social History Tobacco Use Types [...] Visit [place] [facility] [address], [address] [place] [address] Ryann Hill, WEIGHT ANALYST [address] [place] [address] documented as of this encounter [...] documented as of this encounter Care Teams Lidar Scientist Relationship Specialty Start Date End Date Mayuri Diego, WEIGHT ANALYST [address] [place] [address] PCP - General 07/22/23 Ivonne Gonzalez MD [address] [place] [address] Service Attending Neuro-Ophthalmology 02/27/23 documented as of this encounter
[2025-05-13 12:12] LABS: Hematocrit 36.3 % (37.0-47.0); Hemoglobin 12.3 g/dL (12.2-16.2); Immature Granulocytes % 0.2 %; Mean Corpuscular HGB Conc 33.9 g/dL (31.8-35.4); Mean Corpuscular Hemoglobin 30.0 pg (27.0-31.2); Mean Corpuscular Volume 88.5 fl (81-99); Nucleated Red Blood Cells % 0 %; Platelet Count 236 K/mm3 (142-424); Red Blood Count 4.10 M/mm3 (4.20-5.40); Red Cell Distribution Width-SD 40.5 fL; White Blood Count 8.5 K/mm3 (4.8-10.8)
[2025-05-13 12:37] LABS: Albumin Level 4.0 g/dl (3.5-5.0); Chloride 107 mmol/L (98-107); Potassium 4.4 mmoL/L (3.5-5.1); Sodium 138 mmol/L (136-145)
[2025-05-13 12:39] LABS: Alanine Aminotransferase 23 U/L (12-78); Alkaline Phosphatase 90 U/L (38-126); Aspartate Amino Transferase 30 U/L (14-36); Bilirubin,Total 0.3 mg/dl (0.2-1.3); Blood Urea Nitrogen 13 mg/dl (7-17); Creatinine,Serum 0.80 mg/dl (0.52-1.04); Estimated Glomerular Filt Rate 82 ml/min (>60); GFR (African American) 99 ML/MIN (>60)
[2025-05-13 12:40] LABS: Albumin/Globulin Ratio 1.5 (1.1-1.8); Calcium 9.7 mg/dl (8.4-10.2); Globulin 2.7 g/dL (1.3-3.2); Glucose 109 mg/dl (74-100); Magnesium 1.5 mg/dl (1.6-2.3); Total Protein,Serum 6.7 g/dl (6.3-8.2)
[2025-05-13 13:11] LABS: Thyroid Stimulating Hormone 2.03 uIU/mL (0.465-4.68)
[2025-05-13 13:15] LABS: Ferritin 21.8 ng/ml (6.24-137)
[2025-05-13 13:30] LABS: Vitamin B12 611 pg/mL (239-931)
[2025-05-14 00:51] LABS: Anion Gap 9.4 mEq/L (5-15); Carbon Dioxide 26 mmol/L (22.0-30.0)
[2025-05-14 03:47] LABS: C-Reactive Protein 12.5 mg/L (0-4)
== END 2025-05-13 23:59 | disposition home or self-care (01) ==
LOC: LAB 11:44
PROVIDERS: PCP Nurse Practitioner Family; Visit Provider Nurse Practitioner Family
DX: R00.0 Tachycardia, unspecified (principal); R79.89 Other specified abnormal findings of blood chemistry; I10 Essential (primary) hypertension
CPT/HCPCS: 36415; 80053; 82607; 82728; 83735; 84443; 85025; 86140

== ENCOUNTER 2025-05-14 13:19 | Outpatient (CLI) | payer OTHER, SELFPAY ==
--- OUTSIDE RECORDS SUMMARY | 2025-05-14 13:21 | XMS_ITS | Clinical Summary ---
Author Organization [facility] Address [address] [place] [address] Care Team Providers Care International Tax Manager Name Role Phone Mayuri Diego APRN Primary Care Provider [phone] Allergies Active Allergy Reactions Criticality Noted Date [...] 2 (Two) Times a Day. Active Methylcobalamin (P36-VOXAOP PO) Take 1 tablet by mouth Daily. [...] = 0.6 oz pur e alcohol) OCCASIONAL [employer] Utilities Answer Date Recorded In the past 12 months has e [employer], gas, oil, or water [facility] threatened to shut off services in your [...] or training? Not on file Preferred Language Albanian 01/22/2024 Comments Unknown Sex and Gender Information [...] VACCINE 06/09/2025 Medical Devices Implanted Type Area Waste Oil Pumper Device Identifier Shelf Expiration Date Model / Serial / Lot Sut Nonabs Bone Dynacord Uhmwpe W/Os/6 Ndl 2pk Strip/Balbir - [id number] Implanted:Qty: 2 on 01/21/2024 by Sandor Barboza Jr., MD at [facility] Implant Left: Scapula DEPUY MITEK 05/09/2026 [id number] / / [id number] Tndn Semitendinous Flexigraft 1strnd Fz [id number] - [id number] Implanted:Qty: 1 on 01/21/2024 by Sandor Barboza Jr., MD at [facility] Implant Left: Scapula [facility] 10/29/2028 [facility] / / [id number] Insurance [facility] Care Teams International Tax Manager Relationship Specialty Start Date End Date Mayuri Diego APRN [facility] [place] [address] [place] [address] PCP - General Internal Medicine 12/19/23
--- OUTSIDE RECORDS SUMMARY | 2025-05-14 13:21 | XMS_ITS | Encounter Summary ---
Author Organization [facility] Address [address] [place] [address] Care Team Providers Care Health Data Analyst Name Role Phone Kulwinder Smiley MD Primary Care Provider [phone] Ivonne Gonzalez MD Unavailable [phone] Mayuri Diego APRN Primary Care Provider [phone] Reason for Referral * Consultation (Routine) - Closed Specialty Diagnoses / Procedures Referred By Contharshil t Referred To Contact Rheumatology Diagnoses Positive AUDREY (antinuclear antibody) Vitiligo Feeling tired Law Naylor APRN [address] [place] [address] Phone: tel: fax: Referral ID Status Reason Start Date Expiration Date V isits Requested Visits Authorized [id number] Closed Specialty Services Required 03/27/2022 09/26/2023 1 1 Encounter Details Date Type Department Care Team (Late st Contact Info) Description 03/27/2022 Community [facility] Community Practice [address] [place] [address] [place] [address] Positive AUDREY (antinuclear antibody) (Primary [...] Description 06/23/2025 3:20 PM EDT Office Visit [place] [facility] [address], [address] [place] [address] Ryann Hill, PROOF PRESS OPERATOR [address] [place] [address] Scheduled Referrals Name Type Priority Associated Diagnoses Order Schedule Ambulatory referral to Rheumatology Outpatient Referral Routine Positive AUDREY (antinuclear antibody) Vitiligo Feeling tired Expected: 03/27/2022 (Approximate), Expires: 09/27/2023 documented as of this encounter Visit Diagnoses Diagnosis Positive AUDREY (antinuclear antibody)- Primary Other and unspecified nonspecific immunological findings Vitiligo Feeling tired documented in this encounter Care Teams Health Data Analyst Relationship Specialty Start Date End Date Kulwinder Smiley MD [address] [place] [address] PCP - General 01/20/21 07/21/23 Mayuri Diego, PROOF PRESS OPERATOR [address] [place] [address] PCP - General 07/22/23 Ivonne Gonzalez MD [address] [facility] [address] [place] [address] Service Attending Neuro-Ophthalmology 02/27/23 documented as of this encounter
--- OUTSIDE RECORDS SUMMARY | 2025-05-14 13:21 | XMS_ITS | Encounter Summary ---
Author Organization [facility] Address [address] [place] [address] Care Team Providers Care Manager Disaster Recovery Name Role Phone Ivonne Gonzalez MD Unavailable [phone] Mayuri Diego KENO WRITER / RUNNER Primary Care Provider [phone] Encounter Details Date Type Department Care Team (Late st Contact Info) Description 04/20/2025 Orders Only [facility] Medicine Specialties [address], [address] [place] [address] Ryann Hill, KENO WRITER / RUNNER [address] [place] [address] Social History Tobacco Use Types [...] Visit [place] [facility] [address], [address] [place] [address] Ryann Hill, KENO WRITER / RUNNER [address] [place] [address] documented as of this encounter [...] documented as of this encounter Care Teams Manager Disaster Recovery Relationship Specialty Start Date End Date Mayuri Diego, KENO WRITER / RUNNER [address] [place] [address] PCP - General 07/22/23 Ivonne Gonzalez MD [address] [place] [address] Service Attending Neuro-Ophthalmology 02/27/23 documented as of this encounter
--- OUTSIDE RECORDS SUMMARY | 2025-05-14 13:21 | XMS_ITS | Encounter Summary ---
Author Organization [facility] Address [address] [address] Care Team Providers Care Water Systems Engineer Name Role Phone Kulwinder Smiley MD Primary Care Provider [phone] Ivonne Gonzalez MD Unavailable [phone] Mayuri Diego APRN Primary Care Provider [phone] Reason for Referral * Consultation (Routine) - Closed Specialty Diagnoses / Procedures Referred By Contharshil greenwood Referred To Contact Neurology Diagnoses Facial neuralgia Chronic migraine without aura, intractable, without status migrainosus Lupus Law Naylor APRN [address] [place] [address] Phone: tel: fax: Referral ID Status Reason Start Date Expiration Date V isits Requested Visits Authorized [id number] Closed Specialty Services Required 08/14/2022 02/13/2024 1 1 Encounter Details Date Type Department Care Team (Late st Contact Info) Description 08/14/2022 Community [facility] Community Practice [address] [place] [address] Law Naylor APRN [address] [place] [address] Facial neuralgia (Primary Dx); Chronic [...] Description 06/23/2025 3:20 PM EDT Office Visit [facility] [address], [address] [place] [address] Ryann Hill APRN [address] [place] [address] Scheduled Referrals Name Type Priority [...] documented as of this encounter Care Teams Water Systems Engineer Relationship Specialty Start Date End Date Kulwinder Smiley MD [address] [place] [address] PCP - General 01/20/21 07/21/23 Mayuri Diego APRN [address] [place] [address] PCP - General 07/22/23 Ivonne Gonzalez MD [address] [facility] [address] [place] [address] Service Attending Neuro-Ophthalmology 02/27/23 documented as of this encounter
--- OUTSIDE RECORDS SUMMARY | 2025-05-14 13:21 | XMS_ITS | Clinical Summary ---
Author Organization [facility] Address [address] [place] [address] Care Team Providers Care Managing Cognitive Engineer Name Role Phone Ivonne Gonzalez MD Unavailable [phone] Mayuri Diego APRN Primary Care Provider [phone] Allergies Active Allergy Reactions Criticality Noted Date [...] Type Department Care Team Description 04/20/2025 Telephone [facility] [address], [address] [place] [address] Ventura Shelton, PharmD 04/20/2025 Orders Only [facility] Medicine Specialties [address], [address] [place] [address] Ryann Hill APRN from Last 3 Months Immunizations Immunization Administration Dates Next Due Moderna COVID-19 Vaccine (Certified Forklift Operator) 12+ years ,02/22/2021 Family History Medical History [...] Description 06/23/2025 3:20 PM EDT Office Visit [facility] Medicine Specialties [address], [address] [place] [address] Ryann Hill L, WINDOWS APPLICATION ADMINISTRATOR [address] [place] [address] Health Maintenance Due Date Last [...] 2016 [facility]-Cervical Cancer Screening 2019 [facility]-HPV/Cotest 2019 [id number] Vaccine (3 - Moderna risk series) 04/25/2021 [...] age to complete this topic Insurance AETNA [facility] MEDICAID Care Teams Managing Cognitive Engineer Relationship Specialty Start Date End Date Mayuri Diego APRN [address] [place] [address] PCP - General 07/22/23 Ivonne Gonzalez MD [address] [facility] [address] [place] [address] Service Attending Neuro-Ophthalmology 02/27/23
--- OUTSIDE RECORDS SUMMARY | 2025-05-14 13:22 | XMS_ITS | Encounter Summary ---
Author Organization [facility] Address [address] [place] [address] Care Team Providers Care Manager Intern Name Role Phone Ivonne Gonzalez MD Unavailable [phone] Mayuri Diego APRN Primary Care Provider [phone] Encounter Details Date Type Department Care Team (Late st Contact Info) Description 04/20/2025 Telephone [facility] [address], [address] [place] [address] Ventura Shelton PharmD [place] [id number] Social History Tobacco Use Types Packs/Day Years [...] Description 06/23/2025 3:20 PM EDT Office Visit [facility] [address], [address] [place] [address] Ryann Hill, NEYDA [address] [place] [address] documented as of this encounter [...] as of this encounter Care Teams Manager Intern Relationship Specialty Start Date End Date Mayuri Diego APRN [address] [place] [address] PCP - General 07/22/23 Ivonne Gonzalez MD [address] [place] [address] Service Attending Neuro-Ophthalmology 02/27/23 documented as of this encounter
--- OUTSIDE RECORDS SUMMARY | 2025-05-14 13:22 | XMS_ITS | Encounter Summary ---
Author Organization [facility] Address [address] [place] [address] Care Team Providers Care Business Owner/Engineer Name Role Phone Ivonne Gonzalez MD Unavailable [phone] Mayuri Diego APRN Primary Care Provider [phone] Reason for Visit * Reason Comments Med Refill Encounter Details Date Type Department Care Team (Late st Contact Info) Description 12/17/2024 Refill [place] [facility] [address], [address] [place] [address] Ivonne Gonzalez MD [address] [place] [address] Social History Tobacco Use Types [...] Visit [facility] [address], [address] [place] [address] Ryann Hill APRN [address] [facility] [address] [place] [address] documented as of this encounter Visit Diagnoses Not on filedocumented in this encounter Additional Health Concerns Assessment Noted Time A fall risk assessment has been complete d for the patient 06/22/2024 11:27 AM EDT A Body Mass Index follow-up plan has been documented for the patient 06/22/2024 12:22 PM EDT documented as of this encounter Care Teams Business Owner/Engineer Relationship Specialty Start Date End Date Mayuri Diego APRN [address] [place] [address] PCP - General 07/22/23 Ivonne Gonzalez MD [address] [facility] [address] [place] [address] Service Attending Neuro-Ophthalmology 02/27/23 documented as of this encounter
== END 2025-05-14 23:59 | disposition home or self-care (01) ==
LOC: LAB 13:20
PROVIDERS: PCP Nurse Practitioner Family; Visit Provider Nurse Practitioner Family
DX: R23.2 Flushing (principal)
CPT/HCPCS: 36415; 82627; 82670

== ENCOUNTER 2025-05-15 08:08 | Outpatient (CLI) | payer OTHER, SELFPAY ==
--- OUTSIDE RECORDS SUMMARY | 2013-04-08 11:50 | XMS_ITS | Continuity of Care Document ---
Author Organization [facility] Address [address] [place] [address] Phone Care Team Providers Care Office Machine Inspector Name Role Phone Unavailable Unavailable Unavailable Allergies, [...] on Encounter OFFICE/OUTPA TIENT VISIT, NEW Eye [facility], [address] , [place], [place], [id number] , tel:[phone] [facility] [place] Bad headacheAstigmatis m, unspecifiedHyperme tropia 3 No Information Family History Family Member Type Diagnosis Age At Onset Multiple Problem (finding) Cancer Multiple Problem (finding) Maternal history of rahul betes mellitus Mother Problem (finding) HBP Multiple Problem (finding) cataract Payers Payer name Insurance type Covered alliance party ID Authoriza tion(s) No Information Social [...]
--- OUTSIDE RECORDS SUMMARY | 2013-07-03 07:24 | XMS_ITS | Continuity of Care Document ---
Author Organization [facility] Address [address] [facility] [address] [id number] [place] [address] Care Team Providers Care Physical Meteorologist Name Role Phone Unavailable Unavailable Unavailable Allergies, [...] Urinalysis - Clinitek Test (Urine) OFFICE/OUTPATIENT VISIT, [facility] OFFICE/OUTPATIENT VISIT, [facility] URINE TEST OFFICE/OUTPATIENT VISIT, [facility] IMMUNIZATION ADMIN FLU VACCINE, 3 YRS & >, IM TOBACCO NON-USER OFFICE/OUTPATIENT VISIT, [facility] URINALYSIS NONAUTO W/O SCOPE TOBACCO NON-USER Advance Directives Directive Yes / No Effective Date File Name No Information Encounters Encounter Description Practice Location Reason(s) For Visit Diagnoses Date Provider Providers Copied on Encounter [place] [address] [id number] [place], [address] [place] [address] No Information 3 No Information OFFICE/OUTPA TIENT VISIT, [place] [address] [id number] [place], [address] [place] [address] injury (chief complaint) Unspecified site of ankle sprain 3 No Information OFFICE/OUTPA TIENT VISIT, [place] [address] [id number] [place], [address] [place] [address] discuss test results (chief complaint) Headache 3 No Information OFFICE/OUTPA TIENT VISIT, [place] [address] [id number] [place], [address] [place] [address] migraine (chief complaint) Headache 3 No Information OFFICE/OUTPA TIENT VISIT, [place] [address] [id number] [place], [address] [place] [address] fever (chief complaint) Upper Respiratory Infection, Acute 3 No Information OFFICE/OUTPA TIENT VISIT, [place] [address] [id number] [place], [address] [place] [address] cold symptoms (chief complaint) Upper Respiratory Infection, Acute 3 No Information OFFICE/OUTPA TIENT VISIT, [facility], [address] [place] [address] [id number] [place], [facility], [facility] abdominal pain (chief complaint) GERD 2 No Information OFFICE/OUTPA TIENT VISIT, [facility], [address] [place] [address] [id number] [place], [facility], [facility] migraine (chief complaint) Headache 2 No Information OFFICE/OUTPA TIENT VISIT, [place] [address] [id number] [place], [facility], [facility] UTI (chief complaint) FLU SHOT (chief complaint) palpitatio n (chief complaint) DysuriaPalpitatio nsInfluenza Vaccine 2 No Information OFFICE/OUTPA TIENT VISIT, [place] [address] [id number] [place], [address] [place] [address] abdominal pain (chief complaint) LABORATORY EXAM NOSPregnancy examination or test, unconfirmedAbdomi nal pain, left lower quadrantIrregular menstrual cycle 2 No Information [place] [address] [id number] [place], [address], [facility] No Information 2 No Information OFFICE/OUTPA TIENT VISIT, [place] [address] [id number] [place], [address] [place] [address] No Information 2 Nurse Nurse. [address] [place] [address], [id number], [place]. tel:[phone] OFFICE/OUTPA TIENT VISIT, [place] [address] [id number] [place], [place], [id number] [place] [address] No Information 1 No Information OFFICE/OUTPA TIENT VISIT, [place] [address] [id number] [place], [address], [facility] No Information May- 1 No Information Family [...] Record Payers Payer name Insurance type Covered alliance [...]
--- OUTSIDE RECORDS SUMMARY | 2025-05-15 08:11 | XMS_ITS | Encounter Summary ---
Author Organization [facility] Address [address] [place] [address] Care Team Providers Care Elect Equip Maint Eng Name Role Phone Kulwinder Smiley MD Primary Care Provider [phone] Ivonne Gonzalez MD Unavailable [phone] Mayuri Diego APRN Primary Care Provider [phone] Reason for Referral * Consultation (Routine) - Closed Specialty Diagnoses / Procedures Referred By Contharshil greenwood Referred To Contact Neurology Diagnoses Facial neuralgia Chronic migraine without aura, intractable, without status migrainosus Lupus Law Naylor APRN [address] [place] [address] Phone: tel: fax: Referral ID Status Reason Start Date Expiration Date V isits Requested Visits Authorized [id number] Closed Specialty Services Required 08/14/2022 02/13/2024 1 1 Encounter Details Date Type Department Care Team (Late st Contact Info) Description 08/14/2022 Community [facility] Community Practice [address] [place] [address] [place] [address] Facial neuralgia (Primary Dx); Chronic [...] Visit [facility] [address], [address] [place] [address] Ryann Hill APRN [address] [place] [address] Scheduled Referrals Name Type Priority [...] documented as of this encounter Care Teams Elect Equip Maint Eng Relationship Specialty Start Date End Date Kulwinder Smiley MD [address] [place] [address] PCP - General 01/20/21 07/21/23 Mayuri Diego APRN [address] [place] [address] PCP - General 07/22/23 Ivonne Gonzalez MD [address] [facility] [address] [place] [address] Service Attending Neuro-Ophthalmology 02/27/23 documented as of this encounter
--- OUTSIDE RECORDS SUMMARY | 2025-05-15 08:12 | XMS_ITS | Clinical Summary ---
Author Organization [facility] Address [address] [place] [address] Care Team Providers Care Junk Removal Specialist Name Role Phone Ivonne Gonzalez MD Unavailable [phone] Mayuri Diego APRN Primary Care Provider [phone] Allergies Active Allergy Reactions Criticality Noted Date [...] Type Department Care Team Description 04/20/2025 Telephone [facility] [address], [address] [place] [address] Ventura Shelton, PharmD 04/20/2025 Orders Only [facility] Medicine Specialties [address], [address] [place] [address] Ryann Hill APRN from Last 3 Months Immunizations Immunization Administration Dates Next Due Moderna COVID-19 Vaccine (Waste Water Plant Operator) 12+ years ,02/22/2021 Family History Medical [...] Description 06/23/2025 3:20 PM EDT Office Visit [facility] Medicine Specialties [address], [address] [place] [address] Ryann Hill L, HEALTH LEAD [address] [place] [address] Health Maintenance Due Date Last [...] 2016 [facility]-Cervical Cancer Screening 2019 [facility]-HPV/Cotest 2019 [id number] Vaccine (3 - Moderna risk series) 04/25/2021 [...] age to complete this topic Insurance AETNA [facility] MEDICAID Care Teams Junk Removal Specialist Relationship Specialty Start Date End Date Mayuri Diego APRN [address] [place] [address] PCP - General 07/22/23 Ivonne Gonzalez MD [address] [facility] [address] [place] [address] Service Attending Neuro-Ophthalmology 02/27/23
--- OUTSIDE RECORDS SUMMARY | 2025-05-15 08:13 | XMS_ITS | Clinical Summary ---
Author Organization [facility] Address [address] [place] [address] Care Team Providers Care Scanner Operator Name Role Phone Mayuri Diego APRN Primary Care Provider [phone] Allergies Active Allergy Reactions Criticality Noted Date [...] 2 (Two) Times a Day. Active Methylcobalamin (Q14-OSFIPI PO) Take 1 tablet by mouth Daily. [...] = 0.6 oz pur e alcohol) OCCASIONAL [employer] Answer Date Recorded In the past 12 months has e [employer], gas, oil, or water [employer] threatened to shut off services in your [...] or training? Not on file Preferred Language German 01/22/2024 Comments Unknown Sex and Gender Information [...] VACCINE 06/09/2025 Medical Devices Implanted Type Area Metal Leaf Layer Device Identifier Shelf Expiration Date Model / Serial / Lot Sut Nonabs Bone Dynacord Uhmwpe W/Os/6 Ndl 2pk Strip/Balbir - [id number] Implanted:Qty: 2 on 01/21/2024 by Sandor Barboza Jr., MD at [facility] Implant Left: Scapula DEPUY [employer] 05/09/2026 [id number] / / [id number] Tndn Semitendinous Flexigraft 1strnd Fz [id number] - [id number] Implanted:Qty: 1 on 01/21/2024 by Sandor Barboza Jr., MD at [facility] Implant Left: Scapula LIFEON LICENSE OF [facility] 10/29/2028 [facility] / / [id number] Insurance [facility] Care Teams Scanner Operator Relationship Specialty Start Date End Date Mayuri Diego APRN [facility] [place] [address] [place] [address] PCP - General Internal Medicine 12/19/23
--- OUTSIDE RECORDS SUMMARY | 2025-05-15 08:13 | XMS_ITS | Encounter Summary ---
Author Organization [facility] Address [address] [place] [address] Care Team Providers Care Drier Transfer Car Operator Name Role Phone Ivonne Gonzalez MD Unavailable [phone] Mayuri Diego APRN Primary Care Provider [phone] Reason for Visit * Reason Comments Med Refill Encounter Details Date Type Department Care Team (Late st Contact Info) Description 12/17/2024 Refill [place] [facility] [address], [address] [place] [address] Ivonne Gonzalez MD [address] [place] [address] Social History Tobacco Use Types [...] Description 06/23/2025 3:20 PM EDT Office Visit [facility] [address], [address] [place] [address] Ryann Hill APRN [address] [facility] [address] [place] [address] documented as of this encounter Visit Diagnoses Not on filedocumented in this encounter Additional Health Concerns Assessment Noted Time A fall risk assessment has been complete d for the patient 06/22/2024 11:27 AM EDT A Body Mass Index follow-up plan has been documented for the patient 06/22/2024 12:22 PM EDT documented as of this encounter Care Teams Drier Transfer Car Operator Relationship Specialty Start Date End Date Mayuri Diego APRN [address] [place] [address] PCP - General 07/22/23 Ivonne Gonzalez MD [address] [facility] [address] [place] [address] Service Attending Neuro-Ophthalmology 02/27/23 documented as of this encounter
--- OUTSIDE RECORDS SUMMARY | 2025-05-15 08:13 | XMS_ITS | Encounter Summary ---
Author Organization [facility] Address [address] [place] [address] Care Team Providers Care Hand Violin Maker Name Role Phone Kulwinder Smiley MD Primary Care Provider [phone] Ivonne Gonzalez MD Unavailable [phone] Mayuri Diego APRN Primary Care Provider [phone] Reason for Referral * Consultation (Routine) - Closed Specialty Diagnoses / Procedures Referred By Contharshil t Referred To Contact Rheumatology Diagnoses Positive AUDREY (antinuclear antibody) Vitiligo Feeling tired Law Naylor APRN [address] [place] [address] Phone: tel: fax: Referral ID Status Reason Start Date Expiration Date V isits Requested Visits Authorized [id number] Closed Specialty Services Required 03/27/2022 09/26/2023 1 1 Encounter Details Date Type Department Care Team (Late st Contact Info) Description 03/27/2022 Community [facility] Community Practice [address] [place] [address] Law Naylor APRN [address] [place] [address] Positive AUDREY (antinuclear antibody) (Primary [...] Description 06/23/2025 3:20 PM EDT Office Visit [place] [facility] Specialties [address], [address] [place] [address] Ryann Hill, AUTOMOTIVE SERVICE MANAGER [address] [place] [address] Scheduled Referrals Name Type Priority Associated Diagnoses Order Schedule Ambulatory referral to Rheumatology Outpatient Referral Routine Positive AUDREY (antinuclear antibody) Vitiligo Feeling tired Expected: 03/27/2022 (Approximate), Expires: 09/27/2023 documented as of this encounter Visit Diagnoses Diagnosis Positive AUDREY (antinuclear antibody)- Primary Other and unspecified nonspecific immunological findings Vitiligo Feeling tired documented in this encounter Care Teams Hand Violin Maker Relationship Specialty Start Date End Date Kulwinder Smiley MD [address] [place] [address] PCP - General 01/20/21 07/21/23 Mayuri Diego, AUTOMOTIVE SERVICE MANAGER [address] [place] [address] PCP - General 07/22/23 Ivonne Gonzalez MD [address] [facility] [address] [place] [address] Service Attending Neuro-Ophthalmology 02/27/23 documented as of this encounter
--- OUTSIDE RECORDS SUMMARY | 2025-05-15 08:13 | XMS_ITS | Encounter Summary ---
Author Organization [facility] Address [address] [place] [address] Care Team Providers Care Assistant To The President Name Role Phone Ivonne Gonzalez MD Unavailable [phone] Mayuri Diego POTATO CHIP SACKING MACHINE OPERATOR Primary Care Provider [phone] Encounter Details Date Type Department Care Team (Late st Contact Info) Description 04/20/2025 Orders Only [facility] Medicine Specialties [address], [address] [place] [address] Ryann Hill, POTATO CHIP SACKING MACHINE OPERATOR [address] [place] [address] Social History Tobacco Use Types [...] Visit [place] [facility] [address], [address] [place] [address] Ryann Hill, POTATO CHIP SACKING MACHINE OPERATOR [address] [place] [address] documented as of this encounter [...] documented as of this encounter Care Teams Assistant To The President Relationship Specialty Start Date End Date Mayuri Diego, POTATO CHIP SACKING MACHINE OPERATOR [address] [place] [address] PCP - General 07/22/23 Ivonne Gonzalez MD [address] [place] [address] Service Attending Neuro-Ophthalmology 02/27/23 documented as of this encounter
--- OUTSIDE RECORDS SUMMARY | 2025-05-15 08:13 | XMS_ITS | Encounter Summary ---
Author Organization [facility] Address [address] [place] [address] Care Team Providers Care Sign Artist Name Role Phone Ivonne Gonzalez MD Unavailable [phone] Mayuri Diego APRN Primary Care Provider [phone] Encounter Details Date Type Department Care Team (Late st Contact Info) Description 04/20/2025 Telephone [facility] [address], [address] [place] [address] Ventura Shelton PharmD [place] [id number] Social History Tobacco Use Types Packs/Day Years [...] Visit [facility] [address] [place] [address] Ryann Hill, NEYDA [address] [place] [address] documented as of this encounter [...] documented as of this encounter Care Teams Sign Artist Relationship Specialty Start Date End Date Mayuri Diego APRN [address] [place] [address] PCP - General 07/22/23 Ivonne Gonzalez MD [address] [place] [address] Service Attending Neuro-Ophthalmology 02/27/23 documented as of this encounter
== END 2025-05-15 23:59 | disposition home or self-care (01) ==
LOC: LAB 08:09
PROVIDERS: PCP Nurse Practitioner Family; Visit Provider Nurse Practitioner Family
DX: R23.2 Flushing (principal)
CPT/HCPCS: 36415; 82533

== ENCOUNTER 2025-05-19 09:25 | Outpatient (CLI) | payer OTHER, SELFPAY ==
--- OUTSIDE RECORDS SUMMARY | 2013-04-08 11:50 | XMS_ITS | Continuity of Care Document ---
Author Organization [facility] Address [address] [place] [address] Phone Care Team Providers Care Medical Fee Clerk Name Role Phone Unavailable Unavailable Unavailable Allergies, [...] [facility], [address] , [place], [place], [id number] , tel:[phone] [facility] [place] Bad headacheAstigmatis m, unspecifiedHyperme tropia 3 No Information Family History Family Member Type Diagnosis Age At Onset Multiple Problem (finding) Cancer Multiple Problem (finding) Maternal history of rahul betes mellitus Mother Problem (finding) HBP Multiple Problem (finding) cataract Payers Payer name Insurance type Covered green party ID Authoriza tion(s) No Information Social [...]
--- OUTSIDE RECORDS SUMMARY | 2013-07-03 07:24 | XMS_ITS | Continuity of Care Document ---
Author Organization [facility] Address [address] [facility] [address] [id number] [place] [address] Care Team Providers Care Quality Assurance Clerk Name Role Phone Unavailable Unavailable Unavailable [...] Urinalysis - Clinitek Test (Urine) OFFICE/OUTPATIENT VISIT, [facility] OFFICE/OUTPATIENT VISIT, [facility] URINE TEST OFFICE/OUTPATIENT VISIT, [facility] IMMUNIZATION ADMIN FLU VACCINE, 3 YRS & >, IM TOBACCO NON-USER OFFICE/OUTPATIENT VISIT, [facility] URINALYSIS NONAUTO W/O SCOPE TOBACCO NON-USER Advance Directives Directive Yes / No Effective Date File Name No Information Encounters Encounter Description Practice Location Reason(s) For Visit Diagnoses Date Provider Providers Copied on Encounter [place] [address] [id number] [place], [address] [place] [address] No Information 3 No Information OFFICE/OUTPA TIENT VISIT, [place] [address] [id number] [place], [address] [place] [address] injury (chief complaint) Unspecified site of ankle sprain 3 No Information OFFICE/OUTPA TIENT VISIT, [place] [address] [id number] [place], [address] [place] [address] discuss test results (chief complaint) Headache 3 No Information OFFICE/OUTPA TIENT VISIT, [place] [address] [id number] [place], [address] [place] [address] migraine (chief complaint) Headache 3 No Information OFFICE/OUTPA TIENT VISIT, [place] [address] [id number] [place], [address] [place] [address] fever (chief complaint) Upper Respiratory Infection, Acute 3 No Information OFFICE/OUTPA TIENT VISIT, [place] [address] [id number] [place], [address] [place] [address] cold symptoms (chief complaint) Upper Respiratory Infection, Acute 3 No Information OFFICE/OUTPA TIENT VISIT, [facility], [address] [place] [address] [id number] [place], [facility], [facility] abdominal pain (chief complaint) GERD 2 No Information OFFICE/OUTPA TIENT VISIT, [facility], [address] [place] [address] [id number] [place], [facility], [facility] migraine (chief complaint) Headache 2 No Information OFFICE/OUTPA TIENT VISIT, [place] [address] [id number] [place], [facility], [facility] UTI (chief complaint) FLU SHOT (chief complaint) palpitatio n (chief complaint) DysuriaPalpitatio nsInfluenza Vaccine 2 No Information OFFICE/OUTPA TIENT VISIT, [place] [address] [id number] [place], [address] [place] [address] abdominal pain (chief complaint) LABORATORY EXAM NOSPregnancy examination or test, unconfirmedAbdomi nal pain, left lower quadrantIrregular menstrual cycle 2 No Information [place] [address] [id number] [place], [address], [facility] No Information 2 No Information OFFICE/OUTPA TIENT VISIT, [place] [address] [id number] [place], [address] [place] [address] No Information 2 Nurse Nurse. [address] [place] [address], [id number], [place]. tel:[phone] OFFICE/OUTPA TIENT VISIT, [place] [address] [id number] [place], [place], [id number] [place] [address] No Information 1 No Information OFFICE/OUTPA TIENT VISIT, [place] [address] [id number] [place], [address], [facility] No Information May- 1 No [...] tations Echocardiogram ordered Related t o Palpitations CT abdomen and pelvis ordered Re lated to Abdominal pain, left lower quadrant Increase water intake Related to Abdominal pain, left lower quadrant Medications as instr ucted - complete antibiotics Related to Abdominal pain, left lower quadrant Assessments Type Assessment Date No Information Patient Care Teams Name Effective Dates (start - stop) Status Members No Information
--- NOTE | 2025-05-19 09:30 | US_ITS ---
FINAL REPORT TECHNIQUE: Sonographic images of the thyroid gland were obtained in the longitudinal and transverse planes. CLINICAL HISTORY: Repeat in 9 months COMPARISON: Report dated 07/17/2024, images dated 02/09/2021 FINDINGS: The right lobe measures 1.6 x 5.0 x 1.9 cm. There is a mixed cystic and solid nodule in the posterior mid thyroid measuring 21 mm in greatest dimension that is wider than tall consistent with TR 3. This previously measured 2.2 cm and appears stable. There is a second subcentimeter hypoechoic TR 4 nodule. The left lobe measures 6.0 x 1.7 x 1.7 cm. Several nodules are identified. There is a hypoechoic nodule in the lower pole measuring 22 mm that has increased in size since 2020 but is unclear if it has increased in size since 2023 since prior images for direct comparison is not available. This is consistent with TR 4. Several smaller nodules are identified. There is an 11 mm hyperechoic nodule consistent with TR 3. The isthmus measures 3 mm. This is normal. IMPRESSION: Bilateral thyroid nodules. Dominant right thyroid nodule is stable since the prior exam. Dominant left thyroid nodule has increased since 2020. Recommend direct comparison with a more recent prior although continued follow-up is likely needed. Reviewed, Interpreted and Dictated by Margie Kraft MD Transcribed by Estrella Head Authenticated and [facility]
--- OUTSIDE RECORDS SUMMARY | 2025-05-19 09:36 | XMS_ITS | Encounter Summary ---
Author Organization [facility] Address [address] [place] [address] Care Team Providers Care Green Chain Offbearer Name Role Phone Kulwinder Smiley MD Primary Care Provider [phone] Ivonne Gonzalez MD Unavailable [phone] Mayuri Diego APRN Primary Care Provider [phone] Reason for Referral * Consultation (Routine) - Closed Specialty Diagnoses / Procedures Referred By Contharshil greenwood Referred To Contact Neurology Diagnoses Facial neuralgia Chronic migraine without aura, intractable, without status migrainosus Lupus Law Naylor APRN [address] [place] [address] Phone: tel: fax: Referral ID Status Reason Start Date Expiration Date V isits Requested Visits Authorized [id number] Closed Specialty Services Required 08/14/2022 02/13/2024 1 1 Encounter Details Date Type Department Care Team (Late st Contact Info) Description 08/14/2022 Community [facility] Community Practice [address] [place] [address] Law Naylor APRN [address] [place] [address] Facial neuralgia (Primary Dx); Chronic [...] Visit [place] [facility] [address], [address] [place] [address] Ryann Hill APRN [address] [place] [address] Scheduled Referrals Name Type Priority [...] documented as of this encounter Care Teams Green Chain Offbearer Relationship Specialty Start Date End Date Kulwinder Smiley MD [address] [place] [address] PCP - General 01/20/21 07/21/23 Mayuri Diego APRN [address] [place] [address] PCP - General 07/22/23 Ivonne Gonzalez MD [address] [place] [address] Service Attending Neuro-Ophthalmology 02/27/23 documented as of this encounter
--- OUTSIDE RECORDS SUMMARY | 2025-05-19 09:36 | XMS_ITS | Encounter Summary ---
Author Organization [facility] Address [address] [place] [address] Care Team Providers Care Plumber Assistant Name Role Phone Ivonne Gonzalez MD Unavailable [phone] Mayuri Diego PAPERHANGER ASSISTANT Primary Care Provider [phone] Encounter Details Date Type Department Care Team (Late st Contact Info) Description 04/20/2025 Orders Only [facility] Medicine Specialties [address], [address] [place] [address] Ryann Hill, PAPERHANGER ASSISTANT [address] [place] [address] Social History Tobacco Use Types [...] Visit [place] [facility] [address], [address] [place] [address] Ryann Hill, PAPERHANGER ASSISTANT [address] [place] [address] documented as of this encounter [...] documented as of this encounter Care Teams Plumber Assistant Relationship Specialty Start Date End Date Mayuri Diego, PAPERHANGER ASSISTANT [address] [place] [address] PCP - General 07/22/23 Ivonne Gonzalez MD [address] [place] [address] Service Attending Neuro-Ophthalmology 02/27/23 documented as of this encounter
--- OUTSIDE RECORDS SUMMARY | 2025-05-19 09:36 | XMS_ITS | Encounter Summary ---
Author Organization [facility] Address [address] [place] [address] Care Team Providers Care Sr Account Executive Name Role Phone Kulwinder Smiley MD Primary Care Provider [phone] Ivonne Gonzalez MD Unavailable [phone] Mayuri Diego APRN Primary Care Provider [phone] Reason for Referral * Consultation (Routine) - Closed Specialty Diagnoses / Procedures Referred By Contharshil t Referred To Contact Rheumatology Diagnoses Positive AUDREY (antinuclear antibody) Vitiligo Feeling tired Law Naylor APRN [address] [place] [address] Phone: tel: fax: Referral ID Status Reason Start Date Expiration Date V isits Requested Visits Authorized [id number] Closed Specialty Services Required 03/27/2022 09/26/2023 1 1 Encounter Details Date Type Department Care Team (Late st Contact Info) Description 03/27/2022 Community [facility] Practice [address] [place] [address] [place] [address] Positive AUDREY (antinuclear antibody) (Primary [...] Description 06/23/2025 3:20 PM EDT Office Visit [place] [facility] [address], [address] [place] [address] Ryann Hill, CHAIN TENDER [address] [place] [address] Scheduled Referrals Name Type Priority Associated Diagnoses Order Schedule Ambulatory referral to Rheumatology Outpatient Referral Routine Positive AUDREY (antinuclear antibody) Vitiligo Feeling tired Expected: 03/27/2022 (Approximate), Expires: 09/27/2023 documented as of this encounter Visit Diagnoses Diagnosis Positive AUDREY (antinuclear antibody)- Primary Other and unspecified nonspecific immunological findings Vitiligo Feeling tired documented in this encounter Care Teams Sr Account Executive Relationship Specialty Start Date End Date Kulwinder Smiley MD [address] [place] [address] PCP - General 01/20/21 07/21/23 Mayuri Diego, CHAIN TENDER [address] [place] [address] PCP - General 07/22/23 Ivonne Gonzalez MD [address] [facility] [address] [place] [address] Service Attending Neuro-Ophthalmology 02/27/23 documented as of this encounter
--- OUTSIDE RECORDS SUMMARY | 2025-05-19 09:36 | XMS_ITS | Clinical Summary ---
Author Organization [facility] Address [address] [place] [address] Care Team Providers Care Lay Health Advocate Name Role Phone Ivonne Gonzalez MD Unavailable [phone] Mayuri Diego APRN Primary Care Provider [phone] Allergies Active Allergy Reactions Criticality Noted Date [...] Type Department Care Team Description 04/20/2025 Telephone [place] [facility] [address], [address] [place] [address] Ventura Shelton, PharmD 04/20/2025 Orders Only [facility] Medicine Specialties [address], [address]nd [place] [address] Ryann Hill APRN from Last 3 Months Immunizations Immunization Administration Dates Next Due Moderna COVID-19 Vaccine (Business Services Representative) 12+ years ,02/22/2021 Family History Medical History [...] Description 06/23/2025 3:20 PM EDT Office Visit [facility] Medicine Specialties [address], [address] [place] [address] Ryann Hill L, CHARTERED FINANCIAL ANALYST [address] [place] [address] Health Maintenance Due Date Last [...] 2016 [facility]-Cervical Cancer Screening 2019 [facility]Y-HPV/Cotest 2019 UYT-KHOPC-97 Vaccine (3 - Moderna risk series) 04/25/2021 [...] age to complete this topic Insurance AETNA [facility] MEDICAID Care Teams Lay Health Advocate Relationship Specialty Start Date End Date Mayuri Diego APRN [address] [place] [address] PCP - General 07/22/23 Ivonne Gonzalez MD [address] [facility] [address] [place] [address] Service Attending Neuro-Ophthalmology 02/27/23
--- OUTSIDE RECORDS SUMMARY | 2025-05-19 09:36 | XMS_ITS | Encounter Summary ---
Author Organization Healthcare Address [address] [place] [address] Care Team Providers Care Director Global Sales Name Role Phone Ivonne Gonzalez MD Unavailable [phone] Mayuri Diego APRN Primary Care Provider [phone] Reason for Visit * Reason Comments Med Refill Encounter Details Date Type Department Care Team (Late st Contact Info) Description 12/17/2024 Refill [place] [facility] [address], 1[address] [place] [address] Ivonne Gonzalez MD [address] [place] [address] Social History Tobacco Use Types [...] Description 06/23/2025 3:20 PM EDT Office Visit [place] [facility] [address], [address] [place] [address] Ryann Hill APRN [address] [facility] [address] [place] [address] documented as of this encounter Visit Diagnoses Not on filedocumented in this encounter Additional Health Concerns Assessment Noted Time A fall risk assessment has been complete d for the patient 06/22/2024 11:27 AM EDT A Body Mass Index follow-up plan has been documented for the patient 06/22/2024 12:22 PM EDT documented as of this encounter Care Teams Director Global Sales Relationship Specialty Start Date End Date Mayuri Diego APRN [address] [place] [address] PCP - General 07/22/23 Ivonne Gonzalez MD [address] [facility] [address] [place] [address] Service Attending Neuro-Ophthalmology 02/27/23 documented as of this encounter
--- OUTSIDE RECORDS SUMMARY | 2025-05-19 09:36 | XMS_ITS | Clinical Summary ---
Author Organization [facility] Address [address] [place] [address] Care Team Providers Care It Service Manager Name Role Phone Mayuri Diego APRN Primary Care Provider [phone] Allergies Active Allergy Reactions Criticality Noted Date [...] 2 (Two) Times a Day. Active Methylcobalamin (F94-CWGOAO PO) Take 1 tablet by mouth Daily. [...] = 0.6 oz pur e alcohol) OCCASIONAL [employer] Utilities Answer Date Recorded In the past 12 months has e [employer], gas, oil, or water [employer] threatened to shut off services in your [...] or training? Not on file Preferred Language Chinese 01/22/2024 Comments Unknown Sex and Gender Information [...] 12/19/2023 HEPATITIS C SCREENING 12/19/2023 COVID-19 Vaccine ( - season) 2025, 02/22/2021 INFLUENZA VACCINE 06/09/2025 Medical Devices Implanted Type Area Data Services Developer Device Identifier Shelf Expiration Date Model / Serial / Lot Sut Nonabs Bone Dynacord Uhmwpe W/Os/6 Ndl 2pk Strip/Balbir - [id number] Implanted:Qty: 2 on 01/21/2024 by Sandor Barboza Jr., MD at [facility] Implant Left: Scapula DEPUY MITEK 05/09/2026 [id number] / / [id number] Tndn Semitendinous Flexigraft 1strnd Fz [id number] - [id number] Implanted:Qty: 1 on 01/21/2024 by Sandor Barboza Jr., MD at [facility] Implant Left: Scapula [facility] 10/29/2028 [facility] / / [id number] Insurance [facility] Care Teams It Service Manager Relationship Specialty Start Date End Date Mayuri Diego APRN [facility] [place] [address] [place] [address] PCP - General Internal Medicine 12/19/23
--- OUTSIDE RECORDS SUMMARY | 2025-05-19 09:36 | XMS_ITS | Encounter Summary ---
Author Organization Healthcare Address [address] [place] [address] Care Team Providers Care Commercial Real Estate Agent Name Role Phone Ivonne Gonzalez MD Unavailable [phone] Mayuri Diego APRN Primary Care Provider [phone] Encounter Details Date Type Department Care Team (Late st Contact Info) Description 04/20/2025 Telephone [place] [facility] [address], [address] [place] [address] Ventura Shelton PharmD [place] [id number] Social History Tobacco Use Types Packs/Day Years [...] Visit [place] [facility] [address], [address] [place] [address] Ryann Hill, NEYDA [address] [place] [address] documented as of this encounter [...] documented as of this encounter Care Teams Commercial Real Estate Agent Relationship Specialty Start Date End Date Mayuri Diego APRN [address] [place] [address] PCP - General 07/22/23 Ivonne Gonzalez MD [address] [place] [address] Service Attending Neuro-Ophthalmology 02/27/23 documented as of this encounter
== END 2025-05-19 23:59 | disposition home or self-care (01) ==
LOC: RAD 09:26
PROVIDERS: PCP Nurse Practitioner Family; Visit Provider Nurse Practitioner
DX: E06.3 Autoimmune thyroiditis (principal); E04.2 Nontoxic multinodular goiter
CPT/HCPCS: 76536

== ENCOUNTER 2025-06-01 09:57 | Outpatient (CLI) | payer OTHER, SELFPAY ==
[2025-06-01 10:10] VITALS: BP 114/75; PULSE 71; RESP 18; TEMP 36.7; O2SAT 99
--- OUTSIDE RECORDS SUMMARY | 2025-06-01 10:10 | XMS_ITS | Clinical Summary ---
Author Organization [facility] Address [address] [place] [address] Care Team Providers Care Insurance Premium Auditor Name Role Phone Ivonne Gonzalez MD Unavailable [phone] Mayuri Diego APRN Primary Care Provider [phone] Allergies Active Allergy Reactions Criticality Noted Date [...] a day. 60 tablet 5 5 Active methylPREDNISol one (Medrol Dospak) 4 MG tablets Follow schedule on package instructions 21 tablet 5 Active Active Problems Problem Noted Date Diagnosed Date Chronic migraine without aur a, intractable, without status migrainosus 02/12/2024 Facial neuralgia 02/12/2024 Encounters Date Type Department Care Team Description 04/20/2025 Telephone [facility] Medicine Specialties [address], [address] [place] [address] Ventura Shelton PharmD 04/20/2025 Orders Only [facility] Medicine Specialties [address], [address] [place] [address] Ryann Hill, HORSE RACE STARTER from Last 3 Months Immunizations Immunization Administration Dates Next Due Moderna COVID-19 Vaccine (System Admin) 12+ years ,02/22/2021 Family History Medical History [...] Visit [place] [facility] [address], [address] [place] [address] Ryann Hill, NEYDA [address] [place] [address] Health Maintenance Due Date Last Done Comments [...] 2016 [facility]Y-Cervical Cancer Screening 2019 UKY-HPV/Cotest 2019 LLB-[id number]-58 Vaccine (3 - Moderna risk series) 04/25/2021 [...] age to complete this topic Insurance AETNA [facility] MEDICAID Care Teams Insurance Premium Auditor Relationship Specialty Start Date End Date Mayuri Diego APRN [address] [place] [address] PCP - General 07/22/23 Ivonne Gonzalez MD [address] [facility] [address] [place] [address] Service Attending Neuro-Ophthalmology 02/27/23
--- OUTSIDE RECORDS SUMMARY | 2025-06-01 10:10 | XMS_ITS | Encounter Summary ---
Author Organization [facility] Address [address] [place] [address] Care Team Providers Care Pan Washer Hand Name Role Phone Kulwinder Smiley MD Primary Care Provider [phone] Ivonne Gonzalez MD Unavailable [phone] Mayuri Diego APRN Primary Care Provider [phone] Reason for Referral * Consultation (Routine) - Closed Specialty Diagnoses / Procedures Referred By Contharshil t Referred To Contact Rheumatology Diagnoses Positive AUDREY (antinuclear antibody) Vitiligo Feeling tired aLw Naylor APRN [address] [place] [address] Phone: tel: fax: Referral ID Status Reason Start Date Expiration Date V isits Requested Visits Authorized [id number] Closed Specialty Services Required 03/27/2022 09/26/2023 1 1 Encounter Details Date Type Department Care Team (Late st Contact Info) Description 03/27/2022 Community [facility] Community Practice [address] [place] [address] Law Naylor APRN [address] [place] [address] Positive AUDREY (antinuclear antibody) (Primary [...] Description 06/23/2025 3:20 PM EDT Office Visit [place] [facility] Medicine [facility] [address], [address] [place] [address] Ryann Hill, WATCH AND CLOCK MAKER AND REPAIRER [address] [place] [address] Scheduled Referrals Name Type Priority Associated Diagnoses Order Schedule Ambulatory referral to Rheumatology Outpatient Referral Routine Positive AUDREY (antinuclear antibody) Vitiligo Feeling tired Expected: 03/27/2022 (Approximate), Expires: 09/27/2023 documented as of this encounter Visit Diagnoses Diagnosis Positive AUDREY (antinuclear antibody)- Primary Other and unspecified nonspecific immunological findings Vitiligo Feeling tired documented in this encounter Care Teams Pan Washer Hand Relationship Specialty Start Date End Date Kulwinder Smiley MD [address] [place] [address] PCP - General 01/20/21 07/21/23 Mayuri Diego, WATCH AND CLOCK MAKER AND REPAIRER [address] [place] [address] PCP - General 07/22/23 Ivonne Gonzalez MD [address] [facility] [address] [place] [address] Service Attending Neuro-Ophthalmology 02/27/23 documented as of this encounter
--- OUTSIDE RECORDS SUMMARY | 2025-06-01 10:10 | XMS_ITS | Encounter Summary ---
Author Organization Healthcare Address [address] [place] [address] Care Team Providers Care Clinical Liaison Name Role Phone Ivonne Gonzalez MD Unavailable [phone] Mayuri Diego APRN Primary Care Provider [phone] Encounter Details Date Type Department Care Team (Late st Contact Info) Description 04/20/2025 Telephone [place] [facility] [address], 2nd [place] [address] Ventura Shelton, PharmD [place] [id number] Social History Tobacco Use Types Packs/Day Years [...] Description 06/23/2025 3:20 PM EDT Office Visit [place] [facility] [address], [address] [place] [address] Ryann Hill, NEYDA [address] [place] [address] documented as of this encounter [...] documented as of this encounter Care Teams Clinical Liaison Relationship Specialty Start Date End Date Mayuri Diego APRN [address] [place] [address] PCP - General 07/22/23 Ivonne Gonzalez MD [address] [place] [address] Service Attending Neuro-Ophthalmology 02/27/23 documented as of this encounter
--- OUTSIDE RECORDS SUMMARY | 2025-06-01 10:10 | XMS_ITS | Encounter Summary ---
Author Organization [facility] Address [address] [place] [address] Care Team Providers Care Roll Forming Machine Set Up Operator Name Role Phone Kulwinder Smiley MD Primary Care Provider [phone] Ivonne Gonzalez MD Unavailable [phone] Mayuri Diego APRN Primary Care Provider [phone] Reason for Referral * Consultation (Routine) - Closed Specialty Diagnoses / Procedures Referred By Contharshil greenwood Referred To Contact Neurology Diagnoses Facial neuralgia Chronic migraine without aura, intractable, without status migrainosus Lupus Law Naylor APRN [address] [place] [address] Phone: tel: fax: Referral ID Status Reason Start Date Expiration Date V isits Requested Visits Authorized [id number] Closed Specialty Services Required 08/14/2022 02/13/2024 1 1 Encounter Details Date Type Department Care Team (Late st Contact Info) Description 08/14/2022 Community [facility] Community Practice [address] [place] [address] Law Naylor APRN [address] [place] [address] Facial neuralgia (Primary Dx); Chronic [...] Description 06/23/2025 3:20 PM EDT Office Visit [place] [facility] [address], [address] [place] [address] Ryann Hill APRN [address] [place] [address] Scheduled Referrals Name Type Priority [...] documented as of this encounter Care Teams Roll Forming Machine Set Up Operator Relationship Specialty Start Date End Date Kulwinder Smiley MD [address] [place] [address] PCP - General 01/20/21 07/21/23 Mayuri Diego APRN [address] [place] [address] PCP - General 07/22/23 Ivonne Gonzalez MD [address] [place] [address] Service Attending Neuro-Ophthalmology 02/27/23 documented as of this encounter
--- OUTSIDE RECORDS SUMMARY | 2025-06-01 10:10 | XMS_ITS | Clinical Summary ---
Author Organization [facility] Address [address] [place] [address] Care Team Providers Care Field Sales Representative Name Role Phone Mayuri Diego APRN Primary Care Provider [phone] Allergies Active Allergy Reactions Criticality Noted Date [...] 2 (Two) Times a Day. Active Methylcobalamin (Z11-JXJHJT PO) Take 1 tablet by mouth Daily. [...] = 0.6 oz pur e alcohol) OCCASIONAL [employer] Utilities Answer Date Recorded In the past 12 months has e [employer], gas, oil, or water [employer] threatened to shut off services in your [...] or training? Not on file Preferred Language British 01/22/2024 Comments Unknown Sex and Gender Information [...] ANNUAL PHYSICAL 12/19/2023 HEPATITIS C SCREENING 12/19/2023 INFLUENZA VACCINE 04/09/2025 Medical Devices Implanted Type Area Director Perioperative Device Identifier Shelf Expiration Date Model / Serial / Lot Sut Nonabs Bone Dynacord Uhmwpe W/Os/6 Ndl 2pk Strip/Balbir - [id number] Implanted:Qty: 2 on 01/21/2024 by Sandor Barboza Jr., MD at [facility] Implant Left: Scapula DEPUY MITEK 05/09/2026 [id number] / / [id number] Tndn Semitendinous Flexigraft 1strnd Fz [id number] - [id number] Implanted:Qty: 1 on 01/21/2024 by Sandor Barboza Jr., MD at [facility] Implant Left: Scapula LIFEFORMERLY [facility] 10/29/2028 [facility] / / [id number] Insurance [facility] Care Teams Field Sales Representative Relationship Specialty Start Date End Date Mayuri Diego APRN [address] [place] [address] PCP - General Internal Medicine 12/19/23
--- OUTSIDE RECORDS SUMMARY | 2025-06-01 10:10 | XMS_ITS | Encounter Summary ---
Author Organization Healthcare Address [address] [place] [address] Care Team Providers Care Director Of Recruitment Name Role Phone Ivonne Gonzalez MD Unavailable [phone] Mayuri Diego APRN Primary Care Provider [phone] Reason for Visit * Reason Comments Med Refill Encounter Details Date Type Department Care Team (Late st Contact Info) Description 12/17/2024 Refill [place] [facility] [address], [address] [place] [address] Ivonne Gonzalez MD [address] [place] [address] Social History Tobacco Use Types [...] Description 06/23/2025 3:20 PM EDT Office Visit [place] [facility] [address], [address] [place] [address] Ryann Hill APRN [address] [facility] [address] [place] [address] documented as of this encounter Visit Diagnoses Not on filedocumented in this encounter Additional Health Concerns Assessment Noted Time A fall risk assessment has been complete d for the patient 06/22/2024 11:27 AM EDT A Body Mass Index follow-up plan has been documented for the patient 06/22/2024 12:22 PM EDT documented as of this encounter Care Teams Director Of Recruitment Relationship Specialty Start Date End Date Mayuri Diego APRN [address] [place] [address] PCP - General 07/22/23 Ivonne Gonzalez MD [address] [facility] [address] [place] [address] Service Attending Neuro-Ophthalmology 02/27/23 documented as of this encounter
--- OUTSIDE RECORDS SUMMARY | 2025-06-01 10:10 | XMS_ITS | Encounter Summary ---
Author Organization [facility] Address [address] [place] [address] Care Team Providers Care Link Cutter Name Role Phone Ivonne Gonzalez MD Unavailable [phone] Mayuri Diego FUR IRONER Primary Care Provider [phone] Encounter Details Date Type Department Care Team (Late st Contact Info) Description 04/20/2025 Orders Only [facility] Medicine Specialties [address], [address] [place] [address] Ryann Hill, FUR IRONER [address] [place] [address] Social History Tobacco Use Types [...] Visit [place] [facility] [address], [address] [place] [address] Ryann Hill, FUR IRONER [address] [place] [address] documented as of this encounter [...] documented as of this encounter Care Teams Link Cutter Relationship Specialty Start Date End Date Mayuri Diego, FUR IRONER [address] [place] [address] PCP - General 07/22/23 Ivonne Gonzalez MD [address] [place] [address] Service Attending Neuro-Ophthalmology 02/27/23 documented as of this encounter
[2025-06-01] MEDS: MAGNESIUM SULFATE IN WATER 2 GM/50 ML PIGGYBACK IV (10:13)
[2025-06-01 11:15] VITALS: BP 120/84; PULSE 76
[2025-06-01] MEDS: SODIUM CHLORIDE 0.9% 10ML FLUSH SYRINGE 10 ML IV (11:40)
== END 2025-06-01 23:59 | disposition home or self-care (01) ==
LOC: INF 09:58
PROVIDERS: PCP Nurse Practitioner Family; Visit Provider Nurse Practitioner Family
DX: Z01.89 Encounter for other specified special examinations (principal)
CPT/HCPCS: 96365; J3475

== ENCOUNTER 2025-06-02 14:12 | Outpatient (CLI) | payer OTHER, SELFPAY ==
--- OUTSIDE RECORDS SUMMARY | 2013-04-08 11:50 | XMS_ITS | Continuity of Care Document ---
Author Organization [facility] Address [address] [place] [address] Phone Care Team Providers Care Physical Therapy Aide Name Role Phone Unavailable Unavailable Unavailable Allergies, [...] on Encounter OFFICE/OUTPA TIENT VISIT, NEW Eye [facility], [address] , [place], [place], [id number] , tel:[phone] [facility] [place] Bad headacheAstigmatis m, unspecifiedHyperme tropia 3 No [...]
--- OUTSIDE RECORDS SUMMARY | 2013-07-03 07:24 | XMS_ITS | Continuity of Care Document ---
Author Organization [facility] Address [address] [facility] eet [id number] [place] [address] Care Team Providers Care Ob Tech Name Role Phone Unavailable Unavailable Unavailable Allergies, [...] Urinalysis - Clinitek Test (Urine) OFFICE/OUTPATIENT VISIT, [facility] OFFICE/OUTPATIENT VISIT, [facility] URINE TEST OFFICE/OUTPATIENT VISIT, [facility] IMMUNIZATION ADMIN FLU VACCINE, 3 YRS & >, IM TOBACCO NON-USER OFFICE/OUTPATIENT VISIT, [facility] URINALYSIS NONAUTO W/O SCOPE TOBACCO NON-USER Advance Directives Directive Yes / No Effective Date File Name No Information Encounters Encounter Description Practice Location Reason(s) For Visit Diagnoses Date Provider Providers Copied on Encounter [place] [address] [id number] [place], [address] [place] [address] No Information 3 No Information OFFICE/OUTPA TIENT VISIT, [place] [address] [id number] [place], [address] [place] [address] injury (chief complaint) Unspecified site of ankle sprain 3 No Information OFFICE/OUTPA TIENT VISIT, [place] [address] [id number] [place], [address] [place] [address] discuss test results (chief complaint) Headache 3 No Information OFFICE/OUTPA TIENT VISIT, [place] [address] [id number] [place], [address] [place] [address] migraine (chief complaint) Headache 3 No Information OFFICE/OUTPA TIENT VISIT, [place] [address] [id number] [place], [address] [place] [address] fever (chief complaint) Upper Respiratory Infection, Acute 3 No Information OFFICE/OUTPA TIENT VISIT, [place] [address] [id number] [place], [address] [place] [address] cold symptoms (chief complaint) Upper Respiratory Infection, Acute 3 No Information OFFICE/OUTPA TIENT VISIT, [facility], [address] [place] [address] [id number] [place], [facility], [facility] abdominal pain (chief complaint) GERD 2 No Information OFFICE/OUTPA TIENT VISIT, [facility], [address] [place] [address] [id number] [place], [facility], [facility] migraine (chief complaint) Headache 2 No Information OFFICE/OUTPA TIENT VISIT, [place] [address] [id number] [place], [facility], [facility] UTI (chief complaint) FLU SHOT (chief complaint) palpitatio n (chief complaint) DysuriaPalpitatio nsInfluenza Vaccine 2 No Information OFFICE/OUTPA TIENT VISIT, [place] [address] [id number] [place], [address] [place] [address] abdominal pain (chief complaint) LABORATORY EXAM NOSPregnancy examination or test, unconfirmedAbdomi nal pain, left lower quadrantIrregular menstrual cycle 2 No Information [place] [address] [id number] [place], [address], [facility] No Information 2 No Information OFFICE/OUTPA TIENT VISIT, [place] [address] [id number] [place], [address] [place] [address] No Information 2 Nurse Nurse. [address] [place] [address], [id number], [place]. tel:[phone] OFFICE/OUTPA TIENT VISIT, [place] [address] [id number] [place], [place], [id number] [place] [address] No Information 1 No Information OFFICE/OUTPA TIENT VISIT, [place] [address] [id number] [place], [address], [facility] No Information May-2 1 No Information Family History Family Member [...] Record Payers Payer name Insurance type Covered green [...] Information Instructions Date Instruction Additional Infor mation Home, rest, increase fluids. Rel ated to Upper Respiratory Infection, Acute Take meds as prescribed - erythr omycin Related to Upper Respiratory Infection, Acute Recheck if no better in 7 to 10 days Related to Upper Respiratory Infection, Acute Ibuprofen as needed Related to U pper Respiratory Infection, Acute Recheck if no better in 7 to 10 days Related to Upper Respiratory Infection, Acute Take meds as prescri bed - Cipro, benzonatate, albuterol Related to Upper Respiratory Infection, Acute Home, rest, increase fluids. Rel ated to Upper Respiratory Infection, Acute May need GI referral Related to GERD No eating for 3 hours before bed time Related to GERD Clear liquids, advance as tlerat ed Related to GERD Avoid alcohol, caffe ine, citric acid, chocolate, tobacco, peppermint Related to GERD Trial of prilosec - twice daily Related to GERD Avoid all NSAIDs Related to GERD consider cafergot or triptan [...]
--- OUTSIDE RECORDS SUMMARY | 2025-06-02 14:14 | XMS_ITS | Encounter Summary ---
Author Organization [facility] Address [address] [place] [address] Care Team Providers Care Nurse Emergency Room Name Role Phone Ivonne Gonzalez MD Unavailable [phone] Mayuri Diego TANNING SOLUTION MAKER Primary Care Provider [phone] Encounter Details Date Type Department Care Team (Late st Contact Info) Description 04/20/2025 Orders Only [facility] Medicine Specialties [address], [address] [place] [address] Ryann Hill, TANNING SOLUTION MAKER [address] [place] [address] Social History Tobacco Use Types [...] Visit [place] [facility] [address], [address] [place] [address] Ryann Hill, TANNING SOLUTION MAKER [address] [place] [address] documented as of this encounter [...] documented as of this encounter Care Teams Nurse Emergency Room Relationship Specialty Start Date End Date Mayuri Diego, TANNING SOLUTION MAKER [address] [place] [address] PCP - General 07/22/23 Ivonne Gonzalez MD [address] [place] [address] Service Attending Neuro-Ophthalmology 02/27/23 documented as of this encounter
--- OUTSIDE RECORDS SUMMARY | 2025-06-02 14:14 | XMS_ITS | Clinical Summary ---
Author Organization [facility] Address [address] [place] [address] Care Team Providers Care Fire Captain Name Role Phone Mayuri Diego APRN Primary Care Provider [phone] Allergies Active Allergy Reactions Criticality Noted Date [...] 2 (Two) Times a Day. Active Methylcobalamin (R05-TMXGGA PO) Take 1 tablet by mouth Daily. [...] = 0.6 oz pur e alcohol) OCCASIONAL [employer] Utilities Answer Date Recorded In the past 12 months has e [employer], gas, oil, or water [employer] threatened to shut off services in your [...] or training? Not on file Preferred Language Montenegrin 01/22/2024 Comments Unknown Sex and Gender Information [...] VACCINE 04/09/2025 Medical Devices Implanted Type Area Casting Operator Device Identifier Shelf Expiration Date Model / Serial / Lot Sut Nonabs Bone Dynacord Uhmwpe W/Os/6 Ndl 2pk Strip/Balbir - [id number] Implanted:Qty: 2 on 01/21/2024 by Sandor Barboza Jr., MD at [facility] Implant Left: Scapula DEPUY MITEK 05/09/2026 [id number] / / [id number] Tndn Semitendinous Flexigraft 1strnd Fz [id number] - [id number] Implanted:Qty: 1 on 01/21/2024 by Sandor Barboza Jr., MD at [facility] Implant Left: Scapula [facility] 10/29/2028 [facility] / / [id number] Insurance [facility] Care Teams Fire Captain Relationship Specialty Start Date End Date Mayuri Diego APRN [address] [place] [address] PCP - General Internal Medicine 12/19/23
--- OUTSIDE RECORDS SUMMARY | 2025-06-02 14:14 | XMS_ITS | Encounter Summary ---
Author Organization Healthcare Address [address] [place] [address] Care Team Providers Care Leakage Tester Name Role Phone Ivonne Gonzalez MD Unavailable [phone] Mayuri Diego APRN Primary Care Provider [phone] Encounter Details Date Type Department Care Team (Late st Contact Info) Description 04/20/2025 Telephone [place] [facility] [address], [address] [place] [address] Ventura Shelton PharmD [place] [id number] Social History Tobacco Use Types Packs/Day Years [...] Visit [place] [facility] [address], [address] [place] [address] Ryann Hill, NEYDA [address] [place] [address] documented as of this encounter [...] documented as of this encounter Care Teams Leakage Tester Relationship Specialty Start Date End Date Mayuri Diego APRN [address] [place] [address] PCP - General 07/22/23 Ivonne Gonzalez MD [address] [place] [address] Service Attending Neuro-Ophthalmology 02/27/23 documented as of this encounter
--- OUTSIDE RECORDS SUMMARY | 2025-06-02 14:14 | XMS_ITS | Clinical Summary ---
Author Organization [facility] Address [address] [place] [address] Care Team Providers Care Rehab Department Manager Name Role Phone Ivonne Gonzalez MD Unavailable [phone] Mayuri Diego APRN Primary Care Provider [phone] Allergies Active Allergy Reactions Criticality Noted Date [...] Type Department Care Team Description 04/20/2025 Telephone [facility] Medicine Specialties [address], [address] [place] [address] Ventura Shelton PharmD 04/20/2025 Orders Only [facility] Medicine Specialties [address], [address] [place] [address] Ryann Hill, SPECIAL ASSETS OFFICER from Last 3 Months Immunizations Immunization Administration Dates Next Due Moderna COVID-19 Vaccine (Monitor Technician) 12+ years ,02/22/2021 Family History Medical History [...] Visit [place] [facility] [address], [address] [place] [address] Ryann Hill, NEYDA [address] [place] [address] Health Maintenance Due Date Last Done Comments [...] 2016 [facility]-Cervical Cancer Screening 2019 [facility]-HPV/Cotest 2019 [id number] Vaccine (3 - Moderna risk series) 04/25/2021 [...] age to complete this topic Insurance [facility]ETNA [facility] MEDICAID Care Teams Rehab Department Manager Relationship Specialty Start Date End Date Mayuri Diego APRN [address] [place] [address] PCP - General 07/22/23 Ivonne Gonzalez MD [address] [facility] [address] [place] [address] Service Attending Neuro-Ophthalmology 02/27/23
--- OUTSIDE RECORDS SUMMARY | 2025-06-02 14:14 | XMS_ITS | Encounter Summary ---
Author Organization [facility] Address [address] [place] [address] Care Team Providers Care Mini Baccarat Dealer Name Role Phone Kulwinder Smiley MD Primary Care Provider [phone] Ivonne Gonzalez MD Unavailable [phone] Mayuri Diego APRN Primary Care Provider [phone] Reason for Referral * Consultation (Routine) - Closed Specialty Diagnoses / Procedures Referred By Contharshil greenwood Referred To Contact Neurology Diagnoses Facial neuralgia Chronic migraine without aura, intractable, without status migrainosus Lupus Law Naylor APRN [address] [place] [address] Phone: tel: fax: Referral ID Status Reason Start Date Expiration Date V isits Requested Visits Authorized [id number] Closed Specialty Services Required 08/14/2022 02/13/2024 1 1 Encounter Details Date Type Department Care Team (Late st Contact Info) Description 08/14/2022 Community [facility] Community Practice [address] [place] [address] Law Naylor APRN [address] [place] [address] Facial neuralgia (Primary Dx); Chronic [...] Description 06/23/2025 3:20 PM EDT Office Visit [place] [facility] [address], [address] [place] [address] Ryann Hill APRN [address] [place] [address] Scheduled Referrals Name Type Priority [...] documented as of this encounter Care Teams Mini Baccarat Dealer Relationship Specialty Start Date End Date Kulwinder Smiley MD [address] [place] [address] PCP - General 01/20/21 07/21/23 Mayuri Diego APRN [address] [place] [address] PCP - General 07/22/23 Ivonne Gonzalez MD [address] [place] [address] Service Attending Neuro-Ophthalmology 02/27/23 documented as of this encounter
--- OUTSIDE RECORDS SUMMARY | 2025-06-02 14:14 | XMS_ITS | Encounter Summary ---
Author Organization Healthcare Address [address] [place] [address] Care Team Providers Care Banking Pin Adjuster Name Role Phone Ivonne Gonzalez MD Unavailable [phone] Mayuri Diego APRN Primary Care Provider [phone] Reason for Visit * Reason Comments Med Refill Encounter Details Date Type Department Care Team (Late st Contact Info) Description 12/17/2024 Refill [place] [facility] [address], [address] [place] [address] Ivonne Gonzalez MD [address] [place] [address] Social History Tobacco Use Types [...] Miscellaneous Notes * Telephone Encounter - Ivonne Gonzaelz MD - 01/07/2025 8:35 PM EDT Needs [...] Visit [place] [facility] [address] [place] [address] Ryann Hill APRN [address] [facility] [address] [place] [address] documented as of this encounter Visit Diagnoses Not on filedocumented in this encounter Additional Health Concerns Assessment Noted Time A fall risk assessment has been complete d for the patient 06/22/2024 11:27 AM EDT A Body Mass Index follow-up plan has been documented for the patient 06/22/2024 12:22 PM EDT documented as of this encounter Care Teams Banking Pin Adjuster Relationship Specialty Start Date End Date Mayuri Diego APRN [address] [place] [address] PCP - General 07/22/23 Ivonne Gonzalez MD [address] [facility] [address] [place] [address] Service Attending Neuro-Ophthalmology 02/27/23 documented as of this encounter
--- OUTSIDE RECORDS SUMMARY | 2025-06-02 14:14 | XMS_ITS | Encounter Summary ---
Author Organization [facility] Address [address] [place] [address] Care Team Providers Care Protein Scientist Name Role Phone Kulwinder Smiley MD Primary Care Provider [phone] Ivonne Gonzalez MD Unavailable Mayuri Diego APRN Primary Care Provider [phone] Reason for Referral * Consultation (Routine) - Closed Specialty Diagnoses / Procedures Referred By Contharshil t Referred To Contact Rheumatology Diagnoses Positive AUDREY (antinuclear antibody) Vitiligo Feeling tired Law Naylor APRN [address] [place] [address] Phone: tel: fax: Referral ID Status Reason Start Date Expiration Date V isits Requested Visits Authorized [id number] Closed Specialty Services Required 03/27/2022 09/26/2023 1 1 Encounter Details Date Type Department Care Team (Late st Contact Info) Description 03/27/2022 Community [facility] Community Practice [address] [place] [address] Law Naylor APRN [address] [place] [address] Positive AUDREY (antinuclear antibody) (Primary [...] Visit [place] [facility] [address], [address] [place] [address] Ryann Hill, GOVERNMENT AFFAIRS SPECIALIST [address] [place] [address] Scheduled Referrals Name Type Priority Associated Diagnoses Order Schedule Ambulatory referral to Rheumatology Outpatient Referral Routine Positive AUDREY (antinuclear antibody) Vitiligo Feeling tired Expected: 03/27/2022 (Approximate), Expires: 09/27/2023 documented as of this encounter Visit Diagnoses Diagnosis Positive AUDREY (antinuclear antibody)- Primary Other and unspecified nonspecific immunological findings Vitiligo Feeling tired documented in this encounter Care Teams Protein Scientist Relationship Specialty Start Date End Date Kulwinder Smiley MD [address] [place] [address] PCP - General 01/20/21 07/21/23 Mayuri Diego, GOVERNMENT AFFAIRS SPECIALIST [address] [place] [address] PCP - General 07/22/23 Ivonne Gonzalez MD [address] [facility] [address] [place] [address] Service Attending Neuro-Ophthalmology 02/27/23 documented as of this encounter
== END 2025-06-02 23:59 | disposition home or self-care (01) ==
PROVIDERS: Internal Medicine Gastroenterology; PCP Nurse Practitioner Family; Visit Provider Obstetrics & Gynecology
DX: E89.41 Symptomatic postprocedural ovarian failure (principal); N89.8 Other specified noninflammatory disorders of vagina; K29.70 Gastritis, unspecified, without bleeding; B96.81 Helicobacter pylori [H. pylori] as the cause of diseases classified elsewhere; A04.8 Other specified bacterial intestinal infections
CPT/HCPCS: 36415; 82670; 83013; 87491; 87529; 87591; 87661; 87798; 87801

== ENCOUNTER 2025-06-21 15:54 | Emergency (ER) | payer OTHER, SELFPAY ==
--- OUTSIDE RECORDS SUMMARY | 2013-04-08 11:50 | XMS_ITS | Continuity of Care Document ---
Author Organization [facility] Address [address] [place] [address] Phone Care Team Providers Care Sheet Rock Sander Name Role Phone Unavailable Unavailable Unavailable Allergies, [...] Location Reason(s) For Visit Diagnoses Date Provider OFFICE/OUTPAT IENT VISIT, [facility], [address], [place], [place], [id number], [place] tel:[phone] [facility] [place] Bad headacheAstigmatism, unspecifiedHypermetropia 3 No Information Family History Family Member Type Diagnosis Age At Onset Multiple Problem (finding) Cancer Multiple Problem (finding) Maternal history of rahul betes mellitus Mother Problem (finding) HBP Multiple Problem (finding) cataract Payers Payer name Insurance type Covered constitution party ID Authoriza tion(s) No Information Social History Type Description Quantity Date Captured Comments Alcohol Use Details Caffeine Use Details Unknown Tobacco Use Status No Information Smoking Status Former smoker Smoking Tobacco Use Details Cigarette: No Details Available Cigarette: No Details Available Sex Female Chief Complaint And Reason For Visit No Information History Of Present Illness Encounter Date Complaint History Of Prese nt Illness No Information Instructions Date Instruction Additional Infor [...]
[2025-06-21 16:07] VITALS: BP 152/86; PULSE 75; RESP 18; TEMP 36.8; O2SAT 99; BMI 38.7
--- OUTSIDE RECORDS SUMMARY | 2025-06-21 16:18 | XMS_ITS | Encounter Summary ---
Author Organization [facility] Address [address] [place] [address] Care Team Providers Care Maintenance Of Way Supervisor Name Role Phone Kulwinder Smiley MD Primary Care Provider [phone] Ivonne Gonzalez MD Unavailable [phone] Mayuri Diego APRN Primary Care Provider [phone] Reason for Referral * Consultation (Routine) - Closed Specialty Diagnoses / Procedures Referred By Contharshil greenwood Referred To Contact Neurology Diagnoses Facial neuralgia Chronic migraine without aura, intractable, without status migrainosus Lupus Law Naylor APRN [address] [place] [address] Phone: tel: fax: Referral ID Status Reason Start Date Expiration Date V isits Requested Visits Authorized [id number] Closed Specialty Services Required 08/14/2022 02/13/2024 1 1 Encounter Details Date Type Department Care Team (Late st Contact Info) Description 08/14/2022 Community [facility] Community Practice [address] [place] [address] Law Naylor APRN [address] [place] [address] Facial neuralgia (Primary Dx); Chronic [...] Description 06/23/2025 3:20 PM EDT Office Visit [place] [facility] Medicine Specialties [address], [address] [place] [address] Ryann Hill APRN [address] [place] [address] Scheduled Referrals Name Type Priority [...] documented as of this encounter Care Teams Maintenance Of Way Supervisor Relationship Specialty Start Date End Date Kulwinder Smiley MD [address] [place] [address] PCP - General 01/20/21 07/21/23 Mayuri Diego APRN [address] [place] [address] PCP - General 07/22/23 Ivonne Gonzalez MD [address] [place] [address] Service Attending Neuro-Ophthalmology 02/27/23 documented as of this encounter
--- OUTSIDE RECORDS SUMMARY | 2025-06-21 16:18 | XMS_ITS | Clinical Summary ---
Author Organization [facility] Address [address] [place] [address] Care Team Providers Care Alto Singer Name Role Phone Ivonne Gonzalez MD Unavailable [phone] Mayuri Diego APRN Primary Care Provider [phone] Allergies Active Allergy Reactions Criticality Noted Date [...] Type Department Care Team Description 04/20/2025 Telephone [facility] Medicine Specialties [address], [address] [place] [address] Ventura Shelton PharmD 04/20/2025 Orders Only [facility] Medicine Specialties [address], [address] [place] [address] Ryann Hill, TURKISH RUBBER from Last 3 Months Immunizations Immunization Administration Dates Next Due Moderna COVID-19 Vaccine (Painting Supervisor) 12+ years ,02/22/2021 Family History Medical [...] Description 06/23/2025 3:20 PM EDT Office Visit [place] [facility] Medicine Specialties [address], [address] [place] [address] Ryann Hill, NEYDA [address] [place] [address] Health Maintenance Due Date Last Done Comments [...] 2016 [facility]-Cervical Cancer Screening 2019 [facility]-HPV/Cotest 2019 [id number] Vaccine (3 - Moderna risk series) 04/25/2021 [...] AETNA [facility] MEDICAID Care Teams Alto Singer Relationship Specialty Start Date End Date Mayuri Diego APRN [address] [place] [address] PCP - General 07/22/23 Ivonne Gonzalez MD [address] [facility] [address] [place] [address] Service Attending Neuro-Ophthalmology 02/27/23
--- OUTSIDE RECORDS SUMMARY | 2025-06-21 16:20 | XMS_ITS | Encounter Summary ---
Author Organization Healthcare Address [address] [place] [address] Care Team Providers Care Sand Conditioner Machine Name Role Phone Ivonne Gonzalez MD Unavailable [phone] Mayuri Diego APRN Primary Care Provider [phone] Reason for Visit * Reason Comments Med Refill Encounter Details Date Type Department Care Team (Late st Contact Info) Description 12/17/2024 Refill [place] [facility] [address], [address] [place] [address] Ivonne Gonzalez MD [address] [place] [address] Social History Tobacco Use Types [...] Visit [place] [facility] [address] [place] [address] Ryann Hill APRN [address] [facility] [address] [place] [address] documented as of this encounter Visit Diagnoses Not on filedocumented in this encounter Additional Health Concerns Assessment Noted Time A fall risk assessment has been complete d for the patient 06/22/2024 11:27 AM EDT A Body Mass Index follow-up plan has been documented for the patient 06/22/2024 12:22 PM EDT documented as of this encounter Care Teams Sand Conditioner Machine Relationship Specialty Start Date End Date Mayuri Diego APRN [address] [place] [address] PCP - General 07/22/23 Ivonne Gonzalez MD [address] [facility] [address] [place] [address] Service Attending Neuro-Ophthalmology 02/27/23 documented as of this encounter
--- OUTSIDE RECORDS SUMMARY | 2025-06-21 16:20 | XMS_ITS | Encounter Summary ---
Author Organization [facility] Address [address] [place] [address] Care Team Providers Care Family Coach Name Role Phone Kulwinder Smiley MD Primary Care Provider [phone] Ivonne Gonzalez MD Unavailable [phone] Mayuri Diego APRN Primary Care Provider [phone] Reason for Referral * Consultation (Routine) - Closed Specialty Diagnoses / Procedures Referred By Contharshil t Referred To Contact Rheumatology Diagnoses Positive AUDREY (antinuclear antibody) Vitiligo Feeling tired [place] [address] Phone: tel: fax: Referral ID Status Reason Start Date Expiration Date V isits Requested Visits Authorized [id number] Closed Specialty Services Required 03/27/2022 09/26/2023 1 1 Encounter Details Date Type Department Care Team (Late st Contact Info) Description 03/27/2022 Community [facility] Community Practice [address] [place] [address] [place] [address] Positive AUDREY (antinuclear antibody) (Primary [...] Description 06/23/2025 3:20 PM EDT Office Visit [place] [facility] Medicine Specialties [address], [address] [place] [address] Ryann Hill, TANK TERMINAL GAUGER [address] [place] [address] Scheduled Referrals Name Type Priority Associated Diagnoses Order Schedule Ambulatory referral to Rheumatology Outpatient Referral Routine Positive AUDREY (antinuclear antibody) Vitiligo Feeling tired Expected: 03/27/2022 (Approximate), Expires: 09/27/2023 documented as of this encounter Visit Diagnoses Diagnosis Positive AUDREY (antinuclear antibody)- Primary Other and unspecified nonspecific immunological findings Vitiligo Feeling tired documented in this encounter Care Teams Family Coach Relationship Specialty Start Date End Date Kulwinder Smiley MD [address] [place] [address] PCP - General 01/20/21 07/21/23 Mayuri Diego, TANK TERMINAL GAUGER [address] [place] [address] PCP - General 07/22/23 Ivonne Gonzalez MD [address] [facility] [address] [place] [address] Service Attending Neuro-Ophthalmology 02/27/23 documented as of this encounter
--- OUTSIDE RECORDS SUMMARY | 2025-06-21 16:20 | XMS_ITS | Clinical Summary ---
Author Organization [facility] Address [address] [place] [address] Care Team Providers Care Metal Control Coordinator Name Role Phone Mayuri Diego APRN Primary Care Provider [phone] Allergies Active Allergy Reactions Criticality Noted Date [...] 2 (Two) Times a Day. Active Methylcobalamin (M00-IVPCTO PO) Take 1 tablet by mouth Daily. [...] = 0.6 oz pur e alcohol) OCCASIONAL [employer] Answer Date Recorded In the past 12 months has e [employer], gas, oil, or water [employer] threatened to shut off services in your [...] or training? Not on file Preferred Language Niuean 01/22/2024 Comments Unknown Sex and Gender Information [...] VACCINE 04/09/2025 Medical Devices Implanted Type Area Bookie Device Identifier Shelf Expiration Date Model / Serial / Lot Sut Nonabs Bone Dynacord Uhmwpe W/Os/6 Ndl 2pk Strip/Balbir - [id number] Implanted:Qty: 2 on 01/21/2024 by Sandor Barboza Jr., MD at [facility] Implant Left: Scapula [employer] 05/09/2026 [id number] / / [id number] Tndn Semitendinous Flexigraft 1strnd Fz [id number] - [id number] Implanted:Qty: 1 on 01/21/2024 by Sandor Barboza Jr., MD at [facility] Implant Left: Scapula [facility] 10/29/2028 [facility] / / [id number] 05 Insurance [facility] Care Teams Metal Control Coordinator Relationship Specialty Start Date End Date Mayuri Diego APRN [address] [place] [address] PCP - General Internal Medicine 12/19/23
[2025-06-21] MEDS: LIDOCAINE 1% 10ML MDV 10 ML SUBCUT (17:02)
--- NOTE | 2025-06-21 17:37 | [facility].EDGENADL ---
Discharge Plan Disposition Patient Disposition: Home, Self-Care Condition: Good Prescriptions Prescriptions: No Action Nurtec ODT 75 mg tablet,disintegrating 75 mg PO Q OTHER DAY Qty: 45 3RF Ubrelvy 100 mg tablet 100 mg PO DAILY Qty: 90 3RF tizanidine 2 mg tablet 2 mg PO HS Qty: 90 3RF magnesium glycinate 120 mg capsule See Rx Instructions PO QHS Qty: 90 3RF Rx Instructions: 360 mg orally every day at bedtime; doxycycline hyclate 100 mg capsule 100 mg PO BID 7 Days Qty: 14 0RF magnesium sulfate in 0.9 %NaCl 2 gram/100 mL piggyback 100 ml IV ONCE Rx Instructions: administer over 3-4 hrs triamcinolone acetonide 0.025 % cream 1 applic topical NEEDED PRN (Reason: PSORIASIS) omeprazole 40 mg capsule,delayed release(DR/EC) 40 mg PO DAILY Qty: 30 2RF metronidazole 500 mg tablet 500 mg PO BID 7 Days Qty: 14 0RF budesonide-formoterol [Symbicort] 160-4.5 mcg/actuation HFA aerosol inhaler 2 puff inhalation BID Qty: 10.2 2RF azithromycin [Zithromax Z-Sotero] 250 mg tablet See Rx Instructions PO .COMPLEX Qty: 6 0RF Rx Instructions: For 250 mg dose pack: take 500 mg today (day 1), then 250 mg for 4 days (days 2-5) PO methylprednisolone [Medrol (Sotero)] 4 mg tablets,dose pack See Rx Instructions PO PER PKG DIR Qty: 21 0RF Rx Instructions: PO PER PKG DIR for 6 days estradiol 1 mg tablet 1 mg PO DAILY Qty: 30 2RF boric acid 600 mg suppository 600 mg vaginal .nightly Qty: 30 0RF Rx Instructions: Use vaginally once nightly for 14-21 days. celecoxib 200 mg capsule 200 mg PO BID hydroxychloroquine 200 mg tablet 200 mg PO DAILY azathioprine 100 mg tablet 100 mg PO DAILY metoprolol succinate 25 mg tablet extended release 24 hr 25 mg PO DAILY buspirone 10 mg tablet 10 mg PO BID Qty: 60 12RF Rx Instructions: Please take 1 tablet p.o. nightly x 7 days and then 1 tablet p.o. twice daily thereafter Referrals Follow up/Referrals: Diego,Mayuri, CHEMICAL MANAGER [Primary Care Provider, Medical] - See instructions Activity Restrictions/Add. Instructions Additional Instructions/Restrictions: Please put bacitracin on your wound 1-2 times daily. If you develop difficulty with movement of the finger, significant swelling of the finger, streaking redness, or pus draining from the finger please return to the emergency department for further evaluation Clinical Impressions Clinical Impression: Finger laceration Qualifiers: Encounter type: initial encounter Finger: middle finger Damage to nail status: without damage Foreign body presence: without foreign body Laterality: right Qualified Code(s): S61.212A - Laceration without foreign body of right middle finger without damage to nail, initial encounter Instructions Patient Instructions: DI for Laceration Repair Print Language Print Language: Icelandic Discharge ED Provider: Bakari Fernando Adult HPI General Chief complaint: Wound/Laceration Stated complaint: AO 06/21/25, cut right middle finger Time Seen by Provider: 06/21/25 16:19 Mode of Arrival: Ambulatory Source of Information: Patient Description of Symptoms (Recalled from ER Triage Doc. by RN): patient presents for a laceration on her right middle finger after hitting the counter that contained a clean knife. the knife hit her finger leading to the laceration. patient did present to the [facility] prior to coming here and they sent her here for a laceration repair. History of Present Illness HPI narrative: Is a 34-year-old female patient who is presenting to the emergency department today for a laceration of the dorsal aspect of her right middle finger. Patient states that she was using a knife in the kitchen and the knife slipped and cut her finger. She has had no difficulty with controlling bleeding. She has had no difficulty with range of motion of the finger. No sensory deficits. Related Data Home Medications ?Medication ?Instructions ?Recorded ?Confirmed celecoxib 200 mg capsule 200 mg PO BID 09/12/24 06/02/25 Held on 04/08/25. Instructions: Resume on 04/15/25. Hold while taking Ibuprofen hydroxychloroquine 200 mg tablet 200 mg PO DAILY 09/12/24 06/02/25 triamcinolone acetonide 0.025 % 1 applic topical NEEDED PRN 12/07/24 06/02/25 topical cream PSORIASIS metoprolol succinate 25 mg 25 mg PO DAILY 03/25/25 06/02/25 tablet,extended release 24 hr azathioprine 100 mg tablet 100 mg PO DAILY 04/07/25 06/02/25 Previous Rx's ?Medication ?Instructions ?Recorded omeprazole 40 mg capsule,delayed 40 mg PO DAILY #30 caps 10/06/24 release buspirone 10 mg tablet 10 mg PO BID #60 tabs 03/25/25 budesonide-formoterol HFA 160 2 puff inhalation BID #10.2 grams 04/02/25 mcg-4.5 mcg/actuation aerosol inhaler (Symbicort) doxycycline hyclate 100 mg capsule 100 mg PO BID 7 days #14 caps 05/21/25 magnesium glycinate 120 mg (as See Rx Instructions PO QHS #90 caps 05/21/25 glycinate) capsule magnesium sulfate 2 gram/100 mL in 100 ml IV ONCE 05/26/25 0.9 % sodium chl intraven piggyback rimegepant 75 mg disintegrating 75 mg PO Q OTHER DAY Migraine #45 05/26/25 tablet (Nurtec ODT) tabs tizanidine 2 mg tablet 2 mg PO HS #90 tabs 05/26/25 ubrogepant 100 mg tablet (Ubrelvy) 100 mg PO DAILY #90 tabs 05/26/25 azithromycin 250 mg tablet See Rx Instructions PO .COMPLEX #6 06/01/25 (Zithromax Z-Sotero) tabs methylprednisolone 4 mg tablets in See Rx Instructions PO PER PKG DIR 06/01/25 a dose pack (Medrol (Sotero)) #21 tabs metronidazole 500 mg tablet 500 mg PO BID 7 days #14 tabs 06/02/25 estradiol 1 mg tablet 1 mg PO DAILY #30 tabs 06/08/25 boric acid 600 mg vaginal 600 mg vaginal .nightly #30 ea 06/09/25 suppository Allergies Allergy/AdvReac Type Severity Reaction Status Date / Time penicillin G (PENICILLIN G) Allergy Mild I-RASH Verified 06/02/25 13:30 Iodinated Contrast Media Allergy Unknown Unknown Verified 06/02/25 13:30 (Iodinated Contrast Media - allergy Oral and) reaction Penicillins Allergy Unknown Unknown Verified 06/02/25 13:30 allergy reaction Pertussis Vaccines Allergy Unknown Unknown Verified 06/02/25 13:30 (PERTUSSIS VACCINES) allergy reaction iodine Allergy Redness of Verified 06/02/25 13:30 Skin PFSH PFSH Disclaimer: The information contained in this section may have been updated after the patient was seen, as this information can be updated by other users. Medical History (Updated 06/21/25 @ 17:40 by Bakari Fernando DO) Vaginal discharge Apnea Snoring Sleep-disordered breathing Hot flashes due to surgical menopause C. difficile diarrhea Common wart Collapse of lung tissue Renal calculi History of histoplasmosis Kidney stone on right side Subacromial bursitis of left shoulder joint History of TMJ disorder History of CVA (cerebrovascular accident) Hives of unknown origin Abnormal EKG Dyspareunia in female Trigeminal neuralgia PVC (premature ventricular contraction) Fatigue Family history of ovarian cancer Family history of breast cancer Family history of uterine cancer Dysmenorrhea Heavy periods Iwl thyroiditis Thyromegaly UTI (urinary tract infection) Hoarseness of voice History of lupus Family history of asthma Asthma Acid reflux Depression Anxiety Migraine History of stroke Hyperlipidemia Surgical History Status post complete hysterectomy S/P arthrocentesis Status post laparoscopic hysterectomy History of mandibular surgery S/P wisdom tooth extraction History of arthroscopic procedure on shoulder History of placement of ear tubes H/O left knee surgery History of tonsillectomy and adenoidectomy H/O tubal ligation History of cholecystectomy Family History Other Alcoholism Asthma Cancer Hypertension Stroke Social History Smoking Status: Former smoker alcohol intake: former substance use type: former substance user 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 in 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?: Inside the [place] household members: family, children and other housing: house caffeine: Yes do you feel safe at home: Yes Have you lived/traveled outside [place] in past 30 days?: No Contact w/someone who lives/traveled outside [place] past 30 days?: No Exposure to someone with infectious disease in past 14 days?: No Do you have a fever (greater than 100.4 F or 38 C)?: No Have you tested positive for COVID-19?: No Exposed to someone with COVID-19 in past 14 days?: No Do you have a sore throat?: No Do you have a cough?: No Do you have any weakness?: No Do you have any diarrhea?: No Are you experiencing any unusual bleeding?: No Do you have any muscle aches/pain?: No Do you have any abdominal pain?: No Are you experiencing loss of taste or smell?: No Other Medical History Have you received the Flu Vaccine for this season: No Have you received the Pneumonia Vaccine: No ROS Obtained: Yes Systems reviewed as appropriate & no additional complaints except as documented Physical Exam General General appearance: other (See MDM) Respiratory Respiratory exam: Present other (See MDM) Cardiovascular Cardiovascular exam: Present other (See MDM) Neurological Exam Neurological exam: Present other (See MDM) Medical Decision Making Medical Records Medical records reviewed: Yes I reviewed the patient's medical records. Screening: Per USPSTF and CDC recommendations, given the prevalence of disease in our region, it is our hospital?s policy to screen for HIV and viral Hepatitis for all patients aged 18 and over and those with ongoing risk factors. Neel Inquiry Pt receiving controlled substance: No Neel was queried for this patient: No Vital Signs: 06/21/25 16:07 Temperature 98.2 F Temperature Source Temporal Artery Scan Pulse Rate [Right Radial] 75 Respiratory Rate 18 Blood Pressure [Right Arm] 152/86 H Blood Pressure Mean [Right Arm] 108 Blood Pressure Source [Right Arm] Automatic Cuff Blood Pressure Position [Right Arm] Sitting 02 Sat by Pulse Oximetry 99 Oxygen Delivery Method Room Air Orders (Tests/Meds): ED MEDICATIONS Discontinued Medications Generic Name Dose Route Start Last Admin Trade Name Freq PRN Reason Stop Dose Admin Bacitracin 1 gm 06/21/25 17:30 Bacitracin Zinc Oint 30gm Tube TP 06/21/25 17:31 ONCE ONE Lidocaine HCl 10 ml 06/21/25 16:38 06/21/25 17:02 Lidocaine 1% 10ml Mdv SUBCUT 06/21/25 16:39 10 ml ONCE ONE Administration Medical Decision Narrative: In summary this a 34-year-old female patient who is presenting to the emergency department a day for evaluation of a laceration to the posterior aspect of her right middle finger. Patient states this happened from a knife that she was using in the kitchen. The patient's comorbidities include a past medical history of lupus for which she is on immunosuppressive medications. On initial evaluation of the patient they were resting comfortably in no acute distress and nontoxic in appearance. They are hemodynamically stable, saturating well room air, and are neurologically intact. On physical examination the patient has a 2 cm laceration to the posterior aspect of the right middle finger. This wound is hemostatic. There is no foreign bodies noted within the wound on exploration. Wound does not appear contaminated. Differential diagnosis includes finger laceration, tetanus exposure, among others. The extensor and flexion mechanism of the finger is intact I have a low suspicion for tendinous involvement. Patient tells me that she is allergic to the Tdap vaccination so we will not administer the Tdap vaccination here today. I have known the patient's finger with 1% lidocaine without epinephrine. 4-0 nylon sutures were used to repair this laceration. Wound was cleaned with copious amounts of saline, 1 L. Patient tolerated this procedure well. Bacitracin was placed on the finger laceration after it was repaired. I have given return precautions in the event that she develops difficulty with range of motion, fusiform swelling of the digit, streaking redness, or purulence. At this time all questions have been answered and all parties are agreeable with the decision to discharge home Critical Care Critical Care Time Critical Care Time: No
[2025-06-21] MEDS: BACITRACIN ZINC OINT 30GM TUBE TP (17:43)
[2025-06-21 18:00] VITALS: BP 105/67; PULSE 78; RESP 16; TEMP 37.2; O2SAT 99
== END 2025-06-21 18:03 | disposition home or self-care (01) ==
PROVIDERS: Emergency Provider Student in an Organized Health Care Education/Training Program; PCP Nurse Practitioner Family
DX: S61.212A Laceration without foreign body of right middle finger without damage to nail, initial encounter (principal); W26.0XXA Contact with knife, initial encounter
CPT/HCPCS: 12001; 99283; J2003

== ENCOUNTER 2025-06-24 11:03 | Outpatient (CLI) | payer OTHER, SELFPAY ==
--- OUTSIDE RECORDS SUMMARY | 2013-04-08 11:50 | XMS_ITS | Continuity of Care Document ---
Author Organization [facility] Address [address] [place] [address] Phone Care Team Providers Care Damper Maker Name Role Phone Unavailable Unavailable Unavailable Allergies, [...] VISIT, NEW [facility], [address], [place], [place], [id number], [place] tel:[phone] [facility] [place] Bad headacheAstigmatism, unspecifiedHypermetropia 3 [...]
--- OUTSIDE RECORDS SUMMARY | 2025-06-23 15:20 | XMS_ITS | Encounter Summary ---
Author Organization [facility] Address [address] [place] [address] Care Team Providers Care Steam Heating Installer Name Role Phone Ivonne Gonzalez MD Unavailable [phone] Mayuri Diego APRN Primary Care Provider [phone] Reason for Visit * Reason Comments Follow-up Encounter Details Date Type Department Care Team (Late st Contact Info) Description 06/23/2025 3:20 PM EDT Office Visit [place] [facility] Medicine Specialties [address] [place] [address] Ryann Hill APRN [address] [place] [address] Systemic lupus erythematosus, unspecified SLE [...] violin. 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 Pain is worse in [...] cardiology perspective. Follows with Hillary Yadav at [facility]. She reports her hands are killing her. [...] She is struggling with decreased sensation and cpr ambulance driver strength. She continues to have a chest [...] Insecurity: No Food Insecurity (01/22/2024) Received from [facility] Hunger Vital Sign Worried About Running Out of Food in the Last Year: Never true Ran Out of Food in the Last Year: Never true Transportation Needs: No Transportation Needs (01/22/2024) Received from [facility] PRAPARE - Transportation In the past 12 months, has lack of transportation kept you from medical appointments or from getting medications?: No In the past 12 months, has lack of transportation kept you from meetings, work, or from getting things needed for daily living?: No Physical Activity: Sufficiently Active (01/22/2024) Received from [facility] Exercise Vital Sign Days of Exercise per Week: 5 days Minutes of Exercise per Session: 30 min Stress: Not on file Social Connections: Unknown (12/16/2023) Received from [facility] Family and Community Support Help with Day-to-Day Activities: Not on file Lonely or Isolated: Not on file Intimate Partner Violence: Not At Risk (01/21/2024) Received from [facility] Abuse Screen Feels Unsafe at Home or Work/School: no Feels Threatened by Someone: no Does Anyone Try to Keep You From Having Contact with Others or Doing Things Outside Your Home?: no Physical Signs of Abuse Present: no Housing Stability: Not At Risk (01/22/2024) Received from [facility] Housing Stability Current Living Arrangements: home Potentially [...] Final Clarity, Urine 12/21/2024 Clear Final Spec [place], Urine 12/21/2024 1.014 1.005 - 1.030 Final [...] Pylori Pt follows with Paloma Burks, with [facility] GI. She has follow up in the morning. 4. Chronic shoulder pain (right) Pt sees pain clinic through [facility], improved since surgery 01/30. 5. High risk medication use -Thiopurine metabolites -routine labs today -lupus monitoring labs today 6. Palpitations Pt follows with Naveed Howell, through [facility] Per chart review: 7. Paraesthesia 8. Migraine Pt follows with [facility] neurology. Recently placed on Nurtec every other [...] Description 12/22/2025 3:20 PM EDT Office Visit [facility] Medicine Specialties [address], [address] [place] [address] Ryann Hill APRN [address] [place] [address] Scheduled Orders Name Type Priority [...] documented as of this encounter Care Teams Steam Heating Installer Relationship Specialty Start Date End Date Mayuri Diego APRN [address] [place] [address] PCP - General 07/22/23 Ivonne Gonzalez MD [address] [place] [address] Service Attending Neuro-Ophthalmology 02/27/23 documented as of this encounter
--- OUTSIDE RECORDS SUMMARY | 2025-06-24 11:10 | XMS_ITS | Encounter Summary ---
Author Organization [facility] Address [address] [place] [address] Care Team Providers Care Powder Guard Name Role Phone Ivonne Gonzalez MD Unavailable [phone] Mayuri Diego APRN Primary Care Provider [phone] Encounter Details Date Type Department Care Team (Latest Contact Info) Description 06/23/2025 Travel Social History Tobacco Use Types Packs/Day Years [...] on file documented as of this encounter Functional Status * Over the [...] Heather Patel documented as of this encounter Plan of Treatment Upcoming Encounters Date Type Department Care Team (Late st Contact Info) Description 12/22/2025 3:20 PM EDT Office Visit [facility] [address] [place] [address] Ryann Hill, NEYDA [address] [place] [address] documented as of this encounter [...] documented as of this encounter Care Teams Powder Guard Relationship Specialty Start Date End Date Mayuri Diego, SALESPERSON DRIVER [address] [place] [address] PCP - General 07/22/23 Ivonne Gonzalez MD [address] [place] [address] Service Attending Neuro-Ophthalmology 02/27/23 documented as of this encounter
--- OUTSIDE RECORDS SUMMARY | 2025-06-24 11:10 | XMS_ITS | Clinical Summary ---
Author Organization [facility] Address [address] [place] [address] Care Team Providers Care Bead Filler Name Role Phone Ivonne Gonzalez MD Unavailable [phone] Mayuri Diego APRN Primary Care Provider [phone] Allergies Active Allergy Reactions Criticality Noted Date [...] 12/19/2023 Medications Cyanocobalamin 5000 MCG capsule Daily 06/04/20 23 Active omeprazole (PriLOSEC) [address] capsule Take 1 capsule (40 mg) by mouth 1 (one) time each day. Do not crush or chew. Active albuterol (2.5 MG/3ML) 0.083% nebulizer solution USE 3 ML IN NEBULIZER EVERY 6 HOURS NEEDED FOR SHORTNESS OF BREATH FOR WHEEZING 09/27/19 24 Active famotidine (Pepcid) 20 MG tablet Take 1 tablet (20 mg) by mouth 1 (one) time each day. 08/07/20 23 Active celecoxib (CeleBREX) 200 MG capsule Take 1 capsule (200 mg) by mouth 2 (two) times a day. 180 capsule 5 06/22/20 24 Active metoprolol succinate XL (Toprol-XL) 25 MG 24 hr tablet Take 1 tablet by mouth daily. 11/20/19 25 Active Plecanatide (TRULANCE PO) Take by mouth. A ctive hydroxychloroquin e (Plaquenil) 200 MG tablet Take 1 tablet by mouth 2 times a day. 60 tablet 5 01/20/20 25 Active methylPREDNISolon e (Medrol Dospak) 4 MG tablets Follow schedule on package instructions 21 tablet 04/20/20 25 Active azelastine (Astelin) 0.1 % nasal sprayIndications: Systemic lupus erythematosus, unspecified SLE type, unspecified organ involvement status (CMS/HCC),High risk medication use,Paresthesia and pain of both upper extremities 09/21/19 25 Active Symbicort 160-4.5 MCG/ACT inhalerIndication s:Systemic lupus erythematosus, unspecified SLE type, unspecified organ involvement status (CMS/HCC),High risk medication use,Paresthesia and pain of both upper extremities Inhale 2 puffs 2 times a day. 04/02/20 25 Active busPIRone (Buspar) 10 MG tabletIndications :Systemic lupus erythematosus, unspecified SLE type, unspecified organ involvement status (CMS/HCC),High risk medication use,Paresthesia and pain of both upper extremities 03/25/20 25 Active doxycycline (Vibramycin) 100 MG capsuleIndication s:Systemic lupus erythematosus, unspecified SLE type, unspecified organ involvement status (CMS/HCC),High risk medication use,Paresthesia and pain of both upper extremities TAKE ONE CAPSULE BY MOUTH TWICE DAILY FOR 7 DAYS -- FINISH ALL MEDICINE -- 05/21/20 25 Active estradiol (Estrace) 1 MG tabletIndications :Systemic lupus erythematosus, unspecified SLE type, unspecified organ involvement status (CMS/HCC),High risk medication use,Paresthesia and pain of both upper extremities Take 1 tablet by mouth daily. 06/08/20 25 Active lansoprazole (Prevacid) [address] capsuleIndication s:Systemic lupus erythematosus, unspecified SLE type, unspecified organ involvement status (CMS/HCC),High risk medication use,Paresthesia and pain of both upper extremities 09/23/19 25 Active metroNIDAZOLE (Flagyl) 500 MG tabletIndications :Systemic lupus erythematosus, unspecified SLE type, unspecified organ involvement status (CMS/HCC),High risk medication use,Paresthesia and pain of both upper extremities TAKE ONE TABLET BY MOUTH TWICE DAILY FOR 7 DAYS -- FINISH ALL MEDICINE -- --AVOID ANY PRODUCT(S) CONTAINING ALCOHOL WHILE TAKING THIS MEDICATION-- 06/02/20 Active Nurtec 75 MG orally disintegrating tabletIndications :Systemic lupus erythematosus, unspecified SLE type, unspecified organ involvement status (CMS/HCC),High risk medication use,Paresthesia and pain of both upper extremities DISSOLVE ONE TABLET BY MOUTH EVERY OTHER DAY FOR migraine 05/05/20 Active tiZANidine (Zanaflex) 2 MG tabletIndications :Systemic lupus erythematosus, unspecified SLE type, unspecified organ involvement status (CMS/HCC),High risk medication use,Paresthesia and pain of both upper extremities Take 1 tablet by mouth nightly. 05/26/20 Active Ubrelvy 100 MG tabletIndications :Systemic lupus erythematosus, unspecified SLE type, unspecified organ involvement status (CMS/HCC),High risk medication use,Paresthesia and pain of both upper extremities TAKE ONE TABLET BY MOUTH AT ONSET OF MIGRAINE. IF SYMPTOMS PERSIST, A SECOND DOSE MAY BE TAKEN IN 2 HOURS. DO NOT EXCEED 2 DOSES IN A 24 HOUR PERIOD, MAX 4 TABS PER WEEK , UNLESS OTHERWISE INSTRUCTED BY YOUR PHYSICIAN Active Erenumab-aooe (Aimovig) 70 MG/ML solution auto-injector Inject 70 mg under the skin every 30 (thirty) days. 1 mL 11/27/19 Discontinu ed(Discont inued by another clinician) amantadine (Symmetrel) 100 MG tablet 07/30/20 025 Discontinu ed(Discont inued by another clinician) carBAMazepine (TEGretol) 100 MG chewable tablet Chew 1 tablet (100 mg) 3 (three) times a day. 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 Encounters Date Type Department Care Team Description 06/23/2025 3:20 PM EDT Office Visit [facility] Medicine Specialties [address] [place] [address] Ryann Hill APRN Systemic lupus erythematosus, unspecified SLE type, unspecified organ involvement status (CMS/HCC) (Primary Dx); High risk medication use; Paresthesia and pain of both upper extremities 06/23/2025 Travel 04/20/2025 Telephone [facility] Medicine Specialties [address] [place] [address] Ventura Shelton PharmD 04/20/2025 Orders Only [facility] Medicine Specialties [address] [place] [address] Ryann Hill APRN from Last 3 Months Immunizations Immunization Administration Dates Next Due Moderna COVID-19 Vaccine (Grading Clerk) 12+ years ,02/22/2021 Family History Medical History [...] Mass Index 38.82 06/23/2025 3:12 PM EDT Plan of Treatment Upcoming Encounters Date Type Department Care Team (Late st Contact Info) Description 12/22/2025 3:20 PM EDT Office Visit [facility] Medicine Specialties [address] [place] [address] Ryann Hill L, CURED MEATS SUPERVISOR [address] [place] [address] Health Maintenance Due Date Last Done Comments [...] 2016 [facility]-Cervical Cancer Screening 2019 [facility]-HPV/Cotest 2019 [facility]-FQLEX-24 Vaccine (3 - Moderna risk series) 04/25/2021 03/28/2021, 02/22/2021 [facility]-Influenza Vaccine (#1) 2025 [facility]-Depression Screening 06/23/2026 025, 12/21/2024, 09/05/2022 [facility]-Zoster Vaccines (1 of 2) 2039 [facility]-Obesity Intervention Completed 025, 12/21/2024, 06/22/2024, Additional history exists [facility]-HIB Vaccines Aged Out [...] age to complete this topic Insurance [facility] MEDICAID Care Teams Bead Filler Relationship Specialty Start Date End Date Mayuri Diego APRN [address] [place] [address] PCP - General 07/22/23 Ivonne Gonzalez MD [address] [facility] [address] [place] [address] Service Attending Neuro-Ophthalmology 02/27/23
--- OUTSIDE RECORDS SUMMARY | 2025-06-24 11:10 | XMS_ITS | Clinical Summary ---
Author Organization [facility] Address [address] [place] [address] Care Team Providers Care Viticulturist Name Role Phone Mayuri Diego APRN Primary Care Provider [phone] Allergies Active Allergy Reactions Criticality Noted Date [...] 2 (Two) Times a Day. Active Methylcobalamin (W23-JUAIDX PO) Take 1 tablet by mouth Daily. [...] = 0.6 oz pur e alcohol) OCCASIONAL [employer] Utilities Answer Date Recorded In the past 12 months has e yetu, gas, oil, or water [employer] threatened to shut off services in your [...] or training? Not on file Preferred Language Anguillan 01/22/2024 Comments Unknown Sex and Gender Information [...] VACCINE 04/09/2025 Medical Devices Implanted Type Area Carrot Buncher Device Identifier Shelf Expiration Date Model / Serial / Lot Sut Nonabs Bone Dynacord Uhmwpe W/Os/6 Ndl 2pk Strip/Balbir - [id number] Implanted:Qty: 2 on 01/21/2024 by Sandor Barboza Jr., MD at [facility] Implant Left: Scapula DEPUY MITEK 05/09/2026 [id number] / / [id number] Tndn Semitendinous Flexigraft 1strnd Fz [id number] - [id number] Implanted:Qty: 1 on 01/21/2024 by Sandor Barboza Jr., MD at [facility] Implant Left: Scapula [facility] 10/29/2028 [facility] / / [id number] Insurance [facility] Care Teams Viticulturist Relationship Specialty Start Date End Date Mayuri Diego APRN [address] [place] [address] PCP - General Internal Medicine 12/19/23
--- OUTSIDE RECORDS SUMMARY | 2025-06-24 11:10 | XMS_ITS | Encounter Summary ---
Author Organization [facility] Address [address] [place] [address] Care Team Providers Care Pomologist Name Role Phone Ivonne Gonzalez MD Unavailable [phone] Mayuri Diego APRN Primary Care Provider [phone] Reason for Visit * Reason Comments Med Refill Encounter Details Date Type Department Care Team (Late st Contact Info) Description 12/17/2024 Refill [place] [facility] [address] [place] [address] Ivonne Gonzalez MD [address] [place] [address] Social History Tobacco Use Types [...] Description 12/22/2025 3:20 PM EDT Office Visit [place] [facility] Medicine Specialties [address] [place] [address] Ryann Hill APRN [address] [facility] [address] [place] [address] documented as of this encounter Visit Diagnoses Not on filedocumented in this encounter Additional Health Concerns Assessment Noted Time A fall risk assessment has been complete d for the patient 06/22/2024 11:27 AM EDT A Body Mass Index follow-up plan has been documented for the patient 06/22/2024 12:22 PM EDT documented as of this encounter Care Teams Pomologist Relationship Specialty Start Date End Date Mayuri Diego APRN [address] [place] [address] PCP - General 07/22/23 Ivonne Gonzalez MD [address] [facility] [address] [place] [address] Service Attending Neuro-Ophthalmology 02/27/23 documented as of this encounter
--- OUTSIDE RECORDS SUMMARY | 2025-06-24 11:10 | XMS_ITS | Encounter Summary ---
Author Organization [facility] Address [address] [place] [address] Care Team Providers Care Director Phone Name Role Phone Kulwinder Smiley MD Primary Care Provider [phone] Ivonne Gonzalez MD Unavailable [phone] Mayuri Diego APRN Primary Care Provider [phone] Reason for Referral * Consultation (Routine) - Closed Specialty Diagnoses / Procedures Referred By Contharshil greenwood Referred To Contact Neurology Diagnoses Facial neuralgia Chronic migraine without aura, intractable, without status migrainosus Lupus Law Naylor APRN [address] [place] [address] Phone: tel: fax: Referral ID Status Reason Start Date Expiration Date V isits Requested Visits Authorized [id number] Closed Specialty Services Required 08/14/2022 02/13/2024 1 1 Encounter Details Date Type Department Care Team (Late st Contact Info) Description 08/14/2022 Community [facility] Community Practice [address] [place] [address] Law Naylor APRN [address] [place] [address] Facial neuralgia (Primary Dx); Chronic [...] Description 12/22/2025 3:20 PM EDT Office Visit [place] [facility] Medicine Specialties [address] [place] [address] Ryann Hill APRN [address] [place] [address] Scheduled Referrals Name Type Priority [...] as of this encounter Care Teams Director Phone Relationship Specialty Start Date End Date Kulwinder Smiley MD [address] [place] [address] PCP - General 01/20/21 07/21/23 Mayuri Diego APRN [address] [place] [address] PCP - General 07/22/23 Ivonne Gonzalez MD [address] [place] [address] Service Attending Neuro-Ophthalmology 02/27/23 documented as of this encounter
--- OUTSIDE RECORDS SUMMARY | 2025-06-24 11:10 | XMS_ITS | Encounter Summary ---
Author Organization [facility] Address [address] [place] [address] Care Team Providers Care Matrix Plater Name Role Phone Kulwinder Smiley MD Primary Care Provider [phone] Ivonne Gonzalez MD Unavailable [phone] Mayuri Diego APRN Primary Care Provider [phone] Reason for Referral * Consultation (Routine) - Closed Specialty Diagnoses / Procedures Referred By Contharshil t Referred To Contact Rheumatology Diagnoses Positive AUDREY (antinuclear antibody) Vitiligo Feeling tired Law Naylor APRN [address] [place] [address] Phone: tel: fax: Referral ID Status Reason Start Date Expiration Date V isits Requested Visits Authorized [id number] Closed Specialty Services Required 03/27/2022 09/26/2023 1 1 Encounter Details Date Type Department Care Team (Late st Contact Info) Description 03/27/2022 Community [facility] Community Practice [address] [place] [address] Law Naylor APRN [address] [place] [address] Positive AUDREY (antinuclear antibody) (Primary [...] Description 12/22/2025 3:20 PM EDT Office Visit [place] [facility] Medicine Specialties [address] [place] [address] Ryann Hill, RATING CLERK [address] [place] [address] Scheduled Referrals Name Type Priority Associated Diagnoses Order Schedule Ambulatory referral to Rheumatology Outpatient Referral Routine Positive AUDREY (antinuclear antibody) Vitiligo Feeling tired Expected: 03/27/2022 (Approximate), Expires: 09/27/2023 documented as of this encounter Visit Diagnoses Diagnosis Positive AUDREY (antinuclear antibody)- Primary Other and unspecified nonspecific immunological findings Vitiligo Feeling tired documented in this encounter Care Teams Matrix Plater Relationship Specialty Start Date End Date Kulwinder Smiley MD [address] [place] [address] PCP - General 01/20/21 07/21/23 Mayuri Diego, RATING CLERK [address] [place] [address] PCP - General 07/22/23 Ivonne Gonzalez MD [address] [facility] [address] [place] [address] Service Attending Neuro-Ophthalmology 02/27/23 documented as of this encounter
[2025-06-24 11:24] LABS: Microscopic, Urine URINE MICROSCOPIC (MICROSCOPIC)
[2025-06-24 11:52] LABS: Hematocrit 38.2 % (37.0-47.0); Hemoglobin 12.7 g/dL (12.2-16.2); Immature Granulocytes % 0.2 %; Mean Corpuscular HGB Conc 33.2 g/dL (31.8-35.4); Mean Corpuscular Hemoglobin 29.6 pg (27.0-31.2); Mean Corpuscular Volume 89.0 fl (81-99); Nucleated Red Blood Cells % 0 %; Platelet Count 265 K/mm3 (142-424); Red Blood Count 4.29 M/mm3 (4.20-5.40); Red Cell Distribution Width-SD 38.7 fL; White Blood Count 5.9 K/mm3 (4.8-10.8)
[2025-06-24 12:12] LABS: Alanine Aminotransferase 16 U/L (12-78); Albumin Level 3.9 g/dl (3.5-5.0); Alkaline Phosphatase 116 U/L (38-126); Aspartate Amino Transferase 18 U/L (14-36); Bilirubin,Direct 0.2 mg/dl (0.0-0.4); Bilirubin,Indirect 0.3 mg/dL (0.0-0.9); Bilirubin,Total 0.5 mg/dl (0.2-1.3); Bilirubin,Unconjugated 0.3 mg/dL (0.0-1.1); Creatinine,Serum 0.90 mg/dl (0.52-1.04); Estimated Glomerular Filt Rate 71 ml/min (>60); GFR (African American) 86 ML/MIN (>60); Total Protein,Serum 6.6 g/dl (6.3-8.2)
[2025-06-24 12:14] LABS: Magnesium 1.9 mg/dl (1.6-2.3)
[2025-06-24 12:19] LABS: C-Reactive Protein 11.0 mg/L (0-4)
[2025-06-24 13:02] LABS: Vitamin B12 805 pg/mL (239-931)
[2025-06-24 13:29] LABS: Bilirubin,Urine Negative (Negative); Color,Urine YELLOW (Yellow); Glucose,Urine (UA) Negative (Negative); Ketones,Urine Negative (Negative); Leukocyte Esterase,Urine 1+ (Negative); PH,Urine 6.0 (5.0-8.5); Protein,Urine Negative (Negative); Specific Gravity, Urine 1.015 (1.005-1.030); Urobilinogen,Urine 0.2 EU/dl (0.2)
[2025-06-24 15:03] LABS: Bacteria,Urine Trace /lpf; Squamous Epithelial Cell,Urine Occasional #/hpf (0-5); WBC,Urine Occasional #/hpf (0-3)
[2025-06-25 16:12] LABS: Albumin 3.6 g/dL (2.9-4.4); Alpha-1-Globulin 0.3 g/dL (0.0-0.4); Alpha-2-Globulin 0.9 g/dL (0.4-1.0); Gamma Globulin 1.3 g/dL (0.4-1.8)
== END 2025-06-24 23:59 | disposition home or self-care (01) ==
LOC: LAB 11:04
PROVIDERS: Nurse Practitioner; PCP Nurse Practitioner Family; Visit Provider Nurse Practitioner Family
DX: M79.601 Pain in right arm (principal); M79.602 Pain in left arm; M32.9 Systemic lupus erythematosus, unspecified; E83.42 Hypomagnesemia; R20.2 Paresthesia of skin; Z79.899 Other long term (current) drug therapy
CPT/HCPCS: 36415; 80076; 81001; 82565; 82570; 82607; 83090; 83735; 84155; 84156; 85025; 85651; 86140; 86160; 86225; 87086

== ENCOUNTER 2025-07-12 11:34 | Outpatient (CLI) | payer OTHER, SELFPAY ==
--- OUTSIDE RECORDS SUMMARY | 2013-07-03 06:24 | XMS_ITS | Continuity of Care Document ---
Author Organization [facility] Address [address] [facility] [address] [id number] [place] [address] Care Team Providers Care Change Number Operator Name Role Phone Unavailable Unavailable Unavailable Allergies, Adverse Reactions, Alerts Substance Reaction Status Criticality adhesive Active No Information Iodinated Contrast Media rash Active No Information PERTECHNETIC ACID [id number] Active No Information Penicillins Active No Information Medications Medication Instructions Dosage Effective Dates (start - stop) Status Comments Motrin 800 mg tablet take 1 tablet by or al route 2 times every day with food 800 MG - Active Fioricet 50 mg-325 mg-40 mg tablet take 1 - 2 tablet by oral route every 4 hours as needed not to exceed 6 tablets per 24hrs - Active albuterol sulfate HFA 90 mcg/actuation Aerosol Inhaler inhale 1 - 2 puff by inhalation route every 4 - 6 hours as needed 1-2 puff - Active Procedures Procedure Date OFFICE/OUTPATIENT VISIT, EST OFFICE/OUTPATIENT VISIT, EST OFFICE/OUTPATIENT VISIT, EST OFFICE/OUTPATIENT VISIT, EST TOBACCO NON-USER OFFICE/OUTPATIENT VISIT, EST TOBACCO NON-USER OFFICE/OUTPATIENT VISIT, EST OFFICE/OUTPATIENT VISIT, EST Urinalysis - Clinitek OFFICE/OUTPATIENT VISIT, EST FLU VACCINE, 3 YRS & >, IM IMMUNIZATION ADMIN Urinalysis - Clinitek Test (Urine) OFFICE/OUTPATIENT VISIT, [facility] OFFICE/OUTPATIENT VISIT, [facility] URINE TEST OFFICE/OUTPATIENT VISIT, [facility] IMMUNIZATION ADMIN FLU VACCINE, 3 YRS & >, IM TOBACCO NON-USER OFFICE/OUTPATIENT VISIT, [facility] URINALYSIS NONAUTO W/O SCOPE TOBACCO NON-USER Advance Directives Directive Yes / No Effective Date File Name No Information Encounters Encounter Description Practice Location Reason(s) For Visit Diagnoses Date Provider Providers Copied on Encounter [place] [address] [id number] [place], [place], [address] [place] [address] No Information 3 No Information OFFICE/OUTPA TIENT VISIT, [place] [address] [id number] [place], [address] [place] [address] injury (chief complaint) Unspecified site of ankle sprain 3 No Information OFFICE/OUTPA TIENT VISIT, [place] [address] [id number] [place], [address] [place] [address] discuss test results (chief complaint) Headache 3 No Information OFFICE/OUTPA TIENT VISIT, [place] [address] [id number] [place], [address] [place] [address] migraine (chief complaint) Headache 3 No Information OFFICE/OUTPA TIENT VISIT, [place] [address] [id number] [place], [address] [place] [address] fever (chief complaint) Upper Respiratory Infection, Acute 3 No Information OFFICE/OUTPA TIENT VISIT, [place] [address] [id number] [place], [address] [place] [address] cold symptoms (chief complaint) Upper Respiratory Infection, Acute 3 No Information OFFICE/OUTPA TIENT VISIT, [facility], [address] [place] [address] [id number] [place], [facility], [facility] abdominal pain (chief complaint) GERD 2 No Information OFFICE/OUTPA TIENT VISIT, [facility], [address] [place] [address] [id number] [place], [facility], [facility] migraine (chief complaint) Headache 2 No Information OFFICE/OUTPA TIENT VISIT, [place] [address] [id number] [place], [facility], [facility] UTI (chief complaint) FLU SHOT (chief complaint) palpitatio n (chief complaint) DysuriaPalpitatio nsInfluenza Vaccine 2 No Information OFFICE/OUTPA TIENT VISIT, [place] [address] [id number] [place], [address] [place] [address] abdominal pain (chief complaint) LABORATORY EXAM NOSPregnancy examination or test, unconfirmedAbdomi nal pain, left lower quadrantIrregular menstrual cycle 2 No Information [place] [address] [id number] [place], [address], [facility] No Information 2 No Information OFFICE/OUTPA TIENT VISIT, [place] [address] [id number] [place], [address] [place] [address] No Information 2 Nurse Nurse. [address] [place] [address], [id number], [place]. tel:[phone] OFFICE/OUTPA TIENT VISIT, [place] [address] [id number] [place], [place], [id number] [place] [address] No Information 1 No Information OFFICE/OUTPA TIENT VISIT, [place] [address] [id number] [place], [address], [facility] No Information May- 1 No Information Family History Family Member Type Diagnosis Age At Onset Problem (finding) Family history of migra ine Problem (finding) Family history of hyper tension Problem (finding) Family history of alcoh olism Problem (finding) Family history of depre ssion Problem (finding) Family history of asthm a Problem (finding) Family history of Eczem a Immunizations Vaccine Date Status Comments Flu (split) (3 yrs or older) administered Source: New Immunization Record Payers Payer name Insurance type Covered constitution party ID Authoriza tion(s) No Information Social History Type Description Quantity Date Captured Comments Sex Female Smoking Status No Information Sexual Orientation Straight or heterosexual Chief Complaint And Reason For Visit No Information Reason For Referral Reason For Referral No Information History Of Present Illness Encounter Date Complaint History Of Prese nt Illness No Information Functional Status Date Functional Assessmen t No Information Instructions Date Instruction Additional Infor mation Recheck if no better in 7 to 10 days Related to Upper Respiratory Infection, Acute Take meds as prescribed - erythr omycin Related to Upper Respiratory Infection, Acute Home, rest, increase fluids. Rel ated to Upper Respiratory Infection, Acute Ibuprofen as needed Related to U pper Respiratory Infection, Acute Recheck if no better in 7 to 10 days Related to Upper Respiratory Infection, Acute Take meds as prescri bed - Cipro, benzonatate, albuterol Related to Upper Respiratory Infection, Acute Home, rest, increase fluids. Rel ated to Upper Respiratory Infection, Acute Avoid all NSAIDs Related to GERD Trial of prilosec - twice daily Related to GERD Avoid alcohol, caffe ine, citric acid, chocolate, tobacco, peppermint Related to GERD Clear liquids, advance as tlerat ed Related to GERD No eating for 3 hours before bed time Related to GERD May need GI referral Related to GERD consider cafergot or triptan the rapy Related to Headache Will start neurology referral Re lated to Headache Trials of phenergan and parafon Related to Headache Will refer to urology Related to Dysuria Will send urine for U/A and C&S Related to Dysuria Course of pyridium Related to Dy suria Flu shot today Related to Palpi tations Echocardiogram ordered Related t o Palpitations Increase water intake Related to Abdominal pain, left lower quadrant Medications as instr ucted - complete antibiotics Related to Abdominal pain, left lower quadrant CT abdomen and pelvis ordered Re lated to Abdominal pain, left lower quadrant Assessments Type Assessment Date No Information Patient Care Teams Name Effective Dates (start - stop) Status Members No Information
--- OUTSIDE RECORDS SUMMARY | 2025-06-23 14:20 | XMS_ITS | Encounter Summary ---
Author Organization [facility] Address [address] [place] [address] Care Team Providers Care Pack Worker Supervisor Name Role Phone Ivonne Gonzalez MD Unavailable [phone] Mayuri Diego APRN Primary Care Provider [phone] Reason for Visit * Reason Comments Follow-up Encounter Details Date Type Department Care Team (Late st Contact Info) Description 06/23/2025 3:20 PM EDT [facility] [address] [place] [address] Ryann Hill APRN [address] [place] [address] Systemic lupus erythematosus, unspecified SLE type, unspecified organ involvement status (CMS/HCC) (Primary Dx); High risk medication use; Paresthesia and pain of both upper extremities Social History Tobacco Use Types Packs/Day Years Used Date Smoking Tobacco: Former Cigarettes Passive Smoke Exposure: Current Smokeless Tobacco: Never Tobacco Cessation:Counseling Given: Not Answered Alcohol Use Standard Drinks/Week Comments Not Currently 0 (1 standard drink = 0.6 oz pur e alcohol) PHQ-2 Answer Date Recorded Patient Health Questionnaire-2 Score 0 06/23/2025 PHQ-9 Answer Date Recorded Patient Health Questionnaire-9 Score 0 12/21/2024 AUDIT-C Answer Date Recorded Frequency of Alcohol Consumption Not on file 06/23/2025 Q2: How many drinks containi ng alcohol do you have on a typical day when you are drinking? Patient does not drink Frequency of Binge Drinking Not on file 06/09 PHQ-2A Answer Date Recorded Depression Risk 0 09/05/2022 Comments Unknown Sex and Gender Information Value Date Recorded Sex Assigned at Not on file Legal Sex Female 8:39 PM EDT Gender Identity Not on file Sexual Orientation Not on file documented as of this encounter Last Filed Vital Signs Vital Sign Reading Time Taken Comments Blood Pressure 112/78 06/23/2025 3:12 PM EDT Pulse 81 06/23/2025 3:12 PM EDT Temperature 36.9 C (98.4 F) 06/23/2025 3:12 PM EDT Respiratory Rate 16 06/23/2025 3:12 PM EDT Oxygen Saturation 98% 06/23/2025 3:12 PM EDT Inhaled Oxygen Concentration - - Weight 109 kg (240 lb 8.4 oz) 06/23/2025 3:12 PM EDT Height 167.6 cm (5' 6 ) 06/23/2025 3:12 PM EDT Body Mass Index 38.82 06/23/2025 3:12 PM EDT documented in this encounter Functional Status * Over the past 2 weeks, how often have you been bothered by any of the following problems? Question Answer Date of Assessment Author Little interest or pleasure in doing things Not at all 06/23/2025 3:23 PM EDT Heather Patel Feeling down, depressed, or hopeless Not at all 06/23/2025 3:23 PM EDT Heather Patel Patient Health Questionnaire -2 Score 0 06/23/2025 3:23 PM EDT Heather Patel documented as of this encounter Miscellaneous Notes * Progress Notes - Ryann Hill APRN - 06/23/2025 3:20 PM EDT Images from the original note were not included. Melissa Campos is a 34 y.o. female Chief complaint: here for follow up of No primary diagnosis found. Subjective HPI Melissa Campos is a 34 y.o. female who presents today for follow up of No primary diagnosis found.. Past history: Pt has chronic fatigue and migraines. She reports that her hands lock up, and she can no longer play her violin. 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 Pain is worse in the evening, activity makes the pain worse. Her leg pain started in her upper thighs, feels like pains and needles. She often will need to get up and move around or massage the areas to get resolution of her symptoms. The pain has now progressed into her calf area. She has had several EMG's which were all negative for neuropathy. She has taken Advil, tylenol, and lidocaine patches without improvement. Med Hx: Hydroxychloroquine (2021-current) AZA (10/02-current) Interim history: Last seen by me 01/01. Pt reports she has had some concerns from a cardiology perspective. Follows with Hillary Yadav at [facility]. She reports her hands are killing her. She does endorse swelling of the hands in the morning. Evening is the worse time of day. She is having an EGD and colonoscopy at the beginning of February for recurrent H. Pylori. Imaging: Today (06/23/25): Pt reports she is continuing to struggle with her overall health. She has had a hysterectomy since our last visit. She also has had magnesium infusions and is continuing evaluation of this from GI. She reports having a recent cut that required stitches. She is struggling with decreased sensation and executive producer promos strength. She continues to have a chest rash, along with a new facial rash that is off and on. Review of Systems Constitutional: Negative for fatigue and fever. Respiratory: Negative for shortness of breath. Cardiovascular: Negative for chest pain. Musculoskeletal: Positive for arthralgias. Negative for joint swelling. See HPI Skin: Negative for rash. Neurological: Positive for numbness and headaches. The following portions of the chart were reviewed this encounter and updated as appropriate: Past Medical History: Diagnosis Date Depression Migraines PTSD (post-traumatic stress disorder) Past Surgical History: Procedure Laterality Date CHOLECYSTECTOMY KNEE SURGERY OTHER SURGICAL HISTORY shoulder injection TONSILLECTOMY W/ ADENOIDECTOMY Social History Socioeconomic History Marital status: Single Spouse name: Not on file Number of children: Not on file Years of education: Not on file Highest education level: Not on file Occupational History Not on file Tobacco Use Smoking status: Never Passive exposure: Current Smokeless tobacco: Never Vaping Use Vaping status: Never Used Substance and Sexual Activity Alcohol use: Not Currently Drug use: Not Currently Types: Cocaine Sexual activity: Not on file Other Topics Concern Not on file Social History Narrative Not on file Social Drivers of Health Financial Resource Strain: Not on file Food Insecurity: No Food Insecurity (01/22/2024) Received from [facility] Hunger Vital Sign Worried About Running Out of Food in the Last Year: Never true Ran Out of Food in the Last Year: Never true Transportation Needs: No Transportation Needs (01/22/2024) Received from [facility] PRAPARE - Transportation In the past 12 months, has lack of transportation kept you from medical appointments or from getting medications?: No In the past 12 months, has lack of transportation kept you from meetings, work, or from getting things needed for daily living?: No Physical Activity: Sufficiently Active (01/22/2024) Received from [facility] Exercise Vital Sign Days of Exercise per Week: 5 days Minutes of Exercise per Session: 30 min Stress: Not on file Social Connections: Unknown (12/16/2023) Received from [facility] Family and Community Support Help with Day-to-Day Activities: Not on file Lonely or Isolated: Not on file Intimate Partner Violence: Not At Risk (01/21/2024) Received from [facility] Abuse Screen Feels Unsafe at Home or Work/School: no Feels Threatened by Someone: no Does Anyone Try to Keep You From Having Contact with Others or Doing Things Outside Your Home?: no Physical Signs of Abuse Present: no Housing Stability: Not At Risk (01/22/2024) Received from [facility] Housing Stability Current Living Arrangements: home Potentially Unsafe Housing Conditions: none Family History Problem Relation Name Age of Onset Hypothyroidism Mother Aneurysm Mother Parkinson Disease Father Cirrhosis Father COPD Father Tremor Father Anxiety disorder Sister Depression Sister Cancer Brother Anxiety disorder Brother Nicolette Depression Maternal Grandmother Hypothyroidism Maternal Grandmother Colon cancer Maternal Grandmother Arthritis Maternal Grandmother Dementia Maternal Grandmother Lung cancer Maternal Grandfather Alzheimer's disease Paternal Grandmother Allergies Allergen Reactions Iv Contrast Hives Other Hives Cat Scan Dye Penicillins Hives, Rash and Other - please document in the comment field Pertussis Vaccines Hives, Rash and Other - please document in the comment field Iodinated Contrast Media Rash and Other - please document in the comment field Pertussis Vaccine Rash Wound Dressing Adhesive Rash Current Outpatient Medications Medication Sig Dispense Refill albuterol (2.5 MG/3ML) 0.083% nebulizer solution USE 3 ML IN NEBULIZER EVERY 6 HOURS NEEDED FOR SHORTNESS OF BREATH FOR WHEEZING amantadine (Symmetrel) 100 MG tablet (Patient not taking: Reported on 12/21/2024) carBAMazepine (TEGretol) 100 MG chewable tablet Chew 1 tablet (100 mg) 3 (three) times a day. 90 tablet 11 celecoxib (CeleBREX) 200 MG capsule Take 1 capsule (200 mg) by mouth 2 (two) times a day. 180 capsule 5 cephalexin (Keflex) 500 MG capsule (Patient not taking: Reported on 12/21/2024) Cyanocobalamin 5000 MCG capsule Daily Erenumab-aooe (Aimovig) 70 MG/ML solution auto-injector Inject 70 mg under the skin every 30 (thirty) days. 1 mL 11 famotidine (Pepcid) 20 MG tablet Take 1 tablet (20 mg) by mouth 1 (one) time each day. hydroxychloroquine (Plaquenil) 200 MG tablet Take 1 tablet by mouth 2 times a day. 60 tablet 5 methylPREDNISolone (Medrol Dospak) 4 MG tablets Follow schedule on package instructions 21 tablet 0 metoprolol succinate XL (Toprol-XL) 25 MG 24 hr tablet Take 1 tablet by mouth daily. omeprazole (PriLOSEC) [address] capsule Take 1 capsule (40 mg) by mouth 1 (one) time each day. Do not crush or chew. Plecanatide (TRULANCE PO) Take by mouth. No current facility-administered medications for this visit. Objective Last visit labs: Appointment on 12/21/2024 Component Date Value Ref Range Status Color, Urine 12/21/2024 Yellow Final Clarity, Urine 12/21/2024 Clear Final Spec [place], Urine 12/21/2024 1.014 1.005 - 1.030 Final pH, Urine 12/21/2024 6.5 5.0 - 8.0 Final Protein, Urine 12/21/2024 Negative Negative mg/dL Final Glucose, Urine 12/21/2024 Negative Negative mg/dL Final Ketones, Urine 12/21/2024 Negative Negative mg/dL Final Blood, Urine 12/21/2024 Negative Negative Final Bilirubin, Urine 12/21/2024 Negative Negative Final Urobilinogen, Urine 12/21/2024 0.2 0.2 to 1.0 mg/dL Final Leukocytes, Urine 12/21/2024 Trace (A) Negative Final Nitrite, Urine 12/21/2024 Negative Negative Final RBC, Urine 12/21/2024 1 0 to 3 /HPF Final WBC, Urine 12/21/2024 0 - 5 0 to 5 /HPF Final Squamous Epithelial Cells 12/21/2024 11 - 20 (A) 0 to 5 /HPF Final Hyaline Casts 12/21/2024 0 - 2 0 to 5 /LPF Final Bacteria, Urine 12/21/2024 Present Negative Final Protein, Urine 12/21/2024 <6 mg/dL Final Creatinine, Urine 12/21/2024 85 mg/dL Final WBC Count 12/21/2024 7.55 3.70 - 10.30 10*3/uL Final RBC Count 12/21/2024 4.55 3.90 - 5.20 10*6/uL Final HGB 12/21/2024 13.8 11.2 - 15.7 g/dL Final HCT 12/21/2024 41.3 34.0 - 45.0 % Final Platelet Count 12/21/2024 282 155 - 369 10*3/uL Final MCV 12/21/2024 91 79 - 98 fL Final MCH 12/21/2024 30.3 26.0 - 32.0 pg Final MCHC 12/21/2024 33.4 30.7 - 35.5 g/dL Final RDW 12/21/2024 12.1 11.5 - 14.5 % Final MPV 12/21/2024 11.0 8.8 - 12.5 fL Final nRBC 12/21/2024 0.0 <=0.0 per 100 WBCs Final Differential Type 12/21/2024 Automated Final Neutrophils % 12/21/2024 64 % Final Lymphocytes % 12/21/2024 25 % Final Monocytes % 12/21/2024 8 % Final Eosinophils % 12/21/2024 2 % Final Basophils % 12/21/2024 1 % Final Immature Granulocytes % 12/21/2024 0 % Final Neutrophils Absolute 12/21/2024 4.86 1.60 - 6.10 10*3/uL Final Lymphocytes Absolute 12/21/2024 1.91 1.20 - 3.90 10*3/uL Final Monocytes Absolute 12/21/2024 0.58 0.30 - 0.90 10*3/uL Final Eosinophils Absolute 12/21/2024 0.12 0.00 - 0.50 10*3/uL Final Basophils Absolute 12/21/2024 0.05 0.00 - 0.10 10*3/uL Final Immature Granulocytes Absolute 12/21/2024 0.03 0.00 - 0.06 10*3/uL Final Direct Bilirubin, Plasma 12/21/2024 <0.2 <=0.3 mg/dL Final Alkaline Phosphatase, Plasma 12/21/2024 107 (H) 35 - 104 U/L Final Total Bilirubin, Plasma 12/21/2024 0.3 0.2 - 1.1 mg/dL Final Albumin, Plasma 12/21/2024 4.4 3.5 - 5.2 g/dL Final Total Protein 12/21/2024 7.8 6.3 - 7.9 g/dL Final ALT, Plasma 12/21/2024 19 10 - 35 U/L Final AST, Plasma 12/21/2024 13 10 - 35 U/L Final Creatinine, Plasma 12/21/2024 0.90 0.60 - 1.10 mg/dL Final eGFRcr 12/21/2024 85.7 mL/min/1.73m*2 Final Reported eGFRcr in mL/min/1.73m2 is based the CKD-EPI 2020 equation that does not use a race coefficient. C3 Complement 12/21/2024 171 (H) 84 - 166 mg/dL Final C4 Complement 12/21/2024 33 13 - 36 mg/dL Final CRP, Plasma 12/21/2024 4.2 <=8.0 mg/L Final Sedimentation Rate 12/21/2024 28 (H) <20 mm/hr Final Double-Stranded DNA (dsDNA) Ab IgG* 12/21/2024 <1:10 <1:10 Final 6 TGN 12/21/2024 <3 230 - 400 pmole/8X10E8 RBC Final 6 TGN Results Assessment:DRUG 12/21/2024 Not Quantifiable. Lower Likelihood of Response Final 6 MMPN 12/21/2024 <252 <5700 pmole/8X10E8 RBC Final 6 MMPN Results Assessment: 12/21/2024 Not Quantifiable. Lower Risk of Hepatotoxicity Final There were no vitals filed for this visit. Physical Exam Vitals reviewed. Constitutional: General: She is not in acute distress. Pulmonary: Effort: Pulmonary effort is normal. Musculoskeletal: General: Tenderness present. No swelling. Normal range of motion. Comments: Digits and nails were normal. See homunculus. Joints had a normal ROM and normal alignment. Skin: General: Skin is warm and dry. Findings: No rash. Neurological: Mental Status: She is alert and oriented to person, place, and time. Psychiatric: Mood and Affect: Mood normal. There is currently no information documented on the homunculus. Go to the Rheumatology activity andcomplete the homunculus joint exam. Swollen Joint Count: Swollen: -- Tender Joint Count: Tender: -- Patient global assessment: Patient Global: --/10 Rapid 3 score: 14/30 CDAI: 15 Assessment/Plan No diagnosis found. SLE (DsDNA 1:40, AUDREY 1:320 speckled, SSA 60 84) Polyarthralgia Pt is having significant pain. No synovitis on PE but multiple areas TTP. Pt has multiple disease processes that are currently being worked up. These conditions can be playing role in her overall symptoms and pain. Overall symptoms are not at goal. -plan to increase AZA to 100 mg daily -next step Methotrexate 3. H. Pylori Pt follows with Paloma Burks, with [facility] GI. She has follow up in the morning. 4. Chronic shoulder pain (right) Pt sees pain clinic through [facility], improved since surgery 01/30. 5. High risk medication use -Thiopurine metabolites -routine labs today -lupus monitoring labs today 6. Palpitations Pt follows with Naveed Howell, through [facility] Per chart review: 7. Paraesthesia 8. Migraine Pt follows with [facility] neurology. Recently placed on Nurtec every other day and tizanidine -will order paraesthesia labs (Serum vitamin B12 level SPEP, Methylmalonic acid and homocysteine levels Cryoglobulins, CBC, CMP) RTC 6 months The patient was counseled about diagnostic results, instruction for management, risk factors reduction, prognosis, compliance with visits and treatment, risks and benefits of treatments options. Prior notes (by external physicians) and results were reviewed by me with independent interpretation of labs and imaging. My note will be sent to PCP and other consulting physicians. documented in this encounter Plan of Treatment Upcoming Encounters Date Type Department Care Team (Late st Contact Info) Description 12/22/2025 3:20 PM EDT Office Visit [facility] [address] [place] [address] Ryann Hill APRN [address] [place] [address] Scheduled Orders Name Type Priority Associated Diagnoses Orde r Schedule Sedimentation Rate, Automated Lab Routine Systemic lupus erythematosus, unspecified SLE type, unspecified organ involvement status (CMS/HCC) High risk medication use Paresthesia and pain of both upper extremities Expected: 06/23/2025 (Approximate), Expires: 12/25/2026 C-Reactive Protein, Plasma Lab Routine Systemic lupus erythematosus, unspecified SLE type, unspecified organ involvement status (CMS/HCC) High risk medication use Paresthesia and pain of both upper extremities Expected: 06/23/2025 (Approximate), Expires: 12/25/2026 CBC and Differential Lab Routine Systemic lupus erythematosus, unspecified SLE type, unspecified organ involvement status (CMS/HCC) High risk medication use Paresthesia and pain of both upper extremities Expected: 06/23/2025 (Approximate), Expires: 12/25/2026 Creatinine, Plasma Lab Routine Systemic lupus erythematosus, unspecified SLE type, unspecified organ involvement status (CMS/HCC) High risk medication use Paresthesia and pain of both upper extremities Expected: 06/23/2025 (Approximate), Expires: 12/25/2026 Hepatic Function Panel Lab Routine Systemic lupus erythematosus, unspecified SLE type, unspecified organ involvement status (CMS/HCC) High risk medication use Paresthesia and pain of both upper extremities Expected: 06/23/2025 (Approximate), Expires: 12/25/2026 Double-Stranded DNA (dsDNA) Antibody, IgG by IFA Lab Routine Systemic lupus erythematosus, unspecified SLE type, unspecified organ involvement status (CMS/HCC) High risk medication use Paresthesia and pain of both upper extremities Expected: 06/23/2025 (Approximate), Expires: 12/25/2026 Sedimentation Rate, Automated Lab Routine Systemic lupus erythematosus, unspecified SLE type, unspecified organ involvement status (CMS/HCC) High risk medication use Paresthesia and pain of both upper extremities Expected: 06/23/2025 (Approximate), Expires: 12/25/2026 C-Reactive Protein, Plasma Lab Routine Systemic lupus erythematosus, unspecified SLE type, unspecified organ involvement status (CMS/HCC) High risk medication use Paresthesia and pain of both upper extremities Expected: 06/23/2025 (Approximate), Expires: 12/25/2026 C4 Complement Lab Routine Systemic lupus erythematosus, unspecified SLE type, unspecified organ involvement status (CMS/HCC) High risk medication use Paresthesia and pain of both upper extremities Expected: 06/23/2025 (Approximate), Expires: 12/25/2026 C3 Complement Lab Routine Systemic lupus erythematosus, unspecified SLE type, unspecified organ involvement status (CMS/HCC) High risk medication use Paresthesia and pain of both upper extremities Expected: 06/23/2025 (Approximate), Expires: 12/25/2026 Creatinine, Plasma Lab Routine Systemic lupus erythematosus, unspecified SLE type, unspecified organ involvement status (CMS/HCC) High risk medication use Paresthesia and pain of both upper extremities Expected: 06/23/2025 (Approximate), Expires: 12/25/2026 Hepatic Function Panel Lab Routine Systemic lupus erythematosus, unspecified SLE type, unspecified organ involvement status (CMS/HCC) High risk medication use Paresthesia and pain of both upper extremities Expected: 06/23/2025 (Approximate), Expires: 12/25/2026 CBC and Differential Lab Routine Systemic lupus erythematosus, unspecified SLE type, unspecified organ involvement status (CMS/HCC) High risk medication use Paresthesia and pain of both upper extremities Expected: 06/23/2025 (Approximate), Expires: 12/25/2026 Protein, Random, Urine with Creatinine Lab Routine Systemic lupus erythematosus, unspecified SLE type, unspecified organ involvement status (CMS/HCC) High risk medication use Paresthesia and pain of both upper extremities Expected: 06/23/2025 (Approximate), Expires: 12/25/2026 Urinalysis with reflex microscopic (Culture NOT Included) Lab Routine Systemic lupus erythematosus, unspecified SLE type, unspecified organ involvement status (CMS/HCC) High risk medication use Paresthesia and pain of both upper extremities Expected: 06/23/2025 (Approximate), Expires: 12/25/2026 Thiopurine Metabolites Lab Routine Systemic lupus erythematosus, unspecified SLE type, unspecified organ involvement status (CMS/HCC) High risk medication use Paresthesia and pain of both upper extremities Expected: 06/23/2025 (Approximate), Expires: 12/22/2026 Vitamin B12 Lab Routine Systemic lupus erythematosus, unspecified SLE type, unspecified organ involvement status (CMS/HCC) High risk medication use Paresthesia and pain of both upper extremities Expected: 06/23/2025 (Approximate), Expires: 12/25/2026 Protein electrophoresis, serum Lab Routine Systemic lupus erythematosus, unspecified SLE type, unspecified organ involvement status (CMS/HCC) High risk medication use Paresthesia and pain of both upper extremities Expected: 06/23/2025 (Approximate), Expires: 12/25/2026 Methylmalonic acid, serum Lab Routine Systemic lupus erythematosus, unspecified SLE type, unspecified organ involvement status (CMS/HCC) High risk medication use Paresthesia and pain of both upper extremities Expected: 06/23/2025 (Approximate), Expires: 12/25/2026 Homocysteine (cardio), FPIA Lab Routine Systemic lupus erythematosus, unspecified SLE type, unspecified organ involvement status (CMS/HCC) High risk medication use Paresthesia and pain of both upper extremities Expected: 06/23/2025 (Approximate), Expires: 12/25/2026 documented as of this encounter Visit Diagnoses Diagnosis Systemic lupus erythematosus, unspecified SLE type, unspecified organ involvement status (CMS/HCC)- Primary High risk medication use Paresthesia and pain of both upper extremities documented in this encounter Additional Health Concerns Assessment Noted Time PHQ-9 Depression Total Score: 0 12/22/19 3:33 PM EDT A fall risk assessment has been complete d for the patient 06/23/2025 3:25 PM EDT A Body Mass Index follow-up plan has been documented for the patient 06/23/2025 4:01 PM EDT documented as of this encounter Care Teams Pack Worker Supervisor Relationship Specialty Start Date End Date Mayuri Diego APRN [address] [place] [address] PCP - General 07/22/23 Ivonne Gonzalez MD [address] [facility] [address] [place] [id number] Service Attending Neuro-Ophthalmology 02/27/23 documented as of this encounter
--- NOTE | 2025-07-12 11:36 | XR_ITS ---
FINAL REPORT CLINICAL HISTORY: right middle finger states infection in right middle finger,pip joint COMPARISON: Hand x-ray 12/23/2024 FINDINGS: AP, oblique and lateral views of the right hand third digit were obtained. There is no acute osseous abnormality of the right third digit. Mild soft tissue edema is centered at the PIP joint. The joint space is preserved. No radiopaque foreign body identified. IMPRESSION: Mild soft tissue edema third digit PIP joint. Reviewed, Interpreted and Dictated by Margie Kraft MD Transcribed by Idalmis Wade Authenticated and [facility]
--- OUTSIDE RECORDS SUMMARY | 2025-07-12 11:36 | XMS_ITS | Clinical Summary ---
Author Organization [facility] Address [address] [place] [address] Care Team Providers Care Hydrographic Engineer Name Role Phone Ivonne Gonzalez MD Unavailable [phone] Mayuri Diego APRN Primary Care Provider [phone] Allergies Active Allergy Reactions Criticality Noted Date [...] Description 06/23/2025 3:20 PM EDT Office Visit [facility] Medicine Specialties [address], [address] [place] [address] Ryann Hill APRN Systemic lupus erythematosus, unspecified SLE type, unspecified organ involvement status (CMS/HCC) (Primary Dx); High risk medication use; Paresthesia and pain of both upper extremities 06/23/2025 Travel 04/20/2025 Telephone [facility] Medicine Specialties [address], [address] [place] [address] Ventura Shelton PharmD 04/20/2025 Orders Only [facility] Medicine Specialties [address], [address] [place] [address] Ryann Hill APRN from Last 3 Months Immunizations Immunization Administration Dates Next Due Moderna COVID-19 Vaccine (Community Development Manager) 12+ years ,02/22/2021 Family History Medical History [...] Description 12/22/2025 3:20 PM EDT Office Visit [facility] Medicine Specialties [address], [address] [place] [address] Ryann Hill L, STENCIL MACHINE OPERATOR [address] [place] [address] Health Maintenance Due Date Last Done Comments [...] 2016 [facility]-Cervical Cancer Screening 2019 [facility]-HPV/Cotest 2019 HDL-ASGVI-61 Vaccine (3 - Moderna risk series) 04/25/2021 [...] age to complete this topic Insurance AETNA [facility] MEDICAID Care Teams Hydrographic Engineer Relationship Specialty Start Date End Date Mayuri Diego APRN [address] [place] [address] PCP - General 07/22/23 Ivonne Gonzalez MD [address] [facility] [address] [place] [address] Service Attending Neuro-Ophthalmology 02/27/23
--- OUTSIDE RECORDS SUMMARY | 2025-07-12 11:36 | XMS_ITS | Encounter Summary ---
Author Organization [facility] Address [address] [place] [address] Care Team Providers Care Chief Crew Scheduler Name Role Phone Kulwinder Smiley MD Primary Care Provider [phone] Ivonne Gonzalez MD Unavailable [phone] Mayuri Diego APRN Primary Care Provider [phone] Reason for Referral * Consultation (Routine) - Closed Specialty Diagnoses / Procedures Referred By Contharshil greenwood Referred To Contact Neurology Diagnoses Facial neuralgia Chronic migraine without aura, intractable, without status migrainosus Lupus Law Naylor APRN [address] [place] [address] Phone: tel: fax: Referral ID Status Reason Start Date Expiration Date V isits Requested Visits Authorized [id number] Closed Specialty Services Required 08/14/2022 02/13/2024 1 1 Encounter Details Date Type Department Care Team (Late st Contact Info) Description 08/14/2022 Community [facility] [address] [place] [address] Law Naylor APRN [address] [place] [address] Facial neuralgia (Primary Dx); Chronic [...] Description 12/22/2025 3:20 PM EDT Office Visit [facility]ties [address], [address] [place] [address] Ryann Hill APRN [address] [place] [address] Scheduled Referrals Name Type Priority [...] documented as of this encounter Care Teams Chief Crew Scheduler Relationship Specialty Start Date End Date Kulwinder Smiley MD [address] [place] [address] PCP - General 01/20/21 07/21/23 Mayuri Diego APRN [address] [place] [address] PCP - General 07/22/23 Ivonne Gonzalez MD [address] [place] [address] Service Attending Neuro-Ophthalmology 02/27/23 documented as of this encounter
--- OUTSIDE RECORDS SUMMARY | 2025-07-12 11:36 | XMS_ITS | Encounter Summary ---
Author Organization Healthcare Address [address] [place] [address] Care Team Providers Care Manager Hotel Name Role Phone Ivonne Gonzalez MD Unavailable [phone] Mayuri Diego APRN Primary Care Provider [phone] Encounter Details Date Type Department Care Team [...] Description 12/22/2025 3:20 PM EDT Office Visit [facility] [address], [address] [place] [address] Ryann Hill, NEYDA [address] [place] [address] documented as of this encounter [...] as of this encounter Care Teams Manager Hotel Relationship Specialty Start Date End Date Mayuri Diego, PLANT MAINTENANCE WORKER [address] [place] [address] PCP - General 07/22/23 Ivonne Gonzalez MD [address] [place] [address] Service Attending Neuro-Ophthalmology 02/27/23 documented as of this encounter
--- OUTSIDE RECORDS SUMMARY | 2025-07-12 11:39 | XMS_ITS | Encounter Summary ---
Author Organization Healthcare Address [address] [place] [address] Care Team Providers Care Enterer Name Role Phone Ivonne Gonzalez MD Unavailable [phone] Mayuri Diego APRN Primary Care Provider [phone] Reason for Visit * Reason Comments Med Refill Encounter Details Date Type Department Care Team (Late st Contact Info) Description 12/17/2024 Refill [place] [facility] [address], [address] [place] [address] Ivonne Gonzalez MD [address] [place] [address] Social History Tobacco Use Types [...] Description 12/22/2025 3:20 PM EDT Office Visit [facility] [address], [address] [place] [address] Ryann Hill APRN [address] [facility] [address] [place] [address] documented as of this encounter Visit Diagnoses Not on filedocumented in this encounter Additional Health Concerns Assessment Noted Time A fall risk assessment has been complete d for the patient 06/22/2024 11:27 AM EDT A Body Mass Index follow-up plan has been documented for the patient 06/22/2024 12:22 PM EDT documented as of this encounter Care Teams Enterer Relationship Specialty Start Date End Date Mayuri Diego APRN [address] [place] [address] PCP - General 07/22/23 Ivonne Gonzalez MD [address] [facility] [address] [place] [address] Service Attending Neuro-Ophthalmology 02/27/23 documented as of this encounter
--- OUTSIDE RECORDS SUMMARY | 2025-07-12 11:39 | XMS_ITS | Clinical Summary ---
Author Organization [facility] Address [address] [place] [address] Care Team Providers Care Reliability Manager Name Role Phone Mayuri Diego APRN Primary Care Provider [phone] Allergies Active Allergy Reactions Criticality Noted Date [...] 2 (Two) Times a Day. Active Methylcobalamin (S23-EWEWHU PO) Take 1 tablet by mouth Daily. [...] = 0.6 oz pur e alcohol) OCCASIONAL [employer] Utilities Answer Date Recorded In the past 12 months has e [employer], gas, oil, or water [email or web address] threatened to shut off services in your [...] or training? Not on file Preferred Language Malagasy 01/22/2024 Comments Unknown Sex and Gender Information [...] VACCINE 04/09/2025 Medical Devices Implanted Type Area Integrated Marketing Intern Device Identifier Shelf Expiration Date Model / Serial / Lot Sut Nonabs Bone Dynacord Uhmwpe W/Os/6 Ndl 2pk Strip/Balbir - [id number] Implanted:Qty: 2 on 01/21/2024 by Sandor Barboza Jr., MD at [facility] Implant Left: Scapula DEPUY MITEK 05/09/2026 [id number] / / [id number] Tndn Semitendinous Flexigraft 1strnd Fz [id number] - [id number] Implanted:Qty: 1 on 01/21/2024 by Sandor Barboza Jr., MD at [facility] Implant Left: Scapula [facility] 10/29/2028 [facility] / / [id number] Insurance [facility] Care Teams Reliability Manager Relationship Specialty Start Date End Date Mayuri Diego APRN [address] [place] [address] PCP - General Internal Medicine 12/19/23
--- OUTSIDE RECORDS SUMMARY | 2025-07-12 11:39 | XMS_ITS | Data Portability ---
Author Organization [facility] [place] [facility] [place], [facility] Address [address] [place] [address] Care Team Providers Care Video Production Assistant Name Role Phone MARTINEZ PAVON Primary Care [...] By Organization Details Last Modified Time 07/25/2022 [id number] Discussed with patient that patient does not [...] contr ast No observ ation record ed. [email or web address] Not Available 11:26:00 10/03/19 23 09/06/2022 CT, abdom en + pelvi s, w/o contr ast No observ ation record ed. [email or web address] [facility] Urology [address], [place], [address], 10/03/2022 10:28:03 07/10/20 23 07/02/2023 US, thyro id No observ ation record ed. [facility] (Med Record) [address], [place], [address], 07/23/2023 12:45:43 07/28/20 24 07/17/2024 US, thyro id No observ ation record ed. BARCODE Not Available 2023 13:03:53 Result Notes None recorded. Problems No Known Problems Procedures Surgical History Date Name Laterality Status Provider Name and Address Organization Details Recorded Time myringotomy and insertion of tympanic ventilation tube completed Hetah Kim [facility] & [place] 07/26/2022 09:47:41 Imaging Results None recorded. Procedure Notes None recorded. Medical Equipment None Reported. Allergies Allergen ID Allergen Name Allergen Category Reaction Reaction Severity Criticality Documentation Date Start Date Code Code System Note Provider Name and Address Organization Details Recorded Time 23517 Product containin g penicilli n (product) medicatio n rash Not available Not available 07/25/2022 06833 8001 SNOMED ALIZE Berman [facility] & [place] 2 16:19:49 53548 PERTUSSIS VACCINE,A DSORBED Not available rash Not available Not available 07/25/2022 03577 3 RxNorm ALIZE Berman [facility] & [place] 2 16:20:06 88930 Iodinated contrast media (substanc e) medicatio n rash Not available Not available 07/25/2022 27207 2004 SNOMED [place] [facility] [place] 2 16:20:34 Medications Name Sig Start Date [...] Address Organization Details Last Updated DateTime 07/25/2022 934326.96 g 98.7 [degF] 37.2 kg/m2 167.64 cm Heath [facility] [place] [facility] [place] 07/25/2022 16:19:25 Social History None recorded. Functional Status None recorded. Mental Status None recorded. Family History Relationship Description Onset Age of this Age Resolved Age Notes LastModified by Organization Details LastModified Time Father No current problems or disability [email or web address] Not available 07/26 09:45:37 Mother No current problems or disability [email or web address] Not available 07/26 09:45:37 Medical History Condition Response Allergies/Hayfever N Heart Problems N None N Heart Conditions N Emphysema N Migraines Y Thyroid Problems Y Developmental Delay N Depression Y Glaucoma N Anemia N Immune System Disorder N Anesthesia Complications N Heart Attack (LA) N Anxiety Disorder Y Diabetes N Bleeding [...] Diagnosis SNOMED-CT Code Diagnosis ICD10 Code Diagnosis IMO Codes Diagnosis Note [id number] Madelaine Gustafson MD ENT Associate s [place] [address] [address] [facility] E [place] [id number]-[facility] 07/25/2022 15:51:07 07/25/2022 16:44:55 History of migraine 568251667 Z86.69 Otalgia of right ear 229 4931109 H92.01 Radiology result abnormal 708840030 R93.89 Thyroid nodule 806590462 E04.1 Patient is due for follow up U/S and this will be scheduled at her [facility] e. Health Concerns Section Related Observation LastModified by Organization Detai ls LastModified Time None Recorded Concern Status LastModified by Organization Details LastModified Time None Recorded Advance Directives Directive None Recorded Payers Insurance Date Sequence Insurance Name Policy Number Policy Acuna Covered Member ID Acuna Member ID Guarantor Name 11/24/2022 1 AETNA [facility] (MEDICAID HMO) Melissa Campos [id number] Melissa Campos Notes Date Note Type Note Provider Name and Address Organization Details Recorded Time 07/25/2022 text/html ROS as noted in the HPI 32yo female returns to the office today to discuss recent incidental findings on a ct scan. States she was sent by her neurologist for a ct scan of her face to work up trigeminal neuralgia. The ct showed abnormal findings in the right ear. Patient states she has been having some preauricular pain that radiates to her cheek and up her uatsdin down to jaw. This was partly the reason for her ct scan. Denies hearing loss or drainage from either ear. Madelaine Gustafson MD [address], [place], [address], [facility] [place] [facility] [place] 08/07/2022 11:49:29 OBGyn Episode No OBEpisode recorded.
--- OUTSIDE RECORDS SUMMARY | 2025-07-12 11:39 | XMS_ITS | Encounter Summary ---
Author Organization [facility] Address [address] [place] [address] Care Team Providers Care Inside Sales Professional Name Role Phone Kulwinder Smiley MD Primary Care Provider [phone] Ivonne Gonzalez MD Unavailable [phone] Mayuri Diego APRN Primary Care Provider [phone] Reason for Referral * Consultation (Routine) - Closed Specialty Diagnoses / Procedures Referred By Contharshil t Referred To Contact Rheumatology Diagnoses Positive AUDREY (antinuclear antibody) Vitiligo Feeling tired Law Naylor APRN [address] [place] [address] Phone: tel: fax: Referral ID Status Reason Start Date Expiration Date V isits Requested Visits Authorized [id number] Closed Specialty Services Required 03/27/2022 09/26/2023 1 1 Encounter Details Date Type Department Care Team (Late st Contact Info) Description 03/27/2022 Community [facility] [address] [place] [address] Law Naylor APRN [address] [place] [address] Positive AUDREY (antinuclear antibody) (Primary [...] Description 12/22/2025 3:20 PM EDT Office Visit [facility] [address], [address] [place] [address] Ryann Hill, LANGUAGE ASSISTANT [address] [place] [address] Scheduled Referrals Name Type Priority Associated Diagnoses Order Schedule Ambulatory referral to Rheumatology Outpatient Referral Routine Positive AUDREY (antinuclear antibody) Vitiligo Feeling tired Expected: 03/27/2022 (Approximate), Expires: 09/27/2023 documented as of this encounter Visit Diagnoses Diagnosis Positive AUDREY (antinuclear antibody)- Primary Other and unspecified nonspecific immunological findings Vitiligo Feeling tired documented in this encounter Care Teams Inside Sales Professional Relationship Specialty Start Date End Date Kulwinder Smiley MD [address] [place] [address] PCP - General 01/20/21 07/21/23 Mayuri Diego, LANGUAGE ASSISTANT [address] [place] [address] PCP - General 07/22/23 Ivonne Gonzalez MD [address] [facility] [address] [place] [address] Service Attending Neuro-Ophthalmology 02/27/23 documented as of this encounter
== END 2025-07-12 23:59 | disposition home or self-care (01) ==
LOC: RAD 11:35
PROVIDERS: PCP Nurse Practitioner Family; Visit Provider Nurse Practitioner Family
DX: S61.232A Puncture wound without foreign body of right middle finger without damage to nail, initial encounter (principal); L08.9 Local infection of the skin and subcutaneous tissue, unspecified; X58.XXXA Exposure to other specified factors, initial encounter
CPT/HCPCS: 73140

== ENCOUNTER 2025-07-23 12:21 | Outpatient (CLI) | payer OTHER, SELFPAY ==
[2025-07-23 13:07] LABS: Hematocrit 41.0 % (37.0-47.0); Hemoglobin 13.5 g/dL (12.2-16.2); Immature Granulocytes % 0.1 %; Mean Corpuscular HGB Conc 32.9 g/dL (31.8-35.4); Mean Corpuscular Hemoglobin 29.3 pg (27.0-31.2); Mean Corpuscular Volume 89.1 fl (81-99); Nucleated Red Blood Cells % 0 %; Platelet Count 307 K/mm3 (142-424); Red Blood Count 4.60 M/mm3 (4.20-5.40); Red Cell Distribution Width-SD 36.9 fL; White Blood Count 6.9 K/mm3 (4.8-10.8)
[2025-07-23 13:45] LABS: Magnesium 1.9 mg/dl (1.6-2.3); Uric Acid 4.8 mg/dl (2.5-6.2)
[2025-07-24 10:23] LABS: RA Latex Turbid. <10.0 IU/mL (<14.0)
[2025-07-26 12:23] LABS: Antinuclear Antibodies, IFA Negative (.)
== END 2025-07-23 23:59 | disposition home or self-care (01) ==
LOC: LAB 12:22
PROVIDERS: PCP Nurse Practitioner Family; Visit Provider Nurse Practitioner Family
DX: E83.42 Hypomagnesemia (principal); R29.898 Other symptoms and signs involving the musculoskeletal system; M79.89 Other specified soft tissue disorders
CPT/HCPCS: 36415; 83735; 84550; 85025; 85651; 86038; 86431

== ENCOUNTER → 2025-07-27 10:15 | Outpatient (CLI) | payer OTHER, SELFPAY | LOC: SL 10:15 | PROVIDERS: PCP Nurse Practitioner Family; Visit Provider Specialist | DX: G47.33 Obstructive sleep apnea (adult) (pediatric) (principal) | CPT/HCPCS: G0399 ==

== ENCOUNTER 2025-08-10 14:44 | Outpatient (CLI) | payer OTHER, SELFPAY ==
--- OUTSIDE RECORDS SUMMARY | 2025-06-23 14:20 | XMS_ITS | Encounter Summary ---
Author Organization [facility] Address [address] [place] [address] Care Team Providers Care Siderographist Name Role Phone Ivonne Gonzalez MD Unavailable [phone] Mayuri Diego APRN Primary Care Provider [phone] Reason for Visit * Reason Comments Follow-up Encounter Details Date Type Department Care Team (Late st Contact Info) Description 06/23/2025 3:20 PM EDT Office Visit [facility] Specialties [address], [address] [place] [address] Ryann Hill APRN [address] [place] [address] Systemic lupus erythematosus, unspecified SLE [...] down, depressed, or hopeless Not at all 06/09 3:23 PM EDT Heather Patel Patient Health Questionnaire-2 Score 0 06/09 3:23 PM EDT Heather Patel documented as [...] violin. 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 Pain is worse in [...] cardiology perspective. Follows with Hillary Yadav at [facility]. She reports her hands are killing her. [...] She is struggling with decreased sensation and career technical education instructor strength. She continues to have a chest [...] Insecurity: No Food Insecurity (01/22/2024) Received from [facility] Hunger Vital Sign Worried About Running Out of Food in the Last Year: Never true Ran Out of Food in the Last Year: Never true Transportation Needs: No Transportation Needs (01/22/2024) Received from [facility] PRAPARE - Transportation In the past 12 months, has lack of transportation kept you from medical appointments or from getting medications?: No In the past 12 months, has lack of transportation kept you from meetings, work, or from getting things needed for daily living?: No Physical Activity: Sufficiently Active (01/22/2024) Received from [facility] Exercise Vital Sign Days of Exercise per Week: 5 days Minutes of Exercise per Session: 30 min Stress: Not on file Social Connections: Unknown (12/16/2023) Received from [facility] Family and Community Support Help with Day-to-Day Activities: Not on file Lonely or Isolated: Not on file Intimate Partner Violence: Not At Risk (01/21/2024) Received from [facility] Abuse Screen Feels Unsafe at Home or Work/School: no Feels Threatened by Someone: no Does Anyone Try to Keep You From Having Contact with Others or Doing Things Outside Your Home?: no Physical Signs of Abuse Present: no Housing Stability: Not At Risk (01/22/2024) Received from [facility] Housing Stability Current Living Arrangements: home Potentially [...] Final Clarity, Urine 12/21/2024 Clear Final Spec [place], Urine 12/21/2024 1.014 1.005 - 1.030 Final [...] Pylori Pt follows with Paloma Burks, with [facility] GI. She has follow up in the morning. 4. Chronic shoulder pain (right) Pt sees pain clinic through [facility], improved since surgery 01/30. 5. High risk medication use -Thiopurine metabolites -routine labs today -lupus monitoring labs today 6. Palpitations Pt follows with Naveed Howell, through [facility] Per chart review: 7. Paraesthesia 8. Migraine Pt follows with [facility] neurology. Recently placed on Nurtec every other [...] Description 12/22/2025 3:20 PM EDT Office Visit [facility] Medicine Specialties [address] [place] [address] Ryann Hill APRN [address] [place] [address] Scheduled Orders Name Type Priority [...] documented as of this encounter Care Teams Siderographist Relationship Specialty Start Date End Date Mayuri Diego APRN [address] [place] [address] PCP - General 07/22/23 Ivonne Gonzalez MD [address] [facility] [address] [place] [address] Service Attending Neuro-Ophthalmology 02/27/23 documented as of this encounter
--- NOTE | 2025-08-10 14:47 | XR_ITS ---
FINAL REPORT CLINICAL HISTORY: flank pain middle to right side COMPARISON: 09/21/2024 FINDINGS: A single supine view of the abdomen was obtained. The bowel gas pattern is unremarkable. There are no renal stones. Pelvic calcifications are unchanged and likely phleboliths. Osseous structures are within normal limits. IMPRESSION: No radiographic evidence of acute intra-abdominal abnormality. Reviewed, Interpreted and Dictated by Margie Kraft MD Transcribed by Idalmis Wade Authenticated and [facility]
--- OUTSIDE RECORDS SUMMARY | 2025-08-10 14:47 | XMS_ITS | Clinical Summary ---
Author Organization [facility] Address [address] [place] [address] Care Team Providers Care College Recruiter Name Role Phone Mayuri Diego APRN Primary Care Provider [phone] Allergies Active Allergy Reactions Criticality Noted Date [...] 2 (Two) Times a Day. Active Methylcobalamin (F20-XLCPDM PO) Take 1 tablet by mouth Daily. [...] = 0.6 oz pur e alcohol) OCCASIONAL [employer] Utilities Answer Date Recorded In the past 12 months has e brand e[employer] [place], gas, oil, or water [employer] threatened to shut off services in your [...] or training? Not on file Preferred Language New Zealander 01/22/2024 Comments Unknown Sex and Gender Information [...] VACCINE 04/09/2025 Medical Devices Implanted Type Area Systems Software Specialist Device Identifier Shelf Expiration Date Model / Serial / Lot Sut Nonabs Bone Dynacord Uhmwpe W/Os/6 Ndl 2pk Strip/Balbir - [id number] Implanted:Qty: 2 on 01/21/2024 by Sandor Barboza Jr., MD at [facility] Implant Left: Scapula DEPUY MITEK 05/09/2026 [id number] / / [id number] Tndn Semitendinous Flexigraft 1strnd Fz [id number] - [id number] Implanted:Qty: 1 on 01/21/2024 by Sandor Barboza Jr., MD at [facility] Implant Left: Scapula [facility] 10/29/2028 [facility] / / [id number] Insurance [facility] Care Teams College Recruiter Relationship Specialty Start Date End Date Mayuri Diego APRN [address] [place] [address] PCP - General Internal Medicine 12/19/23
--- OUTSIDE RECORDS SUMMARY | 2025-08-10 14:47 | XMS_ITS | Clinical Summary ---
Author Organization [facility] Address [address] [place] [address] Care Team Providers Care Poured Concrete Wall Technician Name Role Phone Ivonne Gonzalez MD Unavailable [phone] Mayuri Diego APRN Primary Care Provider [phone] Allergies Active Allergy Reactions Criticality Noted Date [...] (TRULANCE PO) Take by mouth. A ctive hydroxychloroquine (Plaquenil) 200 MG tablet Take 1 tablet by mouth 2 times a day. 60 tablet 5 01/20/20 25 Active methylPREDNISolone (Medrol Dospak) 4 MG tablets Follow schedule on package instructions 21 tablet 04/20/20 25 Active azelastine (Astelin) 0.1 % nasal sprayIndications:S ystemic lupus erythematosus, unspecified SLE type, unspecified organ involvement status (CMS/HCC),High risk medication use,Paresthesia and pain of both upper extremities 09/21/19 25 Active Symbicort 160-4.5 MCG/ACT inhalerIndications :Systemic lupus erythematosus, unspecified SLE type, unspecified organ involvement status (CMS/HCC),High risk medication use,Paresthesia and pain of both upper extremities Inhale 2 puffs 2 times a day. 04/02/20 25 Active busPIRone (Buspar) 10 MG tabletIndications: Systemic lupus erythematosus, unspecified SLE type, unspecified organ involvement status (CMS/HCC),High risk medication use,Paresthesia and pain of both upper extremities 03/25/20 25 Active doxycycline (Vibramycin) 100 MG capsuleIndications :Systemic lupus erythematosus, unspecified SLE type, unspecified organ involvement status (CMS/HCC),High risk medication use,Paresthesia and pain of both upper extremities TAKE ONE CAPSULE BY MOUTH TWICE DAILY FOR 7 DAYS -- FINISH ALL MEDICINE -- 05/21/20 25 Active estradiol (Estrace) 1 MG tabletIndications: Systemic lupus erythematosus, unspecified SLE type, unspecified organ involvement status (CMS/HCC),High risk medication use,Paresthesia and pain of both upper extremities Take 1 tablet by mouth daily. 06/08/20 25 Active lansoprazole (Prevacid) [address] capsuleIndications :Systemic lupus erythematosus, unspecified SLE type, unspecified organ involvement status (CMS/HCC),High risk medication use,Paresthesia and pain of both upper extremities 09/23/19 25 Active metroNIDAZOLE (Flagyl) 500 MG tabletIndications: Systemic lupus erythematosus, unspecified SLE type, unspecified organ involvement status (CMS/HCC),High risk medication use,Paresthesia and pain of both upper extremities TAKE ONE TABLET BY MOUTH TWICE DAILY FOR 7 DAYS -- FINISH ALL MEDICINE -- --AVOID ANY PRODUCT(S) CONTAINING ALCOHOL WHILE TAKING THIS MEDICATION-- 06/02/20 25 Active Nurtec 75 MG orally disintegrating tabletIndications: Systemic lupus erythematosus, unspecified SLE type, unspecified organ involvement status (CMS/HCC),High risk medication use,Paresthesia and pain of both upper extremities DISSOLVE ONE TABLET BY MOUTH EVERY OTHER DAY FOR migraine 05/05/20 25 Active tiZANidine (Zanaflex) 2 MG tabletIndications: Systemic lupus erythematosus, unspecified SLE type, unspecified organ involvement status (CMS/HCC),High risk medication use,Paresthesia and pain of both upper extremities Take 1 tablet by mouth nightly. 05/26/20 25 Active Ubrelvy 100 MG tabletIndications: Systemic lupus erythematosus, unspecified SLE type, unspecified [...] UNLESS OTHERWISE INSTRUCTED BY YOUR PHYSICIAN Active Active Problems Problem Noted Date Diagnosed Date Chronic migraine without aur a, intractable, without status migrainosus 02/12/2024 Facial neuralgia 02/12/2024 Encounters Date Type Department Care Team Description 06/23/2025 3:20 PM EDT Office Visit [facility] Medicine Specialties [address], [address] [place] [address] Ryann Hill APRN Systemic lupus erythematosus, unspecified SLE type, unspecified organ involvement status (CMS/HCC) (Primary Dx); High risk medication use; Paresthesia and pain of both upper extremities 06/23/2025 Travel from Last 3 Months Immunizations Immunization Administration Dates Next Due Moderna COVID-19 Vaccine (Clothing And Textiles Teacher) 12+ years ,02/22/2021 Family History Medical History [...] Visit [facility] [address] [place] [address] Ryann Hill, BLADE WORKER [address] [place] [address] Health Maintenance Due Date Last [...] 2016 [facility]-Cervical Cancer Screening 2019 [facility]-HPV/Cotest 2019 [facility]-QOFIN-88 Vaccine (3 - Moderna risk series) 04/25/2021 [...] age to complete this topic Insurance A[employer] MEDICAID Care Teams Poured Concrete Wall Technician Relationship Specialty Start Date End Date Mayuri Diego APRN [address] [place] [address] PCP - General 07/22/23 Ivonne Gonzalez MD [address] [facility] [address] [place] [address] Service Attending Neuro-Ophthalmology 02/27/23
--- OUTSIDE RECORDS SUMMARY | 2025-08-10 14:47 | XMS_ITS | Encounter Summary ---
Author Organization [facility] Address [address] [place] [address] Care Team Providers Care Night Baker Name Role Phone Kulwinder Smiley MD Primary Care Provider [phone] Ivonne Gonzalez MD Unavailable [phone] Mayuri Diego APRN Primary Care Provider [phone] Reason for Referral * Consultation (Routine) - Closed Specialty Diagnoses / Procedures Referred By Contharshil t Referred To Contact Rheumatology Diagnoses Positive AUDREY (antinuclear antibody) Vitiligo Feeling tired Law Naylor APRN [address] [place] [address] Phone: tel: fax: Referral ID Status Reason Start Date Expiration Date V isits Requested Visits Authorized [id number] Closed Specialty Services Required 03/27/2022 09/26/2023 1 1 Encounter Details Date Type Department Care Team (Late st Contact Info) Description 03/27/2022 Community [facility] [address] [place] [address] Law Naylor APRN [address] [place] [address] Positive AUDREY (antinuclear antibody) (Primary [...] Description 12/22/2025 3:20 PM EDT Office Visit [place] [facility] [address] [place] [address] Ryann Hill, INDUSTRIAL TECH INSTRUCTOR [address] [place] [address] Scheduled Referrals Name Type Priority Associated Diagnoses Order Schedule Ambulatory referral to Rheumatology Outpatient Referral Routine Positive AUDREY (antinuclear antibody) Vitiligo Feeling tired Expected: 03/27/2022 (Approximate), Expires: 09/27/2023 documented as of this encounter Visit Diagnoses Diagnosis Positive AUDREY (antinuclear antibody)- Primary Other and unspecified nonspecific immunological findings Vitiligo Feeling tired documented in this encounter Care Teams Night Baker Relationship Specialty Start Date End Date Kulwinder Smiley MD [address] [place] [address] PCP - General 01/20/21 07/21/23 Mayuri Diego, INDUSTRIAL TECH INSTRUCTOR [address] [place] [address] PCP - General 07/22/23 Ivonne Gonzalez MD [address] [facility] [address] [place] [address] Service Attending Neuro-Ophthalmology 02/27/23 documented as of this encounter
--- OUTSIDE RECORDS SUMMARY | 2025-08-10 14:47 | XMS_ITS | Encounter Summary ---
Author Organization [facility] Address [address] [place] [address] Care Team Providers Care Surety Bond Agent Name Role Phone Kulwinder Smiley MD Primary Care Provider [phone] Ivonne Gonzalez MD Unavailable [phone] Mayuri Diego APRN Primary Care Provider [phone] Reason for Referral * Consultation (Routine) - Closed Specialty Diagnoses / Procedures Referred By Contharshil greenwood Referred To Contact Neurology Diagnoses Facial neuralgia Chronic migraine without aura, intractable, without status migrainosus [place] [address] Phone: tel: fax: Referral ID Status Reason Start Date Expiration Date V isits Requested Visits Authorized [id number] Closed Specialty Services Required 08/14/2022 02/13/2024 1 1 Encounter Details Date Type Department Care Team (Late st Contact Info) Description 08/14/2022 Community [facility] Community [facility] [address] [place] [address] Law Naylor APRN [address] [place] [address] Facial neuralgia (Primary Dx); Chronic [...] Visit [place] [facility] [address] [place] [address] Ryann Hill APRN [address] [place] [address] Scheduled Referrals Name Type Priority [...] documented as of this encounter Care Teams Surety Bond Agent Relationship Specialty Start Date End Date Kulwinder Smiley MD [address] [place] [address] PCP - General 01/20/21 07/21/23 Mayuri Diego APRN [address] [place] [address] PCP - General 07/22/23 Ivonne Gonzalez MD [address] [place] [address] Service Attending Neuro-Ophthalmology 02/27/23 documented as of this encounter
--- OUTSIDE RECORDS SUMMARY | 2025-08-10 14:47 | XMS_ITS | Encounter Summary ---
Author Organization [facility] Address [address] [place] [address] Care Team Providers Care Crystalizer Name Role Phone Ivonne Gonzalez MD Unavailable [phone] Mayuri Diego APRN Primary Care Provider [phone] Reason for Visit * Reason Comments Med Refill Encounter Details Date Type Department Care Team (Late st Contact Info) Description 12/17/2024 Refill [place] [facility] [address] [place] [address] Ivonne Gonzalez MD [address] [place] [address] Social History Tobacco Use Types [...] Description 12/22/2025 3:20 PM EDT Office Visit [place] [facility] [address] [place] [address] Ryann Hill APRN [address] [facility] [address] [place] [address] documented as of this encounter Visit Diagnoses Not on filedocumented in this encounter Additional Health Concerns Assessment Noted Time A fall risk assessment has been complete d for the patient 06/22/2024 11:27 AM EDT A Body Mass Index follow-up plan has been documented for the patient 06/22/2024 12:22 PM EDT documented as of this encounter Care Teams Crystalizer Relationship Specialty Start Date End Date Mayuri Diego APRN [address] [place] [address] PCP - General 07/22/23 Ivonne Gonzalez MD [address] [facility] [address] [place] [address] Service Attending Neuro-Ophthalmology 02/27/23 documented as of this encounter
--- OUTSIDE RECORDS SUMMARY | 2025-08-10 14:47 | XMS_ITS | Encounter Summary ---
Author Organization [facility] Address [address] [place] [address] Care Team Providers Care Pharmacy Clerk Name Role Phone Ivonne Gonzalez MD Unavailable [phone] Mayuri Diego APRN Primary Care Provider [phone] Encounter Details Date Type Department Care Team [...] Description 12/22/2025 3:20 PM EDT Office Visit [place] [facility] [address] [place] [address] Ryann Hill, NEYDA [address] [place] [address] documented as of this encounter [...] documented as of this encounter Care Teams Pharmacy Clerk Relationship Specialty Start Date End Date Mayuri Diego, AUTOCAD OPERATOR [address] [place] [address] PCP - General 07/22/23 Ivonne Gonzalez MD [address] [place] [address] Service Attending Neuro-Ophthalmology 02/27/23 documented as of this encounter
[2025-08-10 16:34] LABS: Coronavirus 19, PCR Not Detected (NotDetected); Influenza A, PCR Not Detected (NotDetected); Influenza B, PCR Not Detected (NotDetected); Microscopic, Urine URINE MICROSCOPIC (MICROSCOPIC)
[2025-08-10 18:23] LABS: Bilirubin,Urine Negative (Negative); Color,Urine YELLOW (Yellow); Glucose,Urine (UA) Negative (Negative); Ketones,Urine Negative (Negative); Leukocyte Esterase,Urine 1+ (Negative); PH,Urine 6.0 (5.0-8.5); Protein,Urine Negative (Negative); Specific Gravity, Urine 1.025 (1.005-1.030); Urobilinogen,Urine 0.2 EU/dl (0.2)
== END 2025-08-10 23:59 | disposition home or self-care (01) ==
LOC: RAD 14:45
PROVIDERS: PCP Nurse Practitioner Family; Visit Provider Nurse Practitioner Family
DX: R10.A0 Flank pain, unspecified side (principal); R05.9 Cough, unspecified
CPT/HCPCS: 74018; 81001; 87086; 87631